=== PATIENT | male | born 1940 | race Caucasian/White ===

== ENCOUNTER 2016-09-25 20:27 | Emergency (ER) | payer MEDICARE ==
[~2016-09-25 20:27] MED LIST: /ADVA50050 IN; /GLIP10TAB OR; /LINE60TA PO; /MOXI40TA OR; /PANT40TA OR; /TIOT18INH INH; ADV500INH INH; ALBU17IN INH; ALBU83IN INH; ALLO100T OR; ALLO10TA PO; ASPI81TA3 OR; ATOR1TAB21 PO; AZEL0.1S3; CALC0.5C OR; CALC12502 PO; CALC1CAP31 PO; CALCCHW12 OR; CAPT12.5 OR; COLA50CA3 PO; DEMA100T OR; DRIS50002 PO; ECOT81TA5 PO; FERR325T OR; FLAG500T OR; FLUO10CA9 PO; FLUO20CA9 PO; GLIP10TA13 PO; GLIP10TA6 PO; INSUDET SC; ISOS30TA4 OR; ISOS30TA4 PO; KLOR20TA PO; NITR0.4S14 SL; NITR4TASL SL; NITROSTAT; OMEP40CA2 PO; POTA10CA2 OR; PROZ20CA11 PO; SIMV40TA2 OR; SPIR1CAP INH; SPIR25TA2 PO; THEO OR; THEO200T4 PO; TIOT18INH INH; TORS100T PO; TUMS500C PO; VENTAER IN; VITA50003 PO; VITA500C24 PO; VITA500T OR; ZOCO40TA PO; [UNRECOGNIZED DRUG - CODE] PO; [UNRECOGNIZED DRUG - OTHER] OR; levemir SQ; pradaxa
[2016-09-25] MEDS ORDERED: dexameTHASONE 4 MG/ML 1ML VIAL (J1100) As Ordered ONE (21:14)
[2016-09-25] MEDS ORDERED: LEVALBUTEROL 1.25 MG/0.5 ML CONCENTRATE NEB As Ordered ONE ×2 (21:22→22:01)
[2016-09-25] MEDS ORDERED: IPRATROPIUM 0.5MG/ALBUTEROL 2.5MG INH SOL UD 3ML (DUONEB)(J7620) As Ordered ONE (23:33)
[2016-09-26] MEDS ORDERED: IPRATROPIUM 0.5MG/ALBUTEROL 2.5MG INH SOL UD 3ML (DUONEB)(J7620) As Ordered ONE ×2 (00:05→00:25)
--- NOTE | 2016-09-26 00:59 | EDDOCDS ---
Physician Documentation [facility] Name: Jack Tao Age: 75 yrs Sex: Male : 1940 Arrival Date: 09/25/2016 Time: 20:27 Bed 9 Private MD: Renato Mckeon P. Disposition: 09/25/16 23:33 Discharged to Home/Self Care. Impression: Chronic obstructive pulmonary disease with (acute) exacerbation. - Condition is Stable. - Prescriptions for Prednisone 20 mg Oral Tablet - take 3 tablets by ORAL route once daily for 4 days; 12 tablet. - Medication Reconciliation, Local Pharmacy Hours form. - Follow up: Renato Mckeon; When: Call to arrange an appointment; Reason: Recheck today's complaints. - Problem is chronic. - Symptoms have improved. Historical: - Allergies: Coumadin (panic attack); - Home Meds: 1. Advair Diskus 500-50 mcg/dose Inhl dsdv 1 puff 2 times per day 2. albuterol sulfate 2.5 mg/0.5 mL Inhl nebu 0.5 mL 3 times per day 3. simvastatin 40 mg Oral tab 1 tab once daily 4. torsemide 100 mg oral tab 1 tab once daily 5. theophylline 200 mg Oral Tb12 daily 6. allopurinol 100 mg Oral tab 2 tabs once daily 7. isosorbide mononitrate 30 mg Oral Tb24 1 tab twice a day 8. omeprazole 40 mg Oral cpDR 1 cap once daily 9. calcitriol 0.5 mcg oral cap 2 caps once daily 10. glipizide 10 mg Oral tab 2 tabs once daily 11. fluoxetine 20 mg Oral cap 1 cap once daily 12. ferrous sulfate 325 mg (65 mg iron) Oral tab daily 13. aspirin 81 mg oral TbEC 1 tab once daily 14. Spiriva with HandiHaler 18 mcg Inhl CpDv 1 cap once daily 15. Levemir 100 unit/mL subcutaneous soln 12 unit 16. Vitamin D Oral 50,000 unit weekly - PMHx: CAD; Chronic kidney disease; Diabetes - IDDM: controlled; High Cholesterol; Hypertension; - PSHx: Cholecystectomy; Stents, Coronary; Pacemaker Insertion; Appendectomy; - Social history: Smoking status: Patient states former smoker of tobacco. No barriers to communication noted, The patient speaks fluent Burundian. - Family history: No immediate family members are acutely ill. - : The pt / caregiver states he / she is not on anticoagulants. Home medication list is obtained from the patient. - Exposure Risk Screening:: None identified. Vital Signs: 09/25 20:29 BP 139 / 52; Pulse 102; Resp 24 S; Temp 99.0(O); Pulse Ox 93% on R/A; Weight 61.23 kg / dd6 134.99 lbs (R); Height 5 ft. 9 in. (175.26 cm) (R); 09/26 00:56 BP 140 / 63; Pulse 98; Resp 20; Temp 98.5(TE); Pulse Ox 90% on R/A; Pain 0/10; nn1 09/25 20:29 Body Mass Index 19.94 (61.23 kg, 175.26 cm) dd6 MDM: 09/25 20:42 Chest, 2 View (pa\E\lat) Ordered. EDMS 21:12 IV Saline Lock ordered. cs11 21:12 Dexamethasone 12 mg IV at bolus once ordered. cs11 21:12 Levalbuterol 1.25 mg Nebulizer every 15 minutes x3 ordered. cs11 21:12 Call Respiratory ordered. cs11 21:14 Call Respiratory complete. cmb 22:44 Albuterol-Ipratropium 1 neb Nebulizer every 20 minutes x3 ordered. cs11 23:43 Financial registration complete. [facility] 09/26 00:08 [facility] Payment Agreement was scanned into [employer] and attached to record. [facility] Administered Medications: 09/25 21:25 Drug: Dexamethasone 12 mg [dexamethasone 4 mg/mL injection solution] Route: IV; Rate: nn1 bolus; Site: left antecubital; 21:25 Drug: Levalbuterol 1.25 mg [levalbuterol 1.25 mg/0.5 mL solution for nebulization (0.5 jh6 mL)] Route: Nebulizer; 21:40 Drug: Levalbuterol 1.25 mg [levalbuterol 1.25 mg/0.5 mL solution for nebulization (0.5 jh6 mL)] Route: Nebulizer; 22:03 Drug: Levalbuterol 1.25 mg [levalbuterol 1.25 mg/0.5 mL solution for nebulization (0.5 jh6 mL)] Route: Nebulizer; 22:35 Drug: Albuterol-Ipratropium 1 neb [ipratropium-albuterol 0.5 mg-3 mg(2.5 mg base)/3 mL jh6 nebulization soln (1 neb)] Route: Nebulizer; 23:55 Drug: Albuterol-Ipratropium 1 neb [ipratropium-albuterol 0.5 mg-3 mg(2.5 mg base)/3 mL jh6 nebulization soln (1 neb)] Route: Nebulizer; 09/26 00:26 Drug: Albuterol-Ipratropium 1 neb [ipratropium-albuterol 0.5 mg-3 mg(2.5 mg base)/3 mL jh6 nebulization soln (1 neb)] Route: Nebulizer; Signatures: Dispatcher [employer] Ramonita Ashraf RN RN rs3 Eduarda Knutson Craig, DO DO 11 Juanita Keating [facility] Emely Og RN RN nn1 Leroy Sims 6 The chart was reviewed and I authenticate all verbal orders and agree with the evaluation and treatment provided.Attachments: 00:08 [facility] Payment Agreement [facility] MTDD
--- NOTE | 2016-09-26 00:59 | EDDOCDS ---
Nurse's Notes [facility] Name: Jack Tao Age: 75 yrs Sex: Male : 1940 Arrival Date: 09/25/2016 Time: 20:27 Bed 9 Private MD: Renato Mckeon P. Diagnosis: Chronic obstructive pulmonary disease with (acute) exacerbation Presentation: 09/25 20:31 Presenting complaint: Patient states: cough/difficulty breathing started 2 days ago. rs3 worse today. H/o COPD. Adult Sepsis Screening: The patient does not have new or worsening altered mentation. Patient has a respiratory rate of greater than or equal to 22 (1 point). Systolic blood pressure is greater than 100. Patient has a qSOFA score of 1- Negative Sepsis Screen. Suicide/Homicide risk assessment- the patient denies having any suicidal and/or homicidal ideations and does not present with any other emotional, behavioral or mental health complaints. Status: Patient is not a service specialist or dependent. Transition of care: patient was not received from another setting of care. 20:31 Acuity: ADAM Level 2 rs3 20:31 Method Of Arrival: Walkin/Carried/Asstd rs3 Triage Assessment: 20:39 General: Appears in no apparent distress. Pain: Denies pain. Respiratory: Onset: The rs3 symptoms/episode began/occurred gradually. Historical: - Allergies: Coumadin (panic attack); - Home Meds: 1. Advair Diskus 500-50 mcg/dose Inhl dsdv 1 puff 2 times per day 2. albuterol sulfate 2.5 mg/0.5 mL Inhl nebu 0.5 mL 3 times per day 3. simvastatin 40 mg Oral tab 1 tab once daily 4. torsemide 100 mg oral tab 1 tab once daily 5. theophylline 200 mg Oral Tb12 daily 6. allopurinol 100 mg Oral tab 2 tabs once daily 7. isosorbide mononitrate 30 mg Oral Tb24 1 tab twice a day 8. omeprazole 40 mg Oral cpDR 1 cap once daily 9. calcitriol 0.5 mcg oral cap 2 caps once daily 10. glipizide 10 mg Oral tab 2 tabs once daily 11. fluoxetine 20 mg Oral cap 1 cap once daily 12. ferrous sulfate 325 mg (65 mg iron) Oral tab daily 13. aspirin 81 mg oral TbEC 1 tab once daily 14. Spiriva with HandiHaler 18 mcg Inhl CpDv 1 cap once daily 15. Levemir 100 unit/mL subcutaneous soln 12 unit 16. Vitamin D Oral 50,000 unit weekly - PMHx: CAD; Chronic kidney disease; Diabetes - IDDM: controlled; High Cholesterol; Hypertension; - PSHx: Cholecystectomy; Stents, Coronary; Pacemaker Insertion; Appendectomy; - Social history: Smoking status: Patient states former smoker of tobacco. No barriers to communication noted, The patient speaks fluent Faroese. - Family history: No immediate family members are acutely ill. - : The pt / caregiver states he / she is not on anticoagulants. Home medication list is obtained from the patient. - Exposure Risk Screening:: None identified. Screenin/10 00:57 Screening information is obtained from the patient. Fall risk: No risks identified. nn1 Assistance ADL's: requires no assistance with activities of daily living. Abuse/DV Screen: The patient / caregiver reports he/she is: not in a situation that causes fear, pain or injury. Nutritional screening: No deficits noted. Advance Directives: Currently, there is no health care proxy. There is no active DNR order. home support is adequate. Assessment: 09/25 20:52 General: Appears in no apparent distress, comfortable. Pain: Denies pain. Neurological: nn1 Level of Consciousness is awake, alert, obeys commands, Oriented to person, place, time. Cardiovascular: Capillary refill < 3 seconds. Cardiovascular: Chest pain is denied. Respiratory: Airway is patent Respiratory effort is even, unlabored, Respiratory pattern is regular, Sputum is reports sputum is frothy and white Breath sounds with wheezes inspiratory expiratory bilaterally. Derm: Skin is pink, warm & dry. 21:24 General: Patient receiving breathing treatment at this time. Patient 91% on room air. nn1 Patient medicated per orders. . 22:29 Reassessment: Patient states feeling better. Patient states symptoms have improved. nn1 22:41 General: Provider speaking with patient at this time, patient aware of plan of care. . nn1 Respiratory: Airway is patent Respiratory effort is even, unlabored, Respiratory pattern is regular, Breath sounds with wheezes bilaterally. 23:37 General: Appears in no apparent distress, comfortable. Respiratory: Airway is patent nn1 Respiratory effort is even, unlabored, Respiratory pattern is regular. Derm: Skin is pink, warm & dry. 09/26 00:55 General: Appears in no apparent distress, comfortable, Behavior is appropriate for age, nn1 cooperative. Pain: Denies pain. Neurological: Level of Consciousness is awake, alert. Respiratory: Airway is patent Respiratory effort is even, unlabored, Respiratory pattern is regular, Breath sounds with wheezes expiratory bilaterally. Derm: Skin is normal. Vital Signs: 09/25 20:29 BP 139 / 52; Pulse 102; Resp 24 S; Temp 99.0(O); Pulse Ox 93% on R/A; Weight 61.23 kg dd6 (R); Height 5 ft. 9 in. (175.26 cm) (R); 09/26 00:56 BP 140 / 63; Pulse 98; Resp 20; Temp 98.5(TE); Pulse Ox 90% on R/A; Pain 0/10; nn1 09/25 20:29 Body Mass Index 19.94 (61.23 kg, 175.26 cm) dd6 Vitals: 09/25 20:29 Log In Time: September 25, 2016 at 20:27. RN notified that patient meets Red Flag dd6 criteria. ED Course: 20:28 Patient visited by Heladio Grier PCA. dd6 20:28 Patient moved to Waiting dd6 20:29 Renato Mckeon is Private Physician. dd6 20:30 Patient moved to Pre RCE dd6 20:33 Triage Initiated rs3 20:40 Lamberto Kamara DO is Attending Physician. cs11 20:40 Patient visited by Lamberto Kamara DO. cs11 20:40 Patient moved to 9 rs3 21:25 Patient visited by Emely Og RN. nn1 21:25 Inserted saline lock: 20 gauge in left antecubital area. nn1 22:29 Patient visited by Emely Og RN. nn1 23:07 Patient visited by Emely Og RN. nn1 23:33 Renato Mckeon is Referral Physician. cs11 09/26 00:08 [facility] Payment Agreement was scanned into [employer] and attached to record. [facility] 00:57 The patient / caregiver is instructed regarding the plan of care and ED course. nn1 00:57 No procedures done that require assistance. nn1 Administered Medications: 09/25 21:25 Drug: Dexamethasone 12 mg [dexamethasone 4 mg/mL injection solution] Route: IV; Rate: nn1 bolus; Site: left antecubital; 21:25 Drug: Levalbuterol 1.25 mg [levalbuterol 1.25 mg/0.5 mL solution for nebulization (0.5 jh6 mL)] Route: Nebulizer; 21:40 Drug: Levalbuterol 1.25 mg [levalbuterol 1.25 mg/0.5 mL solution for nebulization (0.5 jh6 mL)] Route: Nebulizer; 22:03 Drug: Levalbuterol 1.25 mg [levalbuterol 1.25 mg/0.5 mL solution for nebulization (0.5 jh6 mL)] Route: Nebulizer; 22:35 Drug: Albuterol-Ipratropium 1 neb [ipratropium-albuterol 0.5 mg-3 mg(2.5 mg base)/3 mL jh6 nebulization soln (1 neb)] Route: Nebulizer; 23:55 Drug: Albuterol-Ipratropium 1 neb [ipratropium-albuterol 0.5 mg-3 mg(2.5 mg base)/3 mL jh6 nebulization soln (1 neb)] Route: Nebulizer; 09/26 00:26 Drug: Albuterol-Ipratropium 1 neb [ipratropium-albuterol 0.5 mg-3 mg(2.5 mg base)/3 mL jh6 nebulization soln (1 neb)] Route: Nebulizer; Output: 00:57 Urine: 250.00ml (Voided); Total: 250.00ml. nn1 RT: 09/25 21:25 Initial Med Neb Given as ordered Patient was instructed and evaluated on procedure jh6 Patient tolerated procedure well without adverse effect. Respiratory: Airway is patent Respiratory effort is even, unlabored, Respiratory pattern is regular symmetrical, Breath sounds are diminished in left posterior upper lobe, right posterior upper lobe, left posterior lower lobe, right posterior middle lobe and right posterior lower lobe. 21:33 Respiratory: Airway is patent Respiratory effort is even, unlabored, Respiratory jh6 pattern is regular symmetrical, Breath sounds are clear in right posterior middle lobe Breath sounds are diminished in left posterior upper lobe, right posterior upper lobe, left posterior lower lobe, right posterior middle lobe and right posterior lower lobe Breath sounds with wheezes in left posterior lower lobe at expiration. 21:51 Subsequent Med Neb Given as ordered Patient was reinforced on procedure Patient jh6 tolerated procedure well without adverse effect. Respiratory: Airway is patent Respiratory effort is even, unlabored, Respiratory pattern is regular symmetrical, Breath sounds are clear in left posterior upper lobe, right posterior upper lobe and right posterior middle lobe Breath sounds are diminished in left posterior lower lobe and right posterior lower lobe. 22:05 Subsequent Med Neb Given as ordered Patient was reinforced on procedure Patient jh6 tolerated procedure well without adverse effect. Subsequent Med Neb Given as ordered Patient was reinforced on procedure Patient tolerated procedure well without adverse effect. Respiratory: Airway is patent Respiratory effort is even, unlabored, Respiratory pattern is regular symmetrical, Breath sounds with crackles in left posterior lower lobe and right posterior lower lobe Breath sounds are diminished in left posterior upper lobe, right posterior upper lobe, left posterior lower lobe, right posterior middle lobe and right posterior lower lobe. 23:39 Subsequent Med Neb Given as ordered Patient was reinforced on procedure Patient jh6 tolerated procedure well without adverse effect. Respiratory: Breath sounds are diminished in left posterior upper lobe, right posterior upper lobe, left posterior lower lobe, right posterior middle lobe and right posterior lower lobe. 23:55 Subsequent Med Neb Given as ordered Patient tolerated procedure well without adverse jh6 effect. Respiratory: Airway is patent Respiratory effort is even, unlabored, Respiratory pattern is regular symmetrical, Breath sounds with crackles in left posterior lower lobe, right posterior middle lobe and right posterior lower lobe Breath sounds are diminished in left posterior upper lobe, right posterior upper lobe, left posterior lower lobe, right posterior middle lobe and right posterior lower lobe. 09/26 00:26 Subsequent Med Neb Given as ordered Patient was reinforced on procedure Patient jh6 tolerated procedure well without adverse effect. Respiratory: Airway is patent Respiratory effort is even, unlabored, Respiratory pattern is regular symmetrical, Breath sounds are clear in left posterior upper lobe and right posterior upper lobe Breath sounds with crackles in left posterior lower lobe and right posterior middle lobe Breath sounds are diminished in right posterior lower lobe. 00:38 Respiratory: Airway is patent Respiratory effort is even, unlabored, Respiratory jh6 pattern is regular symmetrical, Breath sounds with crackles in left posterior lower lobe, right posterior middle lobe and right posterior lower lobe Breath sounds are diminished in left posterior lower lobe, right posterior middle lobe and right posterior lower lobe. Order Results: There are currently no results for this order. Outcome: 09/25 23:33 Discharge ordered by Provider. cs11 09/26 00:57 Discharge Assessment: Patient awake, alert and oriented x 3. No cognitive and/or nn1 functional deficits noted. Patient verbalized understanding of disposition instructions. patient administered narcotics - no. The following High Risk Discharge criteria are identified: None. Discharged to home ambulatory, with family. Condition: stable Condition: improved. Prescriptions given X 1. No special radiology studies were completed. Property :Personal belongings accompany Pt. 00:58 Patient left the ED. nn1 Signatures: Heladio Grier, CHIEF PETROLEUM ENGINEER CHIEF PETROLEUM ENGINEER dd6 Ramonita Hartman,RN RN rs3 Leroy Sims 6 Lamberto Kamara DO DO cs11 Juanita Keating Nikkole,RN RN nn1 MTDShelbi
--- NOTE | 2016-09-26 07:52 | REP ---
Clinical: Shortness of breath. Technique: PA and lateral. Comparison: 07/07/2016. Findings: Mediastinum and cardiac silhouette are stable. Pacemaker unchanged in position. Lung wallace demonstrate COPD and emphysematous changes without acute consolidation, effusion, or pneumothorax. Skeletal structures grossly intact. Impression: Chronic stable changes including COPD and emphysematous disease. No obvious acute cardiopulmonary process. Signed by Edward Weeks MD 09/26/2016 07:44 A
--- NOTE | 2016-09-28 01:59 | EDDOCDS ---
Physician Documentation [facility] Name: Jack Tao Age: 75 yrs Sex: Male : 1940 Arrival Date: 09/25/2016 Time: 20:27 Bed 9 Private MD: Renato Mckeon P. Disposition: 09/25/16 23:33 Discharged to Home/Self Care. Impression: Chronic obstructive pulmonary disease with (acute) exacerbation. - Condition is Stable. - Prescriptions for Prednisone 20 mg Oral Tablet - take 3 tablets by ORAL route once daily for 4 days; 12 tablet. - Medication Reconciliation, Local Pharmacy Hours form. - Follow up: Renato Mckeon; When: Call to arrange an appointment; Reason: Recheck today's complaints. - Problem is chronic. - Symptoms have improved. Historical: - Allergies: Coumadin (panic attack); - Home Meds: 1. Advair Diskus 500-50 mcg/dose Inhl dsdv 1 puff 2 times per day 2. albuterol sulfate 2.5 mg/0.5 mL Inhl nebu 0.5 mL 3 times per day 3. simvastatin 40 mg Oral tab 1 tab once daily 4. torsemide 100 mg oral tab 1 tab once daily 5. theophylline 200 mg Oral Tb12 daily 6. allopurinol 100 mg Oral tab 2 tabs once daily 7. isosorbide mononitrate 30 mg Oral Tb24 1 tab twice a day 8. omeprazole 40 mg Oral cpDR 1 cap once daily 9. calcitriol 0.5 mcg oral cap 2 caps once daily 10. glipizide 10 mg Oral tab 2 tabs once daily 11. fluoxetine 20 mg Oral cap 1 cap once daily 12. ferrous sulfate 325 mg (65 mg iron) Oral tab daily 13. aspirin 81 mg oral TbEC 1 tab once daily 14. Spiriva with HandiHaler 18 mcg Inhl CpDv 1 cap once daily 15. Levemir 100 unit/mL subcutaneous soln 12 unit 16. Vitamin D Oral 50,000 unit weekly - PMHx: CAD; Chronic kidney disease; Diabetes - IDDM: controlled; High Cholesterol; Hypertension; - PSHx: Cholecystectomy; Stents, Coronary; Pacemaker Insertion; Appendectomy; - Social history: Smoking status: Patient states former smoker of tobacco. No barriers to communication noted, The patient speaks fluent Kiswahili. - Family history: No immediate family members are acutely ill. - : The pt / caregiver states he / she is not on anticoagulants. Home medication list is obtained from the patient. - Exposure Risk Screening:: None identified. Vital Signs: 09/25 20:29 BP 139 / 52; Pulse 102; Resp 24 S; Temp 99.0(O); Pulse Ox 93% on R/A; Weight 61.23 kg / dd6 134.99 lbs (R); Height 5 ft. 9 in. (175.26 cm) (R); 09/26 00:56 BP 140 / 63; Pulse 98; Resp 20; Temp 98.5(TE); Pulse Ox 90% on R/A; Pain 0/10; nn1 09/25 20:29 Body Mass Index 19.94 (61.23 kg, 175.26 cm) dd6 MDM: 09/25 20:42 Chest, 2 View (pa\E\lat) Ordered. EDMS 21:12 IV Saline Lock ordered. cs11 21:12 Dexamethasone 12 mg IV at bolus once ordered. cs11 21:12 Levalbuterol 1.25 mg Nebulizer every 15 minutes x3 ordered. cs11 21:12 Call Respiratory ordered. cs11 21:14 Call Respiratory complete. cmb 22:44 Albuterol-Ipratropium 1 neb Nebulizer every 20 minutes x3 ordered. 11 23:43 Financial registration complete. [facility] 09/26 00:08 [facility] Payment Agreement was scanned into [employer] and attached to record. [facility] 03:35 T-Sheet-- Draft Copy was scanned into Delivered and attached to record. hs2 Administered Medications: 09/25 21:25 Drug: Dexamethasone 12 mg [dexamethasone 4 mg/mL injection solution] Route: IV; Rate: nn1 bolus; Site: left antecubital; 21:25 Drug: Levalbuterol 1.25 mg [levalbuterol 1.25 mg/0.5 mL solution for nebulization (0.5 jh6 mL)] Route: Nebulizer; 21:40 Drug: Levalbuterol 1.25 mg [levalbuterol 1.25 mg/0.5 mL solution for nebulization (0.5 jh6 mL)] Route: Nebulizer; 22:03 Drug: Levalbuterol 1.25 mg [levalbuterol 1.25 mg/0.5 mL solution for nebulization (0.5 jh6 mL)] Route: Nebulizer; 22:35 Drug: Albuterol-Ipratropium 1 neb [ipratropium-albuterol 0.5 mg-3 mg(2.5 mg base)/3 mL jh6 nebulization soln (1 neb)] Route: Nebulizer; 23:55 Drug: Albuterol-Ipratropium 1 neb [ipratropium-albuterol 0.5 mg-3 mg(2.5 mg base)/3 mL jh6 nebulization soln (1 neb)] Route: Nebulizer; 09/26 00:26 Drug: Albuterol-Ipratropium 1 neb [ipratropium-albuterol 0.5 mg-3 mg(2.5 mg base)/3 mL jh6 nebulization soln (1 neb)] Route: Nebulizer; Signatures: Dispatcher [employer] Ramonita Ashraf RN RN rs3 Eduarda Knutson Craig, DO DO cs11 Juanita Keating [facility] Emely Og RN RN nn1 Tiffanie Martel, Reg Reg hs2 Leroy Sims 6 The chart was reviewed and I authenticate all verbal orders and agree with the evaluation and treatment provided.Attachments: 00:08 [facility] Payment Agreement [facility] 03:35 T-Sheet-- Draft Copy hs2 Chart Complete MTDD
--- NOTE | 2016-09-28 01:59 | EDDOCDS ---
Nurse's Notes [facility] Name: Jack Tao Age: 75 yrs Sex: Male : 1940 Arrival Date: 09/25/2016 Time: 20:27 Bed 9 Private MD: Renato Mckeon P. Diagnosis: Chronic obstructive pulmonary disease with (acute) exacerbation Presentation: 09/25 20:31 Presenting complaint: Patient states: cough/difficulty breathing started 2 days ago. rs3 worse today. H/o COPD. Adult Sepsis Screening: The patient does not have new or worsening altered mentation. Patient has a respiratory rate of greater than or equal to 22 (1 point). Systolic blood pressure is greater than 100. Patient has a qSOFA score of 1- Negative Sepsis Screen. Suicide/Homicide risk assessment- the patient denies having any suicidal and/or homicidal ideations and does not present with any other emotional, behavioral or mental health complaints. Status: Patient is not a student services rep or dependent. Transition of care: patient was not received from another setting of care. 20:31 Acuity: ADAM Level 2 rs3 20:31 Method Of Arrival: Walkin/Carried/Asstd rs3 Triage Assessment: 20:39 General: Appears in no apparent distress. Pain: Denies pain. Respiratory: Onset: The rs3 symptoms/episode began/occurred gradually. Historical: - Allergies: Coumadin (panic attack); - Home Meds: 1. Advair Diskus 500-50 mcg/dose Inhl dsdv 1 puff 2 times per day 2. albuterol sulfate 2.5 mg/0.5 mL Inhl nebu 0.5 mL 3 times per day 3. simvastatin 40 mg Oral tab 1 tab once daily 4. torsemide 100 mg oral tab 1 tab once daily 5. theophylline 200 mg Oral Tb12 daily 6. allopurinol 100 mg Oral tab 2 tabs once daily 7. isosorbide mononitrate 30 mg Oral Tb24 1 tab twice a day 8. omeprazole 40 mg Oral cpDR 1 cap once daily 9. calcitriol 0.5 mcg oral cap 2 caps once daily 10. glipizide 10 mg Oral tab 2 tabs once daily 11. fluoxetine 20 mg Oral cap 1 cap once daily 12. ferrous sulfate 325 mg (65 mg iron) Oral tab daily 13. aspirin 81 mg oral TbEC 1 tab once daily 14. Spiriva with HandiHaler 18 mcg Inhl CpDv 1 cap once daily 15. Levemir 100 unit/mL subcutaneous soln 12 unit 16. Vitamin D Oral 50,000 unit weekly - PMHx: CAD; Chronic kidney disease; Diabetes - IDDM: controlled; High Cholesterol; Hypertension; - PSHx: Cholecystectomy; Stents, Coronary; Pacemaker Insertion; Appendectomy; - Social history: Smoking status: Patient states former smoker of tobacco. No barriers to communication noted, The patient speaks fluent Croatian. - Family history: No immediate family members are acutely ill. - : The pt / caregiver states he / she is not on anticoagulants. Home medication list is obtained from the patient. - Exposure Risk Screening:: None identified. Screenin/10 00:57 Screening information is obtained from the patient. Fall risk: No risks identified. nn1 Assistance ADL's: requires no assistance with activities of daily living. Abuse/DV Screen: The patient / caregiver reports he/she is: not in a situation that causes fear, pain or injury. Nutritional screening: No deficits noted. Advance Directives: Currently, there is no health care proxy. There is no active DNR order. home support is adequate. Assessment: 09/25 20:52 General: Appears in no apparent distress, comfortable. Pain: Denies pain. Neurological: nn1 Level of Consciousness is awake, alert, obeys commands, Oriented to person, place, time. Cardiovascular: Capillary refill < 3 seconds. Cardiovascular: Chest pain is denied. Respiratory: Airway is patent Respiratory effort is even, unlabored, Respiratory pattern is regular, Sputum is reports sputum is frothy and white Breath sounds with wheezes inspiratory expiratory bilaterally. Derm: Skin is pink, warm & dry. 21:24 General: Patient receiving breathing treatment at this time. Patient 91% on room air. nn1 Patient medicated per orders. . 22:29 Reassessment: Patient states feeling better. Patient states symptoms have improved. nn1 22:41 General: Provider speaking with patient at this time, patient aware of plan of care. . nn1 Respiratory: Airway is patent Respiratory effort is even, unlabored, Respiratory pattern is regular, Breath sounds with wheezes bilaterally. 23:37 General: Appears in no apparent distress, comfortable. Respiratory: Airway is patent nn1 Respiratory effort is even, unlabored, Respiratory pattern is regular. Derm: Skin is pink, warm & dry. 09/26 00:55 General: Appears in no apparent distress, comfortable, Behavior is appropriate for age, nn1 cooperative. Pain: Denies pain. Neurological: Level of Consciousness is awake, alert. Respiratory: Airway is patent Respiratory effort is even, unlabored, Respiratory pattern is regular, Breath sounds with wheezes expiratory bilaterally. Derm: Skin is normal. Vital Signs: 09/25 20:29 BP 139 / 52; Pulse 102; Resp 24 S; Temp 99.0(O); Pulse Ox 93% on R/A; Weight 61.23 kg dd6 (R); Height 5 ft. 9 in. (175.26 cm) (R); 09/26 00:56 BP 140 / 63; Pulse 98; Resp 20; Temp 98.5(TE); Pulse Ox 90% on R/A; Pain 0/10; nn1 09/25 20:29 Body Mass Index 19.94 (61.23 kg, 175.26 cm) dd6 Vitals: 09/25 20:29 Log In Time: September 25, 2016 at 20:27. RN notified that patient meets Red Flag dd6 criteria. ED Course: 20:28 Patient visited by Heladio Grier PCA. dd6 20:28 Patient moved to Waiting dd6 20:29 Renato Mckeon is Private Physician. dd6 20:30 Patient moved to Pre RCE dd6 20:33 Triage Initiated rs3 20:40 Lamberto Kamara DO is Attending Physician. cs11 20:40 Patient visited by Lamberto Kamara DO. cs11 20:40 Patient moved to 9 rs3 21:25 Patient visited by Emely Og RN. nn1 21:25 Inserted saline lock: 20 gauge in left antecubital area. nn1 22:29 Patient visited by Emely Og RN. nn1 23:07 Patient visited by Emely Og RN. nn1 23:33 Renato Mckeon is Referral Physician. cs11 09/26 00:08 [facility] Payment Agreement was scanned into [employer] and attached to record. [facility] 00:57 The patient / caregiver is instructed regarding the plan of care and ED course. nn1 00:57 No procedures done that require assistance. nn1 03:35 T-Sheet-- Draft Copy was scanned into [employer] and attached to record. hs2 08:07 Chest, 2 View (pa\E\lat) Returned. EDMS Administered Medications: 09/25 21:25 Drug: Dexamethasone 12 mg [dexamethasone 4 mg/mL injection solution] Route: IV; Rate: nn1 bolus; Site: left antecubital; 21:25 Drug: Levalbuterol 1.25 mg [levalbuterol 1.25 mg/0.5 mL solution for nebulization (0.5 jh6 mL)] Route: Nebulizer; 21:40 Drug: Levalbuterol 1.25 mg [levalbuterol 1.25 mg/0.5 mL solution for nebulization (0.5 jh6 mL)] Route: Nebulizer; 22:03 Drug: Levalbuterol 1.25 mg [levalbuterol 1.25 mg/0.5 mL solution for nebulization (0.5 jh6 mL)] Route: Nebulizer; 22:35 Drug: Albuterol-Ipratropium 1 neb [ipratropium-albuterol 0.5 mg-3 mg(2.5 mg base)/3 mL jh6 nebulization soln (1 neb)] Route: Nebulizer; 23:55 Drug: Albuterol-Ipratropium 1 neb [ipratropium-albuterol 0.5 mg-3 mg(2.5 mg base)/3 mL jh6 nebulization soln (1 neb)] Route: Nebulizer; 09/26 00:26 Drug: Albuterol-Ipratropium 1 neb [ipratropium-albuterol 0.5 mg-3 mg(2.5 mg base)/3 mL jh6 nebulization soln (1 neb)] Route: Nebulizer; Output: 00:57 Urine: 250.00ml (Voided); Total: 250.00ml. nn1 RT: 09/25 21:25 Initial Med Neb Given as ordered Patient was instructed and evaluated on procedure jh6 Patient tolerated procedure well without adverse effect. Respiratory: Airway is patent Respiratory effort is even, unlabored, Respiratory pattern is regular symmetrical, Breath sounds are diminished in left posterior upper lobe, right posterior upper lobe, left posterior lower lobe, right posterior middle lobe and right posterior lower lobe. 21:33 Respiratory: Airway is patent Respiratory effort is even, unlabored, Respiratory jh6 pattern is regular symmetrical, Breath sounds are clear in right posterior middle lobe Breath sounds are diminished in left posterior upper lobe, right posterior upper lobe, left posterior lower lobe, right posterior middle lobe and right posterior lower lobe Breath sounds with wheezes in left posterior lower lobe at expiration. 21:51 Subsequent Med Neb Given as ordered Patient was reinforced on procedure Patient jh6 tolerated procedure well without adverse effect. Respiratory: Airway is patent Respiratory effort is even, unlabored, Respiratory pattern is regular symmetrical, Breath sounds are clear in left posterior upper lobe, right posterior upper lobe and right posterior middle lobe Breath sounds are diminished in left posterior lower lobe and right posterior lower lobe. 22:05 Subsequent Med Neb Given as ordered Patient was reinforced on procedure Patient jh6 tolerated procedure well without adverse effect. Subsequent Med Neb Given as ordered Patient was reinforced on procedure Patient tolerated procedure well without adverse effect. Respiratory: Airway is patent Respiratory effort is even, unlabored, Respiratory pattern is regular symmetrical, Breath sounds with crackles in left posterior lower lobe and right posterior lower lobe Breath sounds are diminished in left posterior upper lobe, right posterior upper lobe, left posterior lower lobe, right posterior middle lobe and right posterior lower lobe. 23:39 Subsequent Med Neb Given as ordered Patient was reinforced on procedure Patient jh6 tolerated procedure well without adverse effect. Respiratory: Breath sounds are diminished in left posterior upper lobe, right posterior upper lobe, left posterior lower lobe, right posterior middle lobe and right posterior lower lobe. 23:55 Subsequent Med Neb Given as ordered Patient tolerated procedure well without adverse jh6 effect. Respiratory: Airway is patent Respiratory effort is even, unlabored, Respiratory pattern is regular symmetrical, Breath sounds with crackles in left posterior lower lobe, right posterior middle lobe and right posterior lower lobe Breath sounds are diminished in left posterior upper lobe, right posterior upper lobe, left posterior lower lobe, right posterior middle lobe and right posterior lower lobe. 09/26 00:26 Subsequent Med Neb Given as ordered Patient was reinforced on procedure Patient jh6 tolerated procedure well without adverse effect. Respiratory: Airway is patent Respiratory effort is even, unlabored, Respiratory pattern is regular symmetrical, Breath sounds are clear in left posterior upper lobe and right posterior upper lobe Breath sounds with crackles in left posterior lower lobe and right posterior middle lobe Breath sounds are diminished in right posterior lower lobe. 00:38 Respiratory: Airway is patent Respiratory effort is even, unlabored, Respiratory jh6 pattern is regular symmetrical, Breath sounds with crackles in left posterior lower lobe, right posterior middle lobe and right posterior lower lobe Breath sounds are diminished in left posterior lower lobe, right posterior middle lobe and right posterior lower lobe. Order Results: Radiology Order: Chest, 2 View (pa\E\lat) Test: Chest, 2 View (pa\E\lat) REASON FOR EXAMINATION: Shortness of Breath; Clinical: Shortness of breath.; ; Technique: PA and lateral.; ; Comparison: 07/07/2016.; ; Findings:; Mediastinum and cardiac silhouette are stable. Pacemaker unchanged in position.; Lung wallace demonstrate COPD and emphysematous changes without acute; consolidation, effusion, or pneumothorax. Skeletal structures grossly intact.; ; Impression:; Chronic stable changes including COPD and emphysematous disease. No obvious; acute cardiopulmonary process.; ; ; Signed by; Edward Weeks MD 09/26/2016 07:44 A; Outcome: 09/25 23:33 Discharge ordered by Provider. cs11 09/26 00:57 Discharge Assessment: Patient awake, alert and oriented x 3. No cognitive and/or nn1 functional deficits noted. Patient verbalized understanding of disposition instructions. patient administered narcotics - no. The following High Risk Discharge criteria are identified: None. Discharged to home ambulatory, with family. Condition: stable Condition: improved. Prescriptions given X 1. No special radiology studies were completed. Property :Personal belongings accompany Pt. 00:58 Patient left the ED. nn1 Signatures: Dispatcher [employer] EDMS Heladio Grier, DEX CIVIL MANAGER dd6 Ramonita Hartman,RN RN rs3 Leroy Sims jh6 Lamberto Kamara DO DO 11 Juanita Keating Emely Powers RN RN nn1 Tiffanie Martel, Reg Reg hs2 Chart Complete MTDD
--- NOTE | 2016-09-28 01:59 | EDDOCDS ---
Physician Documentation [facility] Name: Jack Tao Age: 75 yrs Sex: Male : 1940 Arrival Date: 09/25/2016 Time: 20:27 Bed 9 Private MD: Renato Mckeon P. Disposition: 09/25/16 23:33 Discharged to Home/Self Care. Impression: Chronic obstructive pulmonary disease with (acute) exacerbation. - Condition is Stable. - Prescriptions for Prednisone 20 mg Oral Tablet - take 3 tablets by ORAL route once daily for 4 days; 12 tablet. - Medication Reconciliation, Local Pharmacy Hours form. - Follow up: Renato Mckeon; When: Call to arrange an appointment; Reason: Recheck today's complaints. - Problem is chronic. - Symptoms have improved. Historical: - Allergies: Coumadin (panic attack); - Home Meds: 1. Advair Diskus 500-50 mcg/dose Inhl dsdv 1 puff 2 times per day 2. albuterol sulfate 2.5 mg/0.5 mL Inhl nebu 0.5 mL 3 times per day 3. simvastatin 40 mg Oral tab 1 tab once daily 4. torsemide 100 mg oral tab 1 tab once daily 5. theophylline 200 mg Oral Tb12 daily 6. allopurinol 100 mg Oral tab 2 tabs once daily 7. isosorbide mononitrate 30 mg Oral Tb24 1 tab twice a day 8. omeprazole 40 mg Oral cpDR 1 cap once daily 9. calcitriol 0.5 mcg oral cap 2 caps once daily 10. glipizide 10 mg Oral tab 2 tabs once daily 11. fluoxetine 20 mg Oral cap 1 cap once daily 12. ferrous sulfate 325 mg (65 mg iron) Oral tab daily 13. aspirin 81 mg oral TbEC 1 tab once daily 14. Spiriva with HandiHaler 18 mcg Inhl CpDv 1 cap once daily 15. Levemir 100 unit/mL subcutaneous soln 12 unit 16. Vitamin D Oral 50,000 unit weekly - PMHx: CAD; Chronic kidney disease; Diabetes - IDDM: controlled; High Cholesterol; Hypertension; - PSHx: Cholecystectomy; Stents, Coronary; Pacemaker Insertion; Appendectomy; - Social history: Smoking status: Patient states former smoker of tobacco. No barriers to communication noted, The patient speaks fluent Yoruba. - Family history: No immediate family members are acutely ill. - : The pt / caregiver states he / she is not on anticoagulants. Home medication list is obtained from the patient. - Exposure Risk Screening:: None identified. Vital Signs: 09/25 20:29 BP 139 / 52; Pulse 102; Resp 24 S; Temp 99.0(O); Pulse Ox 93% on R/A; Weight 61.23 kg / dd6 134.99 lbs (R); Height 5 ft. 9 in. (175.26 cm) (R); 09/26 00:56 BP 140 / 63; Pulse 98; Resp 20; Temp 98.5(TE); Pulse Ox 90% on R/A; Pain 0/10; nn1 09/25 20:29 Body Mass Index 19.94 (61.23 kg, 175.26 cm) dd6 MDM: 09/25 20:42 Chest, 2 View (pa\E\lat) Ordered. EDMS 21:12 IV Saline Lock ordered. cs11 21:12 Dexamethasone 12 mg IV at bolus once ordered. cs11 21:12 Levalbuterol 1.25 mg Nebulizer every 15 minutes x3 ordered. cs11 21:12 Call Respiratory ordered. cs11 21:14 Call Respiratory complete. cmb 22:44 Albuterol-Ipratropium 1 neb Nebulizer every 20 minutes x3 ordered. 11 23:43 Financial registration complete. [facility] 09/26 00:08 [facility] Payment Agreement was scanned into [email or web address] and attached to record. [facility] 03:35 T-Sheet-- Draft Copy was scanned into [email or web address] and attached to record. hs2 Administered Medications: 09/25 21:25 Drug: Dexamethasone 12 mg [dexamethasone 4 mg/mL injection solution] Route: IV; Rate: nn1 bolus; Site: left antecubital; 21:25 Drug: Levalbuterol 1.25 mg [levalbuterol 1.25 mg/0.5 mL solution for nebulization (0.5 jh6 mL)] Route: Nebulizer; 21:40 Drug: Levalbuterol 1.25 mg [levalbuterol 1.25 mg/0.5 mL solution for nebulization (0.5 jh6 mL)] Route: Nebulizer; 22:03 Drug: Levalbuterol 1.25 mg [levalbuterol 1.25 mg/0.5 mL solution for nebulization (0.5 jh6 mL)] Route: Nebulizer; 22:35 Drug: Albuterol-Ipratropium 1 neb [ipratropium-albuterol 0.5 mg-3 mg(2.5 mg base)/3 mL jh6 nebulization soln (1 neb)] Route: Nebulizer; 23:55 Drug: Albuterol-Ipratropium 1 neb [ipratropium-albuterol 0.5 mg-3 mg(2.5 mg base)/3 mL jh6 nebulization soln (1 neb)] Route: Nebulizer; 09/26 00:26 Drug: Albuterol-Ipratropium 1 neb [ipratropium-albuterol 0.5 mg-3 mg(2.5 mg base)/3 mL jh6 nebulization soln (1 neb)] Route: Nebulizer; Signatures: Dispatcher [employer] Ramonita Ashraf RN RN rs3 Eduarda Knutson Craig, DO DO cs11 Juanita Keating [facility] Emely Og RN RN nn1 Tiffanie Martel, Reg Reg hs2 Leroy Sims 6 The chart was reviewed and I authenticate all verbal orders and agree with the evaluation and treatment provided.Attachments: 00:08 [facility] Payment Agreement [facility] 03:35 T-Sheet-- Draft Copy hs2 Chart Complete MTDD
== END 2016-09-26 00:58 | disposition home or self-care (01) ==
LOC: M ED 20:27
DX: J44.1 Chronic obstructive pulmonary disease with (acute) exacerbation (principal); I25.10 Atherosclerotic heart disease of native coronary artery without angina pectoris; N18.9 Chronic kidney disease, unspecified; E11.29 Type 2 diabetes mellitus with other diabetic kidney complication; I12.9 Hypertensive chronic kidney disease with stage 1 through stage 4 chronic kidney disease, or unspecified chronic kidney disease; E78.00 Pure hypercholesterolemia, unspecified; Z95.0 Presence of cardiac pacemaker; Z90.49 Acquired absence of other specified parts of digestive tract; Z90.89 Acquired absence of other organs; Z87.891 Personal history of nicotine dependence; Z79.51 Long term (current) use of inhaled steroids; Z79.82 Long term (current) use of aspirin; Z79.899 Other long term (current) drug therapy; Z88.8 Allergy status to other drugs, medicaments and biological substances
CPT/HCPCS: 71020; 94640; 96374; 99284; J1100

== ENCOUNTER 2016-10-02 15:29 | Emergency (ER) | payer MEDICARE | END 2016-10-02 17:36 | disposition left against medical advice (07) | LOC: M ED 15:29 | DX: Z53.29 Procedure and treatment not carried out because of patient's decision for other reasons (principal) ==

== ENCOUNTER 2016-10-07 20:00 | Inpatient (IN) | payer MEDICARE ==
[~2016-10-07] VITALS: Ht 175.3 cm; Wt 59.0 kg
[2016-10-07 20:57] LABS: MEAN CORPUSCULAR HEMOGLOBIN 30.6 pg (27.0-33.0); MEAN CORPUSCULAR HGB CONC 30.5 g/dl (32.0-36.5); MEAN CORPUSCULAR VOLUME 100.6 fl (80.0-96.0); PLATELET COUNT, AUTOMATED 389 k/mm3 (150-450); RED CELL DISTRIBUTION WIDTH 14.3 % (11.5-14.5); WHITE BLOOD COUNT 20.4 K/mm3 (4.0-10.0)
[2016-10-07 21:08] LABS: AMPHETAMINES LEVEL URINE NEGATIVE (NEGATIVE); BENZODIAZEPINES URINE NEGATIVE (NEGATIVE); COCAINE METABOLITE URINE NEGATIVE (NEGATIVE); CONTROL LINE INT CTR LINE PRESENT; METHADONE URINE NEGATIVE (NEGATIVE); OPIATES URINE NEGATIVE (NEGATIVE); TRICYCLIC ANTIDEPRESS URINE NEGATIVE (NEGATIVE)
[2016-10-07 21:26] LABS: ALBUMIN 2.7 GM/DL (3.2-5.2); ALBUMIN/GLOBULIN RATIO 0.77 (1.00-1.93); ALKALINE PHOSPHATASE 197 U/L (45-117); ALT/SGPT 39 U/L (12-78); ANION GAP 7 MEQ/L (8-16); AST/SGOT 19 U/L (15-37); BILIRUBIN,DIRECT 0.2 MG/DL (0.0-0.2); BILIRUBIN,TOTAL 0.5 MG/DL (0.2-1.0); BLOOD UREA NITROGEN 27 MG/DL (7-18); CALCIUM LEVEL 8.2 MG/DL (8.8-10.2); CARBON DIOXIDE LEVEL 34 MEQ/L (21-32); CHLORIDE LEVEL 96 MEQ/L (98-107); CREATININE FOR GFR 1.43 MG/DL (0.70-1.30); GLOMERULAR FILTRATION RATE 51.3 (>42); GLUCOSE, FASTING 179 MG/DL (83-110); POTASSIUM SERUM 4.3 MEQ/L (3.5-5.1); SODIUM LEVEL 137 MEQ/L (136-145); TOTAL PROTEIN 6.2 GM/DL (6.4-8.2)
[2016-10-07 23:35] LABS: DIFF SLIDE NUMBER 204
[2016-10-07 23:58] LABS: BASOPHILS 1 % (0-4)
[2016-10-08] MEDS ORDERED: ACETAMINOPHEN TAB 650MG DOSE (2X325MG) PO PRN (00:30)
[2016-10-08] MEDS ORDERED: ALBUTEROL SULFATE 2.5 MG/0.5 ML INH NEB SOLN INH PRN (00:30)
[2016-10-08] MEDS ORDERED: ONDANSETRON 4MG/2ML VIAL (J2405) IV PRN (00:30)
[2016-10-08] MEDS ORDERED: GLIP10TA13 PO (00:48)
[2016-10-08] MEDS ORDERED: ALLO100T PO (00:48)
[2016-10-08] MEDS ORDERED: TORS100T PO (00:49)
--- NOTE | 2016-10-08 00:50 | REPUSA ---
CLINICAL HISTORY: Cough and leukocytosis. TECHNIQUE: Multiple axial CT images were obtained through chest without IV contrast material. MPR cor onal and sagittal sequences were obtained. COMMENTS: Bilateral peribronchial interstitial thickening suggestive of chronic bronchitis. Moderate centrilobu lar pulmonary emphysema. Bilateral groundglass densities in the right middle lobe, lingula and bilate ral lower lobes. There is no evidence of pleural or parenchymal mass. There are no pleural effusions. There is no evid ence of hilar or mediastinal lymphadenopathy. The heart and great vessels are within normal limits. The visualized portions of the liver are of uniform attenuation without mass or defect. There is no i ntra or extrahepatic biliary ductal dilatation. The spleen is unremarkable. The visualized pancreas i s of normal contour and attenuation characteristics. There is no evidence of adrenal mass. The visual ized portions of the kidneys present no abnormalities. The bony structures are free of lytic or blastic lesions. Multilevel degenerative changes are seen in volving the thoracic spine. Scattered calcifications are seen involving the aorta and visualized cadence r branches compatible with atherosclerosis. IMPRESSION: Bilateral multifocal bronchopneumonia. Findings are more prominent in the lower lobes. Chronic bronchitis and emphysema. Thank you for your kind referral of this patient.
--- NOTE | 2016-10-08 02:30 | EDDOCDS ---
Physician Documentation [facility] Name: Jack Tao Age: 75 yrs Sex: Male : 1940 Arrival Date: 10/07/2016 Time: 20:00 Bed [facility] Private MD: Disposition: 10/08/16 01:32 Hospitalization ordered by Jordan Marcos for Inpatient Admission. Preliminary diagnosis is Pneumonia in diseases classified elsewhere. - Bed requested for 5 Wilks. - Status is Inpatient Admission. oz - Condition is Stable. - Problem is an ongoing problem. - Symptoms have improved. Historical: - Allergies: Coumadin (panic attack); - Home Meds: 1. omeprazole 40 mg Oral cpDR 1 cap once daily 2. simvastatin 40 mg Oral tab 1 tab once daily 3. torsemide 100 mg oral tab 1 tab once daily 4. theophylline 200 mg Oral tab 1 tab every 12 hours 5. allopurinol 100 mg Oral tab 2 tabs once daily 6. isosorbide mononitrate 30 mg Oral Tb24 1 tab twice a day 7. Vitamin C 500 mg Oral tab 1,000 mg twice a day 8. calcitriol 0.5 mcg oral cap 2 caps once daily 9. glipizide 10 mg Oral tab 1 tab once daily in PM 10. Vitamin D2 50,000 unit oral cap 1 cap once wkly 11. fluoxetine 20 mg Oral cap 1 cap once daily 12. ferrous sulfate 65 mg Oral tab daily 13. aspirin 81 mg Oral TbEC 1 tab once daily 14. Spiriva with HandiHaler 18 mcg Inhl CpDv 1 cap once daily 15. Advair Diskus 500-50 mcg/dose Inhl dsdv 1 puff 2 times per day 16. Levemir 100 unit/mL subcutaneous soln 12 unit daily - PMHx: CAD; Chronic kidney disease; Diabetes - IDDM: controlled; Hypercholesterolemia; Hypertension; GERD; COPD; - PSHx: Cholecystectomy; Stents, Coronary; Pacemaker Insertion; Appendectomy; - Social history: Smoking status: Patient states former smoker of tobacco. No barriers to communication noted, The patient speaks fluent Icelandic. - Family history: Not pertinent, No immediate family members are acutely ill. - : The pt / caregiver states he / she is not on anticoagulants. Home medication list is obtained from the patient. - Exposure Risk Screening:: None identified. Vital Signs: 10/07 20:05 BP 168 / 82; Pulse 105; Resp 20; Temp 96.9(TE); Pulse Ox 95% on R/A; Weight 58.97 kg / rw1 130.01 lbs (R); Height 5 ft. 9 in. (175.26 cm) (R); Pain 0/10; 10/08 01:56 BP 171 / 77; Pulse 79; Resp 20; Temp 97.2(O); Pulse Ox 95% on R/A; Pain 0/10; [place] 10/07 20:05 Body Mass Index 19.20 (58.97 kg, 175.26 cm) rw1 10/07 20:05 c/o S.O.B. rw MDM: 20:28 Consult PFS/PSA/Repairer ordered. fg 20:28 Consult PFS/PSA/Repairer: Patient's case requires discussion with on-call fg Psychiatrist ordered. 20:28 PSA/PFS to call Nursing [employer], to enter patient data on [place] Safe Act if patient fg involuntarily admitted or transferred for SI or HI ordered. 20:28 Confirm accurate psychiatric medication list and times of last dosage ordered. fg 20:28 Detain Pt Until Medically/PFS Cleared ordered. fg 20:28 Acetaminophen Level Ordered. EDMS 20:28 Basic Metabolic Profile Ordered. EDMS 20:28 Drug Eval Toxicology ED Only Ordered. EDMS 20:28 Ethyl Alcohol (ethanol) Ordered. EDMS 20:28 Liver Profile Ordered. EDMS 20:28 Salicylate Level Ordered. EDMS 20:28 Thyroid Stimulating Hormone Ordered. EDMS 21:46 Chest, 1 View Ordered. EDMS 22:44 Consult PFS/PSA/Repairer complete. ms 22:44 Consult PFS/PSA/Repairer: Patient's case requires discussion with on-call ms Psychiatrist complete. 22:44 PSA/PFS to call Nursing [employer], to enter patient data on [place] Safe [place] if patient ms involuntarily admitted or transferred for SI or HI complete. 23:08 URINALYSIS Ordered. EDMS 23:26 CT Chest without contrast Ordered. EDMS 23:29 CBC WITH DIFFERENTIAL Ordered. EDMS 23:37 DIFFERENTIAL NO CHARGE Ordered. EDMS 10/08 00:06 Financial registration complete. [facility] 00:26 Admission / Observation Status ordered. EDMS 00:26 ELECTROCARDIOGRAM ADULT ordered. EDMS 00:26 CONSISTENT CARBOHYDRATES ordered. EDMS 00:27 COMPLETE BLOOD COUNT Ordered. EDMS 00:27 BASIC METABOLIC PROFILE Ordered. EDMS 00:27 SPUTUM CULTURE AND GRAM STAIN Ordered. EDMS 00:40 THEOPHYLLINE LEVEL Ordered. EDMS 01:12 [facility] Payment Agreement was scanned into [employer] and attached to record. [facility] 01:33 BED REQUEST+ADM ordered. EDMS Signatures: Dispatcher [employer] EDMS Marie Lares RN RN oz Stone, Edwina, PSA PSA ms Lamberto Kamara, DO DO cs11 Renae Bowles RN RN mlc Hook, Sandra Génesis Kaur MD MD Rome Kay RN RN sa The chart was reviewed and I authenticate all verbal orders and agree with the evaluation and treatment provided.Corrections: (The following items were deleted from the chart) 10/07 23:29 20:28 COMPLETE BLOOD COUNT+LAB ordered. EDMS EDMS 23:29 23:08 DIFFERENTIAL ordered. EDMS EDMS Attachments: 10/08 01:12 [facility] Payment Agreement [facility] MTDD
--- NOTE | 2016-10-08 02:30 | EDDOCDS ---
Nurse's Notes [facility] Name: Jack Tao Age: 75 yrs Sex: Male : 1940 Arrival Date: 10/07/2016 Time: 20:00 Bed [facility] Private MD: Diagnosis: Pneumonia in diseases classified elsewhere Presentation: 10/07 20:12 Presenting complaint: Patient states: pt was found in [facility] parking lot. pt states he mlc and his girlfriend have been fighting recently and this is where he goes "when I am in trouble". Pt admits to buying a notebook and a bottle of pills at the [facility]. pt was writing "my list" when PD found him. pt states that he had planned to commit suicide by taking the bottle of pills, pt denies taking any pills prior to arriving. pt states he has had suicide plans before but this is the closest he has ever gotten with following through. Mental Health Triage Level: Level 2: The patient displays active suicidal ideations. Adult Sepsis Screening: The patient does not have new or worsening altered mentation. Patient's respiratory rate is less than 22. Systolic blood pressure is greater than 100. Patient has a qSOFA score of 0- Negative Sepsis Screen. Suicide/Homicide risk assessment- The patient admits to and/or has been reported to be having suicidal ideations. The patient reports that he/she has a prior history of suicide attempt and/or organized plan. Status: Patient is not a real estate services coordinator or dependent. Transition of care: patient was not received from another setting of care. 20:12 Acuity: ADAM Level 3 mlc 20:12 Method Of Arrival: Police Car [facility] Triage Assessment: 20:17 General: Appears in no apparent distress, comfortable, Behavior is cooperative, mlc pleasant. Pain: Denies pain. The patient is triaged at the bedside. See Assessment in Nurses Notes section of ED record. Neurological: Level of Consciousness is awake, alert, obeys commands, Oriented to person, place, time, pt states sometimes he forgets things . 20:22 Cardiovascular: Heart tones S1 S2 present. Respiratory: Breath sounds are diminished mlc bilaterally. Reports cough that is productive. Derm: Skin is normal. Historical: - Allergies: Coumadin (panic attack); - Home Meds: 1. omeprazole 40 mg Oral cpDR 1 cap once daily 2. simvastatin 40 mg Oral tab 1 tab once daily 3. torsemide 100 mg oral tab 1 tab once daily 4. theophylline 200 mg Oral tab 1 tab every 12 hours 5. allopurinol 100 mg Oral tab 2 tabs once daily 6. isosorbide mononitrate 30 mg Oral Tb24 1 tab twice a day 7. Vitamin C 500 mg Oral tab 1,000 mg twice a day 8. calcitriol 0.5 mcg oral cap 2 caps once daily 9. glipizide 10 mg Oral tab 1 tab once daily in PM 10. Vitamin D2 50,000 unit oral cap 1 cap once wkly 11. fluoxetine 20 mg Oral cap 1 cap once daily 12. ferrous sulfate 65 mg Oral tab daily 13. aspirin 81 mg Oral TbEC 1 tab once daily 14. Spiriva with HandiHaler 18 mcg Inhl CpDv 1 cap once daily 15. Advair Diskus 500-50 mcg/dose Inhl dsdv 1 puff 2 times per day 16. Levemir 100 unit/mL subcutaneous soln 12 unit daily - PMHx: CAD; Chronic kidney disease; Diabetes - IDDM: controlled; Hypercholesterolemia; Hypertension; GERD; COPD; - PSHx: Cholecystectomy; Stents, Coronary; Pacemaker Insertion; Appendectomy; - Social history: Smoking status: Patient states former smoker of tobacco. No barriers to communication noted, The patient speaks fluent Hungarian. - Family history: Not pertinent, No immediate family members are acutely ill. - : The pt / caregiver states he / she is not on anticoagulants. Home medication list is obtained from the patient. - Exposure Risk Screening:: None identified. Screenin/22 02:24 Screening information is obtained from the patient. Fall risk: No risks identified. [facility] Assistance ADL's: requires no assistance with activities of daily living. Abuse/DV Screen: The patient / caregiver reports he/she is: not in a situation that causes fear, pain or injury. Nutritional screening: No deficits noted. Advance Directives: Currently, there is no health care proxy. There is no Power of Liner Installer. home support is adequate. Assessment: 10/07 20:22 General: see triage assessment . [facility] 21:12 General: Appears in no apparent distress, comfortable, Behavior is appropriate for age, rw1 cooperative, pleasant. Pain: Denies pain. Neurological: Level of Consciousness is awake, alert, listless, Oriented to person, place, time. Respiratory: Airway is patent Respiratory effort is even, unlabored. : Urine is clear. Derm: Skin is pink, warm & dry. normal. 22:12 Reassessment: Patient appears in no apparent distress at this time. resting quietly on rw1 stretcher, safety maintained will monitor.. 23:12 Reassessment: Patient appears in no apparent distress at this time. resting on rw1 stretcher with eyes closed, safety maintained will monitor. 10/08 01:55 General: Appears in no apparent distress, comfortable, Behavior is cooperative. mlc Neurological: Level of Consciousness is awake, alert, Oriented to person, place, time. Respiratory: Airway is patent Respiratory effort is even, unlabored, Respiratory pattern is regular. Derm: Skin is pink, warm & dry. 02:24 General: Appears in no apparent distress, comfortable, Behavior is cooperative. Pain: mlc Denies pain. Neurological: Level of Consciousness is awake, alert, Oriented to person, place, time. Respiratory: Airway is patent Respiratory effort is even, unlabored, Respiratory pattern is regular. Mental Health Eval: 10/07 21:21 Mental health consult is initiated at 20:45. Status: The patient is not a ms real estate services coordinator or dependent. [facility] Behavioral Health: The patient is not an established patient of [facility] Behavioral Health. Referral Information: Evaluation referral is generated by a police agency: [facility]. The patient was referred for evaluation because Police checked on pt. as he sat in his vehicle in remote part of [employer] parking lot. Pt. told police that he has been having problems and had purchased a bottle of 'strong Aspirin like pills' and was going to take them in attempt to kill himself. . Subjective: The patients chief complaint is Pt. states that he and roommate ( female who use to be gf) have been having problems. He reports that today he left the house and went to [employer] and bought pain reliever and was going to take an overdose. He also bought a notebook so he could write a note. Pt. states that he has felt depressed in past but today was different and that he just didn't care anymore. he states that while he started to write note, police came to his car. Pt. reports he has many physical ailments along with the relationship problem.. Delusions are denied. Patient's mood is appropriate. Hallucinations are denied. Mental Health history: depression, Mental Health Admissions: [facility] 06/2016 Current Outpatient Mental Health Services: None. Current living environment is The patient currently lives with a roommate, . Patient presents to Emergency Department with the following symptoms within the past 2 weeks: decreased appetite, suicidal ideation with plan for pills. Substance abuse: Pt denies. Mental status exam: Patients appearance is appropriate, Patient's behavior is cooperative, Speech is normal. Affect is appropriate. Mood is appropriate. Hallucinations are denied. Appetite is poor. Memory is good. Energy level is normal. Content of thought is normal. Thought process is intact. Cognitive level is oriented to person, place, time and situation Patient's insight is fair. Judgement is poor. Rapport with interviewer is good. Suicidal Ideation present with a plan to kill self by pills. Homicidal ideation is denied. 10/08 00:34 Narrative: Per psychiatrist Dr. Ren he has requested that PT should be evaluated for jfb a medical admission and Dr. Kumar was made aware. After consulting with hospitalist Dr. Marcos it was discovered PT has pneumonia and he will be admitted medically with a psychiatric consult for [facility] admission at a later date. Vital Signs: 10/07 20:05 BP 168 / 82; Pulse 105; Resp 20; Temp 96.9(TE); Pulse Ox 95% on R/A; Weight 58.97 kg rw1 (R); Height 5 ft. 9 in. (175.26 cm) (R); Pain 0/10; 10/08 01:56 BP 171 / 77; Pulse 79; Resp 20; Temp 97.2(O); Pulse Ox 95% on R/A; Pain 0/10; aparna 10/07 20:05 Body Mass Index 19.20 (58.97 kg, 175.26 cm) rw1 10/07 20:05 c/o S.O.B. Vitals: 20:05 Log In time N/A- police car arrival. ED Course: 20:02 Patient visited by Rosa Vides. gjb 20:02 Patient moved to Waiting gjb 20:04 Patient moved to [facility] tr 20:05 Irvin Becerra LPN is Primary Nurse. rw1 20:06 Génesis Kumar MD is Attending Physician. fg 20:15 Triage Initiated [facility] :22 Patient visited by Renae Bowles RN. mlc 20:51 Acetaminophen Level Sent. rw1 20:51 Basic Metabolic Profile Sent. rw1 20:51 Drug Eval Toxicology ED Only Sent. rw1 20:51 Ethyl Alcohol (ethanol) Sent. rw1 20:51 Liver Profile Sent. rw1 20:51 Salicylate Level Sent. rw1 20:51 Thyroid Stimulating Hormone Sent. rw1 20:53 Patient visited by Génesis Kumar MD. fg 20:57 Patient visited by Emre Rahman. tr 21:18 Patient visited by Emre Rahman. tr 21:30 Patient visited by Emre Rahman. tr 22:00 Patient visited by Emre Rahman. tr 22:13 Patient visited by Emre Rahman. tr 22:42 Patient visited by Emre Rahman. tr 22:58 Patient visited by Emre Rahman. tr 23:19 Patient visited by Emre Rahman. tr 23:37 Patient visited by Emre Rahman. tr 23:57 Patient visited by Emre Rahman. tr 10/08 00:19 Patient visited by Emre Rahman. tr 00:30 Patient visited by Emre Rahman. tr 00:47 Patient visited by Emre Rahman. tr 01:00 Patient visited by Erme Rahman. tr 01:05 CT Chest without contrast Returned. EDMS 01:12 [facility] Payment Agreement was scanned into [employer] and attached to record. h 01:15 Patient visited by Emre Rahman. tr 01:30 Patient visited by Emre Rahman. tr 01:32 Jordan Marcos MD is Hospitalizing Provider. cs11 01:48 Patient visited by Emre Rahman. tr 01:56 Patient visited by Renae Bowles RN. mlc 01:57 Patient visited by Ernestine Patrick PCA. aparna 01:59 Patient visited by Emre Rahman. tr 02:15 Patient visited by Emre Rahman. tr 02:24 The patient / caregiver is instructed regarding the plan of care and ED course. mlc 02:24 No IV's were initiated during this patient's visit. No procedures done that require mlc assistance. Order Results: Lab Order: Acetaminophen Level; SPEC'M 10/07/16 20:41 Test: ACETAMINOPHEN LEVEL; Value: < 2.0; Range: 10.0-30.0; Abnormal: Below low normal; Units: UG/ML; Status: F Lab Order: Basic Metabolic Profile; SPEC'M 10/07/16 20:41 Test: GLUCOSE, FASTING; Value: 179; Range: 83-110; Abnormal: Above high normal; Units: MG/DL; Status: F Test: BLOOD UREA NITROGEN; Value: 27; Range: 7-18; Abnormal: Above high normal; Units: MG/DL; Status: F Test: CREATININE FOR GFR; Value: 1.43; Range: 0.70-1.30; Abnormal: Above high normal; Units: MG/DL; Status: F Test: GLOMERULAR FILTRATION RATE; Value: 51.3; Range: >42; Status: F Test: SODIUM LEVEL; Value: 137; Range: 136-145; Units: MEQ/L; Status: F Test: POTASSIUM SERUM; Value: 4.3; Range: 3.5-5.1; Units: MEQ/L; Status: F Test: CHLORIDE LEVEL; Value: 96; Range: 98-107; Abnormal: Below low normal; Units: MEQ/L; Status: F Test: CARBON DIOXIDE LEVEL; Value: 34; Range: 21-32; Abnormal: Above high normal; Units: MEQ/L; Status: F Test: ANION GAP; Value: 7; Range: 8-16; Abnormal: Below low normal; Units: MEQ/L; Status: F Test: CALCIUM LEVEL; Value: 8.2; Range: 8.8-10.2; Abnormal: Below low normal; Units: MG/DL; Status: F Test Note: ; Units are mL/min/1.73 m2 Chronic Kidney Disease Staging per NKF: Stage I & II GFR >=60 Normal to Mildly Decreased Stage III GFR 30-59 Moderately Decreased Stage IV GFR 15-29 Severely Decreased Stage V GFR <15 Very Little GFR Left ESRD GFR <15 on LEARNING SUPPORT SPECIALIST Lab Order: Complete Blood Count; SPEC'M 10/07/16 20:41 Test: WHITE BLOOD COUNT; Value: 20.4; Range: 4.0-10.0; Abnormal: Above high normal; Units: K/mm3; Status: F Test: RED BLOOD COUNT; Value: 4.22; Range: 4.30-6.10; Abnormal: Below low normal; Units: M/mm3; Status: F Test: HEMOGLOBIN; Value: 12.9; Range: 14.0-18.0; Abnormal: Below low normal; Units: g/dl; Status: F Test: HEMATOCRIT; Value: 42.4; Range: 42.0-52.0; Units: %; Status: F Test: MEAN CORPUSCULAR VOLUME; Value: 100.6; Range: 80.0-96.0; Abnormal: Above high normal; Units: fl; Status: F Test: MEAN CORPUSCULAR HEMOGLOBIN; Value: 30.6; Range: 27.0-33.0; Units: pg; Status: F Test: MEAN CORPUSCULAR HGB CONC; Value: 30.5; Range: 32.0-36.5; Abnormal: Below low normal; Units: g/dl; Status: F Test: RED CELL DISTRIBUTION WIDTH; Value: 14.3; Range: 11.5-14.5; Units: %; Status: F Test: PLATELET COUNT, AUTOMATED; Value: 389; Range: 150-450; Units: k/mm3; Status: F Test: NEUTROPHILS; Value: 85; Range: 35-75; Abnormal: Above high normal; Units: %; Status: F Test: LYMPHOCYTES; Value: 9; Range: 16-52; Abnormal: Below low normal; Units: %; Status: F Test: MONOCYTES; Value: 5; Range: 0-8; Units: %; Status: F Test: BASOPHILS; Value: 1; Range: 0-4; Units: %; Status: F Test: MACROCYTOSIS; Value: 1+; Status: F Lab Order: Drug Eval Toxicology ED Only; SPEC'M 10/07/16 20:41 Test: AMPHETAMINES LEVEL URINE; Value: NEGATIVE; Range: NEGATIVE; Status: F Test: BARBITURATES URINE; Value: NEGATIVE; Range: NEGATIVE; Status: F Test: BENZODIAZEPINES URINE; Value: NEGATIVE; Range: NEGATIVE; Status: F Test: CANNABINOIDS URINE; Value: NEGATIVE; Range: NEGATIVE; Status: F Test: COCAINE METABOLITE URINE; Value: NEGATIVE; Range: NEGATIVE; Status: F Test: METHADONE URINE; Value: NEGATIVE; Range: NEGATIVE; Status: F Test: OPIATES URINE; Value: NEGATIVE; Range: NEGATIVE; Status: F Test: TRICYCLIC ANTIDEPRESS URINE; Value: NEGATIVE; Range: NEGATIVE; Status: F Test Note: ; ALL PRESUMPTIVE POSITIVE FINDINGS ARE UNCONFIRMED NORMAL VALUES THRESHOLD IN NG/ML AMPHETAMINES 1000 METHAMPHETAMINES 1000 BARBITURATES 300 BENZODIAZEPINES 300 CANNABINOIDS (THC) 50 COCAINE METABOLITE 300 METHADONE 300 OPIATES 300 PHENCYCLIDINE 25 TRICYCLIC ANTIDEPRESSANTS 1000 RESULTS ARE FOR MEDICAL PURPOSES ONLY. ALL URINE SPECIMENS WILL BE SAVED FOR 3 DAYS. IF CONFIRMATION OF A PRESUMPTIVE POSTIVE SCREEN RESULT IS DESIRED, CALL CHEMISTRY ([phone]) AND REQUEST URINE TO BE SENT TO REFERENCE LAB. FOR A LIST OF CLOSELY RELATED COMPOUNDS PLEASE CALL THE LAB. Lab Order: Ethyl Alcohol (ethanol); SPEC'M 10/07/16 20:41 Test: ETHYL ALCOHOL (ETHANOL); Value: < 0.003; Range: 0.000-0.010; Units: %; Status: F Lab Order: Liver Profile; SPEC'M 10/07/16 20:41 Test: AST/SGOT; Value: 19; Range: 15-37; Units: U/L; Status: F Test: ALT/SGPT; Value: 39; Range: 12-78; Units: U/L; Status: F Test: ALKALINE PHOSPHATASE; Value: 197; Range: 45-117; Abnormal: Above high normal; Units: U/L; Status: F Test: BILIRUBIN,TOTAL; Value: 0.5; Range: 0.2-1.0; Units: MG/DL; Status: F Test: BILIRUBIN,DIRECT; Value: 0.2; Range: 0.0-0.2; Units: MG/DL; Status: F Test: TOTAL PROTEIN; Value: 6.2; Range: 6.4-8.2; Abnormal: Below low normal; Units: GM/DL; Status: F Test: ALBUMIN; Value: 2.7; Range: 3.2-5.2; Abnormal: Below low normal; Units: GM/DL; Status: F Test: ALBUMIN/GLOBULIN RATIO; Value: 0.77; Range: 1.00-1.93; Abnormal: Below low normal; Status: F Lab Order: Salicylate Level; SPEC'M 10/07/16 20:41 Test: SALICYLATE LEVEL; Value: < 1.7; Range: 5.0-30.0; Abnormal: Below low normal; Units: MG/DL; Status: F Lab Order: Thyroid Stimulating Hormone; SPEC'M 10/07/16 20:41 Test: THYROID STIMULATING HORMONE; Value: 0.667; Range: 0.358-3.740; Units: uIU/ML; Status: F Lab Order: URINALYSIS; SPEC'M 10/07/16 20:40 Test: APPEARANCE, URINE; Value: CLEAR; Range: CLEAR; Status: F Test: COLOR, URINE; Value: YELLOW; Range: YELLOW; Status: F Test: PH,URINE; Value: 5.0; Range: 5.0-9.0; Units: UNITS; Status: F Test: SPECIFIC GRAVITY URINE AUTO; Value: 1.016; Range: 1.002-1.035; Status: F Test: PROTEIN, URINE AUTO; Value: 1+; Range: NEGATIVE; Abnormal: Above high normal; Units: mg/dL; Status: F Test: GLUCOSE, URINE (UA) AUTO; Value: NEGATIVE; Range: NEGATIVE; Units: mg/dL; Status: F Test: KETONE, URINE AUTO; Value: NEGATIVE; Range: NEGATIVE; Units: mg/dL; Status: F Test: UROBILINOGEN, URINE AUTO; Value: 0.2; Range: 0.0-2.0; Units: mg/dL; Status: F Test: BILIRUBIN, URINE AUTO; Value: NEGATIVE; Range: NEGATIVE; Status: F Test: NITRITE, URINE AUTO; Value: NEGATIVE; Range: NEGATIVE; Status: F Test: LEUKOCYTE ESTERASE, URINE AUTO; Value: NEGATIVE; Range: NEGATIVE; Status: F Test: BLOOD, URINE BLOOD; Value: NEGATIVE; Range: NEGATIVE; Status: F Test: WBC, URINE AUTO; Value: 2; Range: 0-3; Units: /HPF; Status: F Test: RBC, URINE AUTO; Value: 1; Range: 0-3; Units: /HPF; Status: F Test: BACTERIA, URINE AUTO; Value: NEGATIVE; Range: NEGATIVE; Status: F Test: SQUAMOUS EPITHELIAL CELL UR AU; Value: 0; Range: 0-6; Units: /HPF; Status: F Test: MUCUS, URINE; Value: SMALL; Range: NEGATIVE; Status: F Test: HYALINE CAST, URINE AUTO; Value: 20; Range: 0-1; Units: /LPF; Status: F Lab Order: CBC WITH DIFFERENTIAL; SPEC'M 10/07/16 20:41 Test: WHITE BLOOD COUNT; Value: 20.4; Range: 4.0-10.0; Abnormal: Above high normal; Units: K/mm3; Status: F Test: RED BLOOD COUNT; Value: 4.22; Range: 4.30-6.10; Abnormal: Below low normal; Units: M/mm3; Status: F Test: HEMOGLOBIN; Value: 12.9; Range: 14.0-18.0; Abnormal: Below low normal; Units: g/dl; Status: F Test: HEMATOCRIT; Value: 42.4; Range: 42.0-52.0; Units: %; Status: F Test: MEAN CORPUSCULAR VOLUME; Value: 100.6; Range: 80.0-96.0; Abnormal: Above high normal; Units: fl; Status: F Test: MEAN CORPUSCULAR HEMOGLOBIN; Value: 30.6; Range: 27.0-33.0; Units: pg; Status: F Test: MEAN CORPUSCULAR HGB CONC; Value: 30.5; Range: 32.0-36.5; Abnormal: Below low normal; Units: g/dl; Status: F Test: RED CELL DISTRIBUTION WIDTH; Value: 14.3; Range: 11.5-14.5; Units: %; Status: F Test: PLATELET COUNT, AUTOMATED; Value: 389; Range: 150-450; Units: k/mm3; Status: F Lab Order: PLATELET ESTIMATE; SPEC'M 10/07/16 20:41 Test: PLATELET ESTIMATE; Value: NORMAL; Range: NORMAL; Status: F Radiology Order: CT Chest without contrast Test: CT Chest without contrast REASON FOR EXAMINATION: cough, leukocytosis; ; CLINICAL HISTORY: Cough and leukocytosis.; TECHNIQUE: Multiple axial CT images were obtained through chest without IV contrast material. MPR cor; onal and sagittal sequences were obtained.; COMMENTS:; Bilateral peribronchial interstitial thickening suggestive of chronic bronchitis. Moderate centrilobu; lar pulmonary emphysema. Bilateral groundglass densities in the right middle lobe, lingula and bilate; ral lower lobes.; There is no evidence of pleural or parenchymal mass. There are no pleural effusions. There is no evid; ence of hilar or mediastinal lymphadenopathy. The heart and great vessels are within normal limits.; The visualized portions of the liver are of uniform attenuation without mass or defect. There is no i; ntra or extrahepatic biliary ductal dilatation. The spleen is unremarkable. The visualized pancreas i; s of normal contour and attenuation characteristics. There is no evidence of adrenal mass. The visual; ized portions of the kidneys present no abnormalities.; The bony structures are free of lytic or blastic lesions. Multilevel degenerative changes are seen in; volving the thoracic spine. Scattered calcifications are seen involving the aorta and visualized cadence; r branches compatible with atherosclerosis.; IMPRESSION:; Bilateral multifocal bronchopneumonia.; Findings are more prominent in the lower lobes.; Chronic bronchitis and emphysema.; Thank you for your kind referral of this patient.; ; ; Outcome: 01:32 Decision to Hospitalize by Provider. 11 02:24 Discharge Assessment: Patient awake, alert and oriented x 3. No cognitive and/or mlc functional deficits noted. Patient verbalized understanding of disposition instructions. patient administered narcotics - no. The following High Risk Discharge criteria are identified: None. Admitted to Med/Surg accompanied by tech. Condition: good Condition: stable. No special radiology studies were completed. Admission hand-off: Report Faxed Fax receipt verified by Tessie Powell LPN. Property given to inpatient unit staff. 02:29 Patient left the ED. oz Signatures: Dispatcher [employer] EDMS Marie Lares RN RN jan Stone, Mary, PSA PSA JosiahEmre Robert, LPN LPN rw1 Sandra Morales, PSA PSA jfb Ernestine Patrick, BOTTLE CAPPER BOTTLE CAPPER Lamberto Sadler, DO DO [id number] Renae Bowles RN RN mlc Hook, Sandra slh Gill, Frances, MD MD fg Beck, Gabriela gjb Corrections: (The following items were deleted from the chart) 10/07 23:29 20:51 COMPLETE BLOOD COUNT+LAB sent. [facility] KATHYLA MTDD
[2016-10-08 02:40] VITALS: BP 176/72
--- NOTE | 2016-10-08 03:33 | HPE ---
DATE OF ADMISSION: 10/08/2016 This is a patient of Dr. Mckeon, Dr. Lopez and Dr. Dumont. CHIEF COMPLAINT: Suicidal ideation. The following is a summary of his presentation: This is a 75-year-old who is having relationship issues, was found sitting in his car at [facility]. He had purchased a notebook apparently to leave a note and a bottle of pills to take and says that this is the closest he has ever gotten to a suicide attempt. He was brought to the emergency department for evaluation. He has had some abnormal lab values and I was called to assess him. Apparently recently he has been treated for "infection" in his left lung. He had been on a course of antibiotics, which ended 4 days ago. He continues to produce a reasonable amount of yellow slimy sputum. He has been wheezing, short of breath and drinking more than eating. He has had some loose stools as well. PAST MEDICAL HISTORY: Notable for: 1. Methicillin-resistant Staphylococcus aureus (MRSA) pneumonia in 2012. 2. Diverticular bleed. 3. Atrial fibrillation with a pacemaker. 4. Hypertension. 5. Chronic obstructive pulmonary disease (COPD). 6. Gout. 7. Diabetes. 8. Congestive heart failure with diastolic dysfunction. 9. Coronary artery disease. 10. Obstructive sleep apnea. 11. Colonoscopy. 12. Pacemaker placement. 13. Appendectomy. 14. Cholecystectomy. 15. Cataract surgery. 16. Hernia repair. Patient says he quit smoking 12 years ago, but he is still exposed to secondhand smoke. Does not drink any alcohol. Lives in [place]. Is on a fluid restriction of 32 ounces. ALLERGIES: He has an adverse reaction to COUMADIN, which causes panic attack. MEDICATIONS AT HOME: Currently listed as: - omeprazole 40 mg daily - simvastatin 40 mg daily - torsemide 100 mg daily - theophylline 200 mg every 12 hours - allopurinol 100 mg two tablets once daily - isosorbide mononitrate 30 mg twice daily - vitamin C supplement - calcitriol 0.5 mcg two capsules once daily - glipizide 10 mg once daily in the evening - vitamin D supplement - fluoxetine 20 mg daily - ferrous sulfate 65 mg daily - aspirin 81 mg daily - Spiriva once daily - Advair one puff two times daily - Levemir 12 units daily FAMILY HISTORY: Hypertension and diabetes. REVIEW OF SYSTEMS: Notable for no headache. No runny nose. No sore throat. No neck pain. He has cough and sputum production as described. No orthopnea. No paroxysmal nocturnal dyspnea. He has had some loose stools. No changes in his bladder habits. Otherwise unremarkable. PHYSICAL EXAMINATION: Blood pressure 168/82, pulse 105, respiratory rate 20, temperature 96.9, pulse oximetry 95% on room air. Body mass index is 19.2. My assessment is as follows: This is a 75-year-old with suicidal ideation, who has a bilateral pneumonia, leukocytosis. Patient will require a 2-midnight hospital stay for medical maximization prior to being transferred to the mental health unit. Plan will be as follows: 1. Respiratory. Patient will be continued on his home controller medications. Will give a course of steroids and empiric antibiotics for pneumonia. Will obtain a sputum culture. He does have a history of methicillin-resistant Staphylococcus aureus (MRSA), so if he is not improving, that will need to be considered. Will continue his home theophylline. Check a theophylline level in the morning. 2. Patient has diabetes. Will continue on insulin during his stay. Fingersticks may be elevated in the setting of steroid use. 3. Patient has hypercholesterolemia. Will continue his statin drug. 4. Patient has hypertension. Will continue his blood pressure medications with hold parameters. 5. Patient has gastroesophageal reflux disease (GERD). Will continue his proton pump inhibitor (PPI). 6. Deep venous thrombosis (DVT) prophylaxis has been ordered. 7. Psychiatric. Patient will require psychiatric inpatient admission due to the worrisome nature of his presentation. That should be arranged when he is medically stabilized. YUE
[2016-10-08] MEDS: AZITHROMYCIN INJ 500 MG, VIAL MATE ADAPTER 1 EACH in D5W 250 ML IV SCH (04:09)
[2016-10-08] MEDS: cefTRIAXone SOD 2 GM in D5W MINI-BAG PLUS 50 ML IV SCH (05:13)
[2016-10-08 06:00] VITALS: BP 144/65
[2016-10-08 06:51] LABS: ANION GAP 7 MEQ/L (8-16); BLOOD UREA NITROGEN 24 MG/DL (7-18); CALCIUM LEVEL 8.2 MG/DL (8.8-10.2); CARBON DIOXIDE LEVEL 32 MEQ/L (21-32); CHLORIDE LEVEL 99 MEQ/L (98-107); CREATININE FOR GFR 1.32 MG/DL (0.70-1.30); GLOMERULAR FILTRATION RATE 56.3 (>42); GLUCOSE, FASTING 233 MG/DL (83-110); POTASSIUM SERUM 4.3 MEQ/L (3.5-5.1); SODIUM LEVEL 138 MEQ/L (136-145); THEOPHYLLINE LEVEL < 2.0 UG/ML (10.0-20.0)
[2016-10-08 06:54] LABS: MEAN CORPUSCULAR HEMOGLOBIN 31.9 pg (27.0-33.0); MEAN CORPUSCULAR HGB CONC 32.2 g/dl (32.0-36.5); MEAN CORPUSCULAR VOLUME 99.1 fl (80.0-96.0); RED CELL DISTRIBUTION WIDTH 13.3 % (11.5-14.5); WHITE BLOOD COUNT 12.8 K/mm3 (4.0-10.0)
[2016-10-08] MEDS ORDERED: NITROGLYCERIN 0.4 MG SUBL TABLET SL PRN (07:15)
[2016-10-08] MEDS: ALBUTEROL 90 MCG/ACT 8GM HFA INHALER INH SCH ×3 (08:00→20:00)
[2016-10-08] MEDS: ADVAIR DISKUS 500/50 INH PWD INH SCH ×2 (09:00→20:02)
[2016-10-08] MEDS: TIOTROPIUM INHALER/CAPSULE (SPIRIVA) INH SCH (09:00)
[2016-10-08] MEDS: CALCITRIOL 0.25 MCG CAP (S0169) PO SCH (09:19)
[2016-10-08] MEDS: ATORVASTATIN 20 MG TAB PO SCH (09:19)
[2016-10-08] MEDS: ALLOPURINOL 100 MG TAB PO SCH (09:19)
[2016-10-08] MEDS: TORSEMIDE (DEMADEX) 50 MG PER 1/2 TAB PO SCH (09:19)
[2016-10-08] MEDS: ISOSORBIDE MON. (IMDUR) 30 MG XR TAB PO SCH (09:19)
[2016-10-08] MEDS: FLUoxetine 20 MG CAP PO SCH (09:19)
[2016-10-08] MEDS: ENOXAPARIN 40 MG/0.4 ML SYRINGE (J1650) SC SCH (09:20)
--- NOTE | 2016-10-08 10:08 | ECGEPIP ---
Stationary ECG Study [facility] Test Date: 2016-10-08 Pat Name: EAGLE PICKENS Department: Room: [place] [address] Gender: M Story Editor: BRADFORD : 1940 Requested By: BUNNY Isaac Order Number: [id number] Reading MD: Roman Browne Measurements Intervals [place] Rate: 70 P: NM: 0 QRS: 94 QRSD: 180 T: -89 QT: 460 QTc: 497 Interpretive Statements Probable atrial fibrillation with paced ventricular complexes No significant change when compared to prior tracing of 07/07/2016 Electronically Signed On 10-08-2016 10:07:48 EST by Roman Browne
[2016-10-08] MEDS ORDERED: THEO1CAP2 PO (10:42)
[2016-10-08] MEDS: THEOPHYLLINE (THEO-24) 100MG SR **CAPSULE PO SCH (12:48)
[2016-10-08 14:00] VITALS: BP 113/57
[2016-10-08] MEDS: SLF 3 ML SYR IV SCH ×2 (14:00→20:42)
[2016-10-08] MEDS ORDERED: SLF 3 ML SYR IV PRN (14:00)
--- NOTE | 2016-10-08 16:15 | REP ---
Chest single PA view: Comparison is 09/25/2016. Hyperinflation and bibasilar scarring compatible with COPD is again noted, unchanged. Dual-chamber pacemaker is again noted, unchanged. Cardiac size is normal, unchanged. However, there is a faintly visible nodular density inferior left lung. There is a vaguely visible nodular density inferiorly in the right lung as changes from the prior study. Impression: Nodular densities inferiorly in each lung. Findings compatible with COPD. Pacemaker. Signed by Theron Orellana MD 10/08/2016 04:06 P
--- NOTE | 2016-10-08 19:45 | IPN ---
DATE: 10/08/2016 SUBJECTIVE: Patient seen and examined in the room today. Patient stated he is still very depressed. There is a lot of things going on in his life. He was at the breaking point that he has no other options that was the reason that he may lose his home and he was fighting with his girlfriend and there are just a lot of things he date of examination snot know what else to do so he bought a bottle of sleeping pills, parked behind the [employer] lot and he started writing notes before taking those sleeping pills. He was found by the police due to his abnormal behavior and he was brought to the hospital for possible suicidal attempt. For the breathing he stated his breathing is getting better with antibiotics, but he still has yellowish sputum and he has had those colored sputum's for the past two weeks. He has intermittent chills, no fevers. OBJECTIVE: Vital signs temperature 97.2, pulse 91, respiration 18, blood pressure 113/57, pulse ox is 87% on room air later placed on 2 liters nasal cannula. Oxygen sat improved to 94%. PHYSICAL EXAMINATION: GENERAL: No sign of acute distress. Depressed. Alert and oriented times three. HEENT: Normocephalic, atraumatic, extraocular motor grossly intact. CARDIOVASCULAR: Positive S1, S2, regular rate. LUNGS: Positive crackles. No wheezes appreciated. ABDOMEN: Soft, non-tender, non-distended. EXTREMITIES: No signs of cyanosis. LABORATORY DATA: WBC 12.8, hemoglobin 11.4, hematocrit 35.3, platelet count is 304. Sodium 138, potassium 4.3, chloride 99, carbon dioxide 32, BUN 24, creatinine 1.32. Glomerular filtration rate (GFR) is 56.3. Fasting glucose 233, calcium is 8.2. Sputum culture showed many WBCs, few gram positive cocci, few gram positive rods, few epithelial cells. IMAGING: CT of the chest showed bilateral multifocal bronchopneumonia. More predominant in the lower lobes. Chronic bronchitis and emphysema. ASSESSMENT AND PLAN" 1. Community acquired pneumonia, patient is on Rocephin, azithromycin. Patient does have a history of Methicillin-resistant Staphylococcus aureus (MRSA) infection. We will continue to follow with his sputum cultures. We will maintain oxygen between 88 to 92% for his emphysema. 2. Emphysema. Patient's oxygen will be titrated between 88 and 92% with nasal cannula. Currently breathing is stable. 3. Chronic obstructive pulmonary disease. 4. Hypercholesterolemia. Continue Lipitor . 5. Hypertension. Continue home blood pressure medications. 6. Gastroesophageal reflux disease. Continue PPI omeprazole 7. Suicide attempt. Currently being treated for pneumonia. Once patient stabilized medically we will consult psychiatrist. 8. Deep vein thrombosis prophylaxis. Patient is on Lovenox.
[2016-10-08 22:00] VITALS: BP 133/63
[2016-10-09] MEDS: SLF 3 ML SYR IV SCH ×3 (02:04→21:46)
[2016-10-09] MEDS: AZITHROMYCIN INJ 500 MG, VIAL MATE ADAPTER 1 EACH in D5W 250 ML IV SCH (02:04)
[2016-10-09] MEDS: cefTRIAXone SOD 2 GM in D5W MINI-BAG PLUS 50 ML IV SCH (02:58)
[2016-10-09 06:00] VITALS: BP 155/69
[2016-10-09 06:56] LABS: MEAN CORPUSCULAR HEMOGLOBIN 31.3 pg (27.0-33.0); MEAN CORPUSCULAR HGB CONC 31.4 g/dl (32.0-36.5); MEAN CORPUSCULAR VOLUME 99.7 fl (80.0-96.0); RED CELL DISTRIBUTION WIDTH 13.2 % (11.5-14.5); WHITE BLOOD COUNT 13.2 K/mm3 (4.0-10.0)
[2016-10-09 07:12] LABS: CALCIUM LEVEL 8.6 MG/DL (8.8-10.2); CREATININE FOR GFR 1.32 MG/DL (0.70-1.30); GLOMERULAR FILTRATION RATE 56.3 (>42); POTASSIUM SERUM 3.5 MEQ/L (3.5-5.1)
[2016-10-09] MEDS: ADVAIR DISKUS 500/50 INH PWD INH SCH ×2 (07:32→19:25)
[2016-10-09] MEDS: TIOTROPIUM INHALER/CAPSULE (SPIRIVA) INH SCH (07:32)
[2016-10-09] MEDS: ALBUTEROL 90 MCG/ACT 8GM HFA INHALER INH SCH ×4 (07:34→19:25)
[2016-10-09] MEDS: ALLOPURINOL 100 MG TAB PO SCH (07:57)
[2016-10-09] MEDS: CALCITRIOL 0.25 MCG CAP (S0169) PO SCH (07:57)
[2016-10-09] MEDS: THEOPHYLLINE (THEO-24) 100MG SR **CAPSULE PO SCH (07:57)
[2016-10-09] MEDS: FLUoxetine 20 MG CAP PO SCH (07:58)
[2016-10-09] MEDS: TORSEMIDE (DEMADEX) 50 MG PER 1/2 TAB PO SCH (07:58)
[2016-10-09] MEDS: ISOSORBIDE MON. (IMDUR) 30 MG XR TAB PO SCH (07:58)
[2016-10-09] MEDS: ATORVASTATIN 20 MG TAB PO SCH (07:59)
[2016-10-09] MEDS: ENOXAPARIN 40 MG/0.4 ML SYRINGE (J1650) SC SCH (07:59)
[2016-10-09 14:00] VITALS: BP 122/57
[2016-10-09] MEDS ORDERED: GLUCOSE 4 GM CHEW TABLET PO PRN (20:00)
[2016-10-09] MEDS ORDERED: GLUCAGON FOR INJ 1 MG VIAL (J1610) SC PRN (20:00)
[2016-10-09] MEDS ORDERED: DEXTROSE 50% 50 ML SYRINGE IV PRN (20:00)
--- NOTE | 2016-10-09 20:55 | IPN ---
DATE: 10/09/2016 SUBJECTIVE: Patient seen and examined in the late afternoon. The patient was breathing comfortably without oxygen support. Per patient, he feels his breathing is better; however, he is still on oxygen support with any type of exertion. At night, he required oxygen too. The cough has been improving also. Denies any fever or chills. Denies any acute complaints. 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 Giordano. He has an appointment with Dr. Giordano on 10/12/2015. OBJECTIVE: Vital signs temperature 96.6, pulse is 104, respirations 18, blood pressure 122/57, pulse ox is 97% on room air. PHYSICAL EXAMINATION: GENERAL: No sign of acute distress. Alert and oriented times three. HEENT: Normocephalic, atraumatic, extraocular motor grossly intact. CARDIOVASCULAR: Positive S1, S2, regular rate. LUNGS: Wheezes and crackles bilaterally. ABDOMEN: Soft, nontender, nondistended. Bowel sounds present. EXTREMITIES: No edema. No cyanosis. LABORATORY DATA: WBC 13.2, hemoglobin is 13.4, hematocrit 42.8, platelet count is 469. Sodium is 138, potassium 3.5, chloride is 98, carbon dioxide is 31, BUN is 24, creatinine is 1.32. Glomerular filtration rate (GFR) is 56.3. Calcium is 8.6, fasting glucose 183. ASSESSMENT AND PLAN" 1. Bilateral multifocal bronchopneumonia. The patient is on Rocephin and azithromycin. Today is day number 2. The patient's breathing shows continued improvement. WBC improved from 20.4 to 13.2. Continue current management. 2. History of COPD. We will titrate oxygen saturation between 88 to 92% with nasal cannula as needed. The patient has currently been treated for community acquired pneumonia. The patient has breathing treatments as needed. The patient has a pulmonology appointment with Dr. Giordano on 10/12/2015. 3. History of methicillin resistant Staphylococcus aureus (MRSA) pneumonia in 2012. 4. Atrial fibrillation. Pacemaker in place. Average heart rate is about 70. 5. Suicidal attempt and plan. Currently, treating patient for multilobar pneumonia. The patient also has medical management who is undergoing optimization. We will consult psychiatrist once the patient is medically stable. The patient had a suicide attempt by ingesting sleeping pills. The patient was found by state police before his act. Social service to be on board to assist on the issue. 6. Hypercholesterolemia. Continue Lipitor. 7. Hypertension. Blood pressure within normal range. Continue current medications. 8. Gastroesophageal reflux disease (GERD). Continue omeprazole. 9. History of diabetes. Followup A1/c. Continue on sliding scale. The patient is on a consistent carbohydrate diet. 10. History of diastolic congestive heart failure (CHF). The patient is on torsemide. 11. Coronary artery disease, status post stent. 12. Obstructive sleep apnea. 13. Gout. The patient is on allopurinol. 14. Deep vein thrombosis prophylaxis. Patient is on Lovenox.
[2016-10-09] MEDS ORDERED: HumaLOG INSULIN (NovoLOG) PER UNIT SC SCH (21:00)
[2016-10-09 22:00] VITALS: BP 143/65
[2016-10-10] MEDS: AZITHROMYCIN INJ 500 MG, VIAL MATE ADAPTER 1 EACH in D5W 250 ML IV SCH (02:38)
--- NOTE | 2016-10-10 03:31 | EDDOCDS ---
Nurse's Notes [facility] Name: Jack Tao Age: 75 yrs Sex: Male : 1940 Arrival Date: 10/07/2016 Time: 20:00 Bed [facility] Private MD: Diagnosis: Pneumonia in diseases classified elsewhere Presentation: 10/07 20:12 Presenting complaint: Patient states: pt was found in [facility] parking lot. pt states he mlc and his girlfriend have been fighting recently and this is where he goes "when I am in trouble". Pt admits to buying a notebook and a bottle of pills at the [facility]. pt was writing "my list" when PD found him. pt states that he had planned to commit suicide by taking the bottle of pills, pt denies taking any pills prior to arriving. pt states he has had suicide plans before but this is the closest he has ever gotten with following through. Mental Health Triage Level: Level 2: The patient displays active suicidal ideations. Adult Sepsis Screening: The patient does not have new or worsening altered mentation. Patient's respiratory rate is less than 22. Systolic blood pressure is greater than 100. Patient has a qSOFA score of 0- Negative Sepsis Screen. Suicide/Homicide risk assessment- The patient admits to and/or has been reported to be having suicidal ideations. The patient reports that he/she has a prior history of suicide attempt and/or organized plan. Status: Patient is not a building services engineer or dependent. Transition of care: patient was not received from another setting of care. 20:12 Acuity: ADAM Level 3 mlc 20:12 Method Of Arrival: [place] [facility] [place] Assessment: 20:17 General: Appears in no apparent distress, comfortable, Behavior is cooperative, mlc pleasant. Pain: Denies pain. The patient is triaged at the bedside. See Assessment in Nurses Notes section of ED record. Neurological: Level of Consciousness is awake, alert, obeys commands, Oriented to person, place, time, pt states sometimes he forgets things . 20:22 Cardiovascular: Heart tones S1 S2 present. Respiratory: Breath sounds are diminished mlc bilaterally. Reports cough that is productive. Derm: Skin is normal. Historical: - Allergies: Coumadin (panic attack); - Home Meds: 1. omeprazole 40 mg Oral cpDR 1 cap once daily 2. simvastatin 40 mg Oral tab 1 tab once daily 3. torsemide 100 mg oral tab 1 tab once daily 4. theophylline 200 mg Oral tab 1 tab every 12 hours 5. allopurinol 100 mg Oral tab 2 tabs once daily 6. isosorbide mononitrate 30 mg Oral Tb24 1 tab twice a day 7. Vitamin C 500 mg Oral tab 1,000 mg twice a day 8. calcitriol 0.5 mcg oral cap 2 caps once daily 9. glipizide 10 mg Oral tab 1 tab once daily in PM 10. Vitamin D2 50,000 unit oral cap 1 cap once wkly 11. fluoxetine 20 mg Oral cap 1 cap once daily 12. ferrous sulfate 65 mg Oral tab daily 13. aspirin 81 mg Oral TbEC 1 tab once daily 14. Spiriva with HandiHaler 18 mcg Inhl CpDv 1 cap once daily 15. Advair Diskus 500-50 mcg/dose Inhl dsdv 1 puff 2 times per day 16. Levemir 100 unit/mL subcutaneous soln 12 unit daily - PMHx: CAD; Chronic kidney disease; Diabetes - IDDM: controlled; Hypercholesterolemia; Hypertension; GERD; COPD; - PSHx: Cholecystectomy; Stents, Coronary; Pacemaker Insertion; Appendectomy; - Social history: Smoking status: Patient states former smoker of tobacco. No barriers to communication noted, The patient speaks fluent Yoruba. - Family history: Not pertinent, No immediate family members are acutely ill. - : The pt / caregiver states he / she is not on anticoagulants. Home medication list is obtained from the patient. - Exposure Risk Screening:: None identified. Screenin/22 02:24 Screening information is obtained from the patient. Fall risk: No risks identified. [facility] Assistance ADL's: requires no assistance with activities of daily living. Abuse/DV Screen: The patient / caregiver reports he/she is: not in a situation that causes fear, pain or injury. Nutritional screening: No deficits noted. Advance Directives: Currently, there is no health care proxy. There is no Power of Electronic Prepress Operator. home support is adequate. Assessment: 10/07 20:22 General: see triage assessment . [facility] [place]:12 General: Appears in no apparent distress, comfortable, Behavior is appropriate for age, rw1 cooperative, pleasant. Pain: Denies pain. Neurological: Level of Consciousness is awake, alert, listless, Oriented to person, place, time. Respiratory: Airway is patent Respiratory effort is even, unlabored. : Urine is clear. Derm: Skin is pink, warm & dry. normal. 22:12 Reassessment: Patient appears in no apparent distress at this time. resting quietly on rw1 stretcher, safety maintained will monitor.. 23:12 Reassessment: Patient appears in no apparent distress at this time. resting on rw1 stretcher with eyes closed, safety maintained will monitor. 10/08 01:55 General: Appears in no apparent distress, comfortable, Behavior is cooperative. mlc Neurological: Level of Consciousness is awake, alert, Oriented to person, place, time. Respiratory: Airway is patent Respiratory effort is even, unlabored, Respiratory pattern is regular. Derm: Skin is pink, warm & dry. 02:24 General: Appears in no apparent distress, comfortable, Behavior is cooperative. Pain: mlc Denies pain. Neurological: Level of Consciousness is awake, alert, Oriented to person, place, time. Respiratory: Airway is patent Respiratory effort is even, unlabored, Respiratory pattern is regular. Mental Health Eval: 10/07 21:21 Mental health consult is initiated at 20:45. Status: The patient is not a ms building services engineer or dependent. [facility]: The patient is not an established patient of [facility]. Referral Information: Evaluation referral is generated by a police agency: [facility]. The patient was referred for evaluation because Police checked on pt. as he sat in his vehicle in remote part of [employer] parking lot. Pt. told police that he has been having problems and had purchased a bottle of 'strong Aspirin like pills' and was going to take them in attempt to kill himself. . Subjective: The patients chief complaint is Pt. states that he and roommate ( female who use to be gf) have been having problems. He reports that today he left the house and went to [employer] and bought pain reliever and was going to take an overdose. He also bought a notebook so he could write a note. Pt. states that he has felt depressed in past but today was different and that he just didn't care anymore. he states that while he started to write note, police came to his car. Pt. reports he has many physical ailments along with the relationship problem.. Delusions are denied. Patient's mood is appropriate. Hallucinations are denied. Mental Health history: depression, Mental Health Admissions: [facility] 06/2016 Current Outpatient Mental Health Services: None. Current living environment is The patient currently lives with a roommate, . Patient presents to Emergency Department with the following symptoms within the past 2 weeks: decreased appetite, suicidal ideation with plan for pills. Substance abuse: Pt denies. Mental status exam: Patients appearance is appropriate, Patient's behavior is cooperative, Speech is normal. Affect is appropriate. Mood is appropriate. Hallucinations are denied. Appetite is poor. Memory is good. Energy level is normal. Content of thought is normal. Thought process is intact. Cognitive level is oriented to person, place, time and situation Patient's insight is fair. Judgement is poor. Rapport with interviewer is good. Suicidal Ideation present with a plan to kill self by pills. Homicidal ideation is denied. 10/08 00:34 Narrative: Per psychiatrist Dr. Ren he has requested that PT should be evaluated for jfb a medical admission and Dr. Kumar was made aware. After consulting with hospitalist Dr. Marcos it was discovered PT has pneumonia and he will be admitted medically with a psychiatric consult for [facility] admission at a later date. Vital Signs: 10/07 20:05 BP 168 / 82; Pulse 105; Resp 20; Temp 96.9(TE); Pulse Ox 95% on R/A; Weight 58.97 kg rw1 (R); Height 5 ft. 9 in. (175.26 cm) (R); Pain 0/10; 10/08 01:56 BP 171 / 77; Pulse 79; Resp 20; Temp 97.2(O); Pulse Ox 95% on R/A; Pain 0/10; aparna 10/07 20:05 Body Mass Index 19.20 (58.97 kg, 175.26 cm) rw1 10/07 20:05 c/o S.O.B. Vitals: 20:05 Log In time N/A- police car arrival. ED Course: 20:02 Patient visited by Rosa Vides. gjb 20:02 Patient moved to Waiting gjb 20:04 Patient moved to [facility] tr 20:05 Irvin Becerra LPN is Primary Nurse. rw1 20:06 Génesis Kumar MD is Attending Physician. fg 20:15 Triage Initiated [facility] [place]22 Patient visited by Renae Bowles RN. mlc 20:51 Acetaminophen Level Sent. rw1 20:51 Basic Metabolic Profile Sent. rw1 20:51 Drug Eval Toxicology ED Only Sent. rw1 20:51 Ethyl Alcohol (ethanol) Sent. rw1 20:51 Liver Profile Sent. rw1 20:51 Salicylate Level Sent. rw1 20:51 Thyroid Stimulating Hormone Sent. rw1 20:53 Patient visited by Génesis Kumar MD. fg 20:57 Patient visited by Emre Rahman. tr 21:18 Patient visited by Emre Rahman. tr 21:30 Patient visited by Emre Rahman. tr 22:00 Patient visited by Emre Rahman. tr 22:13 Patient visited by Emre Rahman. tr 22:42 Patient visited by Emre Rahman. tr 22:58 Patient visited by Emre Rahman. tr 23:19 Patient visited by Emre Rahman. tr 23:37 Patient visited by Emre Rahman. tr 23:57 Patient visited by Emre Rahman. tr 10/08 00:19 Patient visited by Emre Rahman. tr 00:30 Patient visited by Emre Rahman. tr 00:47 Patient visited by Emre Rahman. tr 01:00 Patient visited by Emre Rahman. tr 01:05 CT Chest without contrast Returned. EDMS 01:12 [facility] Payment Agreement was scanned into [employer] and attached to record. slh 01:15 Patient visited by Emre Rahman. tr 01:30 Patient visited by Emre Rahman. tr 01:32 Jordan Marcos MD is Hospitalizing Provider. cs11 01:48 Patient visited by Emre Rahman. tr 01:56 Patient visited by Renae Bowles RN. mlc 01:57 Patient visited by Ernestine Patrick PCA. aparna 01:59 Patient visited by Emre Rahman. tr 02:15 Patient visited by Emre Rahman. tr 02:24 The patient / caregiver is instructed regarding the plan of care and ED course. mlc 02:24 No IV's were initiated during this patient's visit. No procedures done that require mlc assistance. 17:44 T-Sheet-- Draft Copy was scanned into [employer] and attached to record. klr Order Results: Lab Order: Acetaminophen Level; SPEC'M 10/07/16 20:41 Test: ACETAMINOPHEN LEVEL; Value: < 2.0; Range: 10.0-30.0; Abnormal: Below low normal; Units: UG/ML; Status: F Lab Order: Basic Metabolic Profile; [facility] 10/07/16 20:41 Test: GLUCOSE, FASTING; Value: 179; Range: 83-110; Abnormal: Above high normal; Units: MG/DL; Status: F Test: BLOOD UREA NITROGEN; Value: 27; Range: 7-18; Abnormal: Above high normal; Units: MG/DL; Status: F Test: CREATININE FOR GFR; Value: 1.43; Range: 0.70-1.30; Abnormal: Above high normal; Units: MG/DL; Status: F Test: GLOMERULAR FILTRATION RATE; Value: 51.3; Range: >42; Status: F Test: SODIUM LEVEL; Value: 137; Range: 136-145; Units: MEQ/L; Status: F Test: POTASSIUM SERUM; Value: 4.3; Range: 3.5-5.1; Units: MEQ/L; Status: F Test: CHLORIDE LEVEL; Value: 96; Range: 98-107; Abnormal: Below low normal; Units: MEQ/L; Status: F Test: CARBON DIOXIDE LEVEL; Value: 34; Range: 21-32; Abnormal: Above high normal; Units: MEQ/L; Status: F Test: ANION GAP; Value: 7; Range: 8-16; Abnormal: Below low normal; Units: MEQ/L; Status: F Test: CALCIUM LEVEL; Value: 8.2; Range: 8.8-10.2; Abnormal: Below low normal; Units: MG/DL; Status: F Test Note: ; Units are mL/min/1.73 m2 Chronic Kidney Disease Staging per NKF: Stage I & II GFR >=60 Normal to Mildly Decreased Stage III GFR 30-59 Moderately Decreased Stage IV GFR 15-29 Severely Decreased Stage V GFR <15 Very Little GFR Left ESRD GFR <15 on VEHICLE INSPECTOR Lab Order: Complete Blood Count; [facility] 10/07/16 20:41 Test: WHITE BLOOD COUNT; Value: 20.4; Range: 4.0-10.0; Abnormal: Above high normal; Units: K/mm3; Status: F Test: RED BLOOD COUNT; Value: 4.22; Range: 4.30-6.10; Abnormal: Below low normal; Units: M/mm3; Status: F Test: HEMOGLOBIN; Value: 12.9; Range: 14.0-18.0; Abnormal: Below low normal; Units: g/dl; Status: F Test: HEMATOCRIT; Value: 42.4; Range: 42.0-52.0; Units: %; Status: F Test: MEAN CORPUSCULAR VOLUME; Value: 100.6; Range: 80.0-96.0; Abnormal: Above high normal; Units: fl; Status: F Test: MEAN CORPUSCULAR HEMOGLOBIN; Value: 30.6; Range: 27.0-33.0; Units: pg; Status: F Test: MEAN CORPUSCULAR HGB CONC; Value: 30.5; Range: 32.0-36.5; Abnormal: Below low normal; Units: g/dl; Status: F Test: RED CELL DISTRIBUTION WIDTH; Value: 14.3; Range: 11.5-14.5; Units: %; Status: F Test: PLATELET COUNT, AUTOMATED; Value: 389; Range: 150-450; Units: k/mm3; Status: F Test: NEUTROPHILS; Value: 85; Range: 35-75; Abnormal: Above high normal; Units: %; Status: F Test: LYMPHOCYTES; Value: 9; Range: 16-52; Abnormal: Below low normal; Units: %; Status: F Test: MONOCYTES; Value: 5; Range: 0-8; Units: %; Status: F Test: BASOPHILS; Value: 1; Range: 0-4; Units: %; Status: F Test: MACROCYTOSIS; Value: 1+; Status: F Lab Order: Drug Eval Toxicology ED Only; SPEC'M 10/07/16 20:41 Test: AMPHETAMINES LEVEL URINE; Value: NEGATIVE; Range: NEGATIVE; Status: F Test: BARBITURATES URINE; Value: NEGATIVE; Range: NEGATIVE; Status: F Test: BENZODIAZEPINES URINE; Value: NEGATIVE; Range: NEGATIVE; Status: F Test: CANNABINOIDS URINE; Value: NEGATIVE; Range: NEGATIVE; Status: F Test: COCAINE METABOLITE URINE; Value: NEGATIVE; Range: NEGATIVE; Status: F Test: METHADONE URINE; Value: NEGATIVE; Range: NEGATIVE; Status: F Test: OPIATES URINE; Value: NEGATIVE; Range: NEGATIVE; Status: F Test: TRICYCLIC ANTIDEPRESS URINE; Value: NEGATIVE; Range: NEGATIVE; Status: F Test Note: ; ALL PRESUMPTIVE POSITIVE FINDINGS ARE UNCONFIRMED NORMAL VALUES THRESHOLD IN NG/ML AMPHETAMINES 1000 METHAMPHETAMINES 1000 BARBITURATES 300 BENZODIAZEPINES 300 CANNABINOIDS (THC) 50 COCAINE METABOLITE 300 METHADONE 300 OPIATES 300 PHENCYCLIDINE 25 TRICYCLIC ANTIDEPRESSANTS 1000 RESULTS ARE FOR MEDICAL PURPOSES ONLY. ALL URINE SPECIMENS WILL BE SAVED FOR 3 DAYS. IF CONFIRMATION OF A PRESUMPTIVE POSTIVE SCREEN RESULT IS DESIRED, CALL CHEMISTRY ([phone]) AND REQUEST URINE TO BE SENT TO REFERENCE LAB. FOR A LIST OF CLOSELY RELATED COMPOUNDS PLEASE CALL THE LAB. Lab Order: Ethyl Alcohol (ethanol); SPEC'M 10/07/16 20:41 Test: ETHYL ALCOHOL (ETHANOL); Value: < 0.003; Range: 0.000-0.010; Units: %; Status: F Lab Order: Liver Profile; SPEC'M 10/07/16 20:41 Test: AST/SGOT; Value: 19; Range: 15-37; Units: U/L; Status: F Test: ALT/SGPT; Value: 39; Range: 12-78; Units: U/L; Status: F Test: ALKALINE PHOSPHATASE; Value: 197; Range: 45-117; Abnormal: Above high normal; Units: U/L; Status: F Test: BILIRUBIN,TOTAL; Value: 0.5; Range: 0.2-1.0; Units: MG/DL; Status: F Test: BILIRUBIN,DIRECT; Value: 0.2; Range: 0.0-0.2; Units: MG/DL; Status: F Test: TOTAL PROTEIN; Value: 6.2; Range: 6.4-8.2; Abnormal: Below low normal; Units: GM/DL; Status: F Test: ALBUMIN; Value: 2.7; Range: 3.2-5.2; Abnormal: Below low normal; Units: GM/DL; Status: F Test: ALBUMIN/GLOBULIN RATIO; Value: 0.77; Range: 1.00-1.93; Abnormal: Below low normal; Status: F Lab Order: Salicylate Level; SPEC'M 10/07/16 20:41 Test: SALICYLATE LEVEL; Value: < 1.7; Range: 5.0-30.0; Abnormal: Below low normal; Units: MG/DL; Status: F Lab Order: Thyroid Stimulating Hormone; SPEC'M 10/07/16 20:41 Test: THYROID STIMULATING HORMONE; Value: 0.667; Range: 0.358-3.740; Units: uIU/ML; Status: F Lab Order: URINALYSIS; SPEC'M 10/07/16 20:40 Test: APPEARANCE, URINE; Value: CLEAR; Range: CLEAR; Status: F Test: COLOR, URINE; Value: YELLOW; Range: YELLOW; Status: F Test: PH,URINE; Value: 5.0; Range: 5.0-9.0; Units: UNITS; Status: F Test: SPECIFIC GRAVITY URINE AUTO; Value: 1.016; Range: 1.002-1.035; Status: F Test: PROTEIN, URINE AUTO; Value: 1+; Range: NEGATIVE; Abnormal: Above high normal; Units: mg/dL; Status: F Test: GLUCOSE, URINE (UA) AUTO; Value: NEGATIVE; Range: NEGATIVE; Units: mg/dL; Status: F Test: KETONE, URINE AUTO; Value: NEGATIVE; Range: NEGATIVE; Units: mg/dL; Status: F Test: UROBILINOGEN, URINE AUTO; Value: 0.2; Range: 0.0-2.0; Units: mg/dL; Status: F Test: BILIRUBIN, URINE AUTO; Value: NEGATIVE; Range: NEGATIVE; Status: F Test: NITRITE, URINE AUTO; Value: NEGATIVE; Range: NEGATIVE; Status: F Test: LEUKOCYTE ESTERASE, URINE AUTO; Value: NEGATIVE; Range: NEGATIVE; Status: F Test: BLOOD, URINE BLOOD; Value: NEGATIVE; Range: NEGATIVE; Status: F Test: WBC, URINE AUTO; Value: 2; Range: 0-3; Units: /HPF; Status: F Test: RBC, URINE AUTO; Value: 1; Range: 0-3; Units: /HPF; Status: F Test: BACTERIA, URINE AUTO; Value: NEGATIVE; Range: NEGATIVE; Status: F Test: SQUAMOUS EPITHELIAL CELL UR AU; Value: 0; Range: 0-6; Units: /HPF; Status: F Test: MUCUS, URINE; Value: SMALL; Range: NEGATIVE; Status: F Test: HYALINE CAST, URINE AUTO; Value: 20; Range: 0-1; Units: /LPF; Status: F Lab Order: CBC WITH DIFFERENTIAL; SPEC'M 10/07/16 20:41 Test: WHITE BLOOD COUNT; Value: 20.4; Range: 4.0-10.0; Abnormal: Above high normal; Units: K/mm3; Status: F Test: RED BLOOD COUNT; Value: 4.22; Range: 4.30-6.10; Abnormal: Below low normal; Units: M/mm3; Status: F Test: HEMOGLOBIN; Value: 12.9; Range: 14.0-18.0; Abnormal: Below low normal; Units: g/dl; Status: F Test: HEMATOCRIT; Value: 42.4; Range: 42.0-52.0; Units: %; Status: F Test: MEAN CORPUSCULAR VOLUME; Value: 100.6; Range: 80.0-96.0; Abnormal: Above high normal; Units: fl; Status: F Test: MEAN CORPUSCULAR HEMOGLOBIN; Value: 30.6; Range: 27.0-33.0; Units: pg; Status: F Test: MEAN CORPUSCULAR HGB CONC; Value: 30.5; Range: 32.0-36.5; Abnormal: Below low normal; Units: g/dl; Status: F Test: RED CELL DISTRIBUTION WIDTH; Value: 14.3; Range: 11.5-14.5; Units: %; Status: F Test: PLATELET COUNT, AUTOMATED; Value: 389; Range: 150-450; Units: k/mm3; Status: F Lab Order: PLATELET ESTIMATE; SPEC'M 10/07/16 20:41 Test: PLATELET ESTIMATE; Value: NORMAL; Range: NORMAL; Status: F Radiology Order: CT Chest without contrast Test: CT Chest without contrast REASON FOR EXAMINATION: cough, leukocytosis; ; CLINICAL HISTORY: Cough and leukocytosis.; TECHNIQUE: Multiple axial CT images were obtained through chest without IV contrast material. MPR cor; onal and sagittal sequences were obtained.; COMMENTS:; Bilateral peribronchial interstitial thickening suggestive of chronic bronchitis. Moderate centrilobu; lar pulmonary emphysema. Bilateral groundglass densities in the right middle lobe, lingula and bilate; ral lower lobes.; There is no evidence of pleural or parenchymal mass. There are no pleural effusions. There is no evid; ence of hilar or mediastinal lymphadenopathy. The heart and great vessels are within normal limits.; The visualized portions of the liver are of uniform attenuation without mass or defect. There is no i; ntra or extrahepatic biliary ductal dilatation. The spleen is unremarkable. The visualized pancreas i; s of normal contour and attenuation characteristics. There is no evidence of adrenal mass. The visual; ized portions of the kidneys present no abnormalities.; The bony structures are free of lytic or blastic lesions. Multilevel degenerative changes are seen in; volving the thoracic spine. Scattered calcifications are seen involving the aorta and visualized cadence; r branches compatible with atherosclerosis.; IMPRESSION:; Bilateral multifocal bronchopneumonia.; Findings are more prominent in the lower lobes.; Chronic bronchitis and emphysema.; Thank you for your kind referral of this patient.; ; ; Outcome: 01:32 Decision to Hospitalize by Provider. cs11 02:24 Discharge Assessment: Patient awake, alert and oriented x 3. No cognitive and/or mlc functional deficits noted. Patient verbalized understanding of disposition instructions. patient administered narcotics - no. The following High Risk Discharge criteria are identified: None. Admitted to Med/Surg accompanied by tech. Condition: good Condition: stable. No special radiology studies were completed. Admission hand-off: Report Faxed Fax receipt verified by Tessie Powell LPN. Property given to inpatient unit staff. 02:29 Patient left the ED. sep Signatures: Dispatcher [employer] EDWA Marie Lares RN RN jan Stone, Mary, PSA PSA Emre Long Robert, LPN LPN rw1 Sandra Morales, PSA PSA jfb Ernestine Patrick, COBOL MAINFRAME DEVELOPER COBOL MAINFRAME DEVELOPER Lamberto Sadler, DO DO cs11 Renae Bowles RN RN mlc Hook, Sandra slh Gill, Frances, MD MD fg Beck, Gabriela gjb Redder, Kathie klr Corrections: (The following items were deleted from the chart) 10/07 23:29 20:51 COMPLETE BLOOD COUNT+LAB sent. [facility] EDWA Chart Complete MTDD
--- NOTE | 2016-10-10 03:31 | EDDOCDS ---
Physician Documentation [facility] Name: Jack Tao Age: 75 yrs Sex: Male : 1940 Arrival Date: 10/07/2016 Time: 20:00 Bed [facility] Private MD: Disposition: 10/08/16 01:32 Hospitalization ordered by Jordan Marcos for Inpatient Admission. Preliminary diagnosis is Pneumonia in diseases classified elsewhere. - Bed requested for 5 Wilks. - Status is Inpatient Admission. oz - Condition is Stable. - Problem is an ongoing problem. - Symptoms have improved. Historical: - Allergies: Coumadin (panic attack); - Home Meds: 1. omeprazole 40 mg Oral cpDR 1 cap once daily 2. simvastatin 40 mg Oral tab 1 tab once daily 3. torsemide 100 mg oral tab 1 tab once daily 4. theophylline 200 mg Oral tab 1 tab every 12 hours 5. allopurinol 100 mg Oral tab 2 tabs once daily 6. isosorbide mononitrate 30 mg Oral Tb24 1 tab twice a day 7. Vitamin C 500 mg Oral tab 1,000 mg twice a day 8. calcitriol 0.5 mcg oral cap 2 caps once daily 9. glipizide 10 mg Oral tab 1 tab once daily in PM 10. Vitamin D2 50,000 unit oral cap 1 cap once wkly 11. fluoxetine 20 mg Oral cap 1 cap once daily 12. ferrous sulfate 65 mg Oral tab daily 13. aspirin 81 mg Oral TbEC 1 tab once daily 14. Spiriva with HandiHaler 18 mcg Inhl CpDv 1 cap once daily 15. Advair Diskus 500-50 mcg/dose Inhl dsdv 1 puff 2 times per day 16. Levemir 100 unit/mL subcutaneous soln 12 unit daily - PMHx: CAD; Chronic kidney disease; Diabetes - IDDM: controlled; Hypercholesterolemia; Hypertension; GERD; COPD; - PSHx: Cholecystectomy; Stents, Coronary; Pacemaker Insertion; Appendectomy; - Social history: Smoking status: Patient states former smoker of tobacco. No barriers to communication noted, The patient speaks fluent Trinidadian. - Family history: Not pertinent, No immediate family members are acutely ill. - : The pt / caregiver states he / she is not on anticoagulants. Home medication list is obtained from the patient. - Exposure Risk Screening:: None identified. Vital Signs: 10/07 20:05 BP 168 / 82; Pulse 105; Resp 20; Temp 96.9(TE); Pulse Ox 95% on R/A; Weight 58.97 kg / rw1 130.01 lbs (R); Height 5 ft. 9 in. (175.26 cm) (R); Pain 0/10; 10/08 01:56 BP 171 / 77; Pulse 79; Resp 20; Temp 97.2(O); Pulse Ox 95% on R/A; Pain 0/10; aparna 10/07 20:05 Body Mass Index 19.20 (58.97 kg, 175.26 cm) rw1 10/07 20:05 c/o S.O.B. rw MDM: 20:28 Consult PFS/PSA/Prevention Rn ordered. fg 20:28 Consult PFS/PSA/Prevention Rn: Patient's case requires discussion with on-call fg Psychiatrist ordered. 20:28 PSA/PFS to call Nursing Java Web Architect, to enter patient data on [place] if patient fg involuntarily admitted or transferred for SI or HI ordered. 20:28 Confirm accurate psychiatric medication list and times of last dosage ordered. fg 20:28 Detain Pt Until Medically/PFS Cleared ordered. fg 20:28 Acetaminophen Level Ordered. EDMS 20:28 Basic Metabolic Profile Ordered. EDMS 20:28 Drug Eval Toxicology ED Only Ordered. EDMS 20:28 Ethyl Alcohol (ethanol) Ordered. EDMS 20:28 Liver Profile Ordered. EDMS 20:28 Salicylate Level Ordered. EDMS 20:28 Thyroid Stimulating Hormone Ordered. EDMS 21:46 Chest, 1 View Ordered. EDMS 22:44 Consult PFS/PSA/Prevention Rn complete. ms 22:44 Consult PFS/PSA/Prevention Rn: Patient's case requires discussion with on-call ms Psychiatrist complete. 22:44 PSA/PFS to call Nursing Java Web Architect, to enter [place] if patient ms involuntarily admitted or transferred for SI or HI complete. 23:08 URINALYSIS Ordered. EDMS 23:26 CT Chest without contrast Ordered. EDMS 23:29 CBC WITH DIFFERENTIAL Ordered. EDMS 23:37 DIFFERENTIAL NO CHARGE Ordered. EDMS 10/08 00:06 Financial registration complete. [facility] [address] 00:26 Admission / Observation Status ordered. EDMS 00:26 ELECTROCARDIOGRAM ADULT ordered. EDMS 00:26 CONSISTENT CARBOHYDRATES ordered. EDMS 00:27 COMPLETE BLOOD COUNT Ordered. EDMS 00:27 BASIC METABOLIC PROFILE Ordered. EDMS 00:27 SPUTUM CULTURE AND GRAM STAIN Ordered. EDMS 00:40 THEOPHYLLINE LEVEL Ordered. EDMS 01:12 [facility] [place] was scanned into [employer] and attached to record. [facility] [address] 01:33 BED REQUEST+ADM ordered. EDMS 17:44 T-Sheet-- Draft Copy was scanned into Lift and attached to record. klr Signatures: Dispatcher MedHost EDMS Marie Lares RN RN jan Stone, Edwina, PSA PSA ms Lamberto Kamara, DO DO cs11 Renae Bowles RN RN mlc Hook, Sandra Génesis Kaur MD MD fg Redder, Kathie klr Andrews, Steven, RN RN sa The chart was reviewed and I authenticate all verbal orders and agree with the evaluation and treatment provided.Corrections: (The following items were deleted from the chart) 10/07 23:29 20:28 COMPLETE BLOOD COUNT+LAB ordered. EDMS EDMS 23:29 23:08 DIFFERENTIAL ordered. EDOR EDMS Attachments: 10/08 01:12 [facility] [place] [facility] [address] 17:44 T-Sheet-- Draft Copy klr Chart Complete MTDD
--- NOTE | 2016-10-10 03:31 | EDDOCDS ---
Physician Documentation [facility] Name: Jack Tao Age: 75 yrs Sex: Male : 1940 Arrival Date: 10/07/2016 Time: 20:00 Bed [facility] Private MD: Disposition: 10/08/16 01:32 Hospitalization ordered by Jordan Marcos for Inpatient Admission. Preliminary diagnosis is Pneumonia in diseases classified elsewhere. - Bed requested for 5 Wilks. - Status is Inpatient Admission. oz - Condition is Stable. - Problem is an ongoing problem. - Symptoms have improved. Historical: - Allergies: Coumadin (panic attack); - Home Meds: 1. omeprazole 40 mg Oral cpDR 1 cap once daily 2. simvastatin 40 mg Oral tab 1 tab once daily 3. torsemide 100 mg oral tab 1 tab once daily 4. theophylline 200 mg Oral tab 1 tab every 12 hours 5. allopurinol 100 mg Oral tab 2 tabs once daily 6. isosorbide mononitrate 30 mg Oral Tb24 1 tab twice a day 7. Vitamin C 500 mg Oral tab 1,000 mg twice a day 8. calcitriol 0.5 mcg oral cap 2 caps once daily 9. glipizide 10 mg Oral tab 1 tab once daily in PM 10. Vitamin D2 50,000 unit oral cap 1 cap once wkly 11. fluoxetine 20 mg Oral cap 1 cap once daily 12. ferrous sulfate 65 mg Oral tab daily 13. aspirin 81 mg Oral TbEC 1 tab once daily 14. Spiriva with HandiHaler 18 mcg Inhl CpDv 1 cap once daily 15. Advair Diskus 500-50 mcg/dose Inhl dsdv 1 puff 2 times per day 16. Levemir 100 unit/mL subcutaneous soln 12 unit daily - PMHx: CAD; Chronic kidney disease; Diabetes - IDDM: controlled; Hypercholesterolemia; Hypertension; GERD; COPD; - PSHx: Cholecystectomy; Stents, Coronary; Pacemaker Insertion; Appendectomy; - Social history: Smoking status: Patient states former smoker of tobacco. No barriers to communication noted, The patient speaks fluent Mauritanian. - Family history: Not pertinent, No immediate family members are acutely ill. - : The pt / caregiver states he / she is not on anticoagulants. Home medication list is obtained from the patient. - Exposure Risk Screening:: None identified. Vital Signs: 10/07 20:05 BP 168 / 82; Pulse 105; Resp 20; Temp 96.9(TE); Pulse Ox 95% on R/A; Weight 58.97 kg / rw1 130.01 lbs (R); Height 5 ft. 9 in. (175.26 cm) (R); Pain 0/10; 10/08 01:56 BP 171 / 77; Pulse 79; Resp 20; Temp 97.2(O); Pulse Ox 95% on R/A; Pain 0/10; aparna 10/07 20:05 Body Mass Index 19.20 (58.97 kg, 175.26 cm) rw1 10/07 20:05 c/o S.O.B. rw MDM: 20:28 Consult PFS/PSA/Real Estate Assistant ordered. fg 20:28 Consult PFS/PSA/Real Estate Assistant: Patient's case requires discussion with on-call fg Psychiatrist ordered. 20:28 PSA/PFS to call Nursing Nuclear Equipment Design Engineer, to enter [place] data [place] if patient fg involuntarily admitted or transferred for SI or HI ordered. 20:28 Confirm accurate psychiatric medication list and times of last dosage ordered. fg 20:28 Detain Pt Until Medically/PFS Cleared ordered. fg 20:28 Acetaminophen Level Ordered. EDMS 20:28 Basic Metabolic Profile Ordered. EDMS 20:28 Drug Eval Toxicology ED Only Ordered. EDMS 20:28 Ethyl Alcohol (ethanol) Ordered. EDMS 20:28 Liver Profile Ordered. EDMS 20:28 Salicylate Level Ordered. EDMS 20:28 Thyroid Stimulating Hormone Ordered. EDMS 21:46 Chest, 1 View Ordered. EDMS 22:44 Consult PFS/PSA/Real Estate Assistant complete. ms 22:44 Consult PFS/PSA/Real Estate Assistant: Patient's case requires discussion with on-call ms Psychiatrist complete. 22:44 PSA/PFS to call Nursing Nuclear Equipment Design Engineer, to enter [place] if patient ms involuntarily admitted or transferred for SI or HI complete. 23:08 URINALYSIS Ordered. EDMS 23:26 CT Chest without contrast Ordered. EDMS 23:29 CBC WITH DIFFERENTIAL Ordered. EDMS 23:37 DIFFERENTIAL NO CHARGE Ordered. EDMS 10/08 00:06 Financial registration complete. [facility] 00:26 Admission / Observation Status ordered. EDMS 00:26 ELECTROCARDIOGRAM ADULT ordered. EDMS 00:26 CONSISTENT CARBOHYDRATES ordered. EDMS 00:27 COMPLETE BLOOD COUNT Ordered. EDMS 00:27 BASIC METABOLIC PROFILE Ordered. EDMS 00:27 SPUTUM CULTURE AND GRAM STAIN Ordered. EDMS 00:40 THEOPHYLLINE LEVEL Ordered. EDMS 01:12 [facility] [place] Payment Agreement was scanned into MEDHOPBJ Conc[employer]ge and attached to record. [facility] 01:33 BED REQUEST+ADM ordered. EDMS 17:44 T-Sheet-- Draft Copy was scanned into Sjh direct [employer] and attached to record. klr Signatures: Dispatcher MedHost EDMS Marie Lares RN RN jan Stone, Edwina, PSA PSA ms Lamberto Kamara, DO DO cs11 Renae Bowles RN RN mlc Hook, Sandra Génesis Kaur MD MD fg Redder, Kathie klr Andrews, Steven, RN RN sa The chart was reviewed and I authenticate all verbal orders and agree with the evaluation and treatment provided.Corrections: (The following items were deleted from the chart) 10/07 23:29 20:28 COMPLETE BLOOD COUNT+LAB ordered. EDMS EDMS 23:29 23:08 DIFFERENTIAL ordered. EDND EDMS Attachments: 10/08 01:12 [facility] [place] Payment Agreement [facility] 17:44 T-Sheet-- Draft Copy klr Chart Complete MTDD
[2016-10-10] MEDS: cefTRIAXone SOD 2 GM in D5W MINI-BAG PLUS 50 ML IV SCH (04:46)
[2016-10-10] MEDS: SLF 3 ML SYR IV SCH ×2 (05:28→14:00)
[2016-10-10 06:00] VITALS: BP 161/67
[2016-10-10] MEDS ORDERED: MOXIFLOXACIN 400 MG TAB PO SCH (06:00)
[2016-10-10 07:12] LABS: MEAN CORPUSCULAR HEMOGLOBIN 31.5 pg (27.0-33.0); MEAN CORPUSCULAR HGB CONC 32.4 g/dl (32.0-36.5); MEAN CORPUSCULAR VOLUME 97.3 fl (80.0-96.0); RED CELL DISTRIBUTION WIDTH 13.2 % (11.5-14.5); WHITE BLOOD COUNT 10.7 K/mm3 (4.0-10.0)
[2016-10-10] MEDS: HumaLOG INSULIN (NovoLOG) PER UNIT SC SCH ×3 (07:30→17:44)
[2016-10-10 07:38] LABS: ANION GAP 7 MEQ/L (8-16); BLOOD UREA NITROGEN 23 MG/DL (7-18); CALCIUM LEVEL 8.3 MG/DL (8.8-10.2); CARBON DIOXIDE LEVEL 33 MEQ/L (21-32); CHLORIDE LEVEL 100 MEQ/L (98-107); CREATININE FOR GFR 1.24 MG/DL (0.70-1.30); GLOMERULAR FILTRATION RATE > 60.0 (>42); GLUCOSE, FASTING 161 MG/DL (83-110); POTASSIUM SERUM 3.7 MEQ/L (3.5-5.1); SODIUM LEVEL 140 MEQ/L (136-145)
[2016-10-10] MEDS: ALBUTEROL 90 MCG/ACT 8GM HFA INHALER INH SCH ×2 (08:00→10:58)
[2016-10-10] MEDS: ENOXAPARIN 40 MG/0.4 ML SYRINGE (J1650) SC SCH (09:00)
[2016-10-10] MEDS: THEOPHYLLINE (THEO-24) 100MG SR **CAPSULE PO SCH (09:00)
[2016-10-10] MEDS: ATORVASTATIN 20 MG TAB PO SCH (09:00)
[2016-10-10] MEDS: ISOSORBIDE MON. (IMDUR) 30 MG XR TAB PO SCH (09:00)
[2016-10-10] MEDS: FLUoxetine 20 MG CAP PO SCH (09:00)
[2016-10-10] MEDS: TORSEMIDE (DEMADEX) 50 MG PER 1/2 TAB PO SCH (09:10)
[2016-10-10] MEDS: ALLOPURINOL 100 MG TAB PO SCH (09:11)
[2016-10-10] MEDS: CALCITRIOL 0.25 MCG CAP (S0169) PO SCH (09:12)
[2016-10-10] MEDS: TIOTROPIUM INHALER/CAPSULE (SPIRIVA) INH SCH (09:22)
[2016-10-10] MEDS: ADVAIR DISKUS 500/50 INH PWD INH SCH ×2 (09:22→20:06)
[2016-10-10] MEDS: **hydrALAZINE** 10 MG TAB PO SCH ×2 (12:00→17:44)
[2016-10-10] MEDS ORDERED: LEVALBUTEROL 1.25 MG/0.5 ML CONCENTRATE NEB INH PRN (12:45)
--- NOTE | 2016-10-10 12:51 | IPN ---
DATE: 10/10/2016 The patient is seen and examined at the bedside. Chart has been reviewed. This morning, the patient denies any cough, fever, chills. He has chronic shortness of breath, which is at baseline. VITAL SIGNS: Temperature 98.5, pulse 78, respiratory rate 14, blood pressure 171/92, 89% on room air and 92% on nasal cannula. GENERAL: Awake, alert, oriented times three. Edentulous. Answers questions appropriately. No use of respiratory accessory muscles. LUNGS: Diminished breath sounds. Bilateral wheezing. ABDOMEN: Soft, nontender, nondistended. Positive bowel sounds. EXTREMITIES: No cyanosis, clubbing or pitting edema. LABORATORY DATA: CBC and metabolic panel have been reviewed. ASSESSMENT AND PLAN: This is a 75-year-old male with history of severe depression, atrial fibrillation with pacemaker, hypertension, chronic obstructive pulmonary disease (COPD), methicillin resistant Staphylococcus aureus (MRSA) pneumonia in 2012, diverticular bleed, coronary artery disease, obstructive sleep apnea, presents to the emergency room after being brought in by police due to suicide attempt and ideation, being found at [facility] in his car with pills and a suicide note. The patient was treated for pneumonia as an outpatient. Continued in the hospital due to finding bilateral multifocal bronchopneumonia, chronic bronchitis with emphysema. CURRENT ISSUES: 1. Multilobar pneumonia. The patient has done well with ceftriaxone and azithromycin with normalization of white count without fever or chills. He will be changed to Avelox. Check a 12-lead EKG to rule out prolonged QT interval. 2. Hypertension, uncontrolled. The patient's isosorbide, Imdur will be titrated, as well as addition of hydralazine due to acute kidney injury. The patient cannot be placed on an PAUL inhibitor. 3. Suicidal ideation and attempt. At this time, Dr. Calderon has been consulted for evaluation for suicide attempt and inpatient mental health unit involuntary admission. 4. History of atrial fibrillation with pacemaker. Currently rate controlled. Continue on the same medications. 5. Hyperlipidemia. Continue on Lipitor. 6. Chronic obstructive pulmonary disease (COPD). Continue Advair Diskus, Spiriva. Due to bilateral active wheezing, we will place on around the clock nebulizer treatments with Xopenex due to a history of atrial fibrillation and to avoid significant tachyarrhythmia. DISPOSITION: The patient is improved. After evaluation by psychiatrist, if an inpatient mental health unit bed is available, he is medically stable for transfer. The patient's saturations have been persistently over 89%, not requiring supplemental oxygen. MICHELLED
[2016-10-10 14:00] VITALS: BP 103/74
[2016-10-10] MEDS: LEVALBUTEROL 1.25 MG/0.5 ML CONCENTRATE NEB INH SCH ×2 (15:16→20:00)
[2016-10-10 17:44] VITALS: BP 160/74
[2016-10-11] MEDS ORDERED: AZITHROMYCIN 250 MG TAB PO SCH (09:00)
--- NOTE | 2016-10-11 18:08 | ECGEPIP ---
Stationary ECG Study [facility] Test Date: 2016-10-10 Pat Name: EAGLE PICKENS Department: Room: [place] [address] Gender: M Chick Room Supervisor: ERIC : 1940 Requested By: KELLY Pack Order Number: [id number] Reading MD: Jah Masters Measurements Intervals [place] Rate: 76 P: MN: 0 QRS: 80 QRSD: 85 T: 78 QT: 374 QTc: 422 Interpretive Statements ATRIAL FLUTTER/TACHYCARDIA, POSSIBLE MODERATE T-WAVE ABNORMALITY, CONSIDER ANTERIOR ISCHEMIA INTERMITTENT VENTRICULAR PACING ACTIVITY NOTED COMPARED TO THE LAST 3 TRACINGS IN THE SYSTEM, PATIENT WITH HISTORY OF ATRIAL FLUTTER WITH VENTRICULAR PACED BEATS Electronically Signed On 10-11-2016 18:08:29 EST by Jah Masters
--- NOTE | 2016-11-08 09:39 | DSES ---
DATE OF ADMISSION: 10/08/2016 DATE OF DISCHARGE: 10/10/2016 The patient was transferred to inpatient mental health unit. PRIMARY DISCHARGE DIAGNOSES: 1. Multilobar pneumonia. 2. Uncontrolled hypertension. 3. Suicide ideation and attempt. 4. History of atrial fibrillation with pacemaker. 5. Hyperlipidemia. 6. Chronic obstructive pulmonary disease (COPD). DISCHARGE MEDICATIONS: - Avelox 400 mg daily for 10 days - Apresoline 10 mg every 6 hours - Xopenex 1.25 mg every 1 hour as needed, every 4 routinely - Lispro sliding scale - allopurinol 200 mg daily - atorvastatin 20 mg daily - calcitriol 0.25 mcg daily - Prozac 20 mg daily - Imdur 30 mg daily - Advair Diskus 500/50 one puff twice a day - Spiriva one inhale daily - Demadex 50 daily - theophylline 200 mg daily - Proventil two puffs four times a day - nitroglycerin 0.4 as needed HOSPITAL COURSE: This is a 75-year-old male, history of severe depression, atrial fibrillation (AFib) with pacemaker, hypertension, chronic obstructive pulmonary disease (COPD), methicillin-resistant Staphylococcus aureus (MRSA), pneumonia in 2012, diverticular bleed, coronary artery disease (CAD), obstructive sleep apnea (ANASTASIA), presented to the emergency room (ER) after being brought in by police due to a suicide attempt and ideation, being found at [facility] in his car with pills and suicide note. The patient had been treated for pneumonia as outpatient and was found to have bilateral multifocal bronchopneumonia with chronic bronchitis and emphysema on chest CT 10/07/2016. The patient was continued on ceftriaxone and azithromycin. White count on admission was 20,000, decreased to 10,000 on discharge. He had acute kidney injury with 1.43 creatinine, most likely due to Demadex, improved to 1.24 on discharge. Sputum culture showed normal kira. The patient was transitioned to Avelox. He remained afebrile throughout the entire admission, was 87% initially on admission on 10/08/2016 and 89% on discharge with ambulation half the corridor but went back up to 94%. The patient was discharged in stable condition. LABORATORIES ON DISCHARGE: White count 10.7, hemoglobin 11.6, hematocrit 35, platelet count 360. Sodium 140, potassium 3.7, chloride 100, bicarbonate 33, BUN 23, creatinine 1.24, glucose of 161. MICROBIOLOGY: Sputum culture: Normal kira. 10/07/2016 CT chest: Bilateral multifocal bronchopneumonia prominent in lower lobes, chronic bronchitis, and emphysema. TIME SPENT ON DISCHARGE: 30 minutes.
== END 2016-10-10 20:27 | DRG 194 ==
LOC: M ED 20:00 → M ED INP 10-08 00:20 → M MS5PR 10-08 02:35
PROVIDERS: ADMIT Internal Medicine; ATTEND General Practice
DX: J18.0 Bronchopneumonia, unspecified organism (principal); I50.30 Unspecified diastolic (congestive) heart failure; R45.851 Suicidal ideations; I48.91 Unspecified atrial fibrillation; I10 Essential (primary) hypertension; J44.9 Chronic obstructive pulmonary disease, unspecified; I25.10 Atherosclerotic heart disease of native coronary artery without angina pectoris; E11.9 Type 2 diabetes mellitus without complications; M10.9 Gout, unspecified; G47.33 Obstructive sleep apnea (adult) (pediatric); Z95.0 Presence of cardiac pacemaker; Z79.899 Other long term (current) drug therapy; Z79.82 Long term (current) use of aspirin; E78.00 Pure hypercholesterolemia, unspecified; K21.9 Gastro-esophageal reflux disease without esophagitis

== ENCOUNTER 2016-10-10 20:38 | Inpatient (IN) | payer MEDICARE ==
[~2016-10-10] VITALS: Ht 175.3 cm; Wt 62.1 kg
[~2016-10-10 20:38] MED LIST changes: +ALLO100T PO; +THEO1CAP2 PO
[2016-10-10] MEDS: HumaLOG INSULIN (NovoLOG) PER UNIT SC SCH (21:00)
[2016-10-10] MEDS ORDERED: GLUCAGON FOR INJ 1 MG VIAL (J1610) SC PRN (21:00)
[2016-10-10] MEDS ORDERED: traZODone 50 MG TAB PO PRN (21:00)
[2016-10-10] MEDS ORDERED: GLUCOSE 4 GM CHEW TABLET PO PRN (21:00)
[2016-10-10] MEDS ORDERED: ACETAMINOPHEN TAB 650MG DOSE (2X325MG) PO PRN (21:00)
[2016-10-10] MEDS ORDERED: MAALOX 30 ML SUSP *UDC PO PRN (21:00)
[2016-10-10] MEDS ORDERED: MOM 30ML SUSPENSION UDC PO PRN (21:00)
[2016-10-10] MEDS ORDERED: DEXTROSE 50% 50 ML SYRINGE IV PRN (21:00)
[2016-10-10] MEDS ORDERED: ALBUTEROL SULFATE 2.5 MG/0.5 ML INH NEB SOLN NEB PRN (21:15)
[2016-10-10] MEDS ORDERED: LEVALBUTEROL 1.25 MG/0.5 ML CONCENTRATE NEB INH PRN (21:15)
[2016-10-10] MEDS ORDERED: NITROGLYCERIN 0.4 MG SUBL TABLET SL STA (21:31)
[2016-10-10 21:34] VITALS: BP 117/53
[2016-10-10] MEDS ORDERED: NITROGLYCERIN 0.4 MG SUBL TABLET SL PRN (22:00)
[2016-10-10] MEDS: **hydrALAZINE** 10 MG TAB PO SCH (23:15)
[2016-10-11] MEDS: LEVALBUTEROL 1.25 MG/0.5 ML CONCENTRATE NEB INH SCH ×3 (04:00→08:00)
[2016-10-11] MEDS: **hydrALAZINE** 10 MG TAB PO SCH ×3 (06:00→17:01)
[2016-10-11] MEDS: MOXIFLOXACIN 400 MG TAB PO SCH (06:26)
[2016-10-11] MEDS ORDERED: ALBUTEROL SULFATE 2.5 MG/0.5 ML INH NEB SOLN NEB PRN (06:30)
[2016-10-11 06:32] VITALS: BP 132/65
[2016-10-11] MEDS: TIOTROPIUM INHALER/CAPSULE (SPIRIVA) INH SCH (08:14)
[2016-10-11] MEDS: HumaLOG INSULIN (NovoLOG) PER UNIT SC SCH ×4 (08:14→21:00)
[2016-10-11] MEDS: THEOPHYLLINE (THEO-24) 100MG SR **CAPSULE PO SCH (08:15)
[2016-10-11] MEDS: ALLOPURINOL 100 MG TAB PO SCH (08:15)
[2016-10-11] MEDS: ATORVASTATIN 20 MG TAB PO SCH (08:15)
[2016-10-11] MEDS: TORSEMIDE (DEMADEX) 50 MG PER 1/2 TAB PO SCH (08:15)
[2016-10-11] MEDS: FLUoxetine 20 MG CAP PO SCH (08:15)
[2016-10-11] MEDS: ISOSORBIDE MON. (IMDUR) 30 MG XR TAB PO SCH (08:16)
[2016-10-11] MEDS: CALCITRIOL 0.25 MCG CAP (S0169) PO SCH (08:16)
[2016-10-11] MEDS: ADVAIR DISKUS 500/50 INH PWD INH SCH ×2 (08:17→21:08)
[2016-10-11] MEDS: ALBUTEROL 90 MCG/ACT 8GM HFA INHALER INH SCH ×4 (08:17→21:08)
[2016-10-11] MEDS ORDERED: ENOXAPARIN 40 MG/0.4 ML SYRINGE (J1650) SC SCH (09:00)
[2016-10-11] MEDS ORDERED: ALBUTEROL 90 MCG/ACT 8GM HFA INHALER INH SCH (09:00)
[2016-10-11] MEDS ORDERED: AZITHROMYCIN 250 MG TAB PO SCH (09:00)
--- NOTE | 2016-10-11 10:13 | HPEPDOC ---
Medical History and Physical Date of Admission Oct 10, 2016 at 20:38 History and Physical PCP: Dr Mckeon Social Insurance Administrator Dr Lopez Credit Union Field Examiner Dr Giordano Condominium Property Manager Dr Dumont ATTENDING: Dr. Jordan Marcos HPI: 75 [facility]M [facility] disorder, being medically examined today. He states his breathing has been good. He has not been coughing or producing sputum. No acute medical complaints today. Denies any fevers, chills, weakness, fatigue, MCKAY, CP, SOB, cough, palpitations, abdominal pain, N/V/D or changes in bowel or bladder habits. PMHx: History of MRSA pneumonia 2013 Diverticular bleed Atrial fibrillation Pacemaker Hypertension COPD Gout Diabetes CHF/diastolic dysfunction CAD GERD Depression Gout PSHX: Pacemaker Appendectomy Cholecystectomy Cataract surgery Hernia repair SOCHX: Resides in: [place], moving to [facility] Marital Status: Kids: 2 stepchildren Employment: Retired [employer] Tobacco use: Quit 12 years ago ETOH: Denies Illicit Drugs: Denies IV Drug Use: Denies Tattoos done unprofessionally: Denies FAMHX: Mother: , old age Father: , emphysema Siblings: 5 sisters Alive, well. 9 siblings history of hypertension, diabetes Children: None Unexpected deaths due to medical reasons: None. ROS: As noted in HPI, otherwise 11pt ROS of systems reviewed and unremarkable. States his respiratory status is near his baseline. PE: GEN: 75 yo M, appears stated age. Well-nourished, well developed. No acute distress. Alert and oriented x 3. Pleasant, interactive. HEENT: Normocephalic, atraumatic. Pupils are equal, round, and reactive to light. Extraocular movements are intact. No nystagmus appreciated. Sclera are nonicteric. Conjunctiva without injection. Nose midline. Nasal turbinates without bogginess. EACs both patent BL. TMs both visualized and alvarado with good cone of light, no bulging or erythema. No facial asymmetry. Moist mucous membranes. Dentition poor. Pharynx pink and moist. Neck supple, trachea midline. No lymphadenopathy or thyromegaly appreciated. CHEST: Regular rate and rhythm, +S1, +S2 LUNGS: Reduced breath sounds bilaterally. Few scattered wheezes, no rales, or rhonchi. Breathing appears symmetric and easy. Patient is speaking in full sentences. No accessory muscle use. ABD: Round, soft, non-tender, non-distended. +Bowel sounds throughout. No rebound or guarding. No costovertebral angle tenderness. EXT: Pulses 2+ bilaterally dorsalis pedis and radial. No lower extremity edema appreciated. SKIN: [place], dry, warm. Capillary refill <2sec. No rashes. NEURO: Alert and oriented x 3. Cranial nerves III-XII are intact. No focal deficits appreciated. EK10/08/16. Probable atrial fibrillation with paced ventricular complexes No significant change when compared to prior tracing of 07/07/2016 A&P: 75 yoM [facility] for unspecified depressive disorder 1. Psych. Plan per Psychiatry. EKG on file. 2. Multilobar pneumonia. Patient will finish oral Avelox 400 mg by mouth daily. 3. Hypertension. Continue Imdur 30 mg daily, Demadex 50 mg daily. 4. History of atrial fibrillation/pacemaker. Currently rate controlled. No medication changes made. 5. Hyperlipidemia. Continue Lipitor 20 mg daily. 6. COPD. continue theophylline 200 mg daily. Spiriva 1 inhalation daily. Advair 500/50 one inhalation twice a day. Xopenex nebulizer every 4 hours and every hour as needed. Continue Proventil 4 times a day. Continue albuterol nebulizer every 2 hours as needed. 7. Gout. Continue allopurinol 200 mg daily. 8. Diabetes. Continue sliding scale insulin. Controlled carbohydrate diet. A1c 8.2 10/10/16. 9. Follow up with PCP on discharge. Dr Mckeon. 10. Staff member present throughout exam, Safety aid Ed. Vital Signs Vital Signs Label Value Date Time Patient Temperature 95.5 degrees F 10/11/16 0632 Temperature Source Tympanic 10/11/16 0632 Pulse 100 10/11/16 0632 Blood Pressure Assessment 132/65 (87) 10/11/16 0632 Bedside Pulse Oximetry 93 % 10/11/16 0632 Blood Pressure Assessment 132/65 10/11/16 0816 Item Value Date Time Oxygen Delivery Method Nasal Cannula 10/11/16 0632 Oxygen Flow Rate 2.0 L/min 10/11/16 0632 Laboratory Data Labs 24H Laboratory Tests 2 10/11/16 06:29: Bedside Glucose (Misc Panel) 194H FSBS Laboratory Tests Test 10/11/16 06:29 Range/Units Bedside Glucose (Misc Panel) 194 83-110 MG/DL Home Medications Scheduled Albuterol Sulfate (Ventolin Hfa) 200 Puff/8 Gm Aers 2 PUFF INH QID SOB/WHEEZING Allopurinol (Allopurinol) 100 Mg Tab 200 MG PO DAILY Atorvastatin Calcium (Atorvastatin Calcium) 20 Mg Tab 20 MG PO DAILY cholesterol Fluoxetine HCl (Prozac) 20 Mg Cap 20 MG PO DAILY DEPRESSION Glipizide (Glipizide ER) 10 Mg Tab 10 MG PO DAILY Isosorbide Mononitrate (Isosorbide Mononitrate ER) 30 Mg Tab 30 MG PO DAILY chest pain Salmeterol/Fluticasone (Advair Diskus 500-50 Mcg/Dose) 28 Puff/Inhaler Aerp 1 PUFF INH BID SHORTNESS OF BREATH Theophylline (Jameson-24) 100 Mg Capcr 200 MG PO DAILY Tiotropium [place] Monohydrate (Spiriva Handihaler) 5 Inhalation/Inhaler Powd 1 INHALATION INH DAILY SHORTNESS OF BREATH Torsemide (Torsemide) 100 Mg Tab 50 MG PO DAILY Scheduled PRN Nitroglycerin (Nitroglycerin) 0.4 Mg Sub 0.4 MG SL Q5MP PRN PRN chest pain Miscellaneous Medications Calcitriol (Calcitriol) 0.25 Mcg Cap 0.25 MCG PO thyroid Allergies Coded Allergies: Warfarin (Unverified Allergy, Unknown, UNKNOWN, 07/07/16) Tameka Garza Oct 11, 2016 10:13
[2016-10-11 18:20] VITALS: BP 106/56
[2016-10-12] MEDS: **hydrALAZINE** 10 MG TAB PO SCH ×4 (05:59→17:09)
[2016-10-12] MEDS: MOXIFLOXACIN 400 MG TAB PO SCH (06:00)
[2016-10-12 06:47] VITALS: BP 156/82
[2016-10-12] MEDS: HumaLOG INSULIN (NovoLOG) PER UNIT SC SCH ×4 (06:57→20:09)
[2016-10-12] MEDS: ATORVASTATIN 20 MG TAB PO SCH (10:16)
[2016-10-12] MEDS: FLUoxetine 20 MG CAP PO SCH (10:16)
[2016-10-12] MEDS: ADVAIR DISKUS 500/50 INH PWD INH SCH ×2 (10:16→20:09)
[2016-10-12] MEDS: CALCITRIOL 0.25 MCG CAP (S0169) PO SCH (10:17)
[2016-10-12] MEDS: ISOSORBIDE MON. (IMDUR) 30 MG XR TAB PO SCH (10:17)
[2016-10-12] MEDS: THEOPHYLLINE (THEO-24) 100MG SR **CAPSULE PO SCH (10:17)
[2016-10-12] MEDS: ALBUTEROL 90 MCG/ACT 8GM HFA INHALER INH SCH ×4 (10:17→20:09)
[2016-10-12] MEDS: TORSEMIDE (DEMADEX) 50 MG PER 1/2 TAB PO SCH (10:17)
[2016-10-12] MEDS: TIOTROPIUM INHALER/CAPSULE (SPIRIVA) INH SCH (10:18)
[2016-10-12] MEDS: ALLOPURINOL 100 MG TAB PO SCH (10:18)
[2016-10-12 18:00] VITALS: BP 115/58
--- NOTE | 2016-10-12 23:10 | HPEPDOC ---
[facility] History & Physical History and Physical DATE OF ADMISSION: Oct 10, 2016 at 20:38 Date of this interview: 10/11/2016 CHIEF COMPLAINT: Worsening depressive symptoms, suicidal ideations with plan to overdose on over the counter pills. HISTORY OF THE PRESENT ILLNESS: Patient is a 75-year-old male who presents to the emergency department by police escort after being found sitting in his car with a bottle of pills, completing suicide. Patient has a past psychiatric history significant for depression. Patient has no prior suicide attempt history. Patient reports recent stressor of frequent verbal altercations with his landlord he is with. Patient pays mortgage for landlorsara Mckeon. She in turn allows him to stay there and have access to the entire house. She reports he has been living in this arrangement for the last 3 years. Patient reports over the last 6 months he and his landlord have been easily agitated by each other. He reports landlord has made passive vincent about finding a new apartment but then tells them he can stay. Patient reports on the day prior to admission he was playing with his landlord's dog and she abruptly took the animal from him which really upset him as he is close with the dog. Patient reports this extremely irritated him and he decided he no longer could live with his landlord. Patient reports driving off in his car and over the next hours becoming very depressed. He focused on feeling that he had nothing to show for his life; no home, no money, no friends. Patient reports he drove to a local pharmacy and bought a bottle of pills, a notebook, and a pen. He reports he pulled into a [employer] parking lot and sat there contemplating suicide and what to write in a suicide letter. He reports next police knocking on his window, which he found out later were called by his worry daughter. Patient is also stressed by the fact that his daughter is very upset with his behaviors. Patient reports his depression has been up and down in intensity. He reports approximately one year of diminished memory and episodes of losing his train of thought during conversations. He reports diminished sleep and concentration. Patient reports poor energy and thoughts of hopelessness and helplessness and worthlessness. Patient reports thoughts of suicide have been more frequent. Early patient denies suicidal and homicidal ideations. He displays good immediate recent and remote memory on interview. He denies auditory or visual hallucinations. He is appropriate in common and behavior. No signs of psychosis are reported or noted on exam. PAST PSYCHIATRIC HISTORY: Prior Psychiatric Disorder: Previous diagnoses of depression/anxiety Outpatient Treatment: None currently Inpatient: This is patient's2nd, last psychiatric hospitalization on 07/07/2016 at [facility]. Suicidal/Self injurious: None Psychotropic Medication History: Prozac PMHx: History of MRSA pneumonia 2013 Diverticular bleed Atrial fibrillation Pacemaker Hypertension COPD Gout Diabetes CHF/diastolic dysfunction CAD GERD Depression Gout PSHX: Pacemaker Appendectomy Cholecystectomy Cataract surgery Hernia repair SOCHX: Resides in: [place], moving to [facility] Marital Status: Kids: 2 stepchildren Employment: Retired [employer] Tobacco use: Quit 12 years ago ETOH: Denies Illicit Drugs: Denies IV Drug Use: Denies Tattoos done unprofessionally: Denies FAMHX: Mother: , old age Father: , emphysema Siblings: 5 sisters Alive, well. 9 siblings history of hypertension, diabetes Children: None Unexpected deaths due to medical reasons: None. HOME MEDICATIONS: - Please see below ALLERGIES: Warfarin VITAL SIGNS: Within normal limits LABORATORY DATA: EK10/08/16. Probable atrial fibrillation with paced ventricular complexes No significant change when compared to prior tracing of 07/07/2016 Please see others below. MENTAL STATUS EXAMINATION: Patient is a 75-year-old male who appears stated age, dressed in hospital attire, notably anxious Speech: Is regular rate and rhythm, spontaneous Thought processes: Linear, Goal directed. Thought content: Focused on his daughter being upset with him and not having friends; losing the one friend he had Description of abnormal or psychotic thoughts: No perceptual issues noted or reported. Judgment: Poor Insight: Poor Orientation to time, place and person. Recent and remote memory: Intact. Immediate short-term and long-term memory is: intact. Attention span and concentration: fair. Language: Normal. Fund of knowledge: Adequate Mood: depressed /anxious Affect: Depressed PROBLEM LIST: 1. Suicidal ideations with plan 2. Depression. 3. Anxiety. ASSESSMENT: -Depressive disorder unspecified PLAN: [ 1.~ ~ Patient was admitted on a 9.30 legal status, 2.~ ~ Complete history was obtained. 3.~ ~ With patients permission, family will be contacted and database will be expanded. 4.~ ~Will continue current psychotropic medication regimen as written. -Patient will finish oral Avelox 400 mg by mouth daily. -Hypertension. Continue Imdur 30 mg daily, Demadex 50 mg daily. -History of atrial fibrillation/pacemaker. Currently rate controlled. No medication changes made. -Hyperlipidemia. Continue Lipitor 20 mg daily. -COPD. continue theophylline 200 mg daily. Spiriva 1 inhalation daily. Advair 500/50 one inhalation twice a day. Xopenex nebulizer every 4 hours and every hour as needed. Continue Proventil 4 times a day. Continue albuterol nebulizer every 2 hours as needed. -Gout. Continue allopurinol 200 mg daily. -Diabetes. Continue sliding scale insulin. Controlled carbohydrate diet. A1c 8.2 10/10/16. -Follow up with PCP on discharge. Dr Mckeon. 5.~ ~ Patient will be provided with protected environment. 6.~ ~ Patient will be treated with individual, group, and milieu therapies. 7.~ ~ Patient will receive supportive psych-education. 8.~ ~ Discharge planning will commence immediately. 9.~ ~ Length of patients stay will be between 3-5 days 10.~ Outpatient follow-up treatment will be strongly recommended. TIME SPENT COUNSELING AND COORDINATING INITIAL CARE: 60 minutes. Laboratory Data 24H Labs Laboratory Tests 2 10/12/16 05:57: Bedside Glucose (Misc Panel) 232H 10/12/16 12:12: Bedside Glucose (Misc Panel) 300H 10/12/16 17:05: Bedside Glucose (Misc Panel) 210H 10/12/16 20:05: Bedside Glucose (Misc Panel) 271H FSBS Laboratory Tests Test 10/12/16 05:57 10/12/16 12:12 10/12/16 17:05 10/12/16 20:05 Range/Units Bedside Glucose (Misc Panel) 232 300 210 271 83-110 MG/DL Medications Scheduled Albuterol Sulfate (Ventolin Hfa) 200 Puff/8 Gm Aers 2 PUFF INH QID SOB/WHEEZING (Reported) Allopurinol (Allopurinol) 100 Mg Tab 200 MG PO DAILY (Reported) Atorvastatin Calcium (Atorvastatin Calcium) 20 Mg Tab 20 MG PO DAILY cholesterol (Reported) Fluoxetine HCl (Prozac) 20 Mg Cap 20 MG PO DAILY DEPRESSION (Reported) Glipizide (Glipizide ER) 10 Mg Tab 10 MG PO DAILY (Reported) Isosorbide Mononitrate (Isosorbide Mononitrate ER) 30 Mg Tab 30 MG PO DAILY chest pain (Reported) Salmeterol/Fluticasone (Advair Diskus 500-50 Mcg/Dose) 28 Puff/Inhaler Aerp 1 PUFF INH BID SHORTNESS OF BREATH (Reported) Theophylline (Jameson-24) 100 Mg Capcr 200 MG PO DAILY (Reported) Tiotropium [place] Monohydrate (Spiriva Handihaler) 5 Inhalation/Inhaler Powd 1 INHALATION INH DAILY SHORTNESS OF BREATH (Reported) Torsemide (Torsemide) 100 Mg Tab 50 MG PO DAILY (Reported) Scheduled PRN Nitroglycerin (Nitroglycerin) 0.4 Mg Sub 0.4 MG SL Q5MP PRN PRN chest pain ( Reported) Miscellaneous Medications Calcitriol (Calcitriol) 0.25 Mcg Cap 0.25 MCG PO thyroid (Reported) Allergies Coded Allergies: Warfarin (Unverified Allergy, Unknown, UNKNOWN, 07/07/16) JULIANNE DIEZ MD Oct 12, 2016 23:10 Albuterol Sulfate (Ventolin Hfa) 200 Puff/8 Gm Aers 2 PUFF INH QID SOB/WHEEZING (Reported) Allopurinol (Allopurinol) 100 Mg Tab 200 MG PO DAILY (Reported) Atorvastatin Calcium (Atorvastatin Calcium) 20 Mg Tab 20 MG PO DAILY cholesterol (Reported) Fluoxetine HCl (Prozac) 20 Mg Cap 20 MG PO DAILY DEPRESSION (Reported) Glipizide (Glipizide ER) 10 Mg Tab 10 MG PO DAILY (Reported) Isosorbide Mononitrate (Isosorbide Mononitrate ER) 30 Mg Tab 30 MG PO DAILY chest pain (Reported) Salmeterol/Fluticasone (Advair Diskus 500-50 Mcg/Dose) 28 Puff/Inhaler Aerp 1 PUFF INH BID SHORTNESS OF BREATH (Reported) Theophylline (Jameson-24) 100 Mg Capcr 200 MG PO DAILY (Reported) Tiotropium [place] Monohydrate (Spiriva Handihaler) 5 Inhalation/Inhaler Powd 1 INHALATION INH DAILY SHORTNESS OF BREATH (Reported) Torsemide (Torsemide) 100 Mg Tab 50 MG PO DAILY (Reported) Scheduled PRN Nitroglycerin (Nitroglycerin) 0.4 Mg Sub 0.4 MG SL Q5MP PRN PRN chest pain ( Reported) Miscellaneous Medications Calcitriol (Calcitriol) 0.25 Mcg Cap 0.25 MCG PO thyroid (Reported) Allergies Coded Allergies: Warfarin (Unverified Allergy, Unknown, UNKNOWN, 07/07/16) JULIANNE DIEZ MD Oct 12, 2016 23:10
--- NOTE | 2016-10-12 23:14 | IPNPDOC ---
[facility] Progress Note Progress Note DATE: 10/12/16 SUBJECTIVE: Patient reports ongoing depressed mood. He continues to be focused in his psychosocial stressors, primarily end of the friendship with his landlord. He is focused on her treatment of him. Patient is medication compliant. Patient denies current SI and HI. Patient has made no bizarre statements nor has he displayed bizarre or inappropriate behavior. Patient reports improving sleep and appetite. OBJECTIVE: VITAL SIGNS: See below. NEW TEST RESULTS: See below. CURRENT MEDICATIONS: See below. MENTAL STATUS EXAMINATION: Patient is a 75-year-old male, thin, frail, who appears than the stated age. Speech: Slow but spontaneous. Language skills are intact. Thought processes including: clear, as that Goal directed. Thought content: irrational, Description of associations:intact. Description of abnormal or psychotic thoughts: NO hallucinations, delusions, preoccupation with violence, homicidal or suicidal ideation, and obsessions. Judgment: poor, Insight: poor. Orientation to time, place and person. Recent and remote memory: Immediate, short-term and long-term memory is intact. Attention span and concentration: Poor, good, fair. Language: Normal. Fund of knowledge: adequate, intact, poor, fair, good. Mood:depressed,Affect: Depressed ASSESSMENT: -Depressive disorder unspecified PLAN: -Continue Prozac 20 mg by mouth every morning for depressive symptoms. -Continue trazodone 50 mg by mouth daily at bedtime when necessary insomnia TIME SPENT: 30 minutes. Vital Signs Vital Signs Date Time Temp Pulse Resp B/P Pulse Ox O2 Delivery O2 Flow Rate FiO2 10/12/16 18:00 97.5 92 18 115/58 10/11/16 06:32 93 Nasal Cannula 2.0 Laboratory Data 24H Labs Laboratory Tests 2 10/12/16 05:57: Bedside Glucose (Misc Panel) 232H 10/12/16 12:12: Bedside Glucose (Misc Panel) 300H 10/12/16 17:05: Bedside Glucose (Misc Panel) 210H 10/12/16 20:05: Bedside Glucose (Misc Panel) 271H Current Medications Current Medications Acetaminophen (Tylenol) 650 mg Q6HP PRN PO HEADACHE or DISCOMFORT; Start at 21:00; Stop 11/09/16 at 20:59 Al Hydrox/Mg Hydrox/Simethicone (Mylanta) 30 ml Q4HP PRN PO HEARTBURN/ INDIGESTION; Start 10/10/16 at 21:00; Stop 11/09/16 at 20:59 Albuterol Sulfate (Proventil Neb) 2.5 mg Q2HP PRN NEB SOB/WHEEZING; Start 10/10 at 21:15; Stop 10/10/16 at 21:43; Status DC Albuterol Sulfate (Proventil Neb) 2.5 mg Q2HP PRN NEB SOB/WHEEZING; Start 10/11 at 06:30; Stop 11/10/16 at 06:29 Albuterol Sulfate (Proventil, Ventolin Hfa) 2 puff QID INH ; Start 10/11/16 at 09:00; Stop 10/11/16 at 09:00; Status DC Albuterol Sulfate (Proventil, Ventolin Hfa) 2 puff QID INH Last administered on 10/12/16 20:09; Start 10/11/16 at 09:00; Stop 11/10/16 at 08:59 Allopurinol (Zyloprim) 200 mg DAILY PO Last administered on 10/12/16 10:18; Start 10/11/16 at 09:00; Stop 11/10/16 at 08:59 Atorvastatin Calcium (Lipitor) 20 mg DAILY PO Last administered on 10/12/16 10 :16; Start 10/11/16 at 09:00; Stop 11/10/16 at 08:59 Azithromycin (Zithromax) 500 mg DAILY PO ; Start 10/11/16 at 09:00; Stop at 09:00; Status DC Calcitriol (Rocaltrol) 0.25 mcg DAILY PO Last administered on 10/12/16 10:17; Start 10/11/16 at 09:00; Stop 11/10/16 at 08:59 Dextrose (Dextrose 50%) 25 ml ASDIRECTED PRN IV SEE LABEL COMMENTS; Start 10/10 at 21:00; Stop 11/09/16 at 20:59 Enoxaparin Sodium (Lovenox) 40 mg DAILY SC Last administered on 10/11/16 08:18 ; Start 10/11/16 at 09:00; Stop 10/11/16 at 10:11; Status DC Fluoxetine HCl (PROzac) 20 mg DAILY PO Last administered on 10/12/16 10:16; Start 10/11/16 at 09:00; Stop 11/10/16 at 08:59 Glucagon (Glucagon) 1 mg ASDIRECTED PRN SC SEE LABEL COMMENTS; Start 10/10/16 at 21:00; Stop 11/09/16 at 20:59 Glucose (Glucose) 16 GM ASDIRECTED PRN PO SEE LABEL COMMENTS; Start 10/10/16 at 21:00; Stop 11/09/16 at 20:59 Hydralazine HCl (Apresoline) 10 mg Q6H PO Last administered on 10/12/16 10:18 ; Start 10/11/16 at 00:00; Stop 11/10/16 at 00:00 Insulin Human Lispro (HumaLOG INSULIN) See Protocol Table AC SC Last administered on 10/12/16 17:09; Start 10/11/16 at 07:30; Stop 11/10/16 at 07:29 Insulin Human Lispro (HumaLOG INSULIN) See Protocol Table QHS SC Last administered on 10/12/16 20:09; Start 10/10/16 at 21:00; Stop 11/09/16 at 20:59 Isosorbide Mononitrate (Imdur) 30 mg DAILY PO Last administered on 10/12/16 10 :17; Start 10/11/16 at 09:00; Stop 11/10/16 at 08:59 Levalbuterol HCl (Xopenex Neb) 1.25 mg Q1HP PRN INH SHORTNESS OF BREATH; Start 10/10/16 at 21:15; Stop 10/11/16 at 09:56; Status DC Levalbuterol HCl (Xopenex Neb) 1.25 mg RQ4H INH ; Start 10/11/16 at 00:00; Stop 10/11/16 at 09:56; Status DC Magnesium Hydroxide (Milk Of Magnesia) 30 ml DAILYPRN PRN PO CONSTIPATION; Start 10/10/16 at 21:00; Stop 11/09/16 at 20:59 Moxifloxacin HCl (Avelox) 400 mg DAILY@06 PO Last administered on 10/12/16 06: 00; Start 10/11/16 at 06:00; Stop 10/18/16 at 05:59 Nitroglycerin (Nitrostat (1/ 150)) 0.4 mg Q5MP PRN SL CHEST PAIN; Start at 22:00; Stop 11/09/16 at 21:59 Salmeterol Xinafoate/ Fluticasone (Advair Diskus 500/50) 1 puff BID INH Last administered on 10/12/16 20:09; Start 10/11/16 at 09:00; Stop 11/10/16 at 08:59 Theophylline (Jameson-24) 200 mg DAILY PO Last administered on 10/12/16 10:17; Start 10/11/16 at 09:00; Stop 11/10/16 at 08:59 Tiotropium [place] (Spiriva Handihaler) 1 inhalation DAILY@08 INH Last administered on 10/12/16 10:18; Start 10/11/16 at 08:00; Stop 11/10/16 at 07:59 Torsemide (Demadex) 50 mg QAM PO Last administered on 10/12/16 10:17; Start at 09:00; Stop 11/10/16 at 08:59 Trazodone HCl (Desyrel) 50 mg QHSP PRN PO INSOMNIA; Start 10/10/16 at 21:00; Stop 11/09/16 at 20:59 Allergies Coded Allergies: Warfarin (Unverified Allergy, Unknown, UNKNOWN, 07/07/16) JULIANNE DIEZ MD Oct 12, 2016 23:14
[2016-10-13] MEDS: MOXIFLOXACIN 400 MG TAB PO SCH (06:04)
[2016-10-13] MEDS: **hydrALAZINE** 10 MG TAB PO SCH ×5 (06:05→23:30)
[2016-10-13 06:59] VITALS: BP 123/71
[2016-10-13 07:04] LABS: MEAN CORPUSCULAR HEMOGLOBIN 30.9 pg (27.0-33.0); MEAN CORPUSCULAR HGB CONC 31.6 g/dl (32.0-36.5); MEAN CORPUSCULAR VOLUME 97.9 fl (80.0-96.0); RED CELL DISTRIBUTION WIDTH 14.2 % (11.5-14.5); WHITE BLOOD COUNT 10.2 K/mm3 (4.0-10.0)
[2016-10-13] MEDS: HumaLOG INSULIN (NovoLOG) PER UNIT SC SCH ×4 (07:04→22:21)
[2016-10-13] MEDS: ATORVASTATIN 20 MG TAB PO SCH (09:41)
[2016-10-13] MEDS: FLUoxetine 20 MG CAP PO SCH (09:41)
[2016-10-13] MEDS: TIOTROPIUM INHALER/CAPSULE (SPIRIVA) INH SCH (09:42)
[2016-10-13] MEDS: ALBUTEROL 90 MCG/ACT 8GM HFA INHALER INH SCH ×4 (09:42→22:21)
[2016-10-13] MEDS: THEOPHYLLINE (THEO-24) 100MG SR **CAPSULE PO SCH (09:42)
[2016-10-13] MEDS: TORSEMIDE (DEMADEX) 50 MG PER 1/2 TAB PO SCH (09:42)
[2016-10-13] MEDS: ADVAIR DISKUS 500/50 INH PWD INH SCH ×2 (09:42→22:21)
[2016-10-13] MEDS: ALLOPURINOL 100 MG TAB PO SCH (09:43)
[2016-10-13] MEDS: ISOSORBIDE MON. (IMDUR) 30 MG XR TAB PO SCH (09:43)
[2016-10-13] MEDS: CALCITRIOL 0.25 MCG CAP (S0169) PO SCH (09:43)
[2016-10-13 18:19] VITALS: BP 113/56
[2016-10-14] MEDS: **hydrALAZINE** 10 MG TAB PO SCH ×3 (06:00→17:21)
[2016-10-14] MEDS: MOXIFLOXACIN 400 MG TAB PO SCH (06:06)
[2016-10-14 06:31] VITALS: BP 155/67
[2016-10-14] MEDS: HumaLOG INSULIN (NovoLOG) PER UNIT SC SCH ×4 (06:52→20:53)
[2016-10-14] MEDS: TIOTROPIUM INHALER/CAPSULE (SPIRIVA) INH SCH (08:43)
[2016-10-14] MEDS: TORSEMIDE (DEMADEX) 50 MG PER 1/2 TAB PO SCH (08:44)
[2016-10-14] MEDS: FLUoxetine 20 MG CAP PO SCH (08:44)
[2016-10-14] MEDS: CALCITRIOL 0.25 MCG CAP (S0169) PO SCH (08:44)
[2016-10-14] MEDS: THEOPHYLLINE (THEO-24) 100MG SR **CAPSULE PO SCH (08:44)
[2016-10-14] MEDS: ADVAIR DISKUS 500/50 INH PWD INH SCH ×2 (08:44→20:53)
[2016-10-14] MEDS: ATORVASTATIN 20 MG TAB PO SCH (08:44)
[2016-10-14] MEDS: ALBUTEROL 90 MCG/ACT 8GM HFA INHALER INH SCH ×4 (08:44→20:53)
[2016-10-14] MEDS: ALLOPURINOL 100 MG TAB PO SCH (08:44)
[2016-10-14] MEDS: ISOSORBIDE MON. (IMDUR) 30 MG XR TAB PO SCH (08:46)
[2016-10-14 18:07] VITALS: BP 131/60
[2016-10-15] MEDS: MOXIFLOXACIN 400 MG TAB PO SCH (06:00)
[2016-10-15] MEDS: **hydrALAZINE** 10 MG TAB PO SCH ×4 (06:00→16:59)
[2016-10-15 06:09] VITALS: BP 132/62
[2016-10-15] MEDS: HumaLOG INSULIN (NovoLOG) PER UNIT SC SCH ×4 (06:40→20:21)
[2016-10-15] MEDS: CALCITRIOL 0.25 MCG CAP (S0169) PO SCH (09:36)
[2016-10-15] MEDS: ADVAIR DISKUS 500/50 INH PWD INH SCH ×2 (09:36→20:21)
[2016-10-15] MEDS: ALBUTEROL 90 MCG/ACT 8GM HFA INHALER INH SCH ×4 (09:36→20:21)
[2016-10-15] MEDS: ATORVASTATIN 20 MG TAB PO SCH (09:36)
[2016-10-15] MEDS: FLUoxetine 20 MG CAP PO SCH (09:36)
[2016-10-15] MEDS: THEOPHYLLINE (THEO-24) 100MG SR **CAPSULE PO SCH (09:36)
[2016-10-15] MEDS: TORSEMIDE (DEMADEX) 50 MG PER 1/2 TAB PO SCH (09:37)
[2016-10-15] MEDS: ALLOPURINOL 100 MG TAB PO SCH (09:37)
[2016-10-15] MEDS: TIOTROPIUM INHALER/CAPSULE (SPIRIVA) INH SCH (09:37)
[2016-10-15] MEDS: ISOSORBIDE MON. (IMDUR) 30 MG XR TAB PO SCH (09:37)
[2016-10-15 18:00] VITALS: BP 131/60
--- NOTE | 2016-10-15 23:40 | IPNPDOC ---
[facility] Progress Note Progress Note DATE OF SERVICE: 10/13/16 SUBJECTIVE: Patient reporting no contact with his daughter since his admission. He reports his mood is improving. Patient focused on his life and thoughts of having nothing to show for it. Patient counseled material things are not the only means to measure a life. He continues to be focused in his psychosocial stressors. Patient reports he is homeless, but has an application pending at a senior assisted living facility. Patient is medication compliant. Patient denies current SI and HI. Patient has made no bizarre statements nor has he displayed bizarre or inappropriate behavior. Patient reports improving sleep and appetite. OBJECTIVE: VITAL SIGNS: See below. NEW TEST RESULTS: See below. CURRENT MEDICATIONS: See below. MENTAL STATUS EXAMINATION: Patient is a 75-year-old male, thin, frail, who appears than the stated age. Speech: Slow, prosody within normal limits, but spontaneous. Language skills are intact. Thought process: clear, as that Goal directed. Thought content: irrational, Description of associations:intact. Description of abnormal or psychotic thoughts: NO hallucinations, delusions, preoccupation with violence, homicidal or suicidal ideation, and obsessions. Judgment: poor, Insight: poor. Orientation to time, place and person. Recent and remote memory: Immediate, short-term and long-term memory is intact. Attention span and concentration: Poor, good, fair. Language: Normal. Fund of knowledge: adequate, intact, poor, fair, good. Mood:depressed,Affect: Depressed ASSESSMENT: -Depressive disorder unspecified PLAN: -Continue Prozac 20 mg by mouth every morning for depressive symptoms. -Continue trazodone 50 mg by mouth daily at bedtime when necessary insomnia TIME SPENT: 30 minutes. Vital Signs Vital Signs Date Time Temp Pulse Resp B/P Pulse Ox O2 Delivery O2 Flow Rate FiO2 10/15/16 18:00 97.7 87 16 131/60 10/11/16 06:32 93 Nasal Cannula 2.0 Laboratory Data 24H Labs Laboratory Tests 2 10/15/16 06:06: Bedside Glucose (Misc Panel) 223H 10/15/16 11:38: Bedside Glucose (Misc Panel) 169H 10/15/16 16:55: Bedside Glucose (Misc Panel) 300H 10/15/16 20:17: Bedside Glucose (Misc Panel) 125H Current Medications Current Medications Medications (Trade) Dose Ordered Sig/Reshma Route PRN Reason Start Time Stop Time Status Last Admin Dose Admin Acetaminophen (Tylenol) 650 mg Q6HP PRN PO HEADACHE or DISCOMFORT 10/10/16 21:00 11/09/16 20:59 Al Hydrox/Mg Hydrox/Simethicone (Mylanta) 30 ml Q4HP PRN PO HEARTBURN/INDIGESTION 10/10/16 21:00 11/09/16 20:59 Albuterol Sulfate (Proventil Neb) 2.5 mg Q2HP PRN NEB SOB/WHEEZING 10/10/16 21:15 10/10/16 21:43 DC Albuterol Sulfate (Proventil Neb) 2.5 mg Q2HP PRN NEB SOB/WHEEZING 10/11/16 06:30 11/10/16 06:29 Albuterol Sulfate (Proventil, Ventolin Hfa) 2 puff QID INH 10/11/16 09:00 10/11/16 09:00 DC Albuterol Sulfate (Proventil, Ventolin Hfa) 2 puff QID INH 10/11/16 09:00 11/10/16 08:59 10/15/16 20:21 Allopurinol (Zyloprim) 200 mg DAILY PO 10/11/16 09:00 11/10/16 08:59 10/15/16 09:37 Atorvastatin Calcium (Lipitor) 20 mg DAILY PO 10/11/16 09:00 11/10/16 08:59 10/15/16 09:36 Azithromycin (Zithromax) 500 mg DAILY PO 10/11/16 09:00 10/11/16 09:00 DC Calcitriol (Rocaltrol) 0.25 mcg DAILY PO 10/11/16 09:00 11/10/16 08:59 10/15/16 09:36 Dextrose (Dextrose 50%) 25 ml ASDIRECTED PRN IV SEE LABEL COMMENTS 10/10/16 21:00 11/09/16 20:59 Enoxaparin Sodium (Lovenox) 40 mg DAILY SC 10/11/16 09:00 10/11/16 10:11 DC 10/11/16 08:18 Fluoxetine HCl (PROzac) 20 mg DAILY PO 10/11/16 09:00 11/10/16 08:59 10/15/16 09:36 Glucagon (Glucagon) 1 mg ASDIRECTED PRN SC SEE LABEL COMMENTS 10/10/16 21:00 11/09/16 20:59 Glucose (Glucose) 16 GM ASDIRECTED PRN PO SEE LABEL COMMENTS 10/10/16 21:00 11/09/16 20:59 Hydralazine HCl (Apresoline) 10 mg Q6H PO 10/11/16 00:00 11/10/16 00:00 10/13/16 06:05 Insulin Human Lispro (HumaLOG INSULIN) See Protocol Table AC SC 10/11/16 07:30 11/10/16 07:29 10/15/16 16:59 Insulin Human Lispro (HumaLOG INSULIN) See Protocol Table QHS SC 10/10/16 21:00 11/09/16 20:59 10/13/16 22:21 Isosorbide Mononitrate (Imdur) 30 mg DAILY PO 10/11/16 09:00 11/10/16 08:59 10/15/16 09:37 Levalbuterol HCl (Xopenex Neb) 1.25 mg Q1HP PRN INH SHORTNESS OF BREATH 10/10/16 21:15 10/11/16 09:56 DC Levalbuterol HCl (Xopenex Neb) 1.25 mg RQ4H INH 10/11/16 00:00 10/11/16 09:56 DC Magnesium Hydroxide (Milk Of Magnesia) 30 ml DAILYPRN PRN PO CONSTIPATION 10/10/16 21:00 11/09/16 20:59 Moxifloxacin HCl (Avelox) 400 mg DAILY@06 PO 10/11/16 06:00 10/18/16 05:59 10/15/16 06:00 Nitroglycerin (Nitrostat (1/ 150)) 0.4 mg Q5MP PRN SL CHEST PAIN 10/10/16 22:00 11/09/16 21:59 Salmeterol Xinafoate/ Fluticasone (Advair Diskus 500/50) 1 puff BID INH 10/11/16 09:00 11/10/16 08:59 10/15/16 20:21 Theophylline (Jameson-24) 200 mg DAILY PO 10/11/16 09:00 11/10/16 08:59 10/15/16 09:36 Tiotropium [place] (Spiriva Handihaler) 1 inhalation DAILY@08 INH 10/11/16 08:00 11/10/16 07:59 10/15/16 09:37 Torsemide (Demadex) 50 mg QAM PO 10/11/16 09:00 11/10/16 08:59 10/15/16 09:37 Trazodone HCl (Desyrel) 50 mg QHSP PRN PO INSOMNIA 10/10/16 21:00 11/09/16 20:59 Allergies Coded Allergies: Warfarin (Unverified Allergy, Unknown, UNKNOWN, 07/07/16) JULIANNE DIEZ MD Oct 15, 2016 23:40
--- NOTE | 2016-10-15 23:40 | IPNPDOC ---
[facility] Progress Note Progress Note DATE OF SERVICE: 10/14/16 SUBJECTIVE: Patient calm and cooperative with interview this morning. Patient reports ongoing for mood. He again reports feelings of hopelessness and worthlessness feeling he has no friends. Patient also concerned with his belongings still at his old residence. Patient hopefully will be able to move into the care home facility next week. Patient is attending groups. He denies medication side effects. Patient is medication compliant. Patient denies current SI and HI. Patient has made no bizarre statements nor has he displayed bizarre or inappropriate behavior. Patient reports improving sleep and appetite. OBJECTIVE: VITAL SIGNS: See below. NEW TEST RESULTS: See below. CURRENT MEDICATIONS: See below. MENTAL STATUS EXAMINATION: Patient is a 75-year-old male, thin, frail, who appears than the stated age. Speech: Slow, prosody within normal limits, but spontaneous. Language skills are intact. Thought process: clear, as that Goal directed. Thought content: irrational, Description of associations:intact. Description of abnormal or psychotic thoughts: NO hallucinations, delusions, preoccupation with violence, homicidal or suicidal ideation, and obsessions. Judgment: poor, Insight: poor. Orientation to time, place and person. Recent and remote memory: Immediate, short-term and long-term memory is intact. Attention span and concentration: Poor, good, fair. Language: Normal. Fund of knowledge: adequate, intact, poor, fair, good. Mood:depressed, Affect: Depressed ASSESSMENT: -Depressive disorder unspecified PLAN: -Continue Prozac 20 mg by mouth every morning for depressive symptoms. -Continue trazodone 50 mg by mouth daily at bedtime when necessary insomnia TIME SPENT: 30 minutes. Vital Signs Vital Signs Date Time Temp Pulse Resp B/P Pulse Ox O2 Delivery O2 Flow Rate FiO2 10/15/16 18:00 97.7 87 16 131/60 10/11/16 06:32 93 Nasal Cannula 2.0 Laboratory Data 24H Labs Laboratory Tests 2 10/15/16 06:06: Bedside Glucose (Misc Panel) 223H 10/15/16 11:38: Bedside Glucose (Misc Panel) 169H 10/15/16 16:55: Bedside Glucose (Misc Panel) 300H 10/15/16 20:17: Bedside Glucose (Misc Panel) 125H Current Medications Current Medications Medications (Trade) Dose Ordered Sig/Reshma Route PRN Reason Start Time Stop Time Status Last Admin Dose Admin Acetaminophen (Tylenol) 650 mg Q6HP PRN PO HEADACHE or DISCOMFORT 10/10/16 21:00 11/09/16 20:59 Al Hydrox/Mg Hydrox/Simethicone (Mylanta) 30 ml Q4HP PRN PO HEARTBURN/INDIGESTION 10/10/16 21:00 11/09/16 20:59 Albuterol Sulfate (Proventil Neb) 2.5 mg Q2HP PRN NEB SOB/WHEEZING 10/10/16 21:15 10/10/16 21:43 DC Albuterol Sulfate (Proventil Neb) 2.5 mg Q2HP PRN NEB SOB/WHEEZING 10/11/16 06:30 11/10/16 06:29 Albuterol Sulfate (Proventil, Ventolin Hfa) 2 puff QID INH 10/11/16 09:00 10/11/16 09:00 DC Albuterol Sulfate (Proventil, Ventolin Hfa) 2 puff QID INH 10/11/16 09:00 11/10/16 08:59 10/15/16 20:21 Allopurinol (Zyloprim) 200 mg DAILY PO 10/11/16 09:00 11/10/16 08:59 10/15/16 09:37 Atorvastatin Calcium (Lipitor) 20 mg DAILY PO 10/11/16 09:00 11/10/16 08:59 10/15/16 09:36 Azithromycin (Zithromax) 500 mg DAILY PO 10/11/16 09:00 10/11/16 09:00 DC Calcitriol (Rocaltrol) 0.25 mcg DAILY PO 10/11/16 09:00 11/10/16 08:59 10/15/16 09:36 Dextrose (Dextrose 50%) 25 ml ASDIRECTED PRN IV SEE LABEL COMMENTS 10/10/16 21:00 11/09/16 20:59 Enoxaparin Sodium (Lovenox) 40 mg DAILY SC 10/11/16 09:00 10/11/16 10:11 DC 10/11/16 08:18 Fluoxetine HCl (PROzac) 20 mg DAILY PO 10/11/16 09:00 11/10/16 08:59 10/15/16 09:36 Glucagon (Glucagon) 1 mg ASDIRECTED PRN SC SEE LABEL COMMENTS 10/10/16 21:00 11/09/16 20:59 Glucose (Glucose) 16 GM ASDIRECTED PRN PO SEE LABEL COMMENTS 10/10/16 21:00 11/09/16 20:59 Hydralazine HCl (Apresoline) 10 mg Q6H PO 10/11/16 00:00 11/10/16 00:00 10/13/16 06:05 Insulin Human Lispro (HumaLOG INSULIN) See Protocol Table AC SC 10/11/16 07:30 11/10/16 07:29 10/15/16 16:59 Insulin Human Lispro (HumaLOG INSULIN) See Protocol Table QHS SC 10/10/16 21:00 11/09/16 20:59 10/13/16 22:21 Isosorbide Mononitrate (Imdur) 30 mg DAILY PO 10/11/16 09:00 11/10/16 08:59 10/15/16 09:37 Levalbuterol HCl (Xopenex Neb) 1.25 mg Q1HP PRN INH SHORTNESS OF BREATH 10/10/16 21:15 10/11/16 09:56 DC Levalbuterol HCl (Xopenex Neb) 1.25 mg RQ4H INH 10/11/16 00:00 10/11/16 09:56 DC Magnesium Hydroxide (Milk Of Magnesia) 30 ml DAILYPRN PRN PO CONSTIPATION 10/10/16 21:00 11/09/16 20:59 Moxifloxacin HCl (Avelox) 400 mg DAILY@06 PO 10/11/16 06:00 10/18/16 05:59 10/15/16 06:00 Nitroglycerin (Nitrostat (1/ 150)) 0.4 mg Q5MP PRN SL CHEST PAIN 10/10/16 22:00 11/09/16 21:59 Salmeterol Xinafoate/ Fluticasone (Advair Diskus 500/50) 1 puff BID INH 10/11/16 09:00 11/10/16 08:59 10/15/16 20:21 Theophylline (Jameson-24) 200 mg DAILY PO 10/11/16 09:00 11/10/16 08:59 10/15/16 09:36 Tiotropium [place] (Spiriva Handihaler) 1 inhalation DAILY@08 INH 10/11/16 08:00 11/10/16 07:59 10/15/16 09:37 Torsemide (Demadex) 50 mg QAM PO 10/11/16 09:00 11/10/16 08:59 10/15/16 09:37 Trazodone HCl (Desyrel) 50 mg QHSP PRN PO INSOMNIA 10/10/16 21:00 11/09/16 20:59 Allergies Coded Allergies: Warfarin (Unverified Allergy, Unknown, UNKNOWN, 07/07/16) JULIANNE DIEZ MD Oct 15, 2016 23:40
[2016-10-16 06:00] VITALS: BP 141/73
[2016-10-16] MEDS: **hydrALAZINE** 10 MG TAB PO SCH ×4 (06:00→17:06)
[2016-10-16] MEDS: MOXIFLOXACIN 400 MG TAB PO SCH (06:09)
[2016-10-16] MEDS: HumaLOG INSULIN (NovoLOG) PER UNIT SC SCH ×4 (06:49→21:00)
[2016-10-16 06:56] LABS: MEAN CORPUSCULAR HEMOGLOBIN 31.5 pg (27.0-33.0); MEAN CORPUSCULAR HGB CONC 31.8 g/dl (32.0-36.5); RED CELL DISTRIBUTION WIDTH 13.3 % (11.5-14.5); WHITE BLOOD COUNT 9.3 K/mm3 (4.0-10.0)
--- NOTE | 2016-10-16 08:33 | CR ---
DATE OF CONSULTATION: 10/10/2016 HISTORY OF PRESENT ILLNESS: This is a 75-year-old white man who I was asked to see to evaluate for suicidal ideation. The patient was admitted due to pneumonia but he had been brought in by the police because he had been found sitting in his car in a [employer] parking lot. He had purchased a notebook apparently to leave a note and he had a vial of pills that he was thinking of overdosing on. The patient was admitted to the medical service for treatment of the pneumonia and is now stable. The patient admits that he had been feeling pretty depressed and having suicidal thoughts. He states that he has ongoing conflicts with this woman that he lives with but they are just friends. However, he feels that they are having more and more arguments and he just became very depressed and thinking of suicide by overdosing on pills. He tells me today that he is not feeling that way anymore. He does have a history of one prior psychiatric hospitalizations at [facility] from 07/07/2016 to 07/13/2016 and his presentation was similar at the time. He had an argument with his friend that he lives with. He was eventually diagnosed with the diagnosis of major depression and he was continued on his Prozac which was increased to 30 mg prior to discharge. I do not elicit any hypomanic or panic like symptoms, or obsessive compulsive disorder (OCD) or post traumatic stress disorder (PTSD) symptoms in this patient. PAST PSYCHIATRIC HISTORY: This is pretty much as noted above. He has a history of one psychiatric hospitalization on 07/07/2016 at [facility]. The patient has actually not made any suicidal attempts. FAMILY HISTORY: The patient denies any psychiatric illness in the family or any suicide in the family. PAST MEDICAL HISTORY: 1. Diabetes. 2. Hypercholesterolemia. 3. Hypertension. 4. Gastrointestinal reflux disease (GERD). 5. He was treated for pneumonia. ABUSE HISTORY: There is no history of abuse. SUBSTANCE ABUSE HISTORY: Denies any history of substance abuse. MENTAL STATUS EXAMINATION: He is alert and oriented times three. Eye contact is fairly good. Psychomotor activity is decreased. There is no formal thought disorder noted. He is verbally spontaneous. He says his mood is good. His affect is full range and appropriate. He is not psychotic. He denies suicidal ideation today but having suicidal ideation when admitted to the hospital. He denies homicidal ideation. Concentration is fair. Memory intact. Insight and judgment is poor. DIAGNOSES: 1. Adjustment disorder with depressed mood. 2. Rule out major depressive disorder. TREATMENT PLAN: At this point will transfer the patient to the psychiatric unit. Even though he denies suicidal ideation now, he admits that he had some thoughts on the day of admission and so I feel that he remains at potential suicidal risk.
[2016-10-16] MEDS: ALBUTEROL 90 MCG/ACT 8GM HFA INHALER INH SCH ×4 (08:49→22:00)
[2016-10-16] MEDS: TIOTROPIUM INHALER/CAPSULE (SPIRIVA) INH SCH (08:49)
[2016-10-16] MEDS: ADVAIR DISKUS 500/50 INH PWD INH SCH ×2 (08:49→21:57)
[2016-10-16] MEDS: ATORVASTATIN 20 MG TAB PO SCH (08:49)
[2016-10-16] MEDS: CALCITRIOL 0.25 MCG CAP (S0169) PO SCH (08:49)
[2016-10-16] MEDS: TORSEMIDE (DEMADEX) 50 MG PER 1/2 TAB PO SCH (08:50)
[2016-10-16] MEDS: THEOPHYLLINE (THEO-24) 100MG SR **CAPSULE PO SCH (08:50)
[2016-10-16] MEDS: FLUoxetine 20 MG CAP PO SCH (08:50)
[2016-10-16] MEDS: ALLOPURINOL 100 MG TAB PO SCH (08:50)
[2016-10-16] MEDS: ISOSORBIDE MON. (IMDUR) 30 MG XR TAB PO SCH (08:51)
[2016-10-16 18:00] VITALS: BP 141/88
[2016-10-17] MEDS: MOXIFLOXACIN 400 MG TAB PO SCH (05:57)
[2016-10-17 06:00] VITALS: BP 132/59
[2016-10-17] MEDS: **hydrALAZINE** 10 MG TAB PO SCH ×5 (06:00→23:42)
[2016-10-17] MEDS: HumaLOG INSULIN (NovoLOG) PER UNIT SC SCH ×4 (06:35→21:00)
[2016-10-17] MEDS: TIOTROPIUM INHALER/CAPSULE (SPIRIVA) INH SCH (09:07)
[2016-10-17] MEDS: TORSEMIDE (DEMADEX) 50 MG PER 1/2 TAB PO SCH (09:07)
[2016-10-17] MEDS: ADVAIR DISKUS 500/50 INH PWD INH SCH ×2 (09:07→21:13)
[2016-10-17] MEDS: ALBUTEROL 90 MCG/ACT 8GM HFA INHALER INH SCH ×4 (09:07→21:13)
[2016-10-17] MEDS: THEOPHYLLINE (THEO-24) 100MG SR **CAPSULE PO SCH (09:08)
[2016-10-17] MEDS: CALCITRIOL 0.25 MCG CAP (S0169) PO SCH (09:08)
[2016-10-17] MEDS: FLUoxetine 20 MG CAP PO SCH (09:08)
[2016-10-17] MEDS: ATORVASTATIN 20 MG TAB PO SCH (09:08)
[2016-10-17] MEDS: ISOSORBIDE MON. (IMDUR) 30 MG XR TAB PO SCH (09:08)
[2016-10-17] MEDS: ALLOPURINOL 100 MG TAB PO SCH (09:08)
[2016-10-17 18:00] VITALS: BP 128/61
[2016-10-18] MEDS: **hydrALAZINE** 10 MG TAB PO SCH ×4 (06:00→23:09)
[2016-10-18 06:42] VITALS: BP 146/80
[2016-10-18] MEDS: HumaLOG INSULIN (NovoLOG) PER UNIT SC SCH ×4 (07:10→20:05)
[2016-10-18] MEDS: ADVAIR DISKUS 500/50 INH PWD INH SCH ×2 (08:36→20:05)
[2016-10-18] MEDS: TIOTROPIUM INHALER/CAPSULE (SPIRIVA) INH SCH (08:36)
[2016-10-18] MEDS: ALLOPURINOL 100 MG TAB PO SCH (08:37)
[2016-10-18] MEDS: FLUoxetine 20 MG CAP PO SCH (08:37)
[2016-10-18] MEDS: ALBUTEROL 90 MCG/ACT 8GM HFA INHALER INH SCH ×4 (08:37→20:05)
[2016-10-18] MEDS: ATORVASTATIN 20 MG TAB PO SCH (08:37)
[2016-10-18] MEDS: ISOSORBIDE MON. (IMDUR) 30 MG XR TAB PO SCH (08:37)
[2016-10-18] MEDS: TORSEMIDE (DEMADEX) 50 MG PER 1/2 TAB PO SCH (08:37)
[2016-10-18] MEDS: CALCITRIOL 0.25 MCG CAP (S0169) PO SCH (08:37)
[2016-10-18] MEDS: THEOPHYLLINE (THEO-24) 100MG SR **CAPSULE PO SCH (08:37)
[2016-10-18 18:00] VITALS: BP 132/65
[2016-10-19] MEDS: **hydrALAZINE** 10 MG TAB PO SCH ×4 (06:00→23:40)
[2016-10-19] MEDS: HumaLOG INSULIN (NovoLOG) PER UNIT SC SCH ×4 (06:41→21:00)
[2016-10-19 06:44] VITALS: BP 155/69
[2016-10-19 06:55] LABS: MEAN CORPUSCULAR HEMOGLOBIN 30.9 pg (27.0-33.0); MEAN CORPUSCULAR VOLUME 99.7 fl (80.0-96.0); RED CELL DISTRIBUTION WIDTH 13.5 % (11.5-14.5); WHITE BLOOD COUNT 9.5 K/mm3 (4.0-10.0)
[2016-10-19] MEDS: FLUoxetine 20 MG CAP PO SCH (09:15)
[2016-10-19] MEDS: TIOTROPIUM INHALER/CAPSULE (SPIRIVA) INH SCH (09:15)
[2016-10-19] MEDS: TORSEMIDE (DEMADEX) 50 MG PER 1/2 TAB PO SCH (09:15)
[2016-10-19] MEDS: ATORVASTATIN 20 MG TAB PO SCH (09:15)
[2016-10-19] MEDS: ALLOPURINOL 100 MG TAB PO SCH (09:16)
[2016-10-19] MEDS: ALBUTEROL 90 MCG/ACT 8GM HFA INHALER INH SCH ×4 (09:16→21:15)
[2016-10-19] MEDS: ISOSORBIDE MON. (IMDUR) 30 MG XR TAB PO SCH (09:16)
[2016-10-19] MEDS: CALCITRIOL 0.25 MCG CAP (S0169) PO SCH (09:16)
[2016-10-19] MEDS: ADVAIR DISKUS 500/50 INH PWD INH SCH ×2 (09:16→21:15)
[2016-10-19] MEDS: THEOPHYLLINE (THEO-24) 100MG SR **CAPSULE PO SCH (09:16)
[2016-10-19 18:00] VITALS: BP 149/67
[2016-10-20] MEDS: **hydrALAZINE** 10 MG TAB PO SCH ×3 (06:00→17:18)
[2016-10-20 06:32] VITALS: BP 152/70
[2016-10-20] MEDS: HumaLOG INSULIN (NovoLOG) PER UNIT SC SCH ×4 (06:41→21:58)
[2016-10-20] MEDS: THEOPHYLLINE (THEO-24) 100MG SR **CAPSULE PO SCH (08:26)
[2016-10-20] MEDS: ADVAIR DISKUS 500/50 INH PWD INH SCH ×2 (08:26→21:59)
[2016-10-20] MEDS: ALBUTEROL 90 MCG/ACT 8GM HFA INHALER INH SCH ×4 (08:26→21:59)
[2016-10-20] MEDS: TIOTROPIUM INHALER/CAPSULE (SPIRIVA) INH SCH (08:26)
[2016-10-20] MEDS: ATORVASTATIN 20 MG TAB PO SCH (08:27)
[2016-10-20] MEDS: CALCITRIOL 0.25 MCG CAP (S0169) PO SCH (08:27)
[2016-10-20] MEDS: ALLOPURINOL 100 MG TAB PO SCH (08:27)
[2016-10-20] MEDS: FLUoxetine 20 MG CAP PO SCH (08:27)
[2016-10-20] MEDS: ISOSORBIDE MON. (IMDUR) 30 MG XR TAB PO SCH (08:27)
[2016-10-20] MEDS: TORSEMIDE (DEMADEX) 50 MG PER 1/2 TAB PO SCH (08:31)
[2016-10-20 18:00] VITALS: BP 109/56
[2016-10-21] MEDS: **hydrALAZINE** 10 MG TAB PO SCH ×4 (06:00→17:24)
[2016-10-21] MEDS: HumaLOG INSULIN (NovoLOG) PER UNIT SC SCH ×4 (06:31→20:12)
[2016-10-21 06:50] VITALS: BP 145/66
[2016-10-21] MEDS: FLUoxetine 20 MG CAP PO SCH (08:42)
[2016-10-21] MEDS: ALLOPURINOL 100 MG TAB PO SCH (08:42)
[2016-10-21] MEDS: TIOTROPIUM INHALER/CAPSULE (SPIRIVA) INH SCH (08:42)
[2016-10-21] MEDS: ATORVASTATIN 20 MG TAB PO SCH (08:42)
[2016-10-21] MEDS: TORSEMIDE (DEMADEX) 50 MG PER 1/2 TAB PO SCH (08:42)
[2016-10-21] MEDS: ALBUTEROL 90 MCG/ACT 8GM HFA INHALER INH SCH ×4 (08:43→20:12)
[2016-10-21] MEDS: CALCITRIOL 0.25 MCG CAP (S0169) PO SCH (08:43)
[2016-10-21] MEDS: ISOSORBIDE MON. (IMDUR) 30 MG XR TAB PO SCH (08:43)
[2016-10-21] MEDS: ADVAIR DISKUS 500/50 INH PWD INH SCH ×2 (08:43→20:12)
[2016-10-21] MEDS: THEOPHYLLINE (THEO-24) 100MG SR **CAPSULE PO SCH (08:43)
[2016-10-21 18:00] VITALS: BP 129/63
[2016-10-22] MEDS: **hydrALAZINE** 10 MG TAB PO SCH ×4 (06:00→17:11)
[2016-10-22] MEDS: HumaLOG INSULIN (NovoLOG) PER UNIT SC SCH ×4 (06:41→20:55)
[2016-10-22 06:52] VITALS: BP 168/70
[2016-10-22 06:52] LABS: MEAN CORPUSCULAR HEMOGLOBIN 30.8 pg (27.0-33.0); MEAN CORPUSCULAR HGB CONC 31.1 g/dl (32.0-36.5); MEAN CORPUSCULAR VOLUME 99.2 fl (80.0-96.0); WHITE BLOOD COUNT 7.9 K/mm3 (4.0-10.0)
[2016-10-22] MEDS: TORSEMIDE (DEMADEX) 50 MG PER 1/2 TAB PO SCH (09:07)
[2016-10-22] MEDS: ALBUTEROL 90 MCG/ACT 8GM HFA INHALER INH SCH ×4 (09:07→20:50)
[2016-10-22] MEDS: TIOTROPIUM INHALER/CAPSULE (SPIRIVA) INH SCH (09:07)
[2016-10-22] MEDS: ADVAIR DISKUS 500/50 INH PWD INH SCH ×2 (09:07→20:50)
[2016-10-22] MEDS: ISOSORBIDE MON. (IMDUR) 30 MG XR TAB PO SCH (09:08)
[2016-10-22] MEDS: ATORVASTATIN 20 MG TAB PO SCH (09:08)
[2016-10-22] MEDS: ALLOPURINOL 100 MG TAB PO SCH (09:08)
[2016-10-22] MEDS: THEOPHYLLINE (THEO-24) 100MG SR **CAPSULE PO SCH (09:08)
[2016-10-22] MEDS: CALCITRIOL 0.25 MCG CAP (S0169) PO SCH (09:08)
[2016-10-22] MEDS: FLUoxetine 20 MG CAP PO SCH (09:08)
[2016-10-22 18:00] VITALS: BP 137/85
[2016-10-23] MEDS: **hydrALAZINE** 10 MG TAB PO SCH ×4 (06:00→17:29)
[2016-10-23] MEDS: HumaLOG INSULIN (NovoLOG) PER UNIT SC SCH ×4 (06:31→21:00)
[2016-10-23 06:36] VITALS: BP 125/71
[2016-10-23] MEDS: FLUoxetine 20 MG CAP PO SCH (09:24)
[2016-10-23] MEDS: ADVAIR DISKUS 500/50 INH PWD INH SCH ×2 (09:24→22:06)
[2016-10-23] MEDS: TORSEMIDE (DEMADEX) 50 MG PER 1/2 TAB PO SCH (09:24)
[2016-10-23] MEDS: THEOPHYLLINE (THEO-24) 100MG SR **CAPSULE PO SCH (09:24)
[2016-10-23] MEDS: ALBUTEROL 90 MCG/ACT 8GM HFA INHALER INH SCH ×4 (09:24→22:06)
[2016-10-23] MEDS: ATORVASTATIN 20 MG TAB PO SCH (09:24)
[2016-10-23] MEDS: ALLOPURINOL 100 MG TAB PO SCH (09:24)
[2016-10-23] MEDS: ISOSORBIDE MON. (IMDUR) 30 MG XR TAB PO SCH (09:25)
[2016-10-23] MEDS: TIOTROPIUM INHALER/CAPSULE (SPIRIVA) INH SCH (09:25)
[2016-10-23] MEDS: CALCITRIOL 0.25 MCG CAP (S0169) PO SCH (09:25)
--- NOTE | 2016-10-23 17:29 | IPNPDOC ---
[facility] Progress Note Progress Note DATE OF SERVICE: 10/15/16 SUBJECTIVE: Patient reports ongoing depressed mood. He rates the depression at a 5 out of 10 in intensity. Patient encouraged to focus his mild solution rather than problems. Patient has begun the process of admission into a senior's living facility, he is encouraged to not worry regarding things out of his control. Encouraged to focus on his support here on the unit and in the community. Patient is attending groups. He denies medication side effects. Patient is medication compliant. Patient denies current SI and HI. Patient has made no bizarre statements nor has he displayed bizarre or inappropriate behavior. Patient reports improving sleep and appetite. OBJECTIVE: VITAL SIGNS: See below. NEW TEST RESULTS: See below. CURRENT MEDICATIONS: See below. MENTAL STATUS EXAMINATION: Patient is a 75-year-old male, thin, frail, who appears than the stated age. Speech: Slow, prosody within normal limits, spontaneous. Language skills are intact. Thought process: linear and Goal directed. Thought content:focused on homelessness; Description of associations: intact. Description of abnormal or psychotic thoughts: NO hallucinations, delusions, preoccupation with violence, homicidal or suicidal ideation, and obsessions. Judgment: poor to fair, Insight: poor to fair. Orientation to time, place and person. Recent and remote memory: Immediate, short-term and long-term memory is intact. Attention span and concentration: Poor, good, fair. Language: Normal. Fund of knowledge: adequate, intact, poor, fair, good. Mood: Depressed, Affect: Depressed ASSESSMENT: -Depressive disorder unspecified PLAN: -Continue Prozac 20 mg by mouth every morning for depressive symptoms. -Continue trazodone 50 mg by mouth daily at bedtime when necessary insomnia TIME SPENT: 30 minutes. Vital Signs Vital Signs Date Time Temp Pulse Resp B/P Pulse Ox O2 Delivery O2 Flow Rate FiO2 10/23/16 11:57 132/63 10/23/16 06:36 98.3 70 18 Laboratory Data 24H Labs Laboratory Tests 2 10/22/16 20:52: Bedside Glucose (Misc Panel) 250H 10/23/16 05:50: Bedside Glucose (Misc Panel) 147H 10/23/16 11:53: Bedside Glucose (Misc Panel) 173H 10/23/16 16:45: Bedside Glucose (Misc Panel) 204H Current Medications Current Medications Medications (Trade) Dose Ordered Sig/Reshma Route PRN Reason Start Time Stop Time Status Last Admin Dose Admin Acetaminophen (Tylenol) 650 mg Q6HP PRN PO HEADACHE or DISCOMFORT 10/10/16 21:00 11/09/16 20:59 Al Hydrox/Mg Hydrox/Simethicone (Mylanta) 30 ml Q4HP PRN PO HEARTBURN/INDIGESTION 10/10/16 21:00 11/09/16 20:59 Albuterol Sulfate (Proventil Neb) 2.5 mg Q2HP PRN NEB SOB/WHEEZING 10/10/16 21:15 10/10/16 21:43 DC Albuterol Sulfate (Proventil Neb) 2.5 mg Q2HP PRN NEB SOB/WHEEZING 10/11/16 06:30 11/10/16 06:29 Albuterol Sulfate (Proventil, Ventolin Hfa) 2 puff QID INH 10/11/16 09:00 10/11/16 09:00 DC Albuterol Sulfate (Proventil, Ventolin Hfa) 2 puff QID INH 10/11/16 09:00 11/10/16 08:59 10/23/16 16:48 Allopurinol (Zyloprim) 200 mg DAILY PO 10/11/16 09:00 11/10/16 08:59 10/23/16 09:24 Atorvastatin Calcium (Lipitor) 20 mg DAILY PO 10/11/16 09:00 11/10/16 08:59 10/23/16 09:24 Azithromycin (Zithromax) 500 mg DAILY PO 10/11/16 09:00 10/11/16 09:00 DC Calcitriol (Rocaltrol) 0.25 mcg DAILY PO 10/11/16 09:00 11/10/16 08:59 10/23/16 09:25 Dextrose (Dextrose 50%) 25 ml ASDIRECTED PRN IV SEE LABEL COMMENTS 10/10/16 21:00 11/09/16 20:59 Enoxaparin Sodium (Lovenox) 40 mg DAILY SC 10/11/16 09:00 10/11/16 10:11 DC 10/11/16 08:18 Fluoxetine HCl (PROzac) 20 mg DAILY PO 10/11/16 09:00 11/10/16 08:59 10/23/16 09:24 Glucagon (Glucagon) 1 mg ASDIRECTED PRN SC SEE LABEL COMMENTS 10/10/16 21:00 11/09/16 20:59 Glucose (Glucose) 16 GM ASDIRECTED PRN PO SEE LABEL COMMENTS 10/10/16 21:00 11/09/16 20:59 Hydralazine HCl (Apresoline) 10 mg Q6H PO 10/11/16 00:00 11/10/16 00:00 10/18/16 23:09 Insulin Human Lispro (HumaLOG INSULIN) See Protocol Table AC SC 10/11/16 07:30 11/10/16 07:29 10/23/16 16:46 Insulin Human Lispro (HumaLOG INSULIN) See Protocol Table QHS SC 10/10/16 21:00 11/09/16 20:59 10/20/16 21:58 Isosorbide Mononitrate (Imdur) 30 mg DAILY PO 10/11/16 09:00 11/10/16 08:59 10/23/16 09:25 Levalbuterol HCl (Xopenex Neb) 1.25 mg Q1HP PRN INH SHORTNESS OF BREATH 10/10/16 21:15 10/11/16 09:56 DC Levalbuterol HCl (Xopenex Neb) 1.25 mg RQ4H INH 10/11/16 00:00 10/11/16 09:56 DC Magnesium Hydroxide (Milk Of Magnesia) 30 ml DAILYPRN PRN PO CONSTIPATION 10/10/16 21:00 11/09/16 20:59 Miscellaneous (Unresolved Clarification Entry) SEE LABEL COMMENTS UNRESOLVED XX 10/18/16 00:01 10/19/16 15:16 DC Miscellaneous (Unresolved Clarification Entry) SEE LABEL COMMENTS UNRESOLVED XX 10/19/16 00:01 11/18/16 00:00 Moxifloxacin HCl (Avelox) 400 mg DAILY@06 PO 10/11/16 06:00 10/18/16 05:59 DC 10/17/16 05:57 Nitroglycerin (Nitrostat (1/ 150)) 0.4 mg Q5MP PRN SL CHEST PAIN 10/10/16 22:00 11/09/16 21:59 Salmeterol Xinafoate/ Fluticasone (Advair Diskus 500/50) 1 puff BID INH 10/11/16 09:00 11/10/16 08:59 Future hold 10/23/16 09:24 Theophylline (Jameson-24) 200 mg DAILY PO 10/11/16 09:00 11/10/16 08:59 10/23/16 09:24 Tiotropium [place] (Spiriva Handihaler) 1 inhalation DAILY@08 INH 10/11/16 08:00 11/10/16 07:59 10/23/16 09:25 Torsemide (Demadex) 50 mg QAM PO 10/11/16 09:00 11/10/16 08:59 10/23/16 09:24 Trazodone HCl (Desyrel) 50 mg QHSP PRN PO INSOMNIA 10/10/16 21:00 11/09/16 20:59 Allergies Coded Allergies: Warfarin (Unverified Allergy, Unknown, UNKNOWN, 07/07/16) JULIANNE DIEZ MD Oct 23, 2016 17:29
--- NOTE | 2016-10-23 17:30 | IPNPDOC ---
[facility] Progress Note Progress Note DATE OF SERVICE: 10/17/16 SUBJECTIVE: Patient more visible on the unit and is observed to be social during meals. He is reporting ongoing improving mood. Patient is engaged in the interview. Patient is attending groups. He denies medication side effects. Patient is medication compliant. Patient denies current SI and HI. Patient has made no bizarre statements nor has he displayed bizarre or inappropriate behavior. Patient reports sleep and appetite are fair. OBJECTIVE: VITAL SIGNS: See below. NEW TEST RESULTS: See below. CURRENT MEDICATIONS: See below. MENTAL STATUS EXAMINATION: Patient is a 75-year-old male, thin, frail, who appears than the stated age. Speech: RRR, spontaneous; Associations:intact. TP- linear, TC-appropriate; Description of abnormal or psychotic thoughts: NO hallucinations, delusions, preoccupation with violence, homicidal or suicidal ideation, and obsessions. Judgment: poor to fair, Insight: poor to fair. Orientation to time, place and person. Recent and remote memory: Immediate, short-term and long-term memory is intact. Attention span and concentration: Poor, good, fair. Language: Normal. Fund of knowledge: adequate, intact, poor, fair, good. Mood: Improving, Affect: Euthymic ASSESSMENT: -Depressive disorder unspecified PLAN: -Continue Prozac 20 mg by mouth every morning for depressive symptoms. -Continue trazodone 50 mg by mouth daily at bedtime when necessary insomnia TIME SPENT: 30 minutes. Vital Signs Vital Signs Date Time Temp Pulse Resp B/P Pulse Ox O2 Delivery O2 Flow Rate FiO2 10/23/16 11:57 132/63 10/23/16 06:36 98.3 70 18 Laboratory Data 24H Labs Laboratory Tests 2 10/22/16 20:52: Bedside Glucose (Misc Panel) 250H 10/23/16 05:50: Bedside Glucose (Misc Panel) 147H 10/23/16 11:53: Bedside Glucose (Misc Panel) 173H 10/23/16 16:45: Bedside Glucose (Misc Panel) 204H Current Medications Current Medications Medications (Trade) Dose Ordered Sig/Reshma Route PRN Reason Start Time Stop Time Status Last Admin Dose Admin Acetaminophen (Tylenol) 650 mg Q6HP PRN PO HEADACHE or DISCOMFORT 10/10/16 21:00 11/09/16 20:59 Al Hydrox/Mg Hydrox/Simethicone (Mylanta) 30 ml Q4HP PRN PO HEARTBURN/INDIGESTION 10/10/16 21:00 11/09/16 20:59 Albuterol Sulfate (Proventil Neb) 2.5 mg Q2HP PRN NEB SOB/WHEEZING 10/10/16 21:15 10/10/16 21:43 DC Albuterol Sulfate (Proventil Neb) 2.5 mg Q2HP PRN NEB SOB/WHEEZING 10/11/16 06:30 11/10/16 06:29 Albuterol Sulfate (Proventil, Ventolin Hfa) 2 puff QID INH 10/11/16 09:00 10/11/16 09:00 DC Albuterol Sulfate (Proventil, Ventolin Hfa) 2 puff QID INH 10/11/16 09:00 11/10/16 08:59 10/23/16 16:48 Allopurinol (Zyloprim) 200 mg DAILY PO 10/11/16 09:00 11/10/16 08:59 10/23/16 09:24 Atorvastatin Calcium (Lipitor) 20 mg DAILY PO 10/11/16 09:00 11/10/16 08:59 10/23/16 09:24 Azithromycin (Zithromax) 500 mg DAILY PO 10/11/16 09:00 10/11/16 09:00 DC Calcitriol (Rocaltrol) 0.25 mcg DAILY PO 10/11/16 09:00 11/10/16 08:59 10/23/16 09:25 Dextrose (Dextrose 50%) 25 ml ASDIRECTED PRN IV SEE LABEL COMMENTS 10/10/16 21:00 11/09/16 20:59 Enoxaparin Sodium (Lovenox) 40 mg DAILY SC 10/11/16 09:00 10/11/16 10:11 DC 10/11/16 08:18 Fluoxetine HCl (PROzac) 20 mg DAILY PO 10/11/16 09:00 11/10/16 08:59 10/23/16 09:24 Glucagon (Glucagon) 1 mg ASDIRECTED PRN SC SEE LABEL COMMENTS 10/10/16 21:00 11/09/16 20:59 Glucose (Glucose) 16 GM ASDIRECTED PRN PO SEE LABEL COMMENTS 10/10/16 21:00 11/09/16 20:59 Hydralazine HCl (Apresoline) 10 mg Q6H PO 10/11/16 00:00 11/10/16 00:00 10/18/16 23:09 Insulin Human Lispro (HumaLOG INSULIN) See Protocol Table AC SC 10/11/16 07:30 11/10/16 07:29 10/23/16 16:46 Insulin Human Lispro (HumaLOG INSULIN) See Protocol Table QHS SC 10/10/16 21:00 11/09/16 20:59 10/20/16 21:58 Isosorbide Mononitrate (Imdur) 30 mg DAILY PO 10/11/16 09:00 11/10/16 08:59 10/23/16 09:25 Levalbuterol HCl (Xopenex Neb) 1.25 mg Q1HP PRN INH SHORTNESS OF BREATH 10/10/16 21:15 10/11/16 09:56 DC Levalbuterol HCl (Xopenex Neb) 1.25 mg RQ4H INH 10/11/16 00:00 10/11/16 09:56 DC Magnesium Hydroxide (Milk Of Magnesia) 30 ml DAILYPRN PRN PO CONSTIPATION 10/10/16 21:00 11/09/16 20:59 Miscellaneous (Unresolved Clarification Entry) SEE LABEL COMMENTS UNRESOLVED XX 10/18/16 00:01 10/19/16 15:16 DC Miscellaneous (Unresolved Clarification Entry) SEE LABEL COMMENTS UNRESOLVED XX 10/19/16 00:01 11/18/16 00:00 Moxifloxacin HCl (Avelox) 400 mg DAILY@06 PO 10/11/16 06:00 10/18/16 05:59 DC 10/17/16 05:57 Nitroglycerin (Nitrostat (1/ 150)) 0.4 mg Q5MP PRN SL CHEST PAIN 10/10/16 22:00 11/09/16 21:59 Salmeterol Xinafoate/ Fluticasone (Advair Diskus 500/50) 1 puff BID INH 10/11/16 09:00 11/10/16 08:59 Future hold 10/23/16 09:24 Theophylline (Jameson-24) 200 mg DAILY PO 10/11/16 09:00 11/10/16 08:59 10/23/16 09:24 Tiotropium [place] (Spiriva Handihaler) 1 inhalation DAILY@08 INH 10/11/16 08:00 11/10/16 07:59 10/23/16 09:25 Torsemide (Demadex) 50 mg QAM PO 10/11/16 09:00 11/10/16 08:59 10/23/16 09:24 Trazodone HCl (Desyrel) 50 mg QHSP PRN PO INSOMNIA 10/10/16 21:00 11/09/16 20:59 Allergies Coded Allergies: Warfarin (Unverified Allergy, Unknown, UNKNOWN, 07/07/16) JULIANNE DIEZ MD Oct 23, 2016 17:30
--- NOTE | 2016-10-23 17:31 | IPNPDOC ---
[facility] Progress Note Progress Note DATE OF SERVICE: 10/19/16 SUBJECTIVE: Patient reports contact with his daughter today. She is working with the landlord of patient's upcoming residence to ensure his move in as soon as possible. Patient reports anxiety regarding his new living environment and peers. Patient is attending groups and reports benefit from them. He denies medication side effects. Patient is medication compliant. Patient denies current SI and HI. Patient has made no bizarre statements nor has he displayed bizarre or inappropriate behavior. Patient reports improving sleep and appetite. OBJECTIVE: VITAL SIGNS: See below. NEW TEST RESULTS: See below. CURRENT MEDICATIONS: See below. MENTAL STATUS EXAMINATION: Patient is a 75-year-old male, thin, frail, who appears than the stated age. Speech: RRR, spontaneous; Associations:intact. TP- linear, TC-appropriate; Description of abnormal or psychotic thoughts: NO hallucinations, delusions, preoccupation with violence, homicidal or suicidal ideation, and obsessions. Judgment: poor to fair, Insight: poor to fair. Orientation to time, place and person. Recent and remote memory: Immediate, short-term and long-term memory is intact. Attention span and concentration: Poor, good, fair. Language: Normal. Fund of knowledge: adequate, intact, poor, fair, good. Mood: Euthymic Affect: Mildly anxious ASSESSMENT: -Depressive disorder unspecified PLAN: -Continue Prozac 20 mg by mouth every morning for depressive symptoms. -Continue trazodone 50 mg by mouth daily at bedtime when necessary insomnia TIME SPENT: 30 minutes.. Vital Signs Vital Signs Date Time Temp Pulse Resp B/P Pulse Ox O2 Delivery O2 Flow Rate FiO2 10/23/16 11:57 132/63 10/23/16 06:36 98.3 70 18 Laboratory Data 24H Labs Laboratory Tests 2 10/22/16 20:52: Bedside Glucose (Misc Panel) 250H 10/23/16 05:50: Bedside Glucose (Misc Panel) 147H 10/23/16 11:53: Bedside Glucose (Misc Panel) 173H 10/23/16 16:45: Bedside Glucose (Misc Panel) 204H Current Medications Current Medications Medications (Trade) Dose Ordered Sig/Reshma Route PRN Reason Start Time Stop Time Status Last Admin Dose Admin Acetaminophen (Tylenol) 650 mg Q6HP PRN PO HEADACHE or DISCOMFORT 10/10/16 21:00 11/09/16 20:59 Al Hydrox/Mg Hydrox/Simethicone (Mylanta) 30 ml Q4HP PRN PO HEARTBURN/INDIGESTION 10/10/16 21:00 11/09/16 20:59 Albuterol Sulfate (Proventil Neb) 2.5 mg Q2HP PRN NEB SOB/WHEEZING 10/10/16 21:15 10/10/16 21:43 DC Albuterol Sulfate (Proventil Neb) 2.5 mg Q2HP PRN NEB SOB/WHEEZING 10/11/16 06:30 11/10/16 06:29 Albuterol Sulfate (Proventil, Ventolin Hfa) 2 puff QID INH 10/11/16 09:00 10/11/16 09:00 DC Albuterol Sulfate (Proventil, Ventolin Hfa) 2 puff QID INH 10/11/16 09:00 11/10/16 08:59 10/23/16 16:48 Allopurinol (Zyloprim) 200 mg DAILY PO 10/11/16 09:00 11/10/16 08:59 10/23/16 09:24 Atorvastatin Calcium (Lipitor) 20 mg DAILY PO 10/11/16 09:00 11/10/16 08:59 10/23/16 09:24 Azithromycin (Zithromax) 500 mg DAILY PO 10/11/16 09:00 10/11/16 09:00 DC Calcitriol (Rocaltrol) 0.25 mcg DAILY PO 10/11/16 09:00 11/10/16 08:59 10/23/16 09:25 Dextrose (Dextrose 50%) 25 ml ASDIRECTED PRN IV SEE LABEL COMMENTS 10/10/16 21:00 11/09/16 20:59 Enoxaparin Sodium (Lovenox) 40 mg DAILY SC 10/11/16 09:00 10/11/16 10:11 DC 10/11/16 08:18 Fluoxetine HCl (PROzac) 20 mg DAILY PO 10/11/16 09:00 11/10/16 08:59 10/23/16 09:24 Glucagon (Glucagon) 1 mg ASDIRECTED PRN SC SEE LABEL COMMENTS 10/10/16 21:00 11/09/16 20:59 Glucose (Glucose) 16 GM ASDIRECTED PRN PO SEE LABEL COMMENTS 10/10/16 21:00 11/09/16 20:59 Hydralazine HCl (Apresoline) 10 mg Q6H PO 10/11/16 00:00 11/10/16 00:00 10/18/16 23:09 Insulin Human Lispro (HumaLOG INSULIN) See Protocol Table AC SC 10/11/16 07:30 11/10/16 07:29 10/23/16 16:46 Insulin Human Lispro (HumaLOG INSULIN) See Protocol Table QHS SC 10/10/16 21:00 11/09/16 20:59 10/20/16 21:58 Isosorbide Mononitrate (Imdur) 30 mg DAILY PO 10/11/16 09:00 11/10/16 08:59 10/23/16 09:25 Levalbuterol HCl (Xopenex Neb) 1.25 mg Q1HP PRN INH SHORTNESS OF BREATH 10/10/16 21:15 10/11/16 09:56 DC Levalbuterol HCl (Xopenex Neb) 1.25 mg RQ4H INH 10/11/16 00:00 10/11/16 09:56 DC Magnesium Hydroxide (Milk Of Magnesia) 30 ml DAILYPRN PRN PO CONSTIPATION 10/10/16 21:00 11/09/16 20:59 Miscellaneous (Unresolved Clarification Entry) SEE LABEL COMMENTS UNRESOLVED XX 10/18/16 00:01 10/19/16 15:16 DC Miscellaneous (Unresolved Clarification Entry) SEE LABEL COMMENTS UNRESOLVED XX 10/19/16 00:01 11/18/16 00:00 Moxifloxacin HCl (Avelox) 400 mg DAILY@06 PO 10/11/16 06:00 10/18/16 05:59 DC 10/17/16 05:57 Nitroglycerin (Nitrostat (1/ 150)) 0.4 mg Q5MP PRN SL CHEST PAIN 10/10/16 22:00 11/09/16 21:59 Salmeterol Xinafoate/ Fluticasone (Advair Diskus 500/50) 1 puff BID INH 10/11/16 09:00 11/10/16 08:59 Future hold 10/23/16 09:24 Theophylline (Jameson-24) 200 mg DAILY PO 10/11/16 09:00 11/10/16 08:59 10/23/16 09:24 Tiotropium [place] (Spiriva Handihaler) 1 inhalation DAILY@08 INH 10/11/16 08:00 11/10/16 07:59 10/23/16 09:25 Torsemide (Demadex) 50 mg QAM PO 10/11/16 09:00 11/10/16 08:59 10/23/16 09:24 Trazodone HCl (Desyrel) 50 mg QHSP PRN PO INSOMNIA 10/10/16 21:00 11/09/16 20:59 Allergies Coded Allergies: Warfarin (Unverified Allergy, Unknown, UNKNOWN, 07/07/16) JULIANNE DIEZ MD Oct 23, 2016 17:31 Allergies Coded Allergies: Warfarin (Unverified Allergy, Unknown, UNKNOWN, 07/07/16) JULIANNE DIEZ MD Oct 23, 2016 17:31
--- NOTE | 2016-10-23 17:31 | IPNPDOC ---
[facility] Progress Note Progress Note DATE OF SERVICE: 10/18/16 SUBJECTIVE: Patient continues to be visible in the milieu. He reports benefit from groups and is noticed to be engaging staff in conversation. Patient reports his mood is improving. Patient is attending groups. He denies medication side effects. Patient is medication compliant. Patient denies current SI and HI. Patient has made no bizarre statements nor has he displayed bizarre or inappropriate behavior. Patient reports improving sleep and appetite. OBJECTIVE: VITAL SIGNS: See below. NEW TEST RESULTS: See below. CURRENT MEDICATIONS: See below. MENTAL STATUS EXAMINATION: Patient is a 75-year-old male, thin, frail, who appears than the stated age. Speech: RRR, spontaneous; Associations:intact. TP- linear, TC-appropriate; Description of abnormal or psychotic thoughts: NO hallucinations, delusions, preoccupation with violence, homicidal or suicidal ideation, and obsessions. Judgment: poor to fair, Insight: poor to fair. Orientation to time, place and person. Recent and remote memory: Immediate, short-term and long-term memory is intact. Attention span and concentration: Poor, good, fair. Language: Normal. Fund of knowledge: adequate. Mood: Euthymic ; Affect: Euthymic ASSESSMENT: -Depressive disorder unspecified PLAN: -Continue Prozac 20 mg by mouth every morning for depressive symptoms. -Continue trazodone 50 mg by mouth daily at bedtime when necessary insomnia TIME SPENT: 30 minutes. Vital Signs Vital Signs Date Time Temp Pulse Resp B/P Pulse Ox O2 Delivery O2 Flow Rate FiO2 10/23/16 11:57 132/63 10/23/16 06:36 98.3 70 18 Laboratory Data 24H Labs Laboratory Tests 2 10/22/16 20:52: Bedside Glucose (Misc Panel) 250H 10/23/16 05:50: Bedside Glucose (Misc Panel) 147H 10/23/16 11:53: Bedside Glucose (Misc Panel) 173H 10/23/16 16:45: Bedside Glucose (Misc Panel) 204H Current Medications Current Medications Medications (Trade) Dose Ordered Sig/Reshma Route PRN Reason Start Time Stop Time Status Last Admin Dose Admin Acetaminophen (Tylenol) 650 mg Q6HP PRN PO HEADACHE or DISCOMFORT 10/10/16 21:00 11/09/16 20:59 Al Hydrox/Mg Hydrox/Simethicone (Mylanta) 30 ml Q4HP PRN PO HEARTBURN/INDIGESTION 10/10/16 21:00 11/09/16 20:59 Albuterol Sulfate (Proventil Neb) 2.5 mg Q2HP PRN NEB SOB/WHEEZING 10/10/16 21:15 10/10/16 21:43 DC Albuterol Sulfate (Proventil Neb) 2.5 mg Q2HP PRN NEB SOB/WHEEZING 10/11/16 06:30 11/10/16 06:29 Albuterol Sulfate (Proventil, Ventolin Hfa) 2 puff QID INH 10/11/16 09:00 10/11/16 09:00 DC Albuterol Sulfate (Proventil, Ventolin Hfa) 2 puff QID INH 10/11/16 09:00 11/10/16 08:59 10/23/16 16:48 Allopurinol (Zyloprim) 200 mg DAILY PO 10/11/16 09:00 11/10/16 08:59 10/23/16 09:24 Atorvastatin Calcium (Lipitor) 20 mg DAILY PO 10/11/16 09:00 11/10/16 08:59 10/23/16 09:24 Azithromycin (Zithromax) 500 mg DAILY PO 10/11/16 09:00 10/11/16 09:00 DC Calcitriol (Rocaltrol) 0.25 mcg DAILY PO 10/11/16 09:00 11/10/16 08:59 10/23/16 09:25 Dextrose (Dextrose 50%) 25 ml ASDIRECTED PRN IV SEE LABEL COMMENTS 10/10/16 21:00 11/09/16 20:59 Enoxaparin Sodium (Lovenox) 40 mg DAILY SC 10/11/16 09:00 10/11/16 10:11 DC 10/11/16 08:18 Fluoxetine HCl (PROzac) 20 mg DAILY PO 10/11/16 09:00 11/10/16 08:59 10/23/16 09:24 Glucagon (Glucagon) 1 mg ASDIRECTED PRN SC SEE LABEL COMMENTS 10/10/16 21:00 11/09/16 20:59 Glucose (Glucose) 16 GM ASDIRECTED PRN PO SEE LABEL COMMENTS 10/10/16 21:00 11/09/16 20:59 Hydralazine HCl (Apresoline) 10 mg Q6H PO 10/11/16 00:00 11/10/16 00:00 10/18/16 23:09 Insulin Human Lispro (HumaLOG INSULIN) See Protocol Table AC SC 10/11/16 07:30 11/10/16 07:29 10/23/16 16:46 Insulin Human Lispro (HumaLOG INSULIN) See Protocol Table QHS SC 10/10/16 21:00 11/09/16 20:59 10/20/16 21:58 Isosorbide Mononitrate (Imdur) 30 mg DAILY PO 10/11/16 09:00 11/10/16 08:59 10/23/16 09:25 Levalbuterol HCl (Xopenex Neb) 1.25 mg Q1HP PRN INH SHORTNESS OF BREATH 10/10/16 21:15 10/11/16 09:56 DC Levalbuterol HCl (Xopenex Neb) 1.25 mg RQ4H INH 10/11/16 00:00 10/11/16 09:56 DC Magnesium Hydroxide (Milk Of Magnesia) 30 ml DAILYPRN PRN PO CONSTIPATION 10/10/16 21:00 11/09/16 20:59 Miscellaneous (Unresolved Clarification Entry) SEE LABEL COMMENTS UNRESOLVED XX 10/18/16 00:01 10/19/16 15:16 DC Miscellaneous (Unresolved Clarification Entry) SEE LABEL COMMENTS UNRESOLVED XX 10/19/16 00:01 11/18/16 00:00 Moxifloxacin HCl (Avelox) 400 mg DAILY@06 PO 10/11/16 06:00 10/18/16 05:59 DC 10/17/16 05:57 Nitroglycerin (Nitrostat (1/ 150)) 0.4 mg Q5MP PRN SL CHEST PAIN 10/10/16 22:00 11/09/16 21:59 Salmeterol Xinafoate/ Fluticasone (Advair Diskus 500/50) 1 puff BID INH 10/11/16 09:00 11/10/16 08:59 Future hold 10/23/16 09:24 Theophylline (Jameson-24) 200 mg DAILY PO 10/11/16 09:00 11/10/16 08:59 10/23/16 09:24 Tiotropium [place] (Spiriva Handihaler) 1 inhalation DAILY@08 INH 10/11/16 08:00 11/10/16 07:59 10/23/16 09:25 Torsemide (Demadex) 50 mg QAM PO 10/11/16 09:00 11/10/16 08:59 10/23/16 09:24 Trazodone HCl (Desyrel) 50 mg QHSP PRN PO INSOMNIA 10/10/16 21:00 11/09/16 20:59 Allergies Coded Allergies: Warfarin (Unverified Allergy, Unknown, UNKNOWN, 07/07/16) JULIANNE DIEZ MD Oct 23, 2016 17:31
--- NOTE | 2016-10-23 17:32 | IPNPDOC ---
[facility] Progress Note Progress Note DATE OF SERVICE: 10/23/16 SUBJECTIVE: Patient is engaged in the interview and reports no issues on the unit. She is awaiting move them at his new residence. The current landlord is having issues with a prior tenants belongings still being in the unit. Patient reports his mood is improving. Patient is attending groups. He denies medication side effects. Patient is medication compliant. Patient denies current SI and HI. Patient has made no bizarre statements nor has he displayed bizarre or inappropriate behavior. Patient reports improving sleep and appetite. OBJECTIVE: VITAL SIGNS: See below. NEW TEST RESULTS: See below. CURRENT MEDICATIONS: See below. MENTAL STATUS EXAMINATION: Patient is a 75-year-old male, thin, frail, who appears than the stated age. Speech: RRR, spontaneous; Associations:intact. TP- linear, TC-appropriate; Description of abnormal or psychotic thoughts: NO hallucinations, delusions, preoccupation with violence, homicidal or suicidal ideation, and obsessions. Judgment: poor to fair, Insight: poor to fair. Orientation to time, place and person. Recent and remote memory: Immediate, short-term and long-term memory is intact. Attention span and concentration: Poor, good, fair. Language: Normal. Fund of knowledge: adequate, intact, poor, fair, good. Mood: Improving, Affect: Euthymic ASSESSMENT: -Depressive disorder unspecified PLAN: -Continue Prozac 20 mg by mouth every morning for depressive symptoms. -Continue trazodone 50 mg by mouth daily at bedtime when necessary insomnia TIME SPENT: 30 minutes. Vital Signs Vital Signs Date Time Temp Pulse Resp B/P Pulse Ox O2 Delivery O2 Flow Rate FiO2 10/23/16 11:57 132/63 10/23/16 06:36 98.3 70 18 Laboratory Data 24H Labs Laboratory Tests 2 10/22/16 20:52: Bedside Glucose (Misc Panel) 250H 10/23/16 05:50: Bedside Glucose (Misc Panel) 147H 10/23/16 11:53: Bedside Glucose (Misc Panel) 173H 10/23/16 16:45: Bedside Glucose (Misc Panel) 204H Current Medications Current Medications Medications (Trade) Dose Ordered Sig/Reshma Route PRN Reason Start Time Stop Time Status Last Admin Dose Admin Acetaminophen (Tylenol) 650 mg Q6HP PRN PO HEADACHE or DISCOMFORT 10/10/16 21:00 11/09/16 20:59 Al Hydrox/Mg Hydrox/Simethicone (Mylanta) 30 ml Q4HP PRN PO HEARTBURN/INDIGESTION 10/10/16 21:00 11/09/16 20:59 Albuterol Sulfate (Proventil Neb) 2.5 mg Q2HP PRN NEB SOB/WHEEZING 10/10/16 21:15 10/10/16 21:43 DC Albuterol Sulfate (Proventil Neb) 2.5 mg Q2HP PRN NEB SOB/WHEEZING 10/11/16 06:30 11/10/16 06:29 Albuterol Sulfate (Proventil, Ventolin Hfa) 2 puff QID INH 10/11/16 09:00 10/11/16 09:00 DC Albuterol Sulfate (Proventil, Ventolin Hfa) 2 puff QID INH 10/11/16 09:00 11/10/16 08:59 10/23/16 16:48 Allopurinol (Zyloprim) 200 mg DAILY PO 10/11/16 09:00 11/10/16 08:59 10/23/16 09:24 Atorvastatin Calcium (Lipitor) 20 mg DAILY PO 10/11/16 09:00 11/10/16 08:59 10/23/16 09:24 Azithromycin (Zithromax) 500 mg DAILY PO 10/11/16 09:00 10/11/16 09:00 DC Calcitriol (Rocaltrol) 0.25 mcg DAILY PO 10/11/16 09:00 11/10/16 08:59 10/23/16 09:25 Dextrose (Dextrose 50%) 25 ml ASDIRECTED PRN IV SEE LABEL COMMENTS 10/10/16 21:00 11/09/16 20:59 Enoxaparin Sodium (Lovenox) 40 mg DAILY SC 10/11/16 09:00 10/11/16 10:11 DC 10/11/16 08:18 Fluoxetine HCl (PROzac) 20 mg DAILY PO 10/11/16 09:00 11/10/16 08:59 10/23/16 09:24 Glucagon (Glucagon) 1 mg ASDIRECTED PRN SC SEE LABEL COMMENTS 10/10/16 21:00 11/09/16 20:59 Glucose (Glucose) 16 GM ASDIRECTED PRN PO SEE LABEL COMMENTS 10/10/16 21:00 11/09/16 20:59 Hydralazine HCl (Apresoline) 10 mg Q6H PO 10/11/16 00:00 11/10/16 00:00 10/18/16 23:09 Insulin Human Lispro (HumaLOG INSULIN) See Protocol Table AC SC 10/11/16 07:30 11/10/16 07:29 10/23/16 16:46 Insulin Human Lispro (HumaLOG INSULIN) See Protocol Table QHS SC 10/10/16 21:00 11/09/16 20:59 10/20/16 21:58 Isosorbide Mononitrate (Imdur) 30 mg DAILY PO 10/11/16 09:00 11/10/16 08:59 10/23/16 09:25 Levalbuterol HCl (Xopenex Neb) 1.25 mg Q1HP PRN INH SHORTNESS OF BREATH 10/10/16 21:15 10/11/16 09:56 DC Levalbuterol HCl (Xopenex Neb) 1.25 mg RQ4H INH 10/11/16 00:00 10/11/16 09:56 DC Magnesium Hydroxide (Milk Of Magnesia) 30 ml DAILYPRN PRN PO CONSTIPATION 10/10/16 21:00 11/09/16 20:59 Miscellaneous (Unresolved Clarification Entry) SEE LABEL COMMENTS UNRESOLVED XX 10/18/16 00:01 10/19/16 15:16 DC Miscellaneous (Unresolved Clarification Entry) SEE LABEL COMMENTS UNRESOLVED XX 10/19/16 00:01 11/18/16 00:00 Moxifloxacin HCl (Avelox) 400 mg DAILY@06 PO 10/11/16 06:00 10/18/16 05:59 DC 10/17/16 05:57 Nitroglycerin (Nitrostat (1/ 150)) 0.4 mg Q5MP PRN SL CHEST PAIN 10/10/16 22:00 11/09/16 21:59 Salmeterol Xinafoate/ Fluticasone (Advair Diskus 500/50) 1 puff BID INH 10/11/16 09:00 11/10/16 08:59 Future hold 10/23/16 09:24 Theophylline (Jameson-24) 200 mg DAILY PO 10/11/16 09:00 11/10/16 08:59 10/23/16 09:24 Tiotropium [place] (Spiriva Handihaler) 1 inhalation DAILY@08 INH 10/11/16 08:00 11/10/16 07:59 10/23/16 09:25 Torsemide (Demadex) 50 mg QAM PO 10/11/16 09:00 11/10/16 08:59 10/23/16 09:24 Trazodone HCl (Desyrel) 50 mg QHSP PRN PO INSOMNIA 10/10/16 21:00 11/09/16 20:59 Allergies Coded Allergies: Warfarin (Unverified Allergy, Unknown, UNKNOWN, 07/07/16) JULIANNE DIEZ MD Oct 23, 2016 17:32
--- NOTE | 2016-10-23 17:32 | IPNPDOC ---
[facility] Progress Note Progress Note DATE OF SERVICE: 10/20/16 SUBJECTIVE: Patient calm and cooperative with interview this morning. Patient more future oriented and conversation. Patient looking forward to meeting new neighbors. Patient expressed increase insight that socializing is essential for a good mood. Patient is attending groups. He denies medication side effects. Patient is medication compliant. Patient denies current SI and HI. Patient has made no bizarre statements nor has he displayed bizarre or inappropriate behavior. Patient reports improving sleep and appetite. OBJECTIVE: VITAL SIGNS: See below. NEW TEST RESULTS: See below. CURRENT MEDICATIONS: See below. MENTAL STATUS EXAMINATION: Patient is a 75-year-old male, thin, frail, who appears than the stated age. Speech: RRR, spontaneous; Associations:intact. TP- linear, TC-appropriate; Description of abnormal or psychotic thoughts: NO hallucinations, delusions, preoccupation with violence, homicidal or suicidal ideation, and obsessions. Judgment: poor to fair, Insight: poor to fair. Orientation to time, place and person. Recent and remote memory: Immediate, short-term and long-term memory is intact. Attention span and concentration: Poor, good, fair. Language: Normal. Fund of knowledge: adequate, intact, poor, fair, good. Mood: Pretty good Affect: Euthymic ASSESSMENT: -Depressive disorder unspecified PLAN: -Continue Prozac 20 mg by mouth every morning for depressive symptoms. -Continue trazodone 50 mg by mouth daily at bedtime when necessary insomnia TIME SPENT: 30 minutes. Vital Signs Vital Signs Date Time Temp Pulse Resp B/P Pulse Ox O2 Delivery O2 Flow Rate FiO2 10/23/16 11:57 132/63 10/23/16 06:36 98.3 70 18 Laboratory Data 24H Labs Laboratory Tests 2 10/22/16 20:52: Bedside Glucose (Misc Panel) 250H 10/23/16 05:50: Bedside Glucose (Misc Panel) 147H 10/23/16 11:53: Bedside Glucose (Misc Panel) 173H 10/23/16 16:45: Bedside Glucose (Misc Panel) 204H Current Medications Current Medications Medications (Trade) Dose Ordered Sig/Reshma Route PRN Reason Start Time Stop Time Status Last Admin Dose Admin Acetaminophen (Tylenol) 650 mg Q6HP PRN PO HEADACHE or DISCOMFORT 10/10/16 21:00 11/09/16 20:59 Al Hydrox/Mg Hydrox/Simethicone (Mylanta) 30 ml Q4HP PRN PO HEARTBURN/INDIGESTION 10/10/16 21:00 11/09/16 20:59 Albuterol Sulfate (Proventil Neb) 2.5 mg Q2HP PRN NEB SOB/WHEEZING 10/10/16 21:15 10/10/16 21:43 DC Albuterol Sulfate (Proventil Neb) 2.5 mg Q2HP PRN NEB SOB/WHEEZING 10/11/16 06:30 11/10/16 06:29 Albuterol Sulfate (Proventil, Ventolin Hfa) 2 puff QID INH 10/11/16 09:00 10/11/16 09:00 DC Albuterol Sulfate (Proventil, Ventolin Hfa) 2 puff QID INH 10/11/16 09:00 11/10/16 08:59 10/23/16 16:48 Allopurinol (Zyloprim) 200 mg DAILY PO 10/11/16 09:00 11/10/16 08:59 10/23/16 09:24 Atorvastatin Calcium (Lipitor) 20 mg DAILY PO 10/11/16 09:00 11/10/16 08:59 10/23/16 09:24 Azithromycin (Zithromax) 500 mg DAILY PO 10/11/16 09:00 10/11/16 09:00 DC Calcitriol (Rocaltrol) 0.25 mcg DAILY PO 10/11/16 09:00 11/10/16 08:59 10/23/16 09:25 Dextrose (Dextrose 50%) 25 ml ASDIRECTED PRN IV SEE LABEL COMMENTS 10/10/16 21:00 11/09/16 20:59 Enoxaparin Sodium (Lovenox) 40 mg DAILY SC 10/11/16 09:00 10/11/16 10:11 DC 10/11/16 08:18 Fluoxetine HCl (PROzac) 20 mg DAILY PO 10/11/16 09:00 11/10/16 08:59 10/23/16 09:24 Glucagon (Glucagon) 1 mg ASDIRECTED PRN SC SEE LABEL COMMENTS 10/10/16 21:00 11/09/16 20:59 Glucose (Glucose) 16 GM ASDIRECTED PRN PO SEE LABEL COMMENTS 10/10/16 21:00 11/09/16 20:59 Hydralazine HCl (Apresoline) 10 mg Q6H PO 10/11/16 00:00 11/10/16 00:00 10/18/16 23:09 Insulin Human Lispro (HumaLOG INSULIN) See Protocol Table AC SC 10/11/16 07:30 11/10/16 07:29 10/23/16 16:46 Insulin Human Lispro (HumaLOG INSULIN) See Protocol Table QHS SC 10/10/16 21:00 11/09/16 20:59 10/20/16 21:58 Isosorbide Mononitrate (Imdur) 30 mg DAILY PO 10/11/16 09:00 11/10/16 08:59 10/23/16 09:25 Levalbuterol HCl (Xopenex Neb) 1.25 mg Q1HP PRN INH SHORTNESS OF BREATH 10/10/16 21:15 10/11/16 09:56 DC Levalbuterol HCl (Xopenex Neb) 1.25 mg RQ4H INH 10/11/16 00:00 10/11/16 09:56 DC Magnesium Hydroxide (Milk Of Magnesia) 30 ml DAILYPRN PRN PO CONSTIPATION 10/10/16 21:00 11/09/16 20:59 Miscellaneous (Unresolved Clarification Entry) SEE LABEL COMMENTS UNRESOLVED XX 10/18/16 00:01 10/19/16 15:16 DC Miscellaneous (Unresolved Clarification Entry) SEE LABEL COMMENTS UNRESOLVED XX 10/19/16 00:01 11/18/16 00:00 Moxifloxacin HCl (Avelox) 400 mg DAILY@06 PO 10/11/16 06:00 10/18/16 05:59 DC 10/17/16 05:57 Nitroglycerin (Nitrostat (1/ 150)) 0.4 mg Q5MP PRN SL CHEST PAIN 10/10/16 22:00 11/09/16 21:59 Salmeterol Xinafoate/ Fluticasone (Advair Diskus 500/50) 1 puff BID INH 10/11/16 09:00 11/10/16 08:59 Future hold 10/23/16 09:24 Theophylline (Jameson-24) 200 mg DAILY PO 10/11/16 09:00 11/10/16 08:59 10/23/16 09:24 Tiotropium [place] (Spiriva Handihaler) 1 inhalation DAILY@08 INH 10/11/16 08:00 11/10/16 07:59 10/23/16 09:25 Torsemide (Demadex) 50 mg QAM PO 10/11/16 09:00 11/10/16 08:59 10/23/16 09:24 Trazodone HCl (Desyrel) 50 mg QHSP PRN PO INSOMNIA 10/10/16 21:00 11/09/16 20:59 Allergies Coded Allergies: Warfarin (Unverified Allergy, Unknown, UNKNOWN, 07/07/16) JULIANNE DIEZ MD Oct 23, 2016 17:31
[2016-10-23 18:30] VITALS: BP 123/60
[2016-10-24] MEDS: **hydrALAZINE** 10 MG TAB PO SCH ×4 (06:00→17:12)
[2016-10-24 06:35] VITALS: BP 164/98
[2016-10-24] MEDS: HumaLOG INSULIN (NovoLOG) PER UNIT SC SCH ×4 (06:38→21:00)
[2016-10-24] MEDS: TORSEMIDE (DEMADEX) 50 MG PER 1/2 TAB PO SCH (08:45)
[2016-10-24] MEDS: TIOTROPIUM INHALER/CAPSULE (SPIRIVA) INH SCH (08:45)
[2016-10-24] MEDS: THEOPHYLLINE (THEO-24) 100MG SR **CAPSULE PO SCH (08:45)
[2016-10-24] MEDS: CALCITRIOL 0.25 MCG CAP (S0169) PO SCH (08:46)
[2016-10-24] MEDS: ALLOPURINOL 100 MG TAB PO SCH (08:46)
[2016-10-24] MEDS: FLUoxetine 20 MG CAP PO SCH (08:46)
[2016-10-24] MEDS: ALBUTEROL 90 MCG/ACT 8GM HFA INHALER INH SCH ×4 (08:48→21:18)
[2016-10-24] MEDS: ADVAIR DISKUS 500/50 INH PWD INH SCH ×2 (08:48→21:18)
[2016-10-24] MEDS: ATORVASTATIN 20 MG TAB PO SCH (08:48)
[2016-10-24] MEDS: ISOSORBIDE MON. (IMDUR) 30 MG XR TAB PO SCH (08:48)
[2016-10-24 22:04] VITALS: BP 140/67
--- NOTE | 2016-10-24 23:21 | IPNPDOC ---
[facility] Progress Note Progress Note DATE OF SERVICE: 10/24/16 SUBJECTIVE: Patient reports mood is good. Patient is attending groups. He denies medication side effects. Patient is medication compliant. Patient denies headache chest pain and abdominal pain. He reports no problems with constipation diarrhea nausea or vomiting. Patient denies current SI and HI. Patient has made no bizarre statements nor has he displayed bizarre or inappropriate behavior. Patient reports improving sleep and appetite. OBJECTIVE: VITAL SIGNS: See below. NEW TEST RESULTS: See below. CURRENT MEDICATIONS: See below. MENTAL STATUS EXAMINATION: Patient is a 75-year-old male, thin, frail, who appears than the stated age. Speech: RRR, spontaneous; Associations:intact. TP- linear, TC-appropriate, ready for his new residence and open to being social there; Description of abnormal or psychotic thoughts: NO hallucinations, delusions, preoccupation with violence, homicidal or suicidal ideation, and obsessions. Judgment: fair, Insight: fair. Orientation to time, place and person. Recent and remote memory: Immediate, short-term and long-term memory is intact. Attention span and concentration: Poor, good, fair. Language: Normal. Fund of knowledge: adequate, intact, poor, fair, good. Mood: good, Affect: Euthymic ASSESSMENT: -Depressive disorder unspecified PLAN: -Continue Prozac 20 mg by mouth every morning for depressive symptoms. -Continue trazodone 50 mg by mouth daily at bedtime when necessary insomnia TIME SPENT: 30 minutes. Vital Signs Vital Signs Date Time Temp Pulse Resp B/P Pulse Ox O2 Delivery O2 Flow Rate FiO2 10/24/16 22:04 97.8 85 16 140/67 Laboratory Data 24H Labs Laboratory Tests 2 10/24/16 06:32: Bedside Glucose (Misc Panel) 147H 10/24/16 11:42: Bedside Glucose (Misc Panel) 150H 10/24/16 17:10: Bedside Glucose (Misc Panel) 190H 10/24/16 21:21: Bedside Glucose (Misc Panel) 192H Current Medications Current Medications Medications (Trade) Dose Ordered Sig/Reshma Route PRN Reason Start Time Stop Time Status Last Admin Dose Admin Acetaminophen (Tylenol) 650 mg Q6HP PRN PO HEADACHE or DISCOMFORT 10/10/16 21:00 11/09/16 20:59 Al Hydrox/Mg Hydrox/Simethicone (Mylanta) 30 ml Q4HP PRN PO HEARTBURN/INDIGESTION 10/10/16 21:00 11/09/16 20:59 Albuterol Sulfate (Proventil Neb) 2.5 mg Q2HP PRN NEB SOB/WHEEZING 10/10/16 21:15 10/10/16 21:43 DC Albuterol Sulfate (Proventil Neb) 2.5 mg Q2HP PRN NEB SOB/WHEEZING 10/11/16 06:30 11/10/16 06:29 Albuterol Sulfate (Proventil, Ventolin Hfa) 2 puff QID INH 10/11/16 09:00 10/11/16 09:00 DC Albuterol Sulfate (Proventil, Ventolin Hfa) 2 puff QID INH 10/11/16 09:00 11/10/16 08:59 10/24/16 21:18 Allopurinol (Zyloprim) 200 mg DAILY PO 10/11/16 09:00 11/10/16 08:59 10/24/16 08:46 Atorvastatin Calcium (Lipitor) 20 mg DAILY PO 10/11/16 09:00 11/10/16 08:59 10/24/16 08:48 Azithromycin (Zithromax) 500 mg DAILY PO 10/11/16 09:00 10/11/16 09:00 DC Calcitriol (Rocaltrol) 0.25 mcg DAILY PO 10/11/16 09:00 11/10/16 08:59 10/24/16 08:46 Dextrose (Dextrose 50%) 25 ml ASDIRECTED PRN IV SEE LABEL COMMENTS 10/10/16 21:00 11/09/16 20:59 Enoxaparin Sodium (Lovenox) 40 mg DAILY SC 10/11/16 09:00 10/11/16 10:11 DC 10/11/16 08:18 Fluoxetine HCl (PROzac) 20 mg DAILY PO 10/11/16 09:00 11/10/16 08:59 10/24/16 08:46 Glucagon (Glucagon) 1 mg ASDIRECTED PRN SC SEE LABEL COMMENTS 10/10/16 21:00 11/09/16 20:59 Glucose (Glucose) 16 GM ASDIRECTED PRN PO SEE LABEL COMMENTS 10/10/16 21:00 11/09/16 20:59 Hydralazine HCl (Apresoline) 10 mg Q6H PO 10/11/16 00:00 11/10/16 00:00 10/18/16 23:09 Insulin Human Lispro (HumaLOG INSULIN) See Protocol Table AC SC 10/11/16 07:30 11/10/16 07:29 10/24/16 17:12 Insulin Human Lispro (HumaLOG INSULIN) See Protocol Table QHS SC 10/10/16 21:00 11/09/16 20:59 10/20/16 21:58 Isosorbide Mononitrate (Imdur) 30 mg DAILY PO 10/11/16 09:00 11/10/16 08:59 10/24/16 08:48 Levalbuterol HCl (Xopenex Neb) 1.25 mg Q1HP PRN INH SHORTNESS OF BREATH 10/10/16 21:15 10/11/16 09:56 DC Levalbuterol HCl (Xopenex Neb) 1.25 mg RQ4H INH 10/11/16 00:00 10/11/16 09:56 DC Magnesium Hydroxide (Milk Of Magnesia) 30 ml DAILYPRN PRN PO CONSTIPATION 10/10/16 21:00 11/09/16 20:59 Miscellaneous (Unresolved Clarification Entry) SEE LABEL COMMENTS UNRESOLVED XX 10/18/16 00:01 10/19/16 15:16 DC Miscellaneous (Unresolved Clarification Entry) SEE LABEL COMMENTS UNRESOLVED XX 10/19/16 00:01 11/18/16 00:00 Moxifloxacin HCl (Avelox) 400 mg DAILY@06 PO 10/11/16 06:00 10/18/16 05:59 DC 10/17/16 05:57 Nitroglycerin (Nitrostat (1/ 150)) 0.4 mg Q5MP PRN SL CHEST PAIN 10/10/16 22:00 11/09/16 21:59 Salmeterol Xinafoate/ Fluticasone (Advair Diskus 500/50) 1 puff BID INH 10/11/16 09:00 11/10/16 08:59 Future hold 10/24/16 21:18 Theophylline (Jameson-24) 200 mg DAILY PO 10/11/16 09:00 11/10/16 08:59 10/24/16 08:45 Tiotropium [place] (Spiriva Handihaler) 1 inhalation DAILY@08 INH 10/11/16 08:00 11/10/16 07:59 10/24/16 08:45 Torsemide (Demadex) 50 mg QAM PO 10/11/16 09:00 11/10/16 08:59 10/24/16 08:45 Trazodone HCl (Desyrel) 50 mg QHSP PRN PO INSOMNIA 10/10/16 21:00 11/09/16 20:59 Allergies Coded Allergies: Warfarin (Unverified Allergy, Unknown, UNKNOWN, 07/07/16) JULIANNE DIEZ MD Oct 24, 2016 23:21 Allergies Coded Allergies: Warfarin (Unverified Allergy, Unknown, UNKNOWN, 07/07/16) JULIANNE DIEZ MD Oct 24, 2016 23:21
[2016-10-25] MEDS: **hydrALAZINE** 10 MG TAB PO SCH ×4 (06:00→17:21)
[2016-10-25] MEDS: HumaLOG INSULIN (NovoLOG) PER UNIT SC SCH ×4 (06:37→21:00)
[2016-10-25 06:52] VITALS: BP 150/68
[2016-10-25] MEDS: TORSEMIDE (DEMADEX) 50 MG PER 1/2 TAB PO SCH (09:16)
[2016-10-25] MEDS: TIOTROPIUM INHALER/CAPSULE (SPIRIVA) INH SCH (09:17)
[2016-10-25] MEDS: ISOSORBIDE MON. (IMDUR) 30 MG XR TAB PO SCH (09:18)
[2016-10-25] MEDS: THEOPHYLLINE (THEO-24) 100MG SR **CAPSULE PO SCH (09:18)
[2016-10-25] MEDS: CALCITRIOL 0.25 MCG CAP (S0169) PO SCH (09:18)
[2016-10-25] MEDS: ALLOPURINOL 100 MG TAB PO SCH (09:18)
[2016-10-25] MEDS: FLUoxetine 20 MG CAP PO SCH (09:18)
[2016-10-25] MEDS: ATORVASTATIN 20 MG TAB PO SCH (09:18)
[2016-10-25] MEDS: ALBUTEROL 90 MCG/ACT 8GM HFA INHALER INH SCH ×4 (09:18→21:08)
[2016-10-25] MEDS: ADVAIR DISKUS 500/50 INH PWD INH SCH ×2 (09:19→21:08)
--- NOTE | 2016-10-25 09:22 | IPNPDOC ---
[facility] Progress Note Progress Note DATE OF SERVICE: 10/25/16 SUBJECTIVE: Patient is calm and cooperative with interview this morning. Patient is engaged in the interview and reports benefit from groups on coping strategies to deal with anxiety and depression. Patient reports his mood as really good Patient is attending groups. He denies medication side effects. Patient is medication compliant. Patient denies current SI and HI. Patient has made no bizarre statements nor has he displayed bizarre or inappropriate behavior. Patient reports improving sleep and appetite. OBJECTIVE: VITAL SIGNS: See below. NEW TEST RESULTS: See below. CURRENT MEDICATIONS: See below. MENTAL STATUS EXAMINATION: Patient is a 75-year-old male, thin, frail, who appears than the stated age. Speech: RRR, spontaneous; Associations:intact. TP- linear, TC-appropriate, ready for discharge; Description of abnormal or psychotic thoughts: NO hallucinations, delusions, preoccupation with violence, homicidal or suicidal ideation, and obsessions. Judgment: fair, Insight: fair. Orientation to time, place and person. Recent and remote memory: Immediate, short-term and long-term memory is intact. Attention span and concentration: fair. Language: Normal. Fund of knowledge: adequate. Mood: Really good, Affect: Euthymic ASSESSMENT: -Depressive disorder unspecified PLAN: -Continue Prozac 20 mg by mouth every morning for depressive symptoms. -Continue trazodone 50 mg by mouth daily at bedtime when necessary insomnia TIME SPENT: 30 minutes. Vital Signs Vital Signs Date Time Temp Pulse Resp B/P Pulse Ox O2 Delivery O2 Flow Rate FiO2 10/25/16 09:18 128/68 10/25/16 09:10 Nasal Cannula 10/25/16 06:52 97.7 70 20 Laboratory Data 24H Labs Laboratory Tests 2 10/24/16 11:42: Bedside Glucose (Misc Panel) 150H 10/24/16 17:10: Bedside Glucose (Misc Panel) 190H 10/24/16 21:21: Bedside Glucose (Misc Panel) 192H 10/25/16 06:29: Bedside Glucose (Misc Panel) 152H Current Medications Current Medications Acetaminophen (Tylenol) 650 mg Q6HP PRN PO HEADACHE or DISCOMFORT; Start at 21:00; Stop 11/09/16 at 20:59 Al Hydrox/Mg Hydrox/Simethicone (Mylanta) 30 ml Q4HP PRN PO HEARTBURN/ INDIGESTION; Start 10/10/16 at 21:00; Stop 11/09/16 at 20:59 Albuterol Sulfate (Proventil Neb) 2.5 mg Q2HP PRN NEB SOB/WHEEZING; Start 10/10 at 21:15; Stop 10/10/16 at 21:43; Status DC Albuterol Sulfate (Proventil Neb) 2.5 mg Q2HP PRN NEB SOB/WHEEZING; Start 10/11 at 06:30; Stop 11/10/16 at 06:29 Albuterol Sulfate (Proventil, Ventolin Hfa) 2 puff QID INH ; Start 10/11/16 at 09:00; Stop 10/11/16 at 09:00; Status DC Albuterol Sulfate (Proventil, Ventolin Hfa) 2 puff QID INH Last administered on 10/25/16 09:18; Start 10/11/16 at 09:00; Stop 11/10/16 at 08:59 Allopurinol (Zyloprim) 200 mg DAILY PO Last administered on 10/25/16 09:18; Start 10/11/16 at 09:00; Stop 11/10/16 at 08:59 Atorvastatin Calcium (Lipitor) 20 mg DAILY PO Last administered on 10/25/16 09: 18; Start 10/11/16 at 09:00; Stop 11/10/16 at 08:59 Azithromycin (Zithromax) 500 mg DAILY PO ; Start 10/11/16 at 09:00; Stop at 09:00; Status DC Calcitriol (Rocaltrol) 0.25 mcg DAILY PO Last administered on 10/25/16 09:18; Start 10/11/16 at 09:00; Stop 11/10/16 at 08:59 Dextrose (Dextrose 50%) 25 ml ASDIRECTED PRN IV SEE LABEL COMMENTS; Start 10/10 at 21:00; Stop 11/09/16 at 20:59 Enoxaparin Sodium (Lovenox) 40 mg DAILY SC Last administered on 10/11/16 08:18 ; Start 10/11/16 at 09:00; Stop 10/11/16 at 10:11; Status DC Fluoxetine HCl (PROzac) 20 mg DAILY PO Last administered on 10/25/16 09:18; Start 10/11/16 at 09:00; Stop 11/10/16 at 08:59 Glucagon (Glucagon) 1 mg ASDIRECTED PRN SC SEE LABEL COMMENTS; Start 10/10/16 at 21:00; Stop 11/09/16 at 20:59 Glucose (Glucose) 16 GM ASDIRECTED PRN PO SEE LABEL COMMENTS; Start 10/10/16 at 21:00; Stop 11/09/16 at 20:59 Hydralazine HCl (Apresoline) 10 mg Q6H PO Last administered on 10/18/16 23:09; Start 10/11/16 at 00:00; Stop 11/10/16 at 00:00 Insulin Human Lispro (HumaLOG INSULIN) See Protocol Table AC SC Last administered on 10/25/16 06:37; Start 10/11/16 at 07:30; Stop 11/10/16 at 07:29 Insulin Human Lispro (HumaLOG INSULIN) See Protocol Table QHS SC Last administered on 10/20/16 21:58; Start 10/10/16 at 21:00; Stop 11/09/16 at 20:59 Isosorbide Mononitrate (Imdur) 30 mg DAILY PO Last administered on 10/25/16 09: 18; Start 10/11/16 at 09:00; Stop 11/10/16 at 08:59 Levalbuterol HCl (Xopenex Neb) 1.25 mg Q1HP PRN INH SHORTNESS OF BREATH; Start 10/10/16 at 21:15; Stop 10/11/16 at 09:56; Status DC Levalbuterol HCl (Xopenex Neb) 1.25 mg RQ4H INH ; Start 10/11/16 at 00:00; Stop 10/11/16 at 09:56; Status DC Magnesium Hydroxide (Milk Of Magnesia) 30 ml DAILYPRN PRN PO CONSTIPATION; Start 10/10/16 at 21:00; Stop 11/09/16 at 20:59 Miscellaneous (Unresolved Clarification Entry) SEE LABEL COMMENTS UNRESOLVED XX ; Start 10/18/16 at 00:01; Stop 10/19/16 at 15:16; Status DC Miscellaneous (Unresolved Clarification Entry) SEE LABEL COMMENTS UNRESOLVED XX ; Start 10/19/16 at 00:01; Stop 11/18/16 at 00:00 Moxifloxacin HCl (Avelox) 400 mg DAILY@06 PO Last administered on 10/17/16 05: 57; Start 10/11/16 at 06:00; Stop 10/18/16 at 05:59; Status DC Nitroglycerin (Nitrostat (1/ 150)) 0.4 mg Q5MP PRN SL CHEST PAIN; Start at 22:00; Stop 11/09/16 at 21:59 Salmeterol Xinafoate/ Fluticasone (Advair Diskus 500/50) 1 puff BID INH Last administered on 10/25/16 09:19; Start 10/11/16 at 09:00; Stop 11/10/16 at 08:59 ; Status Future hold Theophylline (Jameson-24) 200 mg DAILY PO Last administered on 10/25/16 09:18; Start 10/11/16 at 09:00; Stop 11/10/16 at 08:59 Tiotropium [place] (Spiriva Handihaler) 1 inhalation DAILY@08 INH Last administered on 10/25/16 09:17; Start 10/11/16 at 08:00; Stop 11/10/16 at 07:59 Torsemide (Demadex) 50 mg QAM PO Last administered on 10/25/16 09:16; Start at 09:00; Stop 11/10/16 at 08:59 Trazodone HCl (Desyrel) 50 mg QHSP PRN PO INSOMNIA; Start 10/10/16 at 21:00; Stop 11/09/16 at 20:59 Allergies Coded Allergies: Warfarin (Unverified Allergy, Unknown, UNKNOWN, 07/07/16) JULIANNE DIEZ MD Oct 25, 2016 09:22
[2016-10-25 18:27] VITALS: BP 138/65
[2016-10-26] MEDS: **hydrALAZINE** 10 MG TAB PO SCH ×2 (06:00)
[2016-10-26] MEDS: HumaLOG INSULIN (NovoLOG) PER UNIT SC SCH (07:05)
[2016-10-26 07:31] VITALS: BP 107/67
[2016-10-26] MEDS: ATORVASTATIN 20 MG TAB PO SCH (08:48)
[2016-10-26] MEDS: ADVAIR DISKUS 500/50 INH PWD INH SCH (08:48)
[2016-10-26] MEDS: FLUoxetine 20 MG CAP PO SCH (08:48)
[2016-10-26] MEDS: ALBUTEROL 90 MCG/ACT 8GM HFA INHALER INH SCH (08:48)
[2016-10-26 08:49] VITALS: BP 107/67
[2016-10-26] MEDS: TIOTROPIUM INHALER/CAPSULE (SPIRIVA) INH SCH (08:49)
[2016-10-26] MEDS: THEOPHYLLINE (THEO-24) 100MG SR **CAPSULE PO SCH (08:49)
[2016-10-26] MEDS: CALCITRIOL 0.25 MCG CAP (S0169) PO SCH (08:49)
[2016-10-26] MEDS: ALLOPURINOL 100 MG TAB PO SCH (08:49)
[2016-10-26] MEDS: ISOSORBIDE MON. (IMDUR) 30 MG XR TAB PO SCH (08:49)
[2016-10-26] MEDS: TORSEMIDE (DEMADEX) 50 MG PER 1/2 TAB PO SCH (08:49)
[2016-10-26] MEDS ORDERED: TRAZO50TA PO (11:13)
[2016-10-26] MEDS ORDERED: FLUO20CA9 PO (11:13)
--- NOTE | 2016-10-26 11:16 | DS.PDOC ---
[facility] Discharge Summary Discharge Summary DATE OF ADMISSION: Oct 10, 2016 at 20:38 DATE OF DISCHARGE: 10/26/16 DISCHARGE DIAGNOSES: 1. Depressive disorder, unspecified REASON FOR ADMISSION: HISTORY OF THE PRESENT ILLNESS: Patient is a 75-year-old male who presents to the emergency department by police escort after being found sitting in his car with a bottle of pills, completing suicide. Patient has a past psychiatric history significant for depression. Patient has no prior suicide attempt history. Patient reports recent stressor of frequent verbal altercations with his landlord he is with. Patient pays mortgage for landlorsara Mckeon. She in turn allows him to stay there and have access to the entire house. She reports he has been living in this arrangement for the last 3 years. Patient reports over the last 6 months he and his landlord have been easily agitated by each other. He reports weslord has made passive vincent about finding a new apartment but then tells them he can stay. Patient reports on the day prior to admission he was playing with his landlord's dog and she abruptly took the animal from him which really upset him as he is close with the dog. Patient reports this extremely irritated him and he decided he no longer could live with his landlord. Patient reports driving off in his car and over the next hours becoming very depressed. He focused on feeling that he had nothing to show for his life; no home, no money, no friends. Patient reports he drove to a local pharmacy and bought a bottle of pills, a notebook, and a pen. He reports he pulled into a [employer] parking lot and sat there contemplating suicide and what to write in a suicide letter. He reports next police knocking on his window, which he found out later were called by his worry daughter. Patient is also stressed by the fact that his daughter is very upset with his behaviors. Patient reports his depression has been up and down in intensity. He reports approximately one year of diminished memory and episodes of losing his train of thought during conversations. He reports diminished sleep and concentration. Patient reports poor energy and thoughts of hopelessness and helplessness and worthlessness. Patient reports thoughts of suicide have been more frequent. Early patient denies suicidal and homicidal ideations. He displays good immediate recent and remote memory on interview. He denies auditory or visual hallucinations. He is appropriate in common and behavior. No signs of psychosis are reported or noted on exam. HOSPITALIZATION COURSE: Patient admitted to the inpatient mental health unit. Patient started on Prozac 20 mg by mouth every morning for depressive symptoms. Patient started on trazodone 50 mg by mouth daily at bedtime when necessary insomnia. Patient initially with feelings of hopelessness helplessness and worthlessness, but with a need of beneficial group therapies patient no longer feels suicidal. Patient counseled to focus on solutions and not the problems/ psychosocial stressors. Patient more mindful of thoughts and expresses insight into the importance of socializing Patient's mood improved over the course of the admission. On day of discharge patient denied SI and HI. Thought process is linear and goal directed. Thought content is appropriate. Patient very social on the unit and active in groups. Sleep and appetite returned within normal limits. Patient will return to his home driven by her supportive niece. Outpatient mental healthcare and PCP follow-up appointments made by farm planner. MENTAL STATUS EXAMINATION on discharge: Patient is a 75-year-old male, thin, frail, who appears the stated age. Speech : RRR, spontaneous; Associations:intact. TP-linear, TC-appropriate, ready for discharge; Description of abnormal or psychotic thoughts: NO hallucinations, delusions, preoccupation with violence, homicidal or suicidal ideation, and obsessions. Judgment: fair, Insight: fair. Orientation to time, place and person. Recent and remote memory: Immediate, short-term and long-term memory is intact. Attention span and concentration: fair. Language: Normal. Fund of knowledge: adequate. Mood: Good, Affect: Euthymic Consultants: none Labs: Please see below MEDICATIONS ON DISCHARGE: -Continue Prozac 20 mg by mouth every morning for depressive symptoms. -Continue trazodone 50 mg by mouth daily at bedtime when necessary insomnia PLAN/FOLLOWUP ARRANGEMENTS: Patient has mental health care and PCP follow-up appointments within 14 days of this discharge. Appointments arranged by farm planner. The amount of time spent in the coordination of care for this patient was approximately 60 minutes. Vital Signs Vital Sign - Last 24 Hours 10/25/16 10/25/16 10/25/16 10/26/16 11:40 17:21 18:27 06:00 Temp 98.2 Pulse 74 Resp 16 B/P 120/58 138/65 138/65 148/76 10/26/16 10/26/16 07:31 08:49 Temp 97.9 Pulse 71 Resp 21 B/P 107/67 107/67 Laboratory Data Labs 24H Laboratory Tests 2 10/25/16 11:39: Bedside Glucose (Misc Panel) 221H 10/25/16 16:58: Bedside Glucose (Misc Panel) 187H 10/25/16 21:07: Bedside Glucose (Misc Panel) 140H 10/26/16 05:41: Bedside Glucose (Misc Panel) 129H FSBS Laboratory Tests Test 10/25/16 11:39 10/25/16 16:58 10/25/16 21:07 10/26/16 05:41 Range/Units Bedside Glucose (Misc Panel) 221 187 140 129 83-110 MG/DL Medications Scheduled Albuterol Sulfate (Ventolin Hfa) 200 Puff/8 Gm Aers 2 PUFF INH QID SOB/WHEEZING (Reported) Allopurinol (Allopurinol) 100 Mg Tab 200 MG PO DAILY (Reported) Atorvastatin Calcium (Atorvastatin Calcium) 20 Mg Tab 20 MG PO DAILY cholesterol (Reported) Fluoxetine HCl (Prozac) 20 Mg Cap 20 MG PO DAILY DEPRESSION (Reported) Fluoxetine Hcl (Fluoxetine HCl) 20 Mg Cap #7 20 MG PO DAILY DEPRESSION AND ANXIETY Glipizide (Glipizide ER) 10 Mg Tab 10 MG PO DAILY (Reported) Isosorbide Mononitrate (Isosorbide Mononitrate ER) 30 Mg Tab 30 MG PO DAILY chest pain (Reported) Salmeterol/Fluticasone (Advair Diskus 500-50 Mcg/Dose) 28 Puff/Inhaler Aerp 1 PUFF INH BID SHORTNESS OF BREATH (Reported) Theophylline (Jameson-24) 100 Mg Capcr 200 MG PO DAILY (Reported) Tiotropium [place] Monohydrate (Spiriva Handihaler) 5 Inhalation/Inhaler Powd 1 INHALATION INH DAILY SHORTNESS OF BREATH (Reported) Torsemide (Torsemide) 100 Mg Tab 50 MG PO DAILY (Reported) Scheduled PRN Nitroglycerin (Nitroglycerin) 0.4 Mg Sub 0.4 MG SL Q5MP PRN PRN chest pain ( Reported) Trazodone HCl (Trazodone HCl) 50 Mg Tab #7 50 MG PO QHSP PRN PRN INSOMNIA Miscellaneous Medications Calcitriol (Calcitriol) 0.25 Mcg Cap 0.25 MCG PO thyroid (Reported) Allergies Coded Allergies: Warfarin (Unverified Allergy, Unknown, UNKNOWN, 07/07/16) JULIANNE DIEZ MD Oct 26, 2016 11:16
== END 2016-10-26 12:15 | disposition home or self-care (01) | DRG 881 ==
LOC: M PSY 20:38
PROVIDERS: ADMIT Psychiatry & Neurology Psychiatry; ATTEND Psychiatry & Neurology Psychiatry
DX: F32.9 Major depressive disorder, single episode, unspecified (principal); J18.9 Pneumonia, unspecified organism; R45.851 Suicidal ideations; F43.21 Adjustment disorder with depressed mood; I10 Essential (primary) hypertension; J44.9 Chronic obstructive pulmonary disease, unspecified; E11.9 Type 2 diabetes mellitus without complications; K21.9 Gastro-esophageal reflux disease without esophagitis; M10.9 Gout, unspecified; I48.91 Unspecified atrial fibrillation; Z90.49 Acquired absence of other specified parts of digestive tract; Z87.891 Personal history of nicotine dependence; Z82.49 Family history of ischemic heart disease and other diseases of the circulatory system; Z83.3 Family history of diabetes mellitus; Z91.5 Personal history of self-harm; Z79.84 Long term (current) use of oral hypoglycemic drugs; Z79.01 Long term (current) use of anticoagulants; Z79.899 Other long term (current) drug therapy; Z95.0 Presence of cardiac pacemaker

== ENCOUNTER 2017-03-29 15:46 | Emergency (ER) | payer MEDICARE ==
[~2017-03-29] VITALS: Ht 170.2 cm; Wt 62.0 kg
[~2017-03-29 15:46] MED LIST changes: +FLUO20CA19 PO; -FLUO20CA9 PO; -GLIP10TA13 PO; +GLIP1TAB51 PO; +THEO200T11 PO; -THEO200T4 PO; +TRAZO50TA PO; +VITA1CAP40 PO; -VITA50003 PO
[2017-03-29 16:30] LABS: ADD MANUAL DIFFER YES; DIFF SLIDE NUMBER 273; MEAN CORPUSCULAR HGB CONC 33.7 g/dl (32.0-36.5); MEAN CORPUSCULAR VOLUME 97.9 fl (80.0-96.0); PLATELET COUNT, AUTOMATED 226 k/mm3 (150-450); RED CELL DISTRIBUTION WIDTH 13.4 % (11.5-14.5); WHITE BLOOD COUNT 6.8 K/mm3 (4.0-10.0)
[2017-03-29 16:41] LABS: CALCIUM LEVEL 9.1 MG/DL (8.8-10.2); CREATININE FOR GFR 1.48 MG/DL (0.70-1.30); GLOMERULAR FILTRATION RATE 49.2 (>42); POTASSIUM SERUM 4.1 MEQ/L (3.5-5.1)
[2017-03-29 17:24] LABS: BASOPHILS 2 % (0-4); EOSINOPHILS 5 % (0-5)
[2017-03-29] MEDS ORDERED: HumuLIN R (REGULAR) INSULIN (NovoLIN R) **100U/ML** PER UNIT IV ONE (17:45)
[2017-03-29 20:06] VITALS: BP 137/77
== END 2017-03-29 20:49 | disposition home or self-care (01) ==
LOC: M ED 15:46
DX: E11.65 Type 2 diabetes mellitus with hyperglycemia (principal); I48.91 Unspecified atrial fibrillation; I51.9 Heart disease, unspecified; I10 Essential (primary) hypertension; J44.9 Chronic obstructive pulmonary disease, unspecified; F32.9 Major depressive disorder, single episode, unspecified; Z95.0 Presence of cardiac pacemaker; Z86.14 Personal history of Methicillin resistant Staphylococcus aureus infection; Z79.84 Long term (current) use of oral hypoglycemic drugs; Z79.899 Other long term (current) drug therapy; Z88.8 Allergy status to other drugs, medicaments and biological substances

== ENCOUNTER 2018-06-03 15:24 | Emergency (ER) | payer MEDICARE ==
[2018-06-03 16:38] LABS: BASO # 0.1 10^3/uL (0.0-0.2); BASO % 1.7 % (0.0-1.0); EOS # 0.1 10^3/uL (0.0-0.50); EOS % 1.9 % (0.0-3.0); HEMATOCRIT 43.4 % (42.0-52.0); HEMOGLOBIN 14.2 g/dl (13.5-17.5); LYMPH % 14.3 % (24.0-44.0); MEAN CORPUSCULAR HEMOGLOBIN 31.3 pg (27.0-33.0); MEAN CORPUSCULAR HGB CONC 32.7 g/dl (32.0-36.5); MEAN CORPUSCULAR VOLUME 95.8 fl (80.0-96.0); MONO # 0.4 10^3/uL (0.0-0.8); NEUTROPHILS # 5.4 10^3/uL (1.8-7.7); NEUTROPHILS % 75.1 % (36.0-66.0); PLATELET COUNT, AUTOMATED 279 10^3/uL (150-450); RED BLOOD COUNT 4.53 10^6/uL (4.30-6.10); RED CELL DISTRIBUTION WIDTH 13.7 % (11.5-14.5); WHITE BLOOD COUNT 7.2 10^3/uL (4.0-10.0)
[2018-06-03 16:43] LABS: BEDSIDE GLUCOSE 155 MG/DL (83-110)
[2018-06-03 17:00] LABS: ACETAMINOPHEN LEVEL < 2.0 UG/ML (10.0-30.0); ALBUMIN 3.5 GM/DL (3.2-5.2); ALBUMIN/GLOBULIN RATIO 1.21 (1.00-1.93); ALKALINE PHOSPHATASE 103 U/L (45-117); ALT/SGPT 20 U/L (12-78); ANION GAP 10 MEQ/L (8-16); AST/SGOT 15 U/L (7-37); BILIRUBIN,DIRECT 0.2 MG/DL (0.0-0.2); BILIRUBIN,TOTAL 0.8 MG/DL (0.2-1.0); BLOOD UREA NITROGEN 13 MG/DL (7-18); CARBON DIOXIDE LEVEL 27 MEQ/L (21-32); CHLORIDE LEVEL 102 MEQ/L (98-107); CPK CREATINE PHOSPHOKINASE 53 U/L (39-308); CREATININE FOR GFR 1.16 MG/DL (0.70-1.30); GLOMERULAR FILTRATION RATE > 60.0 (>42); GLUCOSE, FASTING 160 MG/DL (70-100); MB/CK RELATIVE INDEX 1.89 (< OR =4); POTASSIUM SERUM 4.4 MEQ/L (3.5-5.1); SALICYLATE LEVEL < 1.7 MG/DL (5.0-30.0); SODIUM LEVEL 139 MEQ/L (136-145); TOTAL PROTEIN 6.4 GM/DL (6.4-8.2); TROPONIN I 0.02 NG/ML (< 0.10)
[2018-06-03] MEDS: TORSEMIDE 100 MG TAB PO (17:15)
[2018-06-03] MEDS: IPRATROPIUM 0.5MG/ALBUTEROL 2.5MG INH SOL UD 3ML (DUONEB)(J7620) NEB (17:18)
[2018-06-03] MEDS: ASPIRIN 325 MG TAB PO (17:32)
[2018-06-03 17:35] LABS: KETONE, URINE AUTO RFX NEGATIVE (NEGATIVE); LEUKOCYTE ESTERASE UR AUTO RFX NEGATIVE (NEGATIVE); NITRITE, URINE AUTO RFX NEGATIVE (NEGATIVE); RBC, URINE AUTO RFX 1 /HPF (0-3); SPECIFIC GRAVITY UR AUTO RFX 1.003 (1.002-1.035); SQUAM EPITHELIAL CELL UR AURFX 0 /HPF (0-6); WBC, URINE AUTO RFX 0 /HPF (0-3)
[2018-06-03 17:45] LABS: ETHYL ALCOHOL (ETHANOL) < 0.003 % (0.000-0.010)
[2018-06-03 18:19] LABS: AMPHETAMINES LEVEL URINE NEGATIVE (NEGATIVE); BARBITURATES URINE NEGATIVE (NEGATIVE); BENZODIAZEPINES URINE NEGATIVE (NEGATIVE); CANNABINOIDS URINE NEGATIVE (NEGATIVE); COCAINE METABOLITE URINE NEGATIVE (NEGATIVE); METHADONE URINE NEGATIVE (NEGATIVE); OPIATES URINE NEGATIVE (NEGATIVE); PHENCYCLIDINE URINE NEGATIVE (NEGATIVE)
== END 2018-06-03 19:15 | disposition home or self-care (01) ==
LOC: M ED 15:24
DX: F43.0 Acute stress reaction (principal); R45.851 Suicidal ideations; E11.9 Type 2 diabetes mellitus without complications; I10 Essential (primary) hypertension; J44.9 Chronic obstructive pulmonary disease, unspecified; Z79.899 Other long term (current) drug therapy; Z79.51 Long term (current) use of inhaled steroids; Z88.8 Allergy status to other drugs, medicaments and biological substances
CPT/HCPCS: 71045

== ENCOUNTER 2018-06-08 14:26 | Inpatient (IN) | payer MEDICARE ==
[2018-06-08 15:45] LABS: BASO # 0.1 10^3/uL (0.0-0.2); BASO % 1.3 % (0.0-1.0); EOS # 0.1 10^3/uL (0.0-0.50); EOS % 1.4 % (0.0-3.0); HEMATOCRIT 44.9 % (42.0-52.0); HEMOGLOBIN 14.8 g/dl (13.5-17.5); IMMATURE GRANULOCYTE % 1.1 % (0-3.0); LYMPH # 1.4 10^3/uL (1.5-4.5); LYMPH % 15.2 % (24.0-44.0); MEAN CORPUSCULAR HEMOGLOBIN 31.1 pg (27.0-33.0); MEAN CORPUSCULAR VOLUME 94.3 fl (80.0-96.0); MONO # 0.7 10^3/uL (0.0-0.8); MONO % 7.8 % (0.0-5.0); NEUTROPHILS % 73.2 % (36.0-66.0); PLATELET COUNT, AUTOMATED 287 10^3/uL (150-450); RED BLOOD COUNT 4.76 10^6/uL (4.30-6.10); RED CELL DISTRIBUTION WIDTH 13.4 % (11.5-14.5); WHITE BLOOD COUNT 9.5 10^3/uL (4.0-10.0)
[2018-06-08] MEDS: NS 500 ML IV (15:45)
[2018-06-08 16:07] LABS: ANION GAP 11 MEQ/L (8-16); BLOOD UREA NITROGEN 37 MG/DL (7-18); CALCIUM LEVEL 8.6 MG/DL (8.8-10.2); CARBON DIOXIDE LEVEL 34 MEQ/L (21-32); CHLORIDE LEVEL 88 MEQ/L (98-107); CPK CREATINE PHOSPHOKINASE 142 U/L (39-308); CREATININE FOR GFR 1.77 MG/DL (0.70-1.30); ETHYL ALCOHOL (ETHANOL) < 0.003 % (0.000-0.010); GLOMERULAR FILTRATION RATE 39.9 (>42); GLUCOSE, FASTING 177 MG/DL (70-100); MAGNESIUM LEVEL 1.6 MG/DL (1.8-2.4); MB/CK RELATIVE INDEX 0.99 (< OR =4); POTASSIUM SERUM 3.4 MEQ/L (3.5-5.1); SODIUM LEVEL 133 MEQ/L (136-145); TROPONIN I 0.02 NG/ML (< 0.10)
[2018-06-08 16:32] LABS: LACTIC ACID SEPSIS PROTOCOL 2.7 MMOL/L (0.4-2.0)
[2018-06-08 17:50] LABS: AMPHETAMINES LEVEL URINE NEGATIVE (NEGATIVE); BARBITURATES URINE NEGATIVE (NEGATIVE); BENZODIAZEPINES URINE NEGATIVE (NEGATIVE); CANNABINOIDS URINE NEGATIVE (NEGATIVE); COCAINE METABOLITE URINE NEGATIVE (NEGATIVE); METHADONE URINE NEGATIVE (NEGATIVE); OPIATES URINE NEGATIVE (NEGATIVE); PHENCYCLIDINE URINE NEGATIVE (NEGATIVE)
[2018-06-08] MEDS: NS 1,000 ML IV (18:07)
[2018-06-08] MEDS: POTASSIUM CHLORIDE 10 MEQ SR TABLET PO ×2 (18:07→20:23)
[2018-06-08] MEDS: MAG SULF 1GM/100ML (MAG RUN) 1 GM in APPROPRIATE DILUENT 1 EA IV (18:07)
[2018-06-08] MEDS ORDERED: GLUCAGON FOR INJ 1 MG VIAL (J1610) SC (19:45)
[2018-06-08] MEDS ORDERED: DOCUSATE SODIUM 100 MG CAP PO (19:45)
[2018-06-08] MEDS ORDERED: DEXTROSE 50% 50 ML SYRINGE IV (19:45)
[2018-06-08] MEDS ORDERED: ACETAMINOPHEN 500 MG TAB PO (19:45)
[2018-06-08] MEDS ORDERED: GLUCOSE 4 GM CHEW TABLET PO (19:45)
[2018-06-08] MEDS ORDERED: ALBUTEROL SULFATE 2.5 MG/0.5 ML INH NEB SOLN NEB (19:45)
[2018-06-08] MEDS ORDERED: NITROGLYCERIN 0.4 MG SUBL TABLET SL (19:45)
[2018-06-08] MEDS: **hydrALAZINE HCL** 25 MG TAB PO (20:23)
[2018-06-08] MEDS: NS 0.45% 500 ML IV (20:23)
[2018-06-08] MEDS: ADVAIR HFA 115/21MCG INHALER INH (21:22)
[2018-06-08] MEDS: HEPARIN SOD (PORCINE) 5000 UNITS/ML VIAL SC (22:39)
[2018-06-09] MEDS: HEPARIN SOD (PORCINE) 5000 UNITS/ML VIAL SC ×3 (06:00→21:51)
[2018-06-09 07:06] LABS: HEMOGLOBIN 14.1 g/dl (13.5-17.5); MEAN CORPUSCULAR HEMOGLOBIN 30.9 pg (27.0-33.0); MEAN CORPUSCULAR HGB CONC 32.8 g/dl (32.0-36.5); MEAN CORPUSCULAR VOLUME 94.3 fl (80.0-96.0); PLATELET COUNT, AUTOMATED 229 10^3/uL (150-450); RED BLOOD COUNT 4.56 10^6/uL (4.30-6.10); RED CELL DISTRIBUTION WIDTH 13.4 % (11.5-14.5); WHITE BLOOD COUNT 6.4 10^3/uL (4.0-10.0)
[2018-06-09] MEDS: HumaLOG INSULIN (NovoLOG) PER UNIT SC ×3 (07:30→17:19)
[2018-06-09 07:59] LABS: ANION GAP 8 MEQ/L (8-16); BLOOD UREA NITROGEN 29 MG/DL (7-18); CALCIUM LEVEL 8.6 MG/DL (8.8-10.2); CARBON DIOXIDE LEVEL 34 MEQ/L (21-32); CHLORIDE LEVEL 101 MEQ/L (98-107); CREATININE FOR GFR 1.53 MG/DL (0.70-1.30); GLOMERULAR FILTRATION RATE 47.2 (>42); GLUCOSE, FASTING 201 MG/DL (70-100); MAGNESIUM LEVEL 2.2 MG/DL (1.8-2.4); POTASSIUM SERUM 4.7 MEQ/L (3.5-5.1); SODIUM LEVEL 143 MEQ/L (136-145)
[2018-06-09] MEDS: TIOTROPIUM INHALER/CAPSULE (SPIRIVA) INH (08:00)
[2018-06-09] MEDS: ADVAIR HFA 115/21MCG INHALER INH ×2 (08:20→21:01)
[2018-06-09 11:10] LABS: BEDSIDE GLUCOSE 195 MG/DL (83-110)
[2018-06-09] MEDS: FLUoxetine 20 MG CAP PO (11:56)
[2018-06-09 12:35] LABS: ANION GAP 6 MEQ/L (8-16); BLOOD UREA NITROGEN 27 MG/DL (7-18); CALCIUM LEVEL 8.7 MG/DL (8.8-10.2); CARBON DIOXIDE LEVEL 33 MEQ/L (21-32); CHLORIDE LEVEL 100 MEQ/L (98-107); CREATININE FOR GFR 1.55 MG/DL (0.70-1.30); GLOMERULAR FILTRATION RATE 46.5 (>42); GLUCOSE, FASTING 261 MG/DL (70-100); POTASSIUM SERUM 4.2 MEQ/L (3.5-5.1); SODIUM LEVEL 139 MEQ/L (136-145)
[2018-06-09] MEDS: NS 1,000 ML IV (13:38)
[2018-06-09 17:23] LABS: BEDSIDE GLUCOSE 107 MG/DL (83-110)
[2018-06-10 00:21] LABS: BEDSIDE GLUCOSE 180 MG/DL (83-110)
[2018-06-10] MEDS: NS 1,000 ML IV (05:18)
[2018-06-10] MEDS: HEPARIN SOD (PORCINE) 5000 UNITS/ML VIAL SC ×3 (06:16→21:06)
[2018-06-10 06:24] LABS: HEMATOCRIT 40.4 % (42.0-52.0); MEAN CORPUSCULAR HGB CONC 32.2 g/dl (32.0-36.5); MEAN CORPUSCULAR VOLUME 96.4 fl (80.0-96.0); PLATELET COUNT, AUTOMATED 222 10^3/uL (150-450); RED BLOOD COUNT 4.19 10^6/uL (4.30-6.10); RED CELL DISTRIBUTION WIDTH 13.4 % (11.5-14.5); WHITE BLOOD COUNT 5.3 10^3/uL (4.0-10.0)
[2018-06-10 06:43] LABS: ANION GAP 6 MEQ/L (8-16); BLOOD UREA NITROGEN 20 MG/DL (7-18); CALCIUM LEVEL 8.5 MG/DL (8.8-10.2); CARBON DIOXIDE LEVEL 32 MEQ/L (21-32); CHLORIDE LEVEL 103 MEQ/L (98-107); CREATININE FOR GFR 1.13 MG/DL (0.70-1.30); GLOMERULAR FILTRATION RATE > 60.0 (>42); GLUCOSE, FASTING 158 MG/DL (70-100); MAGNESIUM LEVEL 2.1 MG/DL (1.8-2.4); POTASSIUM SERUM 3.5 MEQ/L (3.5-5.1); SODIUM LEVEL 141 MEQ/L (136-145)
[2018-06-10] MEDS: ADVAIR HFA 115/21MCG INHALER INH ×2 (07:22→21:00)
[2018-06-10] MEDS: TIOTROPIUM INHALER/CAPSULE (SPIRIVA) INH ×2 (07:22→07:26)
[2018-06-10] MEDS: FLUoxetine 20 MG CAP PO (09:08)
[2018-06-10] MEDS: HumaLOG INSULIN (NovoLOG) PER UNIT SC ×3 (09:09→17:20)
[2018-06-10 11:37] LABS: BEDSIDE GLUCOSE 116 MG/DL (83-110)
[2018-06-10 17:48] LABS: BEDSIDE GLUCOSE 94 MG/DL (83-110)
[2018-06-11 00:43] LABS: BEDSIDE GLUCOSE 161 MG/DL (83-110)
[2018-06-11] MEDS: HEPARIN SOD (PORCINE) 5000 UNITS/ML VIAL SC (05:41)
[2018-06-11 05:58] LABS: HEMOGLOBIN 13.2 g/dl (13.5-17.5); MEAN CORPUSCULAR HEMOGLOBIN 30.6 pg (27.0-33.0); MEAN CORPUSCULAR HGB CONC 31.4 g/dl (32.0-36.5); MEAN CORPUSCULAR VOLUME 97.2 fl (80.0-96.0); PLATELET COUNT, AUTOMATED 222 10^3/uL (150-450); RED BLOOD COUNT 4.32 10^6/uL (4.30-6.10); RED CELL DISTRIBUTION WIDTH 13.2 % (11.5-14.5)
[2018-06-11 06:18] LABS: ANION GAP 7 MEQ/L (8-16); BLOOD UREA NITROGEN 19 MG/DL (7-18); CALCIUM LEVEL 8.7 MG/DL (8.8-10.2); CARBON DIOXIDE LEVEL 31 MEQ/L (21-32); CHLORIDE LEVEL 103 MEQ/L (98-107); CREATININE FOR GFR 1.12 MG/DL (0.70-1.30); GLOMERULAR FILTRATION RATE > 60.0 (>42); GLUCOSE, FASTING 127 MG/DL (70-100); SODIUM LEVEL 141 MEQ/L (136-145)
[2018-06-11] MEDS: FLUoxetine 20 MG CAP PO (08:07)
[2018-06-11] MEDS: HumaLOG INSULIN (NovoLOG) PER UNIT SC (08:07)
[2018-06-11] MEDS: TIOTROPIUM INHALER/CAPSULE (SPIRIVA) INH (08:45)
[2018-06-11] MEDS: ADVAIR HFA 115/21MCG INHALER INH (08:46)
== END 2018-06-11 11:05 | disposition home health service (06) | DRG 917 ==
LOC: M MSPAV 06-09 15:02 → M ED 14:26 → M ED INP 19:30
DX: T50.1X1A Poisoning by loop [high-ceiling] diuretics, accidental (unintentional), initial encounter (principal); G93.41 Metabolic encephalopathy; N17.9 Acute kidney failure, unspecified; E87.4 Mixed disorder of acid-base balance; I50.32 Chronic diastolic (congestive) heart failure; I48.91 Unspecified atrial fibrillation; I11.0 Hypertensive heart disease with heart failure; J44.9 Chronic obstructive pulmonary disease, unspecified; E11.9 Type 2 diabetes mellitus without complications; M10.9 Gout, unspecified; I25.10 Atherosclerotic heart disease of native coronary artery without angina pectoris; K21.9 Gastro-esophageal reflux disease without esophagitis; F32.9 Major depressive disorder, single episode, unspecified; E87.6 Hypokalemia; E83.42 Hypomagnesemia; Z95.0 Presence of cardiac pacemaker; Z90.49 Acquired absence of other specified parts of digestive tract; Z98.49 Cataract extraction status, unspecified eye; Z79.51 Long term (current) use of inhaled steroids; Z79.84 Long term (current) use of oral hypoglycemic drugs; Z79.899 Other long term (current) drug therapy; Z88.8 Allergy status to other drugs, medicaments and biological substances; Z87.891 Personal history of nicotine dependence

== ENCOUNTER → 2018-08-05 | Outpatient (CLI) | payer MEDICARE ==
[2018-08-05 09:34] LABS: CREATININE FOR GFR 1.15 MG/DL (0.70-1.30); GLOMERULAR FILTRATION RATE > 60.0 (>42)
[2018-08-05 09:34] LABS: BLOOD UREA NITROGEN 10 MG/DL (7-18)
== END ==
LOC: M LAB 08:40
DX: N18.9 Chronic kidney disease, unspecified (principal)
CPT/HCPCS: 82565

== ENCOUNTER → 2018-08-06 | Outpatient (CLI) | payer MEDICARE ==
[~2018-08-06] MED LIST changes: -/ADVA50050 IN; -/GLIP10TAB OR; -/LINE60TA PO; -/MOXI40TA OR; -/PANT40TA OR; -/TIOT18INH INH; -ADV500INH INH; -ALBU17IN INH; -ALBU83IN INH; -ALLO100T OR; -ALLO100T PO; -ALLO10TA PO; -ASPI81TA3 OR; -ATOR1TAB21 PO; -AZEL0.1S3; -CALC0.5C OR; -CALC12502 PO; -CALC1CAP31 PO; -CALCCHW12 OR; -CAPT12.5 OR; -COLA50CA3 PO; -DEMA100T OR; -DRIS50002 PO; -ECOT81TA5 PO; -FERR325T OR; -FLAG500T OR; -FLUO10CA9 PO; -FLUO20CA19 PO; -GLIP10TA6 PO; -GLIP1TAB51 PO; -INSUDET SC; -ISOS30TA4 OR; -ISOS30TA4 PO; +ISOVUE-370 76% 100ML VIAL (Q9967) As Ordered; -KLOR20TA PO; -NITR0.4S14 SL; -NITR4TASL SL; -NITROSTAT; -OMEP40CA2 PO; -POTA10CA2 OR; -PROZ20CA11 PO; -SIMV40TA2 OR; -SPIR1CAP INH; -SPIR25TA2 PO; -THEO OR; -THEO1CAP2 PO; -THEO200T11 PO; -TIOT18INH INH; -TORS100T PO; -TRAZO50TA PO; -TUMS500C PO; -VENTAER IN; -VITA1CAP40 PO; -VITA500C24 PO; -VITA500T OR; -ZOCO40TA PO; -[UNRECOGNIZED DRUG - CODE] PO; -[UNRECOGNIZED DRUG - OTHER] OR; -levemir SQ; -pradaxa
== END ==
LOC: M RAD 13:10
DX: G31.84 Mild cognitive impairment of uncertain or unknown etiology (principal)
CPT/HCPCS: Q9967

== ENCOUNTER 2018-09-14 17:35 | Inpatient (IN) | payer MEDICARE ==
[~2018-09-14] VITALS: Ht 175.3 cm; Wt 62.6 kg
[~2018-09-14 17:35] MED LIST changes: +/ADVA50050 IN; +/GLIP10TAB OR; +/LINE60TA PO; +/MOXI40TA OR; +/PANT40TA OR; +/TIOT18INH INH; +ADV250INH INH; +ADV500INH INH; +ALBU17IN INH; +ALBU83IN INH; +ALLO100T OR; +ALLO100T PO; +ALLO10TA PO; +APAP500T10 PO; +ASPI81TA3 OR; +ATOR1TAB21 PO; +AZEL0.1S3; +CALC0.5C OR; +CALC12502 PO; +CALC1CAP31 PO; +CALCCHW12 OR; +CAPT12.5 OR; +COLA50CA3 PO; +DEMA100T OR; +DOCU100C16 PO; +DRIS50003 PO; +ECOT81TA5 PO; +FERR325T OR; +FLAG500T OR; +FLUO10CA9 PO; +FLUO20CA19 PO; +FURO20TA2 PO; +GLIP10TA18 PO; +GLIP10TA6 PO; +INSUDET SC; +ISOS30TA4 OR; +ISOS30TA4 PO; -ISOVUE-370 76% 100ML VIAL (Q9967) As Ordered; +KLOR20TA PO; +METF500T13 PO; +NITR0.4S14 SL; +NITR4TASL SL; +NITROSTAT; +OMEP40CA2 PO; +POTA10CA2 OR; +PROZ20CA11 PO; +SIMV40TA2 OR; +SPIR-10 PO; +SPIR1CAP INH; +THEO OR; +THEO1CAP2 PO; +THEO200T11 PO; +TIOT18INH INH; +TORS100T PO; +TRAZO50TA PO; +TUMS500C PO; +VENTAER IN; +VENTAER INH; +VITA50005 PO; +VITA500C24 PO; +VITA500T OR; +ZOCO40TA PO; +[UNRECOGNIZED DRUG - CODE] PO; +[UNRECOGNIZED DRUG - OTHER] OR; +levemir SQ; +pradaxa
[2018-09-14] MEDS ORDERED: LABETALOL HCL 100 MG/20 ML VIAL IV STA (18:08)
[2018-09-14] MEDS ORDERED: ASPIRIN 81 MG CHEW TABLET PO ONE (18:15)
[2018-09-14] MEDS ORDERED: FUROSEMIDE 20 MG/2 ML VIAL (J1940) IV ONE (18:15)
--- NOTE | 2018-09-14 18:33 | ECGEPIP ---
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
--- NOTE | 2018-09-14 18:36 | REP ---
Clinical: Chest pain. Technique: PA and lateral. Comparison: 06/09/2018. Findings: Mediastinum cardiac silhouette are stable. Dual lead pacemaker in stable position. Lung wallace demonstrate chronic interstitial changes. Superimposed perihilar and right lower lobe infiltrate/atelectasis noted. No obvious effusion. No pneumothorax. Impression: Superimposed perihilar and right lower lobe infiltrate/atelectasis. Electronically Signed by Edward Weeks MD 09/14/2018 06:27 P
[2018-09-14 18:40] LABS: BASO # 0.1 10^3/uL (0.0-0.2); BASO % 1.1 % (0.0-1.0); EOS # 0.1 10^3/uL (0.0-0.50); EOS % 1.8 % (0.0-3.0); HEMATOCRIT 43.3 % (42.0-52.0); HEMOGLOBIN 13.9 g/dl (13.5-17.5); LYMPH # 1.2 10^3/uL (1.5-4.5); LYMPH % 16.3 % (24.0-44.0); MEAN CORPUSCULAR HEMOGLOBIN 31.3 pg (27.0-33.0); MEAN CORPUSCULAR HGB CONC 32.1 g/dl (32.0-36.5); MEAN CORPUSCULAR VOLUME 97.5 fl (80.0-96.0); MONO # 0.5 10^3/uL (0.0-0.8); MONO % 6.8 % (0.0-5.0); NEUTROPHILS # 5.4 10^3/uL (1.8-7.7); NEUTROPHILS % 73.2 % (36.0-66.0); PLATELET COUNT, AUTOMATED 254 10^3/uL (150-450); RED BLOOD COUNT 4.44 10^6/uL (4.30-6.10); WHITE BLOOD COUNT 7.4 10^3/uL (4.0-10.0)
[2018-09-14 18:45] LABS: ABG BASE EXCESS 2.2 (-2.0-2.0); ABG HCO3 27.3 MEQ/L (22.0-26.0); ABG O2 SATURATION 95.4 % (95.0-99.0); ABG PARTIAL PRESSURE CO2 44.4 mmHg (35.0-45.0); ABG PARTIAL PRESSURE O2 76.5 mmHg (75.0-100.0); ABG STANDARD HCO3 26.4 MEQ/L (22.0-26.0); ABG TOTAL CO2 28.7 MEQ/L (23.0-31.0); ABG pH (ARTERIAL) 7.407 UNITS (7.350-7.450)
[2018-09-14 18:53] LABS: INR 0.98
[2018-09-14 19:05] LABS: ALBUMIN 3.1 GM/DL (3.2-5.2); ALT/SGPT 43 U/L (12-78); BILIRUBIN,DIRECT 0.2 MG/DL (0.0-0.2); BILIRUBIN,TOTAL 0.6 MG/DL (0.2-1.0); BLOOD UREA NITROGEN 14 MG/DL (7-18); CALCIUM LEVEL 8.8 MG/DL (8.8-10.2); CARBON DIOXIDE LEVEL 30 MEQ/L (21-32); CHLORIDE LEVEL 103 MEQ/L (98-107); CPK CREATINE PHOSPHOKINASE 46 U/L (39-308); CREATININE FOR GFR 1.22 MG/DL (0.70-1.30); GLOMERULAR FILTRATION RATE > 60.0 (>42); GLUCOSE, FASTING 205 MG/DL (70-100); MB/CK RELATIVE INDEX 3.04 (< OR =4); NT-PRO BNP 3837 PG/ML (<450); POTASSIUM SERUM 4.4 MEQ/L (3.5-5.1); SODIUM LEVEL 140 MEQ/L (136-145); TOTAL PROTEIN 5.9 GM/DL (6.4-8.2); TROPONIN I 0.03 NG/ML (< 0.10)
--- NOTE | 2018-09-14 19:09 | REP ---
Clinical: Confusion. Comparison: 08/06/2018 . Findings: Age-related atrophy and microvascular ischemic changes are appreciated. The ventricles and sulci are symmetric. Dickinson-white differentiation is maintained. There is no evidence for acute intracranial hemorrhage, mass/mass effect, pathology or infarction. No extra-axial fluid collection. Calvarium is intact. Paranasal sinuses and mastoid air cells are clear. Impression: Age related atrophy and microvascular ischemic changes. No acute intracranial hemorrhage, infarction, or mass/mass effect. Electronically Signed by Edward Weeks MD 09/14/2018 07:02 P
--- NOTE | 2018-09-14 19:44 | REPVR ---
EXAM: US Bilateral Duplex Lower Extremity Veins EXAM DATE/TIME: 09/14/2018 7:27 PM CLINICAL HISTORY: 77 years old, male; Signs and symptoms; Swelling (edema) of limb; Lower extremity, bilateral; Additional info: Swelling SOB TECHNIQUE: Real-time duplex ultrasound of the Bilateral Lower Extremities with 2-D alvarado scale, color Doppler flow and spectral waveform analysis. Complete exam focused on the bilateral lower extremity veins. COMPARISON: No relevant prior studies available. FINDINGS: Right deep veins: Unremarkable. The common femoral, femoral and popliteal veins are patent without thrombus. Normal compressibility, augmentation response and Doppler waveforms. 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 Right superficial veins: Saphenofemoral junction is patent without thrombus. Left deep veins: Unremarkable. The common femoral, femoral and popliteal veins are patent without thrombus. Normal compressibility, augmentation response and Doppler waveforms. 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 Left superficial veins: Saphenofemoral junction is patent without thrombus. Soft tissues: There is soft tissue swelling of the legs. IMPRESSION: No acute findings. No evidence of deep vein thrombosis. 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 Electronically signed by: Dennis Phan On 09/14/2018 19:43:21 PM
[2018-09-14] MEDS ORDERED: cefTRIAXone SOD 1 GM in D5W MINI-BAG PLUS 50 ML IV ONE (19:45)
[2018-09-14] MEDS ORDERED: AZITHROMYCIN INJ 500 MG, VIAL MATE ADAPTER 1 EACH in D5W 250 ML IV ONE (19:45)
[2018-09-14] MEDS ORDERED: FURO20TA2 PO (20:04)
[2018-09-14] MEDS ORDERED: ATOR40TA75 PO (20:04)
[2018-09-14] MEDS ORDERED: IPRATROPIUM 0.5MG/ALBUTEROL 2.5MG INH SOL UD 3ML (DUONEB)(J7620) NEB PRN (21:30)
[2018-09-14] MEDS ORDERED: ACETAMINOPHEN TAB 650MG DOSE (2X325MG) PO PRN (21:30)
[2018-09-14] MEDS ORDERED: ONDANSETRON 4MG/2ML VIAL (J2405) IV PRN (21:30)
[2018-09-14] MEDS ORDERED: BISACODYL 10 MG SUPP PR PRN (21:30)
[2018-09-14] MEDS ORDERED: BISACODYL 5 MG TAB PO PRN (21:30)
[2018-09-14] MEDS ORDERED: NITROGLYCERIN 0.4 MG SUBL TABLET SL PRN (21:45)
--- NOTE | 2018-09-14 21:46 | HPEPDOC ---
[facility] Medical History & Physical Date of Admission Sep 14, 2018 Attending Physician: SUNDAY,JOEL SEE History and Physical CHIEF COMPLAINT: [dyspnea] HISTORY OF PRESENT ILLNESS: [77-year-old gentleman with past medical history of atrial fibrillation, pacemaker, hypertension, COPD, diabetes, diastolic CHF, coronary artery disease, GERD, depression, noncompliant, intermittently confused and not the best historian complaining shortness of breath per ER. Patient states that he has been noncompliant his medication due to wanting to hurt himself. Patient is happy living where he is but he had some thoughts of ending his life. Patient states that he does not currently want to hurt himself or others but occasionally has thoughts of ending his life with no specific plans at times. He states that not taking his medications was one of his plan and and stopped short of further going into detail about other plans. Patient has chronic lower short he swelling, which he denied of pain. Patient denied of any chest pain or shortness of breath on my questioning. Patient states that he has chronic sputum production. Patient smoked in the past but quit 20 years ago. Patient currently resides at home alone. He does not often sees family states that he is a loner. In the emergency room patient was evaluated and noted to hav e abnormal CXR finding showing superimposed perihilar and right lower lobe infiltrate/atelectasis. ER requests patient admitted for further evaluation and treatment. PMH: atrial fibrillation, pacemaker, hypertension, COPD, diabetes, diastolic CHF, coronary artery disease, GERD, depression Surgical past medical history: Pacemaker placement, appendectomy, cholecystectomy, cataract surgery Social history: Former smoker. Denies alcohol or illicit drug use. Family medical history: Diabetes, hypertension in his sister, and emphysema in his father. ALLERGIES: Please see below. HOME MEDICATIONS: Please see below. PHYSICAL EXAMINATION: VITAL SIGNS: Please see below GENERAL APPEARANCE: Resting comfortably HEENT: Normocephalic, PERRLA, Mucous moist, CARDIOVASCULAR: S1,S2, pulse present, regularly, regular, LUNGS: Equal decreased air entry b/l, minimal wheezes but or crackle ABDOMEN: Soft, BS present, no tenderness, no guarding GENITOURINARY: No Peterson EXTREMITIES: B/L +2 edema up to the knee, capillary refill present SKIN: Warm, No fever NEUROLOGICAL: Cranial nerves grossly intact PSYCHIATRIC: intermittent confusion and short term memory loss, denied wanting to hurt himself or others at this time LABORATORY DATA: See below. IMAGING: [CT head: Age related atrophy and microvascular ischemic changes. No acute intracranial hemorrhage, infarction, or mass/mass effect. CXR: Superimposed perihilar and right lower lobe infiltrate/atelectasis. Doppler LE: No acute findings. No evidence of deep vein thrombosis. 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 ] MICROBIOLOGY: Please see below. Assessment and plan: 77-year-old gentleman with past medical history of atrial fibrillation, pacemaker, hypertension, COPD, diabetes, diastolic CHF, coronary artery disease, GERD, depression, noncompliant, intermittently confused and not the best historian complaining shortness of breath per ER found to have abnormal cxr mentioning and forthcoming about suicidal thoughts. 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 -Last adx on Lasix and torsemide but no longer on them -Resume Lasix and monitor -Not on any medication, uncertain whether patient stop on his own accord or medication discontinued. Pharm to verify in am w PCP. Coronary artery disease -Not on any medication, uncertain whether patient stop on his own accord or medication discontinued. Pharm to verify in am w PCP. Gastroesophageal reflux disease -Not on any medication, uncertain whether patient stop on his own accord or medication discontinued. Pharm to verify in am w PCP. Lives alone -Social service consult Deep vein thrombosis prophylaxis: Heparin subcutaneous Vital Signs Vital Signs Date Time Temp Pulse Resp B/P (MAP) Pulse Ox O2 Delivery O2 Flow Rate FiO2 09/14/18 20:52 71 19 166/71 (102) 97 Nasal Cannula 2.0 09/14/18 17:55 97.4 Laboratory Data Labs 24H Laboratory Tests 2 09/14/18 18:15: Immature Granulocyte % (Auto) 0.8, White Blood Count 7.4, Red Blood Count 4.44, Hemoglobin 13.9, Hematocrit 43.3, Mean Corpuscular Volume 97.5H, Mean Corpuscular Hemoglobin 31.3, Mean Corpuscular Hemoglobin Concent 32.1, Red Cell Distribution Width 13.5, Platelet Count 254, Neutrophils (%) (Auto) 73.2H, Lymphocytes (%) (Auto) 16.3L, Monocytes (%) (Auto) 6.8H, Eosinophils (%) (Auto) 1.8, Basophils (%) (Auto) 1.1H, Neutrophils # (Auto) 5.4, Lymphocytes # (Auto) 1.2L, Monocytes # (Auto) 0.5, Eosinophils # (Auto) 0.1, Basophils # (Auto) 0.1, Nucleated Red Blood Cells % (auto) 0.0, Prothrombin Time 13.0, Prothromb Time International Ratio 0.98, Anion Gap 7L, Glomerular Filtration Rate > 60.0, Calcium Level 8.8, Aspartate Amino Transf (AST/SGOT) 34, Alanine Aminotransferase (ALT/SGPT) 43, Alkaline Phosphatase 137H, Total Bilirubin 0.6, Direct Bilirubin 0.2, Total Creatine Kinase 46, Creatine Kinase MB 1.0, Creatine Kinase MB Relative Index 3.04, Troponin I 0.03, XA-Ovz-E-Type Natriuretic Peptide 3837H, Total Protein 5.9L, Albumin 3.1L, Albumin/Globulin Ratio 1.11 09/14/18 18:37: Blood Gas Bicarbonate Standard 26.4H, Arterial Blood pH 7.407, Arterial Blood Partial Pressure CO2 44.4, Arterial Blood Partial Pressure O2 76.5, Arterial Blood Total CO2 28.7, Arterial Blood HCO3 27.3H, Arterial Blood Base Excess 2.2H, Arterial Blood Oxygen Saturation 95.4 CBC/BMP Laboratory Tests 09/14/18 18:15 Red Blood Count 4.44, Mean Corpuscular Volume 97.5 H, Mean Corpuscular Hemoglobin 31.3, Mean Corpuscular Hemoglobin Concent 32.1, Red Cell Distribution Width 13.5, Neutrophils (%) (Auto) 73.2 H, Lymphocytes (%) (Auto) 16.3 L, Monocytes (%) (Auto) 6.8 H, Eosinophils (%) (Auto) 1.8, Basophils (%) (Auto) 1.1 H, Neutrophils # (Auto) 5.4, Lymphocytes # (Auto) 1.2 L, Monocytes # (Auto) 0.5, Eosinophils # (Auto) 0.1, Basophils # (Auto) 0.1 Home Medications Scheduled Metformin Hydrochloride (Metformin HCl) 500 Mg Tab, 500 MG PO BID Scheduled PRN Acetaminophen (APAP Extra Strength) 500 Mg Tab, 500 MG PO Q4H PRN for PAIN Albuterol Sulfate (Ventolin Hfa) 108 Mcg/Act Aer, 2 PUFF INH Q4H PRN for SHORTNESS OF BREATH Nitroglycerin (Nitrostat) 0.4 Mg Subl, 0.4 MG SL NITRO PRN for CHEST PAIN Allergies Coded Allergies: Warfarin (Unverified Allergy, Unknown, UNKNOWN, 06/03/18) FLORES THOMAS MD Sep 14, 2018 21:46
[2018-09-14 22:13] LABS: MB/CK RELATIVE INDEX 3.7 (< OR =4); TROPONIN I 0.03 NG/ML (< 0.10)
[2018-09-15] VITALS (8 sets, daily range): BP systolic 156–178; BP diastolic 71–84
[2018-09-15] MEDS: methylPREDNISolone INJ 40 MG/1 ML VIAL (J2920) IV SCH ×2 (00:54→13:23)
[2018-09-15] MEDS ORDERED: DEXTROSE 50% 50 ML SYRINGE IV PRN (01:30)
[2018-09-15] MEDS ORDERED: GLUCAGON FOR INJ 1 MG VIAL (J1610) SC PRN (01:30)
[2018-09-15] MEDS ORDERED: GLUCOSE 4 GM CHEW TABLET PO PRN (01:30)
[2018-09-15] MEDS ORDERED: SLF 3 ML SYR IV PRN (02:45)
[2018-09-15 05:02] LABS: HEMOGLOBIN 13.8 g/dl (13.5-17.5); MEAN CORPUSCULAR HEMOGLOBIN 30.5 pg (27.0-33.0); MEAN CORPUSCULAR HGB CONC 31.4 g/dl (32.0-36.5); MEAN CORPUSCULAR VOLUME 97.3 fl (80.0-96.0); PLATELET COUNT, AUTOMATED 260 10^3/uL (150-450); RED BLOOD COUNT 4.52 10^6/uL (4.30-6.10); WHITE BLOOD COUNT 8.5 10^3/uL (4.0-10.0)
[2018-09-15] MEDS: IPRATROPIUM 0.5MG/ALBUTEROL 2.5MG INH SOL UD 3ML (DUONEB)(J7620) NEB SCH ×4 (05:20→20:00)
[2018-09-15 05:39] LABS: CALCIUM LEVEL 8.6 MG/DL (8.8-10.2); CREATININE FOR GFR 1.26 MG/DL (0.70-1.30); FREE THYROXINE INDEX 3.7 % (1.4-3.8); GLOMERULAR FILTRATION RATE 59.1 (>42); MB/CK RELATIVE INDEX 3.75 (< OR =4); POTASSIUM SERUM 4.3 MEQ/L (3.5-5.1); THYROID STIMULATING HORMONE 0.639 uIU/ML (0.358-3.740); THYROXINE (T4) 11.2 UG/DL (4.5-12.0); TROPONIN I 0.02 NG/ML (< 0.10)
[2018-09-15] MEDS: LISINOPRIL 10 MG TAB PO SCH ×2 (05:40→10:12)
[2018-09-15] MEDS: HEPARIN SOD (PORCINE) 5000 UNITS/ML VIAL SC SCH ×3 (05:41→21:28)
[2018-09-15] MEDS: SLF 3 ML SYR IV SCH ×3 (05:41→21:29)
[2018-09-15] MEDS ORDERED: LevoFLOXacin 750 MG TABLET PO SCH (06:00)
[2018-09-15] MEDS ORDERED: FUROSEMIDE 40 MG TAB PO SCH (09:00)
[2018-09-15] MEDS: HumaLOG INSULIN (NovoLOG) PER UNIT SC SCH ×4 (10:11→20:25)
[2018-09-15 13:55] LABS: CPK CREATINE PHOSPHOKINASE 181 U/L (39-308); MB/CK RELATIVE INDEX 1.38 (< OR =4); TROPONIN I < 0.02 NG/ML (< 0.10)
[2018-09-15] MEDS ORDERED: HALOPERIDOL 5 MG/ML VIAL (J1630) IV PRN (15:15)
--- NOTE | 2018-09-15 15:34 | IPNPDOC ---
Date Seen The patient was seen on 09/15/18. Progress Note SUBJECTIVE: Patient seen and examined at bedside, combative, confused. does not appear in any distress, on day 2 of levaquin for suspected community acquired pneumonia OBJECTIVE PHYSICAL EXAMINATION: VITAL SIGNS: Please see below. GENERAL: confused. NAD HEENT: normocephalic, atraumatic CARDIOVASCULAR: irregularly irregular, no MGR RESPIRATORY: good air entry, no wheezing or crackles ABDOMINAL: soft, non tender, non distended, + BS EXTREMITIES: 2+ edema, no calf tenderness NEUROLOGICAL: confused, no focal deficits PSYCHOLOGICAL:confused and combative LABORATORY DATA, IMAGING STUDIES, MICROBIOLOGY: Please see below. Echocardiogram: completed. awaiting results DVT prophylaxis ordered?: heparin subcutaneous ASSESSMENT AND PLAN: This is a -year-old [RACE] [GENDER] with . PROBLEMS: 77-year-old gentleman with past medical history of atrial fibrillation, pacemaker, hypertension, COPD, diabetes, diastolic CHF, coronary artery disease, GERD, depression, noncompliant, intermittently confused and not the best historian complaining shortness of breath per ER found to have abnormal cxr mentioning and forthcoming about suicidal thoughts. Dyspnea secondary to COPD exacerbation with ? community acquired pneumonia -on prednisone and levaquin. will d/c after short course -Oxygen as needed Mild CHF ex -serial trops negative, TSH wnl -lasix 40 IV daily - daily weigjts Diabetes -Finger sticks, sliding scale, hold oral med, use long acting prn Hypertension uncontrolled -On lasix , Lisinopril started, will titrate as needed Coronary artery disease ASA, Ntg prn Confused? dementia/ delerium will get UA, TSH wnl, will get b12 and folate level, CT head noted will get psych consult will get SW involved, unclear if pt has family VS, I&O, 24H, Fishbone Vital Signs/I&O Vital Signs Date Time Temp Pulse Resp B/P (MAP) Pulse Ox O2 Delivery O2 Flow Rate FiO2 09/15/18 12:00 97.8 70 14 168/74 (105) 99 Nasal Cannula 2.0 I&O- Last 24 Hours up to 6 AM 09/15/18 06:00 Intake Total 100 ml Output Total 600 ml Balance -500 ml Laboratory Data 24H LABS Laboratory Tests 2 09/14/18 18:15: Immature Granulocyte % (Auto) 0.8, White Blood Count 7.4, Red Blood Count 4.44, Hemoglobin 13.9, Hematocrit 43.3, Mean Corpuscular Volume 97.5H, Mean Corpuscular Hemoglobin 31.3, Mean Corpuscular Hemoglobin Concent 32.1, Red Cell Distribution Width 13.5, Platelet Count 254, Neutrophils (%) (Auto) 73.2H, Lymphocytes (%) (Auto) 16.3L, Monocytes (%) (Auto) 6.8H, Eosinophils (%) (Auto) 1.8, Basophils (%) (Auto) 1.1H, Neutrophils # (Auto) 5.4, Lymphocytes # (Auto) 1.2L, Monocytes # (Auto) 0.5, Eosinophils # (Auto) 0.1, Basophils # (Auto) 0.1, Nucleated Red Blood Cells % (auto) 0.0, Prothrombin Time 13.0, Prothromb Time International Ratio 0.98, Anion Gap 7L, Glomerular Filtration Rate > 60.0, Calcium Level 8.8, Aspartate Amino Transf (AST/SGOT) 34, Alanine Aminotransferase (ALT/SGPT) 43, Alkaline Phosphatase 137H, Total Bilirubin 0.6, Direct Bilirubin 0.2, Total Creatine Kinase 46, Creatine Kinase MB 1.0, Creatine Kinase MB Relative Index 3.04, Troponin I 0.03, LD-Hhp-A-Type Natriuretic Peptide 3837H, Total Protein 5.9L, Albumin 3.1L, Albumin/Globulin Ratio 1.11 09/14/18 18:37: Blood Gas Bicarbonate Standard 26.4H, Arterial Blood pH 7.407, Arterial Blood Partial Pressure CO2 44.4, Arterial Blood Partial Pressure O2 76.5, Arterial Blood Total CO2 28.7, Arterial Blood HCO3 27.3H, Arterial Blood Base Excess 2.2H, Arterial Blood Oxygen Saturation 95.4 09/14/18 21:40: Total Creatine Kinase 46, Creatine Kinase MB 2.0, Creatine Kinase MB Relative Index 3.70, Troponin I 0.03 09/15/18 00:56: Bedside Glucose (Misc Panel) 277H 09/15/18 04:47: Nucleated Red Blood Cells % (auto) 0.0, Anion Gap 6L, Glomerular Filtration Rate 59.1, Blood Urea Nitrogen 13, Creatinine 1.26, Sodium Level 136, Potassium Level 4.3, Chloride Level 100, Carbon Dioxide Level 30, Calcium Level 8.6L, Total Creatine Kinase 48, Creatine Kinase MB 2.0, Creatine Kinase MB Relative Index 3.75, Troponin I 0.02#, Thyroid Stimulating Hormone (TSH) 0.639, Free Thy roxine Index 3.7, Thyroxine (T4) 11.2, Triiodothyronine (T3) Uptake 33 09/15/18 12:00: Bedside Glucose (Misc Panel) 170H 09/15/18 13:14: Total Creatine Kinase 181#, Creatine Kinase MB 2.0, Creatine Kinase MB Relative Index 1.38, Troponin I < 0.02 CBC/BMP Laboratory Tests 09/14/18 18:15 Red Blood Count 4.44, Mean Corpuscular Volume 97.5 H, Mean Corpuscular Hemoglobin 31.3, Mean Corpuscular Hemoglobin Concent 32.1, Red Cell Distribution Width 13.5, Neutrophils (%) (Auto) 73.2 H, Lymphocytes (%) (Auto) 16.3 L, Monocytes (%) (Auto) 6.8 H, Eosinophils (%) (Auto) 1.8, Basophils (%) (Auto) 1.1 H, Neutrophils # (Auto) 5.4, Lymphocytes # (Auto) 1.2 L, Monocytes # (Auto) 0.5, Eosinophils # (Auto) 0.1, Basophils # (Auto) 0.1 09/15/18 04:47 Red Blood Count 4.52, Mean Corpuscular Volume 97.3 H, Mean Corpuscular Hemoglobin 30.5, Mean Corpuscular Hemoglobin Concent 31.4 L, Red Cell Distribution Width 13.2, Calcium Level 8.6 L, Total Creatine Kinase 48 SUNDAY,JOEL SEE Sep 15, 2018 15:34
[2018-09-15 19:02] LABS: APPEARANCE, URINE CLEAR (CLEAR); BACTERIA, URINE AUTO NEGATIVE (NEGATIVE); BILIRUBIN, URINE AUTO NEGATIVE (NEGATIVE); BLOOD, URINE BLOOD 1+ (NEGATIVE); COLOR, URINE STRAW (YELLOW); GLUCOSE, URINE (UA) AUTO NEGATIVE (NEGATIVE); KETONE, URINE AUTO TRACE mg/dL (NEGATIVE); LEUKOCYTE ESTERASE, URINE AUTO NEGATIVE (NEGATIVE); NITRITE, URINE AUTO NEGATIVE (NEGATIVE); PROTEIN, URINE AUTO 2+ mg/dL (NEGATIVE); RBC, URINE AUTO 1 /HPF (0-3); SPECIFIC GRAVITY URINE AUTO 1.006 (1.002-1.035); SQUAMOUS EPITHELIAL CELL UR AU 0 /HPF (0-6); UROBILINOGEN, URINE AUTO 0.2 mg/dL (0.0-2.0); WBC, URINE AUTO 0 /HPF (0-3)
[2018-09-15] MEDS: AUGMENTIN 875 MG TAB PO SCH (21:27)
[2018-09-16] VITALS (7 sets, daily range): BP systolic 127–170; BP diastolic 51–90
[2018-09-16] MEDS ORDERED: FUROSEMIDE 20 MG/2 ML VIAL (J1940) IV ONE
[2018-09-16] MEDS: **hydrALAZINE** 10 MG TAB PO PRN ×2 (02:14→17:27)
[2018-09-16] MEDS: IPRATROPIUM 0.5MG/ALBUTEROL 2.5MG INH SOL UD 3ML (DUONEB)(J7620) NEB SCH ×4 (02:14→20:00)
--- NOTE | 2018-09-16 04:01 | ECHO ---
DATE OF PROCEDURE: 09/15/2018 AGE: 77 GENDER: Male REFERRING PHYSICIAN: Dr. Emely Watson. HEIGHT: 69 inches. WEIGHT: 154 pounds. BODY SURFACE AREA: 1.85 sq m. INPATIENT: PCU Room 3218 INDICATION: Dyspnea. MEASUREMENTS: 2D MEASUREMENTS: RV - 4.2 cm LV- 4.6 cm Septum - 1.2 cm Posterior wall - 1.2 cm Aortic root - 3.6 cm LA - 4.5 cm LVEF - 50% DOPPLER MEASUREMENTS: AV - 0.91 m/s LVOT - 0.79 m/s MV-E: 84 Early mitral deacceleration time 153 ms E-prime - 7 E/E prime ratio 12 PCWP - 16 mmHg PV - 0.8 m/s Pulmonary artery acceleration time 85 ms RVSP - 68 - 72 mmHg IVC - 2.1 cm COMMENTS: Underlying atrial fibrillation with mostly ventricular paced complexes with LBV QRS configuration. M-mode and two-dimensional echocardiography was performed with pulsed, continuous wave, color flow and tissue Doppler study. Borderline concentric left ventricular hypertrophy with septal wall motion abnormality (question right ventricular pacing versus right ventricular pressure overload) and mild impairment of global resting systolic function. Mild to moderately dilated left atrium with currently normal estimated mean left atrial pressure. Mildly dilated right heart chambers with right ventricular free wall hypokinesis and Doppler evidence of severe pulmonary hypertension. IVC size upper limits of normal with reduced respiratory collapse in keeping with an elevated central venous pressure/right heart failure. Mild aortic valvular sclerosis without functional abnormality. Normal aortic root size. Very mild mitral annular thickening with mild mitral insufficiency. Normal appearing tricuspid valve with mild insufficiency. Pacing leads could be visualized traversing right heart structures but no separate intracardiac mass. No pericardial effusion. MTDD
[2018-09-16] MEDS: SLF 3 ML SYR IV SCH ×3 (05:56→21:29)
[2018-09-16] MEDS: HEPARIN SOD (PORCINE) 5000 UNITS/ML VIAL SC SCH ×3 (05:56→21:27)
[2018-09-16 06:23] LABS: HEMATOCRIT 45.7 % (42.0-52.0); HEMOGLOBIN 14.8 g/dl (13.5-17.5); MEAN CORPUSCULAR HEMOGLOBIN 30.8 pg (27.0-33.0); MEAN CORPUSCULAR HGB CONC 32.4 g/dl (32.0-36.5); PLATELET COUNT, AUTOMATED 299 10^3/uL (150-450); RED BLOOD COUNT 4.81 10^6/uL (4.30-6.10); WHITE BLOOD COUNT 10.1 10^3/uL (4.0-10.0)
[2018-09-16 06:56] LABS: BLOOD UREA NITROGEN 19 MG/DL (7-18); CALCIUM LEVEL 9.3 MG/DL (8.8-10.2); CARBON DIOXIDE LEVEL 31 MEQ/L (21-32); CHLORIDE LEVEL 96 MEQ/L (98-107); CREATININE FOR GFR 1.45 MG/DL (0.70-1.30); GLOMERULAR FILTRATION RATE 50.2 (>42); GLUCOSE, FASTING 201 MG/DL (70-100); SODIUM LEVEL 136 MEQ/L (136-145)
[2018-09-16] MEDS: AUGMENTIN 875 MG TAB PO SCH ×2 (08:58→21:27)
[2018-09-16] MEDS ORDERED: predniSONE 20 MG TAB PO SCH (09:00)
[2018-09-16] MEDS ORDERED: FUROSEMIDE 40 MG/4 ML VIAL (J1940) IV SCH (09:00)
[2018-09-16] MEDS: HumaLOG INSULIN (NovoLOG) PER UNIT SC SCH ×4 (09:00→21:28)
[2018-09-16] MEDS ORDERED: LISINOPRIL 20 MG TAB PO SCH (09:00)
[2018-09-16 12:02] LABS: VITAMIN B12 LEVEL 386 PG/ML (247-911)
--- NOTE | 2018-09-16 18:12 | IPNPDOC ---
Date Seen The patient was seen on 09/16/18. Progress Note SUBJECTIVE: Patient seen and examined at bedside, more lucid today, on day 2 of augmentin for suspected CAP, s/p 2 days of levaquin. has been seen by psychiatry to determine capacity. ECHO shows right sided heart failure, pul HTN. breathing improved, no complaints OBJECTIVE PHYSICAL EXAMINATION: VITAL SIGNS: Please see below. GENERAL: confused. NAD HEENT: normocephalic, atraumatic CARDIOVASCULAR: irregularly irregular, no MGR RESPIRATORY: good air entry, no wheezing or crackles ABDOMINAL: soft, non tender, non distended, + BS EXTREMITIES: 2+ edema, no calf tenderness NEUROLOGICAL: confused, no focal deficits PSYCHOLOGICAL:calm LABORATORY DATA, IMAGING STUDIES, MICROBIOLOGY: Please see below. Echocardiogram: completed. awaiting results DVT prophylaxis ordered?: heparin subcutaneous ASSESSMENT AND PLAN: This is a -year-old [RACE] [GENDER] with . PROBLEMS: 77-year-old gentleman with past medical history of atrial fibrillation, pacemaker, hypertension, COPD, diabetes, diastolic CHF, coronary artery disease, GERD, depression, noncompliant, intermittently confused and not the best historian complaining shortness of breath per ER found to have abnormal cxr mentioning and forthcoming about suicidal thoughts. Dyspnea secondary to COPD exacerbation with ? community acquired pneumonia -on prednisone , levaquin recieved 2 doses, now on augmentin day 2 -Oxygen as needed, duonebs cor pulmonale/ severe pul htn : hear failure exacerbation -serial trops negative, TSH wnl -lasix 40 IV daily - daily weigjts -ehco Diabetes -Finger sticks, sliding scale, hold oral med, use long acting prn Hypertension uncontrolled -On lasix ,lisinopril d/c with rising cr, now on hydralazine 10 TID Coronary artery disease ASA, Ntg prn Confused? dementia/ delerium UA wnl, TSH wnl, b12 386, CT head noted, RPR neg psychiatry consulted to determine capacity will get SW involved, unclear if pt has family Disposition: awaiting psych to determine capacity. Pt lives alone, appears to have some level of dementia. Is assisted by neighbor, has been missing appointments and more forgetful over past several weeks to months. manager program management/ SW consulted VS, I&O, 24H, Fishbone Vital Signs/I&O Vital Signs Date Time Temp Pulse Resp B/P (MAP) Pulse Ox O2 Delivery O2 Flow Rate FiO2 09/16/18 17:27 173/74 09/16/18 14:00 98.3 75 18 100 Room Air 09/15/18 12:50 2.0 I&O- Last 24 Hours up to 6 AM 09/16/18 06:00 Intake Total 1333 ml Output Total 2425 ml Balance -1092 ml Laboratory Data 24H LABS Laboratory Tests 2 09/15/18 18:48: Urine Appearance CLEAR, Urine Color STRAW, Urine pH 5.0, Urine Specific [place] 1.006, Urine Protein 2+H, Urine Glucose (UA) NEGATIVE, Urine Ketones TRACEH, Urine Urobilinogen 0.2, Urine Bilirubin NEGATIVE, Urine Leukocyte Esterase NEGATIVE, Urine Blood 1+H, Urine Nitrite NEGATIVE, Urine WBC (Auto) 0, Urine RBC (Auto) 1, Urine Hyaline Casts (Auto) 0, Urine Bacteria (Auto) NEGATIVE, Urine Squamous Epithelial Cells 0, Urine Sperm (Auto) 09/15/18 20:23: Bedside Glucose (Misc Panel) 226H 09/16/18 06:07: Nucleated Red Blood Cells % (auto) 0.0, Anion Gap 9, Glomerular Filtration Rate 50.2, Blood Urea Nitrogen 19H, Creatinine 1.45H, Sodium Level 136, Potassium Level 4.0, Chloride Level 96L, Carbon Dioxide Level 31, Calcium Level 9.3, Vitamin B12 Level 386, Syphilis Serology NONREACTIVE 09/16/18 11:43: Bedside Glucose (Misc Panel) 166H 09/16/18 16:35: Bedside Glucose (Misc Panel) 301H CBC/BMP Laboratory Tests 09/16/18 06:07 Red Blood Count 4.81, Mean Corpuscular Volume 95.0, Mean Corpuscular Hemoglobin 30.8, Mean Corpuscular Hemoglobin Concent 32.4, Red Cell Distribution Width 13.2, Calcium Level 9.3 SUNDAY,JOEL SEE Sep 16, 2018 18:12
[2018-09-16] MEDS: **hydrALAZINE** 10 MG TAB PO SCH (18:15)
[2018-09-16] MEDS ORDERED: **hydrALAZINE** 10 MG TAB PO SCH (22:00)
[2018-09-17] VITALS (7 sets, daily range): BP systolic 138–194; BP diastolic 65–88
[2018-09-17] MEDS: IPRATROPIUM 0.5MG/ALBUTEROL 2.5MG INH SOL UD 3ML (DUONEB)(J7620) NEB SCH ×4 (02:00→21:18)
[2018-09-17] MEDS: **hydrALAZINE** 10 MG TAB PO SCH ×3 (03:39→17:30)
[2018-09-17] MEDS: HEPARIN SOD (PORCINE) 5000 UNITS/ML VIAL SC SCH ×3 (05:44→21:17)
[2018-09-17] MEDS: SLF 3 ML SYR IV SCH ×3 (05:44→21:18)
[2018-09-17 07:14] LABS: HEMATOCRIT 38.8 % (42.0-52.0); MEAN CORPUSCULAR HEMOGLOBIN 30.8 pg (27.0-33.0); MEAN CORPUSCULAR HGB CONC 32.7 g/dl (32.0-36.5); MEAN CORPUSCULAR VOLUME 94.2 fl (80.0-96.0); PLATELET COUNT, AUTOMATED 274 10^3/uL (150-450); RED BLOOD COUNT 4.12 10^6/uL (4.30-6.10); WHITE BLOOD COUNT 9.8 10^3/uL (4.0-10.0)
[2018-09-17 07:15] LABS: CALCIUM LEVEL 8.8 MG/DL (8.8-10.2); CREATININE FOR GFR 1.32 MG/DL (0.70-1.30); POTASSIUM SERUM 3.9 MEQ/L (3.5-5.1)
[2018-09-17 07:21] LABS: HEMOGLOBIN 12.7 g/dl (13.5-17.5)
[2018-09-17] MEDS: AUGMENTIN 875 MG TAB PO SCH ×2 (08:33→21:16)
[2018-09-17] MEDS: HumaLOG INSULIN (NovoLOG) PER UNIT SC SCH ×4 (08:34→21:18)
[2018-09-17] MEDS ORDERED: predniSONE 20 MG TAB PO SCH (09:00)
[2018-09-17] MEDS ORDERED: FUROSEMIDE 40 MG/4 ML VIAL (J1940) IV SCH (09:00)
[2018-09-17] MEDS ORDERED: ONDANSETRON 4MG/2ML VIAL (J2405) IV PRN (09:00)
--- NOTE | 2018-09-17 11:38 | MHCR ---
DATE OF CONSULTATION: 09/16/2018 IDENTIFYING DATA: His is a 77-year-old male with a history of atrial fibrillation, pacemaker, chronic obstructive pulmonary disease, gastroesophageal reflux disease (GERD), depression, who was admitted for shortness of breath due to COPD. He reportedly told the staff that he had suicidal thoughts. Consultation was called to assess his capacity to make decisions regarding treatment. HISTORY OF PRESENT ILLNESS: Patient was evaluated. Staff was consulted, and I spoke to the doctor. The patient is a poor historian. He is currently disoriented to time, place, and situation. He thinks this is his own apartment where he is sleeping. He tells me that he knew me from last year. When asked about his age, he said he is in his 60s. Date, month and year patient did not know. He was confabulating his answers. He reports he is depressed but said that he is willing to take medications. When asked about suicidal ideas, he reports he has but will not do it and he does not have any plans. Unable to get a complete history. MENTAL STATUS EXAMINATION: He is alert, disoriented to place time and situation. He is cooperative. Made good eye contact. Mood is depressed. Affect is blunted. Unable assess auditory or visual hallucinations. Currently denies any suicidal thoughts, but he is vague about it. Cognition: Attention is fair. Could count backwards from 20. Memory: Immediate recall and recent memory are poor. His insight is impaired. Judgment could not be tested. ASSESSMENT: Major cognitive disorder. Rule out dementia not otherwise specified (NOS). Rule out delirium NOS. Unspecified depressive disorder. ASSESSMENT/PLAN: Patient currently is disoriented. He agrees to take his antidepressant but does not have factual understanding of the proposed treatment. When asked about the treatment with medication, he becomes blank. Does not know what his doctor has told him about the treatment. Does not know the risks and benefits of the treatments. He wants to take it blindly. Does not know the consequences of no treatment. Does not know any alternative treatment. In my assessment, patient does not have the capacity to make a decision regarding treatment or discharge. His baseline is not known. Need some more collaterals. Consult neurology to rule out dementia. Call us again when patient is more coherent. Proposed treatment: An antidepressant, I Effexor SR 37.5 mg will be used for further depression. Probably a [place] [facility] placement would be ideal.
[2018-09-17 13:11] LABS: APPEARANCE, URINE CLEAR (CLEAR); BACTERIA, URINE AUTO NEGATIVE (NEGATIVE); BILIRUBIN, URINE AUTO NEGATIVE (NEGATIVE); BLOOD, URINE BLOOD NEGATIVE (NEGATIVE); COLOR, URINE STRAW (YELLOW); GLUCOSE, URINE (UA) AUTO NEGATIVE (NEGATIVE); KETONE, URINE AUTO NEGATIVE (NEGATIVE); LEUKOCYTE ESTERASE, URINE AUTO NEGATIVE (NEGATIVE); NITRITE, URINE AUTO NEGATIVE (NEGATIVE); PROTEIN, URINE AUTO 1+ mg/dL (NEGATIVE); RBC, URINE AUTO 3 /HPF (0-3); SPECIFIC GRAVITY URINE AUTO 1.005 (1.002-1.035); SQUAMOUS EPITHELIAL CELL UR AU 0 /HPF (0-6); UROBILINOGEN, URINE AUTO 0.2 mg/dL (0.0-2.0); WBC, URINE AUTO 0 /HPF (0-3)
--- NOTE | 2018-09-17 13:22 | REP ---
Clinical: Altered mental status. Comparison: 09/14/2018 . Findings: Age-related atrophy and microvascular ischemic changes are appreciated. The ventricles and sulci are symmetric. Dickinson-white differentiation is maintained. There is no evidence for acute intracranial hemorrhage, mass/mass effect, pathology or infarction. No extra-axial fluid collection. Calvarium is intact. Paranasal sinuses and mastoid air cells are clear. Impression: Age related atrophy and microvascular ischemic changes. No acute intracranial hemorrhage, infarction, or mass/mass effect. Electronically Signed by Edward Weeks MD 09/17/2018 01:14 P
[2018-09-17] MEDS: VENLAFAXINE **XR** 37.5 MG CAPSULE PO SCH (14:36)
[2018-09-18 01:20] VITALS: BP 156/78
[2018-09-18] MEDS: **hydrALAZINE HCL** 25 MG TAB PO SCH ×3 (01:29→17:40)
--- NOTE | 2018-09-18 01:54 | IPN ---
DATE OF SERVICE: 09/17/2018 The patient was seen and examined. No acute events overnight. Patient stated that he is aware that he has severe lung disease and probably does not have much time and he does not want to name a healthcare proxy because he does not want to burden other people but he does not want to bring back if he passes. The patient wanted to go home despite the fact that patient was deemed to not have capacity by psychiatry yesterday. The patient was very upset regarding that issue but he said he will listen to the doctors. The patient reported that he is occasionally depressed but he said so is everyone else. The patient denies any suicidal thoughts, just does not want to take medication. Denies any chest pain, pressure or discomfort. VITAL SIGNS: Temperature 98.3, pulse 72, respirations 18, blood pressure 143/66, pulse oximetry 93% on room air. LABORATORY: White blood cell (WBC) 9.8, hemoglobin and hematocrit (H and H) 12.7./33.8, platelets 274. Chemistry: Sodium 140, potassium 3.9, chloride 102, bicarbonate 31, BUN 28, creatinine 1.32. PHYSICAL EXAMINATION: GENERAL: The patient is comfortable, mildly agitated but in no acute distress. HEENT: Normocephalic, atraumatic. PULMONARY: No significant wheeze. CARDIAC: Irregularly irregular, tachycardia. ABDOMEN: Soft, nontender. EXTREMITIES: 1+ bilateral lower extremity edema. ASSESSMENT AND PLAN: This is a 77-year-old male patient with underlying medical history of atrial fibrillation with pacemaker, hypertension, chronic obstructive pulmonary disease (COPD), diabetes, diastolic congestive heart failure, coronary artery disease, gastroesophageal reflux disease (GERD), depression, poor compliance, intermittent confusion. The patient is a poor historian presented with shortness of breath. 1. Shortness of breath likely acute COPD exacerbation. Patient currently switched to Augmentin, taper steroids, respiration almost back to baseline. Nebulizer as needed. 2. Cor pulmonale and pulmonary artery hypertension. The patient was given Lasix. Serial troponin appreciated to be negative. Continue diuresis, strict input/output (Is and Os). 3. Hypertension. The patient has been poorly compliant with medication refusing medication from time to time. Continue hydralazine. Dosage has been adjusted. 4. Depression. Continue current medication. Effexor has been added. 5. Coronary artery disease. Continue aspirin. Lisinopril has been discontinued given increasing creatinine. 6. Confusion. Dementia. Psychiatry has been consulted. The patient is currently on Effexor. Was deemed to not have capacity. RPR has been negative. CT head repeat has been appreciated. Will reconsult psychiatry given patient mental status has improved. 7. Diabetes. Insulin according to protocol. 8. Deep vein thrombosis (DVT) prophylaxis. Heparin subcutaneously. 9. Elevation in creatinine currently improved. Lisinopril has been on hold. DISPOSITION: Will reconsult psychiatrist. odd jobs day worker has also been consulted.
[2018-09-18] MEDS: IPRATROPIUM 0.5MG/ALBUTEROL 2.5MG INH SOL UD 3ML (DUONEB)(J7620) NEB SCH ×4 (02:00→20:00)
[2018-09-18 06:00] VITALS: BP 158/70
[2018-09-18] MEDS: HEPARIN SOD (PORCINE) 5000 UNITS/ML VIAL SC SCH ×3 (06:14→22:00)
[2018-09-18] MEDS: SLF 3 ML SYR IV SCH ×3 (06:14→21:17)
[2018-09-18 06:28] LABS: HEMATOCRIT 47.8 % (42.0-52.0); MEAN CORPUSCULAR HEMOGLOBIN 30.9 pg (27.0-33.0); MEAN CORPUSCULAR VOLUME 96.6 fl (80.0-96.0); PLATELET COUNT, AUTOMATED 328 10^3/uL (150-450); RED BLOOD COUNT 4.95 10^6/uL (4.30-6.10); WHITE BLOOD COUNT 13.5 10^3/uL (4.0-10.0)
[2018-09-18 06:43] LABS: HEMOGLOBIN 15.3 g/dl (13.5-17.5)
[2018-09-18 06:58] LABS: CALCIUM LEVEL 9.1 MG/DL (8.8-10.2); CREATININE FOR GFR 1.42 MG/DL (0.70-1.30); GLOMERULAR FILTRATION RATE 51.5 (>42); POTASSIUM SERUM 3.8 MEQ/L (3.5-5.1)
[2018-09-18] MEDS: predniSONE 10 MG TAB PO SCH (08:32)
[2018-09-18] MEDS: AUGMENTIN 875 MG TAB PO SCH ×2 (08:32→21:16)
[2018-09-18] MEDS: VENLAFAXINE **XR** 37.5 MG CAPSULE PO SCH (08:32)
[2018-09-18] MEDS: FUROSEMIDE 40 MG TAB PO SCH (08:33)
[2018-09-18] MEDS: ISOSORBIDE MON. (IMDUR) 30 MG XR TAB PO SCH (08:36)
[2018-09-18] MEDS: HumaLOG INSULIN (NovoLOG) PER UNIT SC SCH ×4 (08:36→21:15)
[2018-09-18 10:49] VITALS: BP 162/70
[2018-09-18 11:09] LABS: HEMOGLOBIN A1c 8.7 %
[2018-09-18 14:00] VITALS: BP 158/91
--- NOTE | 2018-09-18 15:00 | IPNPDOC ---
Text Note Date of Service The patient was seen on 09/18/18. NOTE Patient seen and examined. Denied sob, chest pain. Denied suicidality. Stating he was just saying it before, and would never act upon it. PHYSICAL EXAMINATION: GENERAL: The patient is comfortable, NAD HEENT: Normocephalic, atraumatic. PULMONARY: No significant wheeze. CARDIAC: Irregularly irregular, tachycardia. ABDOMEN: Soft, nontender. EXTREMITIES: 1+ bilateral lower extremity edema. ASSESSMENT AND PLAN: This is a 77-year-old male patient with underlying medical history of atrial fibrillation with pacemaker, hypertension, chronic obstructive pulmonary disease (COPD), diabetes, diastolic congestive heart failure, coronary artery disease, gastroesophageal reflux disease (GERD), depression, poor compliance, intermittent confusion. The patient is a poor historian presented with shortness of breath. 1. Shortness of breath likely acute COPD exacerbation. Patient currently switched to Augmentin, taper steroids, respiration almost back to baseline. Nebulizer as needed. 2. Cor pulmonale and pulmonary artery hypertension. The patient was given Lasix. Serial troponin appreciated to be negative. Continue diuresis, strict input/output (Is and Os). 3. Hypertension. The patient has been poorly compliant with medication refusing medication from time to time. Continue hydralazine. Dosage has been adjusted. imdur added 4. Depression. Continue current medication. Effexor has been added. 5. Coronary artery disease. Continue aspirin. Lisinopril has been discontinued given increasing creatinine. hydralazine and imdur 6. Confusion. Dementia. Psychiatry has been consulted. The patient is currently on Effexor. Was deemed to not have capacity. RPR has been negative. CT head repeat has been appreciated. reconsulted psych given patient condition improve neurology consulted. EEG ordered. 7. Diabetes. Insulin according to protocol. 8. Elevation in creatinine currently improved. Lisinopril has been on hold. 9. Deep vein thrombosis (DVT) prophylaxis. Heparin subcutaneously. DISPOSITION: reconsulted psych, consulte neuro. EEG. tire worker has also been consulted. VS,Fishbone, I+O VS, Fishbone, I+O Laboratory Tests 09/18/18 06:17 Red Blood Count 4.95, Mean Corpuscular Volume 96.6 H, Mean Corpuscular Hemoglobin 30.9, Mean Corpuscular Hemoglobin Concent 32.0, Red Cell Distribution Width 13.2, Calcium Level 9.1 Vital Signs Date Time Temp Pulse Resp B/P (MAP) Pulse Ox O2 Delivery O2 Flow Rate FiO2 09/18/18 10:49 97.0 90 18 162/70 (100) 95 Room Air 09/17/18 04:00 2.0 I&O- Last 24 Hours up to 6 AM 09/18/18 06:00 Intake Total 720 ml Output Total 625 ml Balance 95 ml DARÍO FLORES MD Sep 18, 2018 15:00
[2018-09-18 17:42] VITALS: BP 142/70
[2018-09-18] MEDS ORDERED: CYANOCOBALAMIN 1,000 MCG/ML VIAL (J3420) SC ONE (17:45)
[2018-09-18] MEDS ORDERED: LIDOCAINE 2% JELLY 30 ML TOP ONE (18:00)
[2018-09-18 20:00] VITALS: BP 132/67
[2018-09-19] VITALS: BP 135/75
[2018-09-19] MEDS: **hydrALAZINE HCL** 25 MG TAB PO SCH ×3 (03:07→17:28)
[2018-09-19 04:00] VITALS: BP 132/60
[2018-09-19] MEDS: HEPARIN SOD (PORCINE) 5000 UNITS/ML VIAL SC SCH ×3 (05:08→21:25)
[2018-09-19] MEDS: SLF 3 ML SYR IV SCH ×3 (05:09→21:27)
[2018-09-19] MEDS: IPRATROPIUM 0.5MG/ALBUTEROL 2.5MG INH SOL UD 3ML (DUONEB)(J7620) NEB SCH ×4 (05:53→19:02)
[2018-09-19 06:42] LABS: HEMATOCRIT 41.7 % (42.0-52.0); MEAN CORPUSCULAR HEMOGLOBIN 30.4 pg (27.0-33.0); MEAN CORPUSCULAR HGB CONC 31.9 g/dl (32.0-36.5); MEAN CORPUSCULAR VOLUME 95.4 fl (80.0-96.0); PLATELET COUNT, AUTOMATED 286 10^3/uL (150-450); RED BLOOD COUNT 4.37 10^6/uL (4.30-6.10); WHITE BLOOD COUNT 10.5 10^3/uL (4.0-10.0)
[2018-09-19 06:51] LABS: HEMOGLOBIN 13.3 g/dl (13.5-17.5)
[2018-09-19 07:03] LABS: BLOOD UREA NITROGEN 26 MG/DL (7-18); CALCIUM LEVEL 8.2 MG/DL (8.8-10.2); CARBON DIOXIDE LEVEL 29 MEQ/L (21-32); CHLORIDE LEVEL 102 MEQ/L (98-107); CREATININE FOR GFR 1.15 MG/DL (0.70-1.30); GLOMERULAR FILTRATION RATE > 60.0 (>42); GLUCOSE, FASTING 141 MG/DL (70-100); POTASSIUM SERUM 3.9 MEQ/L (3.5-5.1); SODIUM LEVEL 139 MEQ/L (136-145)
[2018-09-19] MEDS: HumaLOG INSULIN (NovoLOG) PER UNIT SC SCH ×5 (08:55→21:26)
[2018-09-19] MEDS: VENLAFAXINE **XR** 37.5 MG CAPSULE PO SCH (08:55)
[2018-09-19] MEDS: FUROSEMIDE 40 MG TAB PO SCH (08:55)
[2018-09-19] MEDS: predniSONE 10 MG TAB PO SCH (08:56)
[2018-09-19] MEDS: ISOSORBIDE MON. (IMDUR) 30 MG XR TAB PO SCH (08:56)
[2018-09-19] MEDS: AUGMENTIN 875 MG TAB PO SCH ×2 (08:57→21:24)
--- NOTE | 2018-09-19 10:12 | EEG ---
DATE OF PROCEDURE: 09/18/2018 REFERRING PHYSICIAN: Dr. Rylan Meier DIAGNOSIS: Altered mental status. EEG #: [id number] HISTORY: The patient is a 77-year-old man who is admitted at [facility] due to altered mental status. He is confused. This electroencephalogram (EEG) was done to rule out epileptic potential. He is currently taking hydralazine, venlafaxine, prednisone, Augmentin, etc. TECHNICAL DESCRIPTION: This digital EEG was recorded by 21 scalp, ear and two electrocardiogram (EKG) electrodes and was reviewed in bipolar and referential montages following reformatting in 10-20 international electrode placement system. INTERPRETATION: The patient was noted to be in awake and drowsy states during this EEG. Background rhythm consisted of 3-4 Hz delta activity measuring 15-50 microvolts in amplitude. No sleep stages were identified. Hyperventilation could not be performed. Photic stimulation remained unremarkable. EKG revealed paced rhythm with capital QRS complexes at a regular interval. No focal, lateralizing or epileptiform abnormalities were seen. CONCLUSION: This EEG in awake and drowsy states is abnormal due to presence of generalized slowing and disorganization of background consistent with nonspecific diffuse cerebral dysfunction such as seen in encephalopathy due to multiple potential causes. No epileptiform abnormalities were seen. Clinical correlation is recommended.
[2018-09-19 10:30] VITALS: BP 130/65
--- NOTE | 2018-09-19 19:42 | IPNPDOC ---
Text Note Date of Service The patient was seen on 09/19/18. NOTE Patient seen and examined. Denied sob, chest pain. Denied suicidality. No new complaint. PHYSICAL EXAMINATION: GENERAL: The patient is comfortable, NAD HEENT: Normocephalic, atraumatic. PULMONARY: No significant wheeze. CARDIAC: Irregularly irregular, tachycardia. ABDOMEN: Soft, nontender. EXTREMITIES: 1+ bilateral lower extremity edema. ASSESSMENT AND PLAN: This is a 77-year-old male patient with underlying medical history of atrial fibrillation with pacemaker, hypertension, chronic obstructive pulmonary disease (COPD), diabetes, diastolic congestive heart failure, coronary artery disease, gastroesophageal reflux disease (GERD), depression, poor compliance, intermittent confusion. The patient is a poor historian presented with shortness of breath. 1. Shortness of breath likely acute COPD exacerbation. Patient currently switched to Augmentin, taper steroids, respiration almost back to baseline. Nebulizer as needed. 2. Cor pulmonale and pulmonary artery hypertension. The patient was given Lasix. Serial troponin appreciated to be negative. Continue diuresis, strict input/output (Is and Os). 3. Hypertension. The patient has been poorly compliant with medication refusing medication from time to time. Continue hydralazine. Dosage has been adjusted. imdur added 4. Depression. Continue current medication. Effexor has been added. 5. Coronary artery disease. Continue aspirin. Lisinopril has been discontinued given increasing creatinine. hydralazine and imdur 6. Confusion. Dementia. Psychiatry has been consulted. The patient is currently on Effexor. RPR has been negative. CT head repeat has been appreciated. neurology consult appreciated, EEG appreciated. re-evaluation by psych, has capacity to go home. given dementia, need to have a safe dispo plan such as assisted living vs living arrangement with family. PFS consulted. 7. Diabetes. Insulin according to protocol. 8. Elevation in creatinine currently improved. Lisinopril has been on hold. 9. Deep vein thrombosis (DVT) prophylaxis. Heparin subcutaneously. DISPOSITION: sugar mill worker has also been consulted. VS,Fishbone, I+O VS, Fishbone, I+O Laboratory Tests 09/19/18 06:23 Red Blood Count 4.37, Mean Corpuscular Volume 95.4, Mean Corpuscular Hemoglobin 30.4, Mean Corpuscular Hemoglobin Concent 31.9 L, Red Cell Distribution Width 13.3, Calcium Level 8.2 L Vital Signs Date Time Temp Pulse Resp B/P (MAP) Pulse Ox O2 Delivery O2 Flow Rate FiO2 09/19/18 17:28 163/73 09/19/18 10:30 81 09/19/18 04:00 97.9 18 93 Room Air 09/17/18 04:00 2.0 I&O- Last 24 Hours up to 6 AM 09/19/18 06:00 Intake Total 1290 ml Balance 1290 ml DARÍO FLORES MD Sep 19, 2018 19:42
[2018-09-19 22:00] VITALS: BP 114/56
[2018-09-20] MEDS: **hydrALAZINE HCL** 25 MG TAB PO SCH ×3 (02:57→18:32)
[2018-09-20] MEDS: SLF 3 ML SYR IV SCH ×3 (04:13→22:00)
[2018-09-20] MEDS: HEPARIN SOD (PORCINE) 5000 UNITS/ML VIAL SC SCH ×3 (05:33→20:48)
[2018-09-20 06:00] VITALS: BP 196/89
[2018-09-20] MEDS: IPRATROPIUM 0.5MG/ALBUTEROL 2.5MG INH SOL UD 3ML (DUONEB)(J7620) NEB SCH ×2 (06:23→08:00)
[2018-09-20 06:27] LABS: HEMATOCRIT 39.3 % (42.0-52.0); HEMOGLOBIN 12.6 g/dl (13.5-17.5); MEAN CORPUSCULAR HEMOGLOBIN 30.8 pg (27.0-33.0); MEAN CORPUSCULAR HGB CONC 32.1 g/dl (32.0-36.5); MEAN CORPUSCULAR VOLUME 96.1 fl (80.0-96.0); PLATELET COUNT, AUTOMATED 265 10^3/uL (150-450); RED BLOOD COUNT 4.09 10^6/uL (4.30-6.10); WHITE BLOOD COUNT 10.5 10^3/uL (4.0-10.0)
[2018-09-20 06:49] LABS: CALCIUM LEVEL 8.4 MG/DL (8.8-10.2); CREATININE FOR GFR 1.25 MG/DL (0.70-1.30); GLOMERULAR FILTRATION RATE 59.6 (>42); POTASSIUM SERUM 3.9 MEQ/L (3.5-5.1)
[2018-09-20] MEDS ORDERED: predniSONE 20 MG TAB PO SCH (09:00)
[2018-09-20] MEDS ORDERED: ISOSORBIDE MON. (IMDUR) 30 MG XR TAB PO SCH (09:00)
[2018-09-20] MEDS: AUGMENTIN 875 MG TAB PO SCH ×2 (09:20→20:48)
[2018-09-20] MEDS: VENLAFAXINE **XR** 37.5 MG CAPSULE PO SCH (09:21)
[2018-09-20] MEDS: FUROSEMIDE 40 MG TAB PO SCH (09:21)
[2018-09-20] MEDS: HumaLOG INSULIN (NovoLOG) PER UNIT SC SCH ×4 (09:27→21:00)
[2018-09-20 14:00] VITALS: BP 138/72
--- NOTE | 2018-09-20 15:19 | CR ---
DATE OF CONSULTATION: 09/20/2018 CONSULTATION REPORT FOR: Dr. Katie Pineda REASON FOR CONSULTATION: Evaluation for possible dementia. Jack Tao is a 77-year-old gentleman who is a patient at the [facility] under the care of Dr. Josefina Mcqueen and Rafaela Whitlock PA-C for his dementia. The patient has a history of atrial fibrillation, pacemaker, hypertension, chronic obstructive pulmonary disease (COPD), diabetes, diastolic heart failure, coronary artery disease, depression, and medical noncompliance. The patient was brought to the hospital for confusion and also symptoms of suicidal ideation. The patient is accompanied by a neighbor who was also able to provide history. The patient's neighbor's name is Paloma. Paloma states that Jack has had symptoms of suicidal attempt in the past. The patient is usually pleasantly confused. He needs assistance with his banking and financing. She takes him to the bank. He does his own grocery shopping, so as long as he is taken to the grocery store. He is able to cook for himself, clean for himself, and take care of his own activities of daily living (ADLs). Today on examination, he scored 19 points out of possible 30 points on MMSE examination. The patient has moderate dementia. The patient is fully aware of his memory deficits. He does become quite easily confused and apparently during this hospitalization, he ripped up a 1200 dollar refund check and flushed it down the toilet. The patient also accidentally threw away his wallet into the garbage. The patient has been evaluated by psychiatry who recommended a neurology evaluation. The patient is known to have low normal levels of vitamin B12. REVIEW OF SYSTEMS: 14-point review of systems obtained and is negative except as per history of present illness (HPI). PAST MEDICAL HISTORY: As per HPI. PAST SURGICAL HISTORY: Pacemaker placement, appendectomy, cholecystectomy, cataract surgery. SOCIAL HISTORY: The patient denies use of any alcohol, tobacco or illicit drugs but is a former smoker. FAMILY HISTORY: Noncontributory. ALLERGIES: WARFARIN. LABORATORY FINDINGS: B12 level 271. Head CT shows small-vessel ischemic disease and atrophy. Slightly elevated BUN, creatinine, and blood glucose. MEDICATIONS: Prednisone, Imdur, Lasix, hydralazine, Zofran, Effexor, Augmentin, Haldol as needed, heparin 5000 subcutaneously every eight hours, albuterol, nitroglycerin as needed. PHYSICAL EXAMINATION: Blood pressure 162/70, pulse rate is 90, temperature is 97 degrees Fahrenheit, oxygenation 95% on room air, respiratory rate is 18. MMSE examination is 19 out of 30 points, taken away for not knowing what place he is in, what floor he is on, not knowing the correct year, inability to spell world backwards, missing by three letters, inability to follow a complex command, inability to recall three words after five minutes, and inability to draw a pentagon overlapping another pentagon. The patient is oriented to his name and he is aware that he is in a hospital-like place. There is no dysarthria or aphasia. Pupils are 2-1/2 mm, round and reactive to light. Extraocular movements are intact in all directions without nystagmus. Sensation V1, V2, V3 is intact to light touch. No facial asymmetry to activation. Palate elevates symmetrically. Tongue is midline. No weakness of sternocleidomastoids bilaterally. Hearing is subjectively equal to finger rub. There is no pronator drift. Strength is 5/5 including bilateral deltoids, biceps, triceps, handgrip, iliopsoas, quadriceps, anterior tibialis. Gait is normal. Romberg testing is negative. Sensory is intact to light touch in all four extremities. Coordination: Normal [id number] without any signs of ataxia or dysmetria. ASSESSMENT: 1. Moderate dementia, MMSE score 19 out of 30. 2. B12 deficiency. 3. Depression and history of suicidal ideation with suicidal attempt. PLAN: B12 supplementation can be initiated 1000 mcg intramuscular monthly. The patient can followup in [facility] for ongoing management of dementia. The patient's neighbor, Paloma, is willing to help and assist the patient. She has reached out to family members who are eager to also get involved to assist him.
--- NOTE | 2018-09-20 20:05 | IPNPDOC ---
Text Note Date of Service The patient was seen on 09/20/18. NOTE Patient seen and examined. Denied sob, chest pain. Denied suicidality. No new complaint. PHYSICAL EXAMINATION: GENERAL: The patient is comfortable, NAD HEENT: Normocephalic, atraumatic. PULMONARY: No significant wheeze. CARDIAC: Irregularly irregular, tachycardia. ABDOMEN: Soft, nontender. EXTREMITIES: 1+ bilateral lower extremity edema. ASSESSMENT AND PLAN: This is a 77-year-old male patient with underlying medical history of atrial fibrillation with pacemaker, hypertension, chronic obstructive pulmonary disease (COPD), diabetes, diastolic congestive heart failure, coronary artery disease, gastroesophageal reflux disease (GERD), depression, poor compliance, intermittent confusion. The patient is a poor historian presented with shortness of breath. 1. Shortness of breath likely acute COPD exacerbation. Patient currently switched to Augmentin, taper steroids, respiration almost back to baseline. Nebulizer as needed. 2. Cor pulmonale and pulmonary artery hypertension. The patient was given Lasix. Serial troponin appreciated to be negative. Continue diuresis, strict input/output (Is and Os). 3. Hypertension. The patient has been poorly compliant with medication refusing medication from time to time. Continue hydralazine, imdur. Dosage has been adjusted. 4. Depression. Continue current medication. Effexor has been added. 5. Coronary artery disease. Continue aspirin. Lisinopril has been discontinued given increasing creatinine. hydralazine and imdur 6. Confusion. Dementia. Psychiatry has been consulted. The patient is currently on Effexor. RPR has been negative. CT head repeat has been appreciated. neurology consult appreciated, EEG appreciated. re-evaluation by psych, has capacity to go home. given dementia, need to have a safe dispo plan such as assisted living vs living arrangement with family. PFS consulted. 7. Diabetes. Insulin according to protocol. 8. Elevation in creatinine currently improved. Lisinopril has been on hold. 9. Deep vein thrombosis (DVT) prophylaxis. Heparin subcutaneously. DISPOSITION: railroad worker has also been consulted. VS,Fishbone, I+O VS, Fishbone, I+O Laboratory Tests 09/20/18 06:09 Red Blood Count 4.09 L, Mean Corpuscular Volume 96.1 H, Mean Corpuscular Hemoglobin 30.8, Mean Corpuscular Hemoglobin Concent 32.1, Red Cell Distribution Width 13.2, Calcium Level 8.4 L Vital Signs Date Time Temp Pulse Resp B/P (MAP) Pulse Ox O2 Delivery O2 Flow Rate FiO2 09/20/18 18:32 136/62 09/20/18 14:00 97.5 90 18 93 Room Air 09/17/18 04:00 2.0 I&O- Last 24 Hours up to 6 AM 09/20/18 06:00 Intake Total 780 ml Balance 780 ml DARÍO FLORES MD Sep 20, 2018 20:05
[2018-09-20 22:00] VITALS: BP 117/82
[2018-09-21] MEDS: **hydrALAZINE HCL** 25 MG TAB PO SCH ×3 (03:01→17:58)
[2018-09-21] MEDS: HEPARIN SOD (PORCINE) 5000 UNITS/ML VIAL SC SCH ×3 (05:41→21:29)
[2018-09-21] MEDS: SLF 3 ML SYR IV SCH ×3 (05:41→20:23)
[2018-09-21 06:00] VITALS: BP 123/77
[2018-09-21 06:41] LABS: HEMATOCRIT 41.2 % (42.0-52.0); MEAN CORPUSCULAR HEMOGLOBIN 30.8 pg (27.0-33.0); MEAN CORPUSCULAR HGB CONC 31.6 g/dl (32.0-36.5); MEAN CORPUSCULAR VOLUME 97.6 fl (80.0-96.0); PLATELET COUNT, AUTOMATED 280 10^3/uL (150-450); RED BLOOD COUNT 4.22 10^6/uL (4.30-6.10); WHITE BLOOD COUNT 9.4 10^3/uL (4.0-10.0)
[2018-09-21 07:02] LABS: BLOOD UREA NITROGEN 24 MG/DL (7-18); CALCIUM LEVEL 8.5 MG/DL (8.8-10.2); CARBON DIOXIDE LEVEL 34 MEQ/L (21-32); CHLORIDE LEVEL 99 MEQ/L (98-107); CREATININE FOR GFR 1.16 MG/DL (0.70-1.30); GLOMERULAR FILTRATION RATE > 60.0 (>42); GLUCOSE, FASTING 118 MG/DL (70-100); POTASSIUM SERUM 4.3 MEQ/L (3.5-5.1); SODIUM LEVEL 137 MEQ/L (136-145)
[2018-09-21] MEDS: AUGMENTIN 875 MG TAB PO SCH ×2 (08:13→20:27)
[2018-09-21] MEDS: predniSONE 10 MG TAB PO SCH (08:13)
[2018-09-21] MEDS: HumaLOG INSULIN (NovoLOG) PER UNIT SC SCH ×4 (08:13→20:22)
[2018-09-21] MEDS: ISOSORBIDE MON. (IMDUR) 30 MG XR TAB PO SCH (08:14)
[2018-09-21] MEDS: FUROSEMIDE 40 MG TAB PO SCH (08:14)
[2018-09-21] MEDS: VENLAFAXINE **XR** 37.5 MG CAPSULE PO SCH (08:14)
[2018-09-21 14:00] VITALS: BP 107/53
--- NOTE | 2018-09-21 16:28 | IPNPDOC ---
Text Note Date of Service The patient was seen on 09/21/18. NOTE Patient seen and examined. Denied sob, chest pain.. No new complaint. PHYSICAL EXAMINATION: GENERAL: The patient is comfortable, NAD HEENT: Normocephalic, atraumatic. PULMONARY: No significant wheeze. CARDIAC: Irregularly irregular, tachycardia. ABDOMEN: Soft, nontender. EXTREMITIES: 1+ bilateral lower extremity edema. ASSESSMENT AND PLAN: This is a 77-year-old male patient with underlying medical history of atrial fibrillation with pacemaker, hypertension, chronic obstructive pulmonary disease (COPD), diabetes, diastolic congestive heart failure, coronary artery disease, gastroesophageal reflux disease (GERD), depression, poor compliance, intermittent confusion. The patient is a poor historian presented with shortness of breath. 1. Shortness of breath likely acute COPD exacerbation. conmpleted antibiotics, taper steroids, respiration almost back to baseline. Nebulizer as needed. 2. Cor pulmonale and pulmonary artery hypertension. The patient was given Lasix. Serial troponin appreciated to be negative. Continue diuresis, strict input/output (Is and Os). 3. Hypertension. The patient has been poorly compliant with medication refusing medication from time to time. Continue hydralazine, imdur. Dosage has been adjusted. 4. Depression. Continue current medication. Effexor has been added. 5. Coronary artery disease. Continue aspirin. Lisinopril has been discontinued given increasing creatinine. hydralazine and imdur 6. Confusion. Dementia. Psychiatry has been consulted. The patient is currently on Effexor. RPR has been negative. CT head repeat has been appreciated. neurology consult appreciated, EEG appreciated. re-evaluation by psych, has capacity to go home. given dementia, need to have a safe dispo plan such as assisted living vs living arrangement with family. PFS consulted. 7. Diabetes. Insulin according to protocol. 8. Elevation in creatinine currently improved. Lisinopril has been on hold. 9. Deep vein thrombosis (DVT) prophylaxis. Heparin subcutaneously. DISPOSITION: gas worker has also been consulted. ACP 30min MOLST form complete, DNR/DNI, patient stated if he dies he does not want to be brought back and he does not want to be kept alive on the light support machine. VS,Fishbone, I+O VS, Fishbone, I+O Laboratory Tests 09/21/18 06:13 Red Blood Count 4.22 L, Mean Corpuscular Volume 97.6 H, Mean Corpuscular Hemoglobin 30.8, Mean Corpuscular Hemoglobin Concent 31.6 L, Red Cell Distribution Width 13.2, Calcium Level 8.5 L Vital Signs Date Time Temp Pulse Resp B/P (MAP) Pulse Ox O2 Delivery O2 Flow Rate FiO2 09/21/18 14:00 97.7 86 17 107/53 (71) 97 Room Air 09/17/18 04:00 2.0 I&O- Last 24 Hours up to 6 AM 09/21/18 06:00 Intake Total 1580 ml Output Total 0 ml Balance 1580 ml DARÍO FLORES MD Sep 21, 2018 16:28
[2018-09-21 22:00] VITALS: BP 128/61
[2018-09-22] MEDS: **hydrALAZINE HCL** 25 MG TAB PO SCH ×3 (02:01→18:02)
[2018-09-22] MEDS: HEPARIN SOD (PORCINE) 5000 UNITS/ML VIAL SC SCH ×3 (05:50→21:40)
[2018-09-22] MEDS: SLF 3 ML SYR IV SCH (05:51)
[2018-09-22 06:00] VITALS: BP 148/76
[2018-09-22] MEDS: AUGMENTIN 875 MG TAB PO SCH (08:26)
[2018-09-22] MEDS: predniSONE 10 MG TAB PO SCH (08:26)
[2018-09-22] MEDS: ISOSORBIDE MON. (IMDUR) 30 MG XR TAB PO SCH (08:26)
[2018-09-22] MEDS: HumaLOG INSULIN (NovoLOG) PER UNIT SC SCH ×4 (08:27→21:40)
[2018-09-22] MEDS: FUROSEMIDE 40 MG TAB PO SCH (08:27)
[2018-09-22] MEDS: VENLAFAXINE **XR** 37.5 MG CAPSULE PO SCH (08:27)
[2018-09-22 14:00] VITALS: BP 111/51
--- NOTE | 2018-09-22 19:18 | IPNPDOC ---
Text Note Date of Service The patient was seen on 09/22/18. NOTE Patient seen and examined. Denied sob, chest pain.. No new complaint. continue to have dementia need daily reorienting PHYSICAL EXAMINATION: GENERAL: The patient is comfortable, NAD HEENT: Normocephalic, atraumatic. PULMONARY: No significant wheeze. CARDIAC: Irregularly irregular, tachycardia. ABDOMEN: Soft, nontender. EXTREMITIES: 1+ bilateral lower extremity edema. ASSESSMENT AND PLAN: This is a 77-year-old male patient with underlying medical history of atrial fibrillation with pacemaker, hypertension, chronic obstructive pulmonary disease (COPD), diabetes, diastolic congestive heart failure, coronary artery disease, gastroesophageal reflux disease (GERD), depression, poor compliance, intermittent confusion. The patient is a poor historian presented with shortness of breath. 1. Shortness of breath likely acute COPD exacerbation. conmpleted antibiotics, taperred off steroids, respiration almost back to baseline. Nebulizer as needed. 2. Cor pulmonale and pulmonary artery hypertension. The patient was given Lasix. Serial troponin appreciated to be negative. Continue diuresis, strict input/output (Is and Os). 3. Hypertension. Continue hydralazine, imdur. Dosage has been adjusted. 4. Depression. Continue current medication. Effexor has been added. 5. Coronary artery disease. Continue aspirin. Lisinopril has been discontinued given increasing creatinine. hydralazine and imdur 6. Confusion. Dementia. Psychiatry has been consulted. The patient is currently on Effexor. RPR has been negative. CT head repeat has been appreciated. neurology consult appreciated, EEG appreciated. re-evaluation by psych, has cap acity to go home. given dementia, need to have a safe dispo plan such as assisted living vs living arrangement with family. PFS consulted. 7. Diabetes. Insulin according to protocol. 8. Elevation in creatinine currently improved. Lisinopril has been on hold. 9. Deep vein thrombosis (DVT) prophylaxis. Heparin subcutaneously. DISPOSITION: ornamental bronze worker has also been consulted. assisted living VS,Fishbone, I+O VS, Fishbone, I+O Vital Signs Date Time Temp Pulse Resp B/P (MAP) Pulse Ox O2 Delivery O2 Flow Rate FiO2 09/22/18 18:02 143/64 09/22/18 14:00 96.7 79 18 93 Room Air 09/17/18 04:00 2.0 I&O- Last 24 Hours up to 6 AM 09/22/18 05:59 Intake Total 2340 ml Output Total 0 ml Balance 2340 ml DARÍO FLORES MD Sep 22, 2018 19:18
[2018-09-22 20:00] VITALS: BP 115/50
[2018-09-22 22:00] VITALS: BP 115/50
[2018-09-23] MEDS: **hydrALAZINE HCL** 25 MG TAB PO SCH ×3 (03:27→18:10)
[2018-09-23] MEDS: HEPARIN SOD (PORCINE) 5000 UNITS/ML VIAL SC SCH ×3 (05:19→22:08)
[2018-09-23 06:00] VITALS: BP 163/74
[2018-09-23 06:10] LABS: HEMATOCRIT 44.2 % (42.0-52.0); MEAN CORPUSCULAR HGB CONC 31.7 g/dl (32.0-36.5); PLATELET COUNT, AUTOMATED 297 10^3/uL (150-450); RED BLOOD COUNT 4.51 10^6/uL (4.30-6.10); WHITE BLOOD COUNT 9.9 10^3/uL (4.0-10.0)
[2018-09-23 06:39] LABS: CALCIUM LEVEL 8.6 MG/DL (8.8-10.2); CREATININE FOR GFR 1.28 MG/DL (0.70-1.30); MAGNESIUM LEVEL 2.3 MG/DL (1.8-2.4); POTASSIUM SERUM 4.4 MEQ/L (3.5-5.1)
[2018-09-23] MEDS: FUROSEMIDE 40 MG TAB PO SCH (08:51)
[2018-09-23] MEDS: VENLAFAXINE **XR** 37.5 MG CAPSULE PO SCH (08:51)
[2018-09-23] MEDS: HumaLOG INSULIN (NovoLOG) PER UNIT SC SCH ×4 (08:51→21:00)
[2018-09-23] MEDS: ISOSORBIDE MON. (IMDUR) 30 MG XR TAB PO SCH (08:52)
[2018-09-23 14:00] VITALS: BP 106/54
[2018-09-23 14:10] LABS: BODY FLUID CULTURE Not Indicated (.); LEGIONELLA ANTIGEN URINE Negative (Negative); ORGANISM ID Not indicated. (.); SPECIMEN SOURCE Urine (.); URINE STREP PNEUMONIAE ANTIGEN Negative (Negative)
--- NOTE | 2018-09-23 16:53 | IPNPDOC ---
Text Note Date of Service The patient was seen on 09/23/18. NOTE Patient seen and examined. Denied sob, chest pain.. No new complaint. continue to have dementia need daily reorienting PHYSICAL EXAMINATION: GENERAL: The patient is comfortable, NAD HEENT: Normocephalic, atraumatic. PULMONARY: No significant wheeze. CARDIAC: Irregularly irregular, tachycardia. ABDOMEN: Soft, nontender. EXTREMITIES: 1+ bilateral lower extremity edema. ASSESSMENT AND PLAN: This is a 77-year-old male patient with underlying medical history of atrial fibrillation with pacemaker, hypertension, chronic obstructive pulmonary disease (COPD), diabetes, diastolic congestive heart failure, coronary artery disease, gastroesophageal reflux disease (GERD), depression, poor compliance, intermittent confusion. The patient is a poor historian presented with shortness of breath. 1. Shortness of breath likely acute COPD exacerbation. conmpleted antibiotics, taperred off steroids, respiration almost back to baseline. Nebulizer as needed. 2. Cor pulmonale and pulmonary artery hypertension. The patient was given Lasix. Serial troponin appreciated to be negative. Continue diuresis, strict input/output (Is and Os). 3. Hypertension. Continue hydralazine, imdur. Dosage has been adjusted. 4. Depression. Continue current medication. Effexor has been added. psych consult appreciated 5. Coronary artery disease. Continue aspirin. Lisinopril has been discontinued given increasing creatinine. hydralazine and imdur 6. Confusion. Dementia. Psychiatry has been consulted. The patient is currently on Effexor. RPR has been negative. CT head repeat has been appreciated. Neurology consult appreciated, EEG appreciated. re-evaluation by psych, has capacity to go home. given dementia, need to have a safe dispo plan such as assisted living vs living arrangement with family. PFS consulted. 7. Diabetes. Insulin according to protocol. restart metformin as outpatient 8. Elevation in creatinine currently improved. Lisinopril has been on hold. 9. Deep vein thrombosis (DVT) prophylaxis. Heparin subcutaneously. DISPOSITION: farmworker field crop has also been consulted. assisted living VS,Amado, I+O VS, Amado, I+O Laboratory Tests 09/23/18 05:28 Red Blood Count 4.51, Mean Corpuscular Volume 98.0 H, Mean Corpuscular Hemoglobin 31.0, Mean Corpuscular Hemoglobin Concent 31.7 L, Red Cell Distribution Width 13.2, Calcium Level 8.6 L Vital Signs Date Time Temp Pulse Resp B/P (MAP) Pulse Ox O2 Delivery O2 Flow Rate FiO2 09/23/18 14:00 98.4 83 18 106/54 (71) 96 Room Air 09/17/18 04:00 2.0 I&O- Last 24 Hours up to 6 AM 09/23/18 06:00 Intake Total 1140 ml Output Total 0 ml Balance 1140 ml DARÍO FLORES MD Sep 23, 2018 16:53
[2018-09-23 22:00] VITALS: BP 136/63
[2018-09-24] MEDS: **hydrALAZINE HCL** 25 MG TAB PO SCH ×3 (03:31→17:06)
[2018-09-24 06:00] VITALS: BP 143/77
[2018-09-24] MEDS: HEPARIN SOD (PORCINE) 5000 UNITS/ML VIAL SC SCH ×3 (06:15→21:19)
[2018-09-24] MEDS: HumaLOG INSULIN (NovoLOG) PER UNIT SC SCH ×4 (08:24→21:00)
[2018-09-24] MEDS: VENLAFAXINE **XR** 37.5 MG CAPSULE PO SCH (08:24)
[2018-09-24] MEDS: FUROSEMIDE 40 MG TAB PO SCH (08:25)
[2018-09-24] MEDS: ISOSORBIDE MON. (IMDUR) 30 MG XR TAB PO SCH (08:25)
[2018-09-24 14:00] VITALS: BP 161/87
--- NOTE | 2018-09-24 14:56 | IPNPDOC ---
Text Note Date of Service The patient was seen on 09/24/18. NOTE Subjective: Patient denies any shortness of breath. No cough. No chest pain or palpitations. Feels well. Objective: Vitals: (see below) General: No acute distress, laying comfortably in bed. HEENT: Moist mucous membranes. Neck: No JVD or lymphadenopathy Cardiac: RRR, No murmurs Pulm: Clear to auscultation b/l. No wheezing, rhonchi Abd: NT/ND + BS Ext: No edema or cyanosis Labs (see below) Assessment/Plan 1. Status post acute COPD exacerbation. Improved. Completed abx and tapered off steroids. At baseline. Nebulizers as needed. 2. Cor pulmonale pulmonary hypertension. Will need outpatient follow-up. 3. Hypertension controlled continue current meds. 4. History of depression continue patient's home meds. Effexor has been adequately psych 5. History of CAD continue aspirin. Lisinopril discontinued given rising creatinine. On hydralazine and indur. We will add low-dose beta tryone. 6. Diabetes mellitus continue current settings insulin. 7. Confusion/dementia. Psychiatry consulted. On Effexor. CT head negative for acute findings. Neurology consulted. DVT prophy: Heparin subcutaneous Overall prognosis guarded. Will likely need placement. VS,Fishbone, I+O VS, Fishbone, I+O Vital Signs Date Time Temp Pulse Resp B/P (MAP) Pulse Ox O2 Delivery O2 Flow Rate FiO2 09/24/18 10:34 153/72 09/24/18 06:00 98.8 70 18 95 Room Air I&O- Last 24 Hours up to 6 AM 09/24/18 06:00 Intake Total 1560 ml Balance 1560 ml TOMI PEÑA MD Sep 24, 2018 14:56
[2018-09-24] MEDS: CARVedilol 3.125 MG TAB PO SCH (21:19)
[2018-09-24 22:00] VITALS: BP 133/62
[2018-09-25] MEDS: **hydrALAZINE HCL** 25 MG TAB PO SCH ×3 (03:10→18:03)
[2018-09-25 06:00] VITALS: BP 169/77
[2018-09-25] MEDS: HEPARIN SOD (PORCINE) 5000 UNITS/ML VIAL SC SCH ×3 (06:09→21:53)
[2018-09-25 06:12] LABS: HEMATOCRIT 41.8 % (42.0-52.0); HEMOGLOBIN 13.4 g/dl (13.5-17.5); MEAN CORPUSCULAR HEMOGLOBIN 30.5 pg (27.0-33.0); MEAN CORPUSCULAR HGB CONC 32.1 g/dl (32.0-36.5); MEAN CORPUSCULAR VOLUME 95.2 fl (80.0-96.0); PLATELET COUNT, AUTOMATED 285 10^3/uL (150-450); RED BLOOD COUNT 4.39 10^6/uL (4.30-6.10); WHITE BLOOD COUNT 7.7 10^3/uL (4.0-10.0)
[2018-09-25 06:37] LABS: CALCIUM LEVEL 8.1 MG/DL (8.8-10.2); CREATININE FOR GFR 1.28 MG/DL (0.70-1.30); MAGNESIUM LEVEL 2.4 MG/DL (1.8-2.4); POTASSIUM SERUM 4.4 MEQ/L (3.5-5.1)
[2018-09-25] MEDS: ISOSORBIDE MON. (IMDUR) 30 MG XR TAB PO SCH (08:29)
[2018-09-25] MEDS: FUROSEMIDE 40 MG TAB PO SCH (08:30)
[2018-09-25] MEDS: CARVedilol 3.125 MG TAB PO SCH ×2 (08:30→21:55)
[2018-09-25] MEDS: VENLAFAXINE **XR** 37.5 MG CAPSULE PO SCH (08:30)
[2018-09-25] MEDS: HumaLOG INSULIN (NovoLOG) PER UNIT SC SCH ×4 (08:32→21:00)
--- NOTE | 2018-09-25 12:54 | IPNPDOC ---
Text Note Date of Service The patient was seen on 09/25/18. NOTE Subjective: Feels well. Denies any complaints. Objective: Vitals: (see below) General: No acute distress, laying comfortably in bed. HEENT: Moist mucous membranes. Neck: No JVD or lymphadenopathy Cardiac: RRR, No murmurs Pulm: Clear to auscultation b/l. No wheezing, rhonchi Abd: NT/ND + BS Ext: No edema or cyanosis Labs (see below) Assessment/Plan 1. Status post acute COPD exacerbation. Improved. Completed abx and tapered off steroids. At baseline. Nebulizers as needed. 2. Cor pulmonale pulmonary hypertension. Will need outpatient follow-up. 3. Hypertension controlled continue current meds. 4. History of depression continue patient's home meds. Effexor has been a dequately psych 5. History of CAD continue aspirin. Lisinopril discontinued given rising creatinine. On hydralazine and indur. We will add low-dose beta tyrone. 6. Diabetes mellitus continue current settings insulin. 7. Confusion/dementia. Psychiatry consulted. On Effexor. CT head negative for acute findings. Neurology consulted. DVT prophy: Heparin subcutaneous Overall prognosis guarded. Will likely need placement. CM on board. VS,Fishbone, I+O VS, Fishbone, I+O Laboratory Tests 09/25/18 05:55 Red Blood Count 4.39, Mean Corpuscular Volume 95.2, Mean Corpuscular Hemoglobin 30.5, Mean Corpuscular Hemoglobin Concent 32.1, Red Cell Distribution Width 13.2, Calcium Level 8.1 L Vital Signs Date Time Temp Pulse Resp B/P (MAP) Pulse Ox O2 Delivery O2 Flow Rate FiO2 09/25/18 08:30 69 169/77 09/25/18 06:00 98.1 18 95 Room Air I&O- Last 24 Hours up to 6 AM 09/25/18 06:00 Intake Total 1680 ml Balance 1680 ml TOMI PEÑA MD Sep 25, 2018 12:54
[2018-09-25] MEDS ORDERED: amLODIPine 5 MG TAB PO ONE (13:00)
[2018-09-25 13:30] VITALS: BP 127/60
[2018-09-25 14:00] VITALS: BP 129/71
[2018-09-25 22:00] VITALS: BP 134/60
[2018-09-26] MEDS: **hydrALAZINE HCL** 25 MG TAB PO SCH ×3 (02:59→17:27)
[2018-09-26] MEDS: HEPARIN SOD (PORCINE) 5000 UNITS/ML VIAL SC SCH ×3 (05:33→20:43)
[2018-09-26 06:00] VITALS: BP 170/73
[2018-09-26] MEDS: FUROSEMIDE 40 MG TAB PO SCH (08:18)
[2018-09-26] MEDS: VENLAFAXINE **XR** 37.5 MG CAPSULE PO SCH (08:18)
[2018-09-26] MEDS: ISOSORBIDE MON. (IMDUR) 30 MG XR TAB PO SCH (08:19)
[2018-09-26] MEDS: HumaLOG INSULIN (NovoLOG) PER UNIT SC SCH ×4 (08:19→21:00)
[2018-09-26] MEDS: CARVedilol 3.125 MG TAB PO SCH ×2 (08:19→20:42)
[2018-09-26] MEDS ORDERED: LEVEMIR (INSULIN DETEMIR) 1 UNITS/0.01ML SC SCH (09:00)
[2018-09-26] MEDS: amLODIPine 5 MG TAB PO SCH (09:29)
--- NOTE | 2018-09-26 12:57 | IPNPDOC ---
Text Note Date of Service The patient was seen on 09/26/18. NOTE Subjective: Feels well. Denies any complaints. Anxious to find placement. Objective: Vitals: (see below) General: No acute distress, laying comfortably in bed. HEENT: Moist mucous membranes. Neck: No JVD or lymphadenopathy Cardiac: RRR, No murmurs Pulm: Clear to auscultation b/l. No wheezing, rhonchi Abd: NT/ND + BS Ext: No edema or cyanosis Labs (see below) Assessment/Plan 1. Status post acute COPD exacerbation. Improved. Completed abx and tapered off steroids. At baseline. Nebulizers as needed. 2. Cor pulmonale pulmonary hypertension. Will need outpatient follow-up. 3. Hypertension controlled continue current meds. 4. History of depression continue patient's home meds. Effexor has been adequately psych 5. History of CAD continue aspirin. Lisinopril discontinued given rising creatinine. On hydralazine and indur. We will add low-dose beta tyrone. 6. Diabetes mellitus continue current settings insulin. Levemir added 7. Confusion/dementia. Psychiatry consulted. On Effexor. CT head negative for acute findings. Neurology consulted. DVT prophy: Heparin subcutaneous Overall prognosis guarded. Will likely need placement. CM on board VS,Fishbone, I+O VS, Fishbone, I+O Vital Signs Date Time Temp Pulse Resp B/P (MAP) Pulse Ox O2 Delivery O2 Flow Rate FiO2 09/26/18 09:29 113/55 09/26/18 08:19 75 09/26/18 06:00 98.3 18 94 Room Air I&O- Last 24 Hours up to 6 AM 09/26/18 06:00 Intake Total 2040 ml Output Total 0 ml Balance 2040 ml TOMI PEÑA MD Sep 26, 2018 12:57
[2018-09-26] MEDS ORDERED: SITagliptin 50 MG TAB (JANUVIA) PO ONE (13:45)
[2018-09-26 14:00] VITALS: BP 149/68
[2018-09-26] MEDS: metFORMIN (GLUCOPHAGE) 500 MG TAB PO SCH (20:42)
[2018-09-26 22:00] VITALS: BP 133/63
[2018-09-27] MEDS: **hydrALAZINE HCL** 25 MG TAB PO SCH ×3 (01:51→18:50)
[2018-09-27] MEDS: HEPARIN SOD (PORCINE) 5000 UNITS/ML VIAL SC SCH ×3 (05:33→20:42)
[2018-09-27 06:00] VITALS: BP 141/69
[2018-09-27 06:59] LABS: HEMOGLOBIN 13.6 g/dl (13.5-17.5); MEAN CORPUSCULAR HEMOGLOBIN 30.9 pg (27.0-33.0); MEAN CORPUSCULAR HGB CONC 31.6 g/dl (32.0-36.5); MEAN CORPUSCULAR VOLUME 97.7 fl (80.0-96.0); PLATELET COUNT, AUTOMATED 289 10^3/uL (150-450); WHITE BLOOD COUNT 7.7 10^3/uL (4.0-10.0)
[2018-09-27 07:25] LABS: CALCIUM LEVEL 8.3 MG/DL (8.8-10.2); CREATININE FOR GFR 1.37 MG/DL (0.70-1.30); GLOMERULAR FILTRATION RATE 53.6 (>42); MAGNESIUM LEVEL 2.2 MG/DL (1.8-2.4); POTASSIUM SERUM 4.6 MEQ/L (3.5-5.1)
[2018-09-27] MEDS: HumaLOG INSULIN (NovoLOG) PER UNIT SC SCH ×4 (08:41→20:20)
[2018-09-27] MEDS: metFORMIN (GLUCOPHAGE) 500 MG TAB PO SCH ×2 (08:42→20:41)
[2018-09-27] MEDS: amLODIPine 5 MG TAB PO SCH (08:45)
[2018-09-27] MEDS: FUROSEMIDE 40 MG TAB PO SCH (08:46)
[2018-09-27] MEDS: SITagliptin 50 MG TAB (JANUVIA) PO SCH (08:46)
[2018-09-27] MEDS: CARVedilol 3.125 MG TAB PO SCH ×2 (08:46→20:41)
[2018-09-27] MEDS: VENLAFAXINE **XR** 37.5 MG CAPSULE PO SCH (08:47)
[2018-09-27] MEDS: ISOSORBIDE MON. (IMDUR) 30 MG XR TAB PO SCH (08:47)
--- NOTE | 2018-09-27 13:22 | IPNPDOC ---
Text Note Date of Service The patient was seen on 09/27/18. NOTE Subjective: Denies any complaints. Objective: Vitals: (see below) General: No acute distress, laying comfortably in bed. HEENT: Moist mucous membranes. Neck: No JVD or lymphadenopathy Cardiac: RRR, No murmurs Pulm: Clear to auscultation b/l. No wheezing, rhonchi Abd: NT/ND + BS Ext: No edema or cyanosis Labs (see below) Assessment/Plan 1. Status post acute COPD exacerbation. Improved. Completed abx and tapered off steroids. At baseline. Nebulizers as needed. 2. Cor pulmonale pulmonary hypertension. Will need outpatient follow-up. 3. Hypertension controlled continue current meds. 4. History of depression continue patient's home meds. Effexor has been adequately psych 5. History of CAD continue aspirin. Lisinopril discontinued given rising creatinine. On hydralazine and indur. We will add low-dose beta tyrone. 6. Diabetes mellitus continue current settings insulin. Levemir added 7. Confusion/dementia. Psychiatry consulted. On Effexor. CT head negative for a cute findings. Neurology consulted. DVT prophy: Heparin subcutaneous Overall prognosis guarded. Will likely need placement. CM on board VS,Amado, I+O VS, Amado, I+O Laboratory Tests 09/27/18 06:17 Red Blood Count 4.40, Mean Corpuscular Volume 97.7 H, Mean Corpuscular Hemoglobin 30.9, Mean Corpuscular Hemoglobin Concent 31.6 L, Red Cell Distribu tion Width 13.2, Calcium Level 8.3 L Vital Signs Date Time Temp Pulse Resp B/P (MAP) Pulse Ox O2 Delivery O2 Flow Rate FiO2 09/27/18 10:13 115/58 09/27/18 08:45 76 09/27/18 06:00 97.5 20 94 Room Air I&O- Last 24 Hours up to 6 AM 09/27/18 05:59 Intake Total 1440 ml Output Total 0 ml Balance 1440 ml TOMI PEÑA MD Sep 27, 2018 13:22
[2018-09-27 14:00] VITALS: BP 146/55
[2018-09-27 22:00] VITALS: BP 122/57
[2018-09-28] MEDS: **hydrALAZINE HCL** 25 MG TAB PO SCH ×3 (02:10→17:44)
[2018-09-28] MEDS: HEPARIN SOD (PORCINE) 5000 UNITS/ML VIAL SC SCH ×3 (05:33→22:13)
[2018-09-28 06:00] VITALS: BP 159/67
[2018-09-28] MEDS: SITagliptin 50 MG TAB (JANUVIA) PO SCH (08:38)
[2018-09-28] MEDS: VENLAFAXINE **XR** 37.5 MG CAPSULE PO SCH (08:38)
[2018-09-28] MEDS: HumaLOG INSULIN (NovoLOG) PER UNIT SC SCH ×4 (08:38→21:00)
[2018-09-28] MEDS: metFORMIN (GLUCOPHAGE) 500 MG TAB PO SCH ×2 (08:39→22:14)
[2018-09-28] MEDS: FUROSEMIDE 40 MG TAB PO SCH (08:39)
[2018-09-28] MEDS: CARVedilol 3.125 MG TAB PO SCH ×2 (08:42→21:00)
[2018-09-28] MEDS: amLODIPine 5 MG TAB PO SCH (08:42)
[2018-09-28] MEDS: ISOSORBIDE MON. (IMDUR) 30 MG XR TAB PO SCH (08:43)
[2018-09-28] MEDS ORDERED: NS 1,000 ML IV SCH (09:00)
[2018-09-28 14:00] VITALS: BP 152/67
--- NOTE | 2018-09-28 15:52 | IPNPDOC ---
Text Note Date of Service The patient was seen on 09/28/18. NOTE Subjective: No acute changes overnight. Objective: Vitals: (see below) General: No acute distress, laying comfortably in bed. HEENT: Moist mucous membranes. Neck: No JVD or lymphadenopathy Cardiac: RRR, No murmurs Pulm: Clear to auscultation b/l. No wheezing, rhonchi Abd: NT/ND + BS Ext: No edema or cyanosis Labs (see below) Assessment/Plan 1. Status post acute COPD exacerbation. Improved. Completed abx and tapered off steroids. At baseline. Nebulizers as needed. 2. Cor pulmonale pulmonary hypertension. Will need outpatient follow-up. 3. Hypertension controlled continue current meds. 4. History of depression continue patient's home meds. Effexor has been adequately psych 5. History of CAD continue aspirin. Lisinopril discontinued given rising creatinine. On hydralazine and indur. We will add low-dose beta tyrone. 6. Diabetes mellitus continue current settings insulin. Levemir added 7. Confusion/dementia. Psychiatry consulted. On Effexor. CT head negative for acute findings. Neurology consulted. DVT prophy: Heparin subcutaneous Overall prognosis guarded. Will likely need placement. CM on board VS,Fishbone, I+O VS, Fishbone, I+O Vital Signs Date Time Temp Pulse Resp B/P (MAP) Pulse Ox O2 Delivery O2 Flow Rate FiO2 09/28/18 10:14 141/52 09/28/18 08:42 71 09/28/18 06:00 98.2 20 94 Room Air I&O- Last 24 Hours up to 6 AM 09/28/18 05:59 Intake Total 1560 ml Output Total 0 ml Balance 1560 ml TOMI PEÑA MD Sep 28, 2018 15:52
[2018-09-28 22:00] VITALS: BP 167/78
[2018-09-29] MEDS: **hydrALAZINE HCL** 25 MG TAB PO SCH ×3 (02:33→17:42)
[2018-09-29 06:00] VITALS: BP 142/55
[2018-09-29 06:09] LABS: HEMATOCRIT 39.8 % (42.0-52.0); HEMOGLOBIN 12.5 g/dl (13.5-17.5); MEAN CORPUSCULAR HGB CONC 31.4 g/dl (32.0-36.5); MEAN CORPUSCULAR VOLUME 98.8 fl (80.0-96.0); PLATELET COUNT, AUTOMATED 253 10^3/uL (150-450); RED BLOOD COUNT 4.03 10^6/uL (4.30-6.10); WHITE BLOOD COUNT 7.8 10^3/uL (4.0-10.0)
[2018-09-29] MEDS: HEPARIN SOD (PORCINE) 5000 UNITS/ML VIAL SC SCH ×3 (06:24→21:50)
[2018-09-29 06:37] LABS: CALCIUM LEVEL 8.4 MG/DL (8.8-10.2); CREATININE FOR GFR 1.31 MG/DL (0.70-1.30); GLOMERULAR FILTRATION RATE 56.5 (>42); MAGNESIUM LEVEL 2.1 MG/DL (1.8-2.4); POTASSIUM SERUM 4.7 MEQ/L (3.5-5.1)
[2018-09-29] MEDS: amLODIPine 5 MG TAB PO SCH (08:37)
[2018-09-29] MEDS: FUROSEMIDE 40 MG TAB PO SCH (08:37)
[2018-09-29] MEDS: metFORMIN (GLUCOPHAGE) 500 MG TAB PO SCH ×2 (08:37→21:50)
[2018-09-29] MEDS: ISOSORBIDE MON. (IMDUR) 30 MG XR TAB PO SCH (08:39)
[2018-09-29] MEDS: SITagliptin 50 MG TAB (JANUVIA) PO SCH (08:39)
[2018-09-29] MEDS: CARVedilol 3.125 MG TAB PO SCH ×2 (08:39→21:50)
[2018-09-29] MEDS: HumaLOG INSULIN (NovoLOG) PER UNIT SC SCH ×4 (08:40→21:00)
[2018-09-29] MEDS: VENLAFAXINE **XR** 37.5 MG CAPSULE PO SCH (08:44)
--- NOTE | 2018-09-29 11:38 | IPNPDOC ---
Text Note Date of Service The patient was seen on 09/29/18. NOTE Subjective: Pending placement. Denies any complaints. Objective: Vitals: (see below) General: No acute distress, laying comfortably in bed. HEENT: Moist mucous membranes. Neck: No JVD or lymphadenopathy Cardiac: RRR, No murmurs Pulm: Clear to auscultation b/l. No wheezing, rhonchi Abd: NT/ND + BS Ext: No edema or cyanosis Labs (see below) Assessment/Plan 1. Status post acute COPD exacerbation. Improved. Completed abx and tapered off steroids. At baseline. Nebulizers as needed. 2. Cor pulmonale pulmonary hypertension. Will need outpatient follow-up. 3. Hypertension controlled continue current meds. 4. History of depression continue patient's home meds. Effexor has been adequately psych 5. History of CAD continue aspirin. Lisinopril discontinued given rising crea tinine. On hydralazine and indur. We will add low-dose beta tyrone. 6. Diabetes mellitus continue current settings insulin. Levemir added 7. Confusion/dementia. Psychiatry consulted. On Effexor. CT head negative for acute findings. Neurology consulted. DVT prophy: Heparin subcutaneous Overall prognosis guarded. Will likely need placement. CM on board VS,Amado, I+O VS, Amado, I+O Laboratory Tests 09/29/18 05:44 Red Blood Count 4.03 L, Mean Corpuscular Volume 98.8 H, Mean Corpuscular Hemoglobin 31.0, Mean Corpuscular Hemoglobin Concent 31.4 L, Red Cell Distribution Width 13.2, Calcium Level 8.4 L Vital Signs Date Time Temp Pulse Resp B/P (MAP) Pulse Ox O2 Delivery O2 Flow Rate FiO2 09/29/18 08:39 70 142/55 09/29/18 06:00 98.5 20 94 Room Air I&O- Last 24 Hours up to 6 AM 09/29/18 05:59 Intake Total 2440 ml Output Total 0 ml Balance 2440 ml TOMI PEÑA MD Sep 29, 2018 11:38
[2018-09-29 22:00] VITALS: BP 156/67
[2018-09-30] MEDS: **hydrALAZINE HCL** 25 MG TAB PO SCH ×3 (02:25→17:30)
[2018-09-30 06:00] VITALS: BP 163/76
[2018-09-30] MEDS: HEPARIN SOD (PORCINE) 5000 UNITS/ML VIAL SC SCH ×3 (06:14→23:08)
[2018-09-30] MEDS: SITagliptin 50 MG TAB (JANUVIA) PO SCH (09:02)
[2018-09-30] MEDS: VENLAFAXINE **XR** 37.5 MG CAPSULE PO SCH (09:02)
[2018-09-30] MEDS: FUROSEMIDE 40 MG TAB PO SCH (09:03)
[2018-09-30] MEDS: metFORMIN (GLUCOPHAGE) 500 MG TAB PO SCH ×2 (09:03→23:09)
[2018-09-30] MEDS: ISOSORBIDE MON. (IMDUR) 30 MG XR TAB PO SCH (09:03)
[2018-09-30] MEDS: CARVedilol 3.125 MG TAB PO SCH ×2 (09:04→23:08)
[2018-09-30] MEDS: amLODIPine 5 MG TAB PO SCH (09:04)
[2018-09-30] MEDS: HumaLOG INSULIN (NovoLOG) PER UNIT SC SCH ×4 (09:05→21:00)
--- NOTE | 2018-09-30 10:37 | IPNPDOC ---
Text Note Date of Service The patient was seen on 09/30/18. NOTE Subjective: Pending placement. Denies any complaints. Feels well. No CP/SOB/palpitations. Objective: Vitals: (see below) General: No acute distress, laying comfortably in bed. HEENT: Moist mucous membranes. Neck: No JVD or lymphadenopathy Cardiac: RRR, No murmurs Pulm: Clear to auscultation b/l. No wheezing, rhonchi Abd: NT/ND + BS Ext: No edema or cyanosis Labs (see below) Assessment/Plan 1. Status post acute COPD exacerbation. Improved. Completed abx and tapered off steroids. At baseline. Nebulizers as needed. 2. Cor pulmonale pulmonary hypertension. Will need outpatient follow-up. 3. Hypertension controlled continue current meds. 4. History of depression continue patient's home meds. Effexor has been adequately psych 5. History of CAD continue aspirin. Lisinopril discontinued given rising creatinine. On hydralazine and indur. We will add low-dose beta tyrone. 6. Diabetes mellitus continue current settings insulin. Levemir added 7. Confusion/dementia. Psychiatry consulted. On Effexor. CT head negative for acute findings. Neurology consulted. DVT prophy: Heparin subcutaneous Overall prognosis guarded. Will likely need placement. CM on board. Place on ALC status. VS,Fishbone, I+O VS, Fishbone, I+O Vital Signs Date Time Temp Pulse Resp B/P (MAP) Pulse Ox O2 Delivery O2 Flow Rate FiO2 09/30/18 09:04 70 163/76 09/30/18 06:00 97.5 18 93 Room Air I&O- Last 24 Hours up to 6 AM 09/30/18 05:59 Intake Total 840 ml Output Total 0 ml Balance 840 ml TOMI PEÑA MD Sep 30, 2018 10:36
[2018-10-01] MEDS: **hydrALAZINE HCL** 25 MG TAB PO SCH ×3 (03:15→17:29)
[2018-10-01] MEDS: HEPARIN SOD (PORCINE) 5000 UNITS/ML VIAL SC SCH ×2 (05:26→22:04)
[2018-10-01 06:00] VITALS: BP 135/63
[2018-10-01 06:39] LABS: HEMATOCRIT 38.4 % (42.0-52.0); HEMOGLOBIN 12.3 g/dl (13.5-17.5); MEAN CORPUSCULAR HEMOGLOBIN 30.9 pg (27.0-33.0); MEAN CORPUSCULAR VOLUME 96.5 fl (80.0-96.0); PLATELET COUNT, AUTOMATED 241 10^3/uL (150-450); RED BLOOD COUNT 3.98 10^6/uL (4.30-6.10); WHITE BLOOD COUNT 8.2 10^3/uL (4.0-10.0)
[2018-10-01 07:06] LABS: BLOOD UREA NITROGEN 23 MG/DL (7-18); CALCIUM LEVEL 8.8 MG/DL (8.8-10.2); CARBON DIOXIDE LEVEL 31 MEQ/L (21-32); CHLORIDE LEVEL 102 MEQ/L (98-107); CREATININE FOR GFR 1.22 MG/DL (0.70-1.30); GLOMERULAR FILTRATION RATE > 60.0 (>42); GLUCOSE, FASTING 123 MG/DL (70-100); MAGNESIUM LEVEL 1.9 MG/DL (1.8-2.4); POTASSIUM SERUM 4.3 MEQ/L (3.5-5.1); SODIUM LEVEL 138 MEQ/L (136-145)
[2018-10-01] MEDS: metFORMIN (GLUCOPHAGE) 500 MG TAB PO SCH ×2 (08:22→22:04)
[2018-10-01] MEDS: HumaLOG INSULIN (NovoLOG) PER UNIT SC SCH ×4 (08:22→21:00)
[2018-10-01] MEDS: VENLAFAXINE **XR** 37.5 MG CAPSULE PO SCH (08:22)
[2018-10-01] MEDS: SITagliptin 50 MG TAB (JANUVIA) PO SCH (08:22)
[2018-10-01] MEDS: FUROSEMIDE 40 MG TAB PO SCH (08:23)
[2018-10-01] MEDS: CARVedilol 3.125 MG TAB PO SCH ×2 (08:23→22:05)
[2018-10-01] MEDS: amLODIPine 5 MG TAB PO SCH (08:23)
[2018-10-01] MEDS: ISOSORBIDE MON. (IMDUR) 30 MG XR TAB PO SCH (08:23)
[2018-10-01 22:00] VITALS: BP 137/64
[2018-10-02] MEDS: **hydrALAZINE HCL** 25 MG TAB PO SCH (03:47)
[2018-10-02 06:00] VITALS: BP 160/69
[2018-10-02] MEDS: HumaLOG INSULIN (NovoLOG) PER UNIT SC SCH (08:11)
[2018-10-02] MEDS: SITagliptin 50 MG TAB (JANUVIA) PO SCH (08:11)
[2018-10-02] MEDS: HEPARIN SOD (PORCINE) 5000 UNITS/ML VIAL SC SCH (08:11)
[2018-10-02 08:12] VITALS: BP 160/69
[2018-10-02] MEDS: CARVedilol 3.125 MG TAB PO SCH (08:12)
[2018-10-02] MEDS: ISOSORBIDE MON. (IMDUR) 30 MG XR TAB PO SCH (08:12)
[2018-10-02] MEDS: amLODIPine 5 MG TAB PO SCH (08:12)
[2018-10-02] MEDS: FUROSEMIDE 40 MG TAB PO SCH (08:12)
[2018-10-02] MEDS: metFORMIN (GLUCOPHAGE) 500 MG TAB PO SCH (08:12)
[2018-10-02] MEDS: VENLAFAXINE **XR** 37.5 MG CAPSULE PO SCH (08:12)
[2018-10-02] MEDS ORDERED: VENL37.598 PO (08:32)
[2018-10-02] MEDS ORDERED: CARV3.12 PO (08:32)
[2018-10-02] MEDS ORDERED: ISOS30TA4 PO (08:32)
[2018-10-02] MEDS ORDERED: SITA50TAB PO (08:32)
[2018-10-02] MEDS ORDERED: AMLO5TAB6 PO (08:32)
[2018-10-02] MEDS ORDERED: HYDR25TA PO (08:32)
[2018-10-02] MEDS ORDERED: FURO40TA2 PO (08:32)
[2018-10-02] MEDS ORDERED: METF500T13 PO (10:16)
[2018-10-02] MEDS ORDERED: VENTAER INH (10:16)
--- NOTE | 2018-10-02 16:37 | DSES ---
DATE OF ADMISSION: 09/14/2018 DATE OF DISCHARGE: 10/02/2018 PRIMARY CARE PROVIDER: Dr. Renato Mckeon NEUROLOGIST: Dr. Mendoza PSYCHIATRIST: Dr. Hardwick and Dr. Calderon FINAL DIAGNOSES: 1. Acute chronic obstructive pulmonary disease exacerbation. 2. Cor pulmonale. 3. Pulmonary hypertension. 4. Bilateral lower extremity edema secondary to pulmonary artery hypertension. 5. Hypertension. 6. Depression. 7. Coronary artery disease. 8. Diabetes mellitus, poorly compliant. 9. Confusion. 10. Dementia. HISTORY OF PRESENT ILLNESS: This is a 77-year-old gentleman with underlying medical history of hypertension, pacemaker, hypertension, chronic obstructive pulmonary disease (COPD), diabetes mellitus, diastolic congestive heart failure (CHF), coronary artery disease, gastroesophageal reflux disease (GERD), depression, poorly compliant. Patient was from home from detention. Intermittently lives at home alone. Intermittently confused. Is not the best historian. Presented with complaints of shortness of breath to the emergency room. Has been noncompliant with his medication. Patient stated that he wanted to hurt himself because of his illness. He is happy with his living conditions but has thoughts of ending his life. In the emergency room patient denies any thoughts, but stating that occasionally he has such thoughts with no specific plan. Patient stated that he is not taking any medication. Patient has chronic bilateral lower extremity swelling. Denies any chest pain. Has chronic cough with sputum production. Patient quit smoking 20 years ago. HOSPITAL COURSE: Patient was admitted to the hospital. Initially started on antibiotics, steroids, and nebulizer treatment. Patient completed a course of antibiotics. Steroids were tapered off. Psychiatry was consulted. Serial troponin was done. Blood pressure medication was started and adjusted. Insulin was prescribed. Patient was started on Effexor by psychiatry. Patient's kidney function was monitored closely, and blood pressure was adjusted accordingly. Patient's angiotensin-converting enzyme (PAUL) was discontinued. The patient was also diuresed. mortar worker was consulted. Initially psychiatrist believed that patient does not have capacity, but after patient's respiratory condition improved, patient's mental status also improved significantly. Patient stated that he has never had any plans of hurting himself, he is just saying what he said because he is irritable with all his chronic medical conditions. He understands that his COPD is not getting any better, and he wants to live his life his way, and if he dies he does not want to be brought back to life and does not want to be intubated. Re-evaluation by psychiatry was done as well as evaluation by neurology. It was determined that patient has capacity, but given worsening dementia, social worker clinical was consulted to arrange for finding a safe disposition. Patient's detention complex was contacted, and it was determined that supervised living condition will best guarantee patient with independence as well as making sure patient will be taking his medication and will have a safe environment that is supervised, for patient does want to return to home and does not want to go to half-way at this time. Medical order for life-sustaining treatment (MOLST) form was completed during the hospital stay. Patient was made DO NOT RESUSCITATE/DO NOT INTUBATE. Patient currently tolerating oral, tolerating diuresis with resolution of lower extremity edema and at baseline respiration. Comfortable, ambulatory, ready to be discharged for further care as outpatient. VITAL SIGNS: Temperature 98.4, pulse 72, respirations 18, blood pressure 160/69, pulse oximetry 94% on room air. LABORATORY DATA: WBC 8.5, hemoglobin and hematocrit 12.3/38.4, platelets 241. Sodium 138, potassium 4.3, chloride 102, bicarbonate 31, BUN 23, creatinine 1.22. PHYSICAL EXAMINATION: GENERAL: Patient alert, comfortable in no acute distress. HEENT: Moist mucous membranes. Normocephalic, atraumatic. NECK: Supple. CARDIAC: Regular, S1, S2. PULMONARY: Bilaterally clear. No wheezes, rales, or rhonchi. ABDOMEN: Soft and nontender. EXTREMITIES: No significant edema. DISCHARGE MEDICATIONS: - Norvasc 5 mg by mouth daily - Coreg 3.125 mg by mouth twice a day - Lasix 40 mg by mouth daily - hydralazine 25 mg by mouth every 8 hours - isosorbide mononitrate 90 mg by mouth daily - Januvia 50 mg by mouth daily - Effexor 37.5 mg by mouth daily - acetaminophen 500 mg by mouth every 4 hours as needed - Ventolin inhaler every 4 hours as needed - metformin 500 mg by mouth twice a day - sublingual nitroglycerine 0.4 mg as needed DISCHARGE INSTRUCTIONS: Please see primary care provider in 7 days for improved glucose control and improved blood pressure control. Home with [id number] supervision. Return to the hospital if symptoms worsen.
== END 2018-10-02 10:25 | disposition home or self-care (01) | DRG 191 ==
LOC: EDBD 17:35 → M ED 17:35 → M ED INP 21:25 → M PCU 09-15 00:35 → M MS4PR 09-15 17:29 → M MS5PR 09-20 16:35
PROVIDERS: ADMIT Internal Medicine; ATTEND Hospitalist
DX: J44.1 Chronic obstructive pulmonary disease with (acute) exacerbation (principal); R45.851 Suicidal ideations; I50.32 Chronic diastolic (congestive) heart failure; F03.91 Unspecified dementia, unspecified severity, with behavioral disturbance; I11.0 Hypertensive heart disease with heart failure; E11.9 Type 2 diabetes mellitus without complications; Z91.19 Patient's noncompliance with other medical treatment and regimen; I25.10 Atherosclerotic heart disease of native coronary artery without angina pectoris; F32.9 Major depressive disorder, single episode, unspecified; I27.20 Pulmonary hypertension, unspecified; I27.81 Cor pulmonale (chronic); Z95.0 Presence of cardiac pacemaker; K21.9 Gastro-esophageal reflux disease without esophagitis; Z66 Do not resuscitate; Z79.899 Other long term (current) drug therapy; I48.91 Unspecified atrial fibrillation; Z87.891 Personal history of nicotine dependence; E53.8 Deficiency of other specified B group vitamins

== ENCOUNTER → 2019-04-04 | Outpatient (REF) | payer MEDICARE ==
[~2019-04-04] MED LIST changes: -/ADVA50050 IN; -/LINE60TA PO; -/MOXI40TA OR; -/PANT40TA OR; -/TIOT18INH INH; +ADVA1AER2 IN; +AMLO5TAB6 PO; +ATOR40TA75 PO; +AVEL1TAB2 OR; -CALC0.5C OR; +CALC0.5C14 OR; -CALC12502 PO; +CALC500T60 PO; +CARV3.12 PO; +FURO40TA2 PO; +HYDR25TA PO; +PROT1TAB2 OR; +SITA50TAB PO; -THEO OR; +THEO1CAP OR; +TRAZ1TAB10 PO; -TRAZO50TA PO; +VENL37.598 PO; +ZYVO100T PO; -[UNRECOGNIZED DRUG - OTHER] OR
== END ==
LOC: M SFHCPLAZ 14:22
DX: R63.4 Abnormal weight loss (principal); Z53.8 Procedure and treatment not carried out for other reasons

== ENCOUNTER 2019-07-23 10:50 | Day surgery (SDC) | payer MEDICARE ==
[~2019-07-23] VITALS: Ht 172.7 cm; Wt 59.5 kg
[~2019-07-23 10:50] MED LIST changes: +AMLO25TA PO; +FLUT1INH2 IN; +LR 1,000 ML IV ONE; +ceFAZolin SOD 2 GM in IV 1 EA IV ONE
[2019-07-23] MEDS ORDERED: LIDOCAINE 1% SDV INJ 30 ML VIAL As Ordered ONE (13:04)
[2019-07-23] MEDS ORDERED: AMIODARONE HCL 150 MG/100 ML PREMIXED BAG (NEXTERONE) As Ordered ONE (13:04)
[2019-07-23] MEDS ORDERED: ISOVUE-300 61% 50ML VIAL (Q9967) As Ordered ONE (13:04)
[2019-07-23] MEDS ORDERED: BACITRACIN PWD 50,000 UNITS VIAL As Ordered ONE (13:05)
[2019-07-23] MEDS ORDERED: PROPOFOL 200 MG/20 ML VIAL As Ordered ONE (13:28)
[2019-07-23 14:50] VITALS: BP 180/88
--- NOTE | 2019-07-23 15:06 | RO ---
DATE OF PROCEDURE: 07/23/2019 PROCEDURES: 1. Explantation of depleted dual-chamber pulse generator pacemaker. 2. Testing of old atrial and ventricular pacing leads. 3. Implantation of new dual-chamber cardiac pulse generator implanting. POND WORKER: Dr. Jack Lopez. ANESTHESIOLOGIST Dr. Bergeron. TYPE OF ANESTHESIA: Monitored local anesthesia. 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 He had been followed regularly through our office until being lost to followup December 2012. He was referred by his primary physician to Dr. Masters's office and was found to have his pacemaker at the elective replacement indicator. His current battery replacement was scheduled today. Other medical problems include slowly worsening dementia, chronic obstructive pulmonary disease (COPD), peripheral and carotid vascular disease. Degenerative joint disease. Prior gastrointestinal (GI) bleeding with oral anticoagulant therapy. Prior amiodarone therapy was discontinued because of pulmonary toxicity. His current level of activity is chiefly limited by fatigue. Walks no farther than 700 feet 3 or 4 times daily. No history of chest pain and despite chronic cough and wheezy bronchitis, dyspnea is not his chief limitation. Has had no awareness of his heart action. Has momentary positional lightheadedness but has not fallen or lost consciousness. Despite history of prior atrial fibrillation off oral anticoagulation because of GI bleeding, he has been free of any lateralizing neurological deficits to suggest systemic thromboembolic event. No history of claudication or lower leg swelling. PHYSICAL EXAMINATION: On examination, pleasant slightly demented elderly male, barrel-chested of medium body build. Heart rate 60 beats per minute and regular, blood pressure 170/68 supine, 132/58 sitting and 116/38 standing. Respiratory rate 16, body mass index (BMI) 19.6. O2 saturation 98% on room air with low level activity. No pallor or cyanosis. Normal oral moisture. Trachea midline. Neck veins were 6 cm above sternal angle. Increased anteroposterior chest diameter with good air entry over both lung wallace. Pacemaker incision left subclavian region. Mild gynecomastia. Slightly reduced air entry with few scattered inspiratory rales both lower lobes. Prolonged expiration but no audible wheeze. Apical impulse not palpable. Heart sounds quite distant. S4 gallop with soft systolic ejection murmur over the right base. Normal carotid upstroke and volume with transmitted bruit. Palpable abdominal aorta without aneurysm. Normal femoral pulses but difficult pedal pulses to palpate in light of his dependent edema. Has 3 - 4 mm foot and ankle swelling with 1 mm [address]itting three-quarters the way up both lower legs. Soft scaphoid abdomen with thyromegaly. Liver span of 10 cm in the right mid clavicular line. Normal gait. No obvious joint deformities. Some proximal muscle weakness but normal tone. EKG July 15, 2019 showed atrially paced rhythm at 58 beats per minute (bpm) initially, spontaneous AV conduction with narrow akutan QRS complexes, akutan complexes showing a marked left axis with low voltage and slow precordial R-wave progression in keeping with body habitus versus pulmonary disease. Anterolateral ST/T-wave abnormalities. His rhythm converted from our last available EKG that showed atrial fibrillation June 03, 2013. LABORATORY DATA: Normal complete blood count with hemoglobin 12.6. Normal white blood cell count and platelet count. Electrolytes were in balance with BUN 19, creatinine 1.02, random glucose slightly elevated at 282. Liver function studies were slightly abnormal. Pro-BNP level was elevated at 11,135. DESCRIPTION OF PROCEDURE: In the fasting state following informed consent and Ancef 2 grams IV premedication, the patient was taken to the operating theater. Numerous skin electrodes were applied to facilitate continuous electrocardiographic monitoring. The left subclavian region on the site of his old pacemaker was prepped and draped in usual fashion. The old incision was then infiltrated with 1% Xylocaine and a 5 cm linear incision was made over the same site. His old device was then carefully explanted ([employer] model #5386, serial #[id number] originally implanted November 27, 2005) and the old atrial and ventricular pacing leads were then disconnected and tested independently. The right ventricular lead ([employer] model #1388T/58, [id number]) measurements were: Pacing threshold 0.7 V/0.4 mms/impedance 396 ohms. R wave amplitude was 5.8 mV. The atrial lead ([employer] model #1388T/52, serial #[id number]) measurements were: Stimulation threshold 0.8 V/0.4 mms/impedance 300 ohms. The capital P measured 1.7 mV. These old leads were then connected to a new dual-chamber pulse generator ([employer] - Assurity, MRI compatible model # PM 2272, serial #[id number]) and appropriate, DDD pacing was documented. His old pacer pocket was thoroughly irrigated with bacitracin solution and the new pulse generator was then placed in the pocket and secured in position with a suture through the upper right-hand corner of the proxy header. The subcutaneous tissues were approximated using a running chromic suture and skin was closed using clinton. No apparent complications. Estimated blood loss less than 5 mL. He was returned to the advanced recovery with plans for him to be discharged home today. FINAL DIAGNOSES: 1. Pacemaker battery depletion - now replaced. 2. Tachy-norman syndrome/paroxysmal atrial fibrillation. 3. Abnormal EKG - first-degree AV block and left anterior hemiblock. 4. Heart failure (systolic and diastolic dysfunction/chronic). 5. Coronary artery disease (akutan vessel)/post multiple percutaneous transluminal coronary angioplasties (PTCAs). 6. Hypertensive heart disease (benign with heart failure). 7. Cor pulmonale (chronic). DISCHARGE RECOMMENDATIONS AND MEDICATIONS: The patient was instructed to continue with his modest salt, low fat, low cholesterol diet. We requested to perform only light activities of daily living with his left arm and try avoid getting his incision wet until his clinton are removed in our office in 7-10 days time. His medications will continue amlodipine 2.5 mg daily, carvedilol 3.125 mg twice a day, Lasix 40 mg daily, Ventolin inhaler 2 puffs four times a day as needed, Advair discus 500-50 one inhalation daily, nitroglycerin 0.4 mg sublingual every 5 minutes as needed chest pain and venlafaxine 37.5 mg daily. He has been encouraged to contact us promptly for any abnormal erythema, swelling or discharge.
== END 2019-07-23 15:10 | disposition home or self-care (01) ==
LOC: M SDC 10:50
PROVIDERS: ATTEND Internal Medicine Cardiovascular Disease
DX: Z45.010 Encounter for checking and testing of cardiac pacemaker pulse generator [battery] (principal); I49.5 Sick sinus syndrome; R94.31 Abnormal electrocardiogram [ECG] [EKG]; I44.0 Atrioventricular block, first degree; I44.4 Left anterior fascicular block; T82.111A Breakdown (mechanical) of cardiac pulse generator (battery), initial encounter; Y71.2 Prosthetic and other implants, materials and accessory cardiovascular devices associated with adverse incidents; I50.42 Chronic combined systolic (congestive) and diastolic (congestive) heart failure; I11.0 Hypertensive heart disease with heart failure; I27.81 Cor pulmonale (chronic); I48.0 Paroxysmal atrial fibrillation; I45.3 Trifascicular block; J44.9 Chronic obstructive pulmonary disease, unspecified; I65.29 Occlusion and stenosis of unspecified carotid artery; R60.0 Localized edema; E11.51 Type 2 diabetes mellitus with diabetic peripheral angiopathy without gangrene; D64.9 Anemia, unspecified; M19.90 Unspecified osteoarthritis, unspecified site; F41.9 Anxiety disorder, unspecified; F32.9 Major depressive disorder, single episode, unspecified; Z87.19 Personal history of other diseases of the digestive system; Z79.899 Other long term (current) drug therapy; Z79.51 Long term (current) use of inhaled steroids; Z87.891 Personal history of nicotine dependence; Z88.8 Allergy status to other drugs, medicaments and biological substances
CPT/HCPCS: 33228; C1785; J0690

== ENCOUNTER → 2020-04-02 | Outpatient (CLI) | payer MEDICARE ==
[~2020-04-02] MED LIST changes: -FLUO20CA19 PO; +FLUO20CA22 PO; -LR 1,000 ML IV ONE; -ceFAZolin SOD 2 GM in IV 1 EA IV ONE
--- NOTE | 2020-04-02 13:19 | REP ---
REASON: History of COPD. COMPARISON: Multiple, the latest 04/07/2019. Dual-chamber bipolar pacemaker device, status quo. Cardiomediastinal silhouette is essentially unchanged. There is a new patchy right basilar opacity with right CP angle blunting. The lung wallace are otherwise unchanged. IMPRESSION: New abnormal right base lung field findings as described above. This needs to be correlated clinically. Pneumonia/atelectasis/effusion. Consider chest CT. Electronically Signed by Jamari Del Rosario DO 04/02/2020 05:00 P
== END ==
LOC: M CLY 11:55
PROVIDERS: ATTEND Family Medicine
DX: R91.8 Other nonspecific abnormal finding of lung field (principal); J44.9 Chronic obstructive pulmonary disease, unspecified; I27.81 Cor pulmonale (chronic); Z95.0 Presence of cardiac pacemaker

== ENCOUNTER → 2020-04-02 | Outpatient (REF) | payer MEDICARE ==
[~2020-04-02] MED LIST changes: +AMLO1TAB24 PO; -AMLO5TAB6 PO; +ASPI1CHW3 PO; +CARV12.5 PO; +METF-839 PO; +PATIENT COMMENT; +PROAAER10 INH; +VENL150C43 PO
[2020-04-02 16:07] LABS: HEMATOCRIT 46.6 % (42.0-52.0); HEMOGLOBIN 14.2 g/dl (13.5-17.5); MEAN CORPUSCULAR HEMOGLOBIN 29.5 pg (27.0-33.0); MEAN CORPUSCULAR HGB CONC 30.5 g/dl (32.0-36.5); MEAN CORPUSCULAR VOLUME 96.7 fl (80.0-96.0); PLATELET COUNT, AUTOMATED 318 10^3/uL (150-450); RED BLOOD COUNT 4.82 10^6/uL (4.30-6.10); WHITE BLOOD COUNT 7.1 10^3/uL (4.0-10.0)
[2020-04-02 16:32] LABS: CALCIUM LEVEL 9.6 MG/DL (8.8-10.2); CREATININE FOR GFR 1.51 MG/DL (0.70-1.30); GLOMERULAR FILTRATION RATE 47.7 (>42); POTASSIUM SERUM 5.4 MEQ/L (3.5-5.1)
== END ==
LOC: M SFHCCLAY 12:54
PROVIDERS: ATTEND Family Medicine
DX: J44.9 Chronic obstructive pulmonary disease, unspecified (principal); J90 Pleural effusion, not elsewhere classified
CPT/HCPCS: 80048; 85027; G0463

== ENCOUNTER → 2020-04-05 | Outpatient (REF) | payer MEDICARE ==
[2020-04-05 16:41] LABS: CALCIUM LEVEL 9.2 MG/DL (8.8-10.2); CREATININE FOR GFR 1.52 MG/DL (0.70-1.30); GLOMERULAR FILTRATION RATE 47.3 (>42); POTASSIUM SERUM 4.2 MEQ/L (3.5-5.1)
== END ==
LOC: M SFHCCLAY 10:51
PROVIDERS: ATTEND Family Medicine
DX: E87.5 Hyperkalemia (principal)

== ENCOUNTER → 2020-04-14 | Outpatient (CLI) | payer MEDICARE ==
--- NOTE | 2020-06-04 08:20 | REP ---
CT OF THE CHEST WITHOUT CONTRAST: HISTORY: COPD. History of pleural effusion. Report is delayed pursuant to a malware attack on the facility. COMPARISON: CT study from 10/07/16. FINDINGS: There are emphysematous changes predominantly in the upper lobes, right greater than left as previously noted. There is a small right pleural effusion. This is not new, but has increased from the 10/07/16 prior study. There is a very small quantity of left pleural fluid as well. Cardiomegaly with a multilead pacemaker noted. Vascular calcification including coronary artery vascular calcification. No hilar or mediastinal mass or adenopathy is seen. No extrathoracic mass or adenopathy is observed. There are fibrotic changes in the lingular segment of the left upper lobe and to a lesser extent in the lower lobes. There is focal calcific pleural plaquing along the right diaphragm. No bony destructive lesion is seen. IMPRESSION: Cardiomegaly with pacemaker. Evidence COPD. Small bilateral pleural effusions, right greater than left, increased from the prior study. Right lower lobe and lingular linear fibrosis. Some linear fibrosis in the right middle lobe. MTDD
== END ==
LOC: M RAD 08:18
PROVIDERS: ATTEND Family Medicine
DX: J44.9 Chronic obstructive pulmonary disease, unspecified (principal); J90 Pleural effusion, not elsewhere classified; I51.7 Cardiomegaly; Z95.0 Presence of cardiac pacemaker

== ENCOUNTER → 2020-05-17 | Outpatient (REF) | payer MEDICARE ==
[2020-05-17 14:20] LABS: HEMATOCRIT 40.8 % (42.0-52.0); MEAN CORPUSCULAR HEMOGLOBIN 30.5 pg (27.0-33.0); MEAN CORPUSCULAR HGB CONC 31.9 g/dl (32.0-36.5); MEAN CORPUSCULAR VOLUME 95.8 fl (80.0-96.0); PLATELET COUNT, AUTOMATED 335 10^3/uL (150-450); RED BLOOD COUNT 4.26 10^6/uL (4.30-6.10); WHITE BLOOD COUNT 9.5 10^3/uL (4.0-10.0)
[2020-05-17 14:29] LABS: CALCIUM LEVEL 9.4 MG/DL (8.8-10.2); CREATININE FOR GFR 2.02 MG/DL (0.70-1.30); GLOMERULAR FILTRATION RATE 34.1 (>42); POTASSIUM SERUM 3.9 MEQ/L (3.5-5.1)
== END ==
LOC: M LAB REF 12:33
PROVIDERS: ATTEND Family Medicine
DX: J44.1 Chronic obstructive pulmonary disease with (acute) exacerbation (principal); I27.81 Cor pulmonale (chronic)

== ENCOUNTER 2020-06-17 19:58 | Inpatient (IN) | payer MEDICARE ==
[~2020-06-17] VITALS: Ht 175.3 cm; Wt 64.2 kg
[~2020-06-17 19:58] MED LIST changes: -ASPI1CHW3 PO; -CARV12.5 PO; -METF-839 PO; -PATIENT COMMENT; -PROAAER10 INH; -VENL150C43 PO
[2020-06-17] MEDS: HumaLOG INSULIN (NovoLOG) PER UNIT SC SCH (21:00)
[2020-06-17] MEDS ORDERED: MAALOX 30 ML SUSP *UDC PO PRN (21:30)
[2020-06-17] MEDS ORDERED: ACETAMINOPHEN TAB 650MG DOSE (2X325MG) PO PRN (21:30)
[2020-06-17] MEDS ORDERED: MOM 30ML SUSPENSION UDC PO PRN (21:30)
[2020-06-17 22:03] VITALS: BP 108/54
--- NOTE | 2020-06-17 22:30 | HPEPDOC ---
[facility] Medical History & Physical Date of Admission Jun 17, 2020 Date of Service: Jun 17, 2020 Primary Care Physician: Mark Amanda MD Attending Physician: KARTHIKEYAN EATON MD History and Physical TIME OF SERVICE: 11 PM CHIEF COMPLAINT: Confusion / The history was obtained via chart review, the patient was unable to provide any meaningful history HISTORY OF PRESENT ILLNESS: This 79-year-old male presented at [facility] today with complaints of 3 day duration, shortness of breath. He reported not eating or drinking anything for the last 3 days except for a little bit of watermelon and complained of feeling weak and sitting in his chair most of the day. He was diagnosed with a UTI, which is presumed to be the cause of his altered mental status. The majority of the workup was unremarkable except for a WBC count of 13, BUN of 55 creatinine of 2.2, lactic acid of 3.2 and a UA that was positive for WBCs and leukocyte esterase. The respiratory panel was negative, while a CT of the head showed atrophic changes, periventricular leukomalacia but no acute process. Providers at [facility] presumed that his mental status changes may be due to the urinary tract infection; he was treated for dehydration, and CANDI. Transfer was requested for a higher level of care. At the time of my evaluation the patient was unable to recall any events leading to his transfer to [facility] or provide any meaningful history. He denied having any pain or any acute complaints. REVIEW OF SYSTEMS: unobtainable because of the patient's mental status PAST MEDICAL/ SURGICAL HISTORY: Emphysema CKD3 NIDDM Chronic CAD Chronic HTN Dyslipidemia Chronic systolic CHF with his hypokinesis and an EF of 22% (Echo Apr 2020 at [facility]) Complete AV block/Pacemaker placement Anxiety/depression Low BMI/protein calorie nutrition Dementia Hernia repair Cholecystectomy SOCIAL HISTORY: Is a former smoker with a 52-[id number]-gaya habit quit in 2009 He does not recall alcohol He does not use drugs He lives with a family member FAMILY HISTORY: Unobtainable because of the patient's mental status ALLERGIES: Please see below HOME MEDICATIONS: Please see below PHYSICAL EXAMINATION: Vital Signs Date Time Temp Pulse Resp B/P (MAP) Pulse Ox O2 Delivery O2 Flow Rate FiO2 06/17/20 22:03 98.6 80 20 108/54 (72) 99 Nasal Cannula 2.0 GEN: slim build/ NAD INTEGUMENT: not flushed/ not diaphoretic HEENT: NCAT / mucus membranes moist and pink / sclera anicteric CVS: RRR/NMRG/ radial pulses intact / no lower extremity edema LUNGS: lungs are clear to auscultation bilaterally on room air ABDOMEN: Contour (scaphoid) / soft & not tender with palpation MSK/EXTREMITIES: range of motion intact in all 4 extremities NEURO: CN 2-12 are grossly intact / speech is not dysarthric PSYCH: alert and oriented to person , doesn't recall the year or the month or the president/ able to understand and follow all commands LABORATORY DATA: 06/17/20 23:24 IMAGING: Chest x-ray done at [facility] showed moderate central lobar emphysema and confirmed the history of cholecystectomy CT of the chest without contrast confirmed central lobar emphysema and DJD MICROBIOLOGY: Please see below. ASSESSMENT: Mr. Tao is a 79-year-old male with a history of COPD, CKD3, NIDDM, CAD, HTN, dyslipidemia, systolic CHF, AV block with pacemaker, anxiety, depression, dementia, and protein calorie nutrition who presented at [facility] with complaints of shortness of breath of unclear cause; he was diagnosed with UTI and altered mental status; transfer [facility] was requested for a higher level of care. PLAN: 1. Dyspnea of unclear cause Resolved X-ray, CT, and respiratory panel were unremarkable. Plan: Continue to monitor 2. UTI He has leukocytosis and lactic acidosis, but currently doesn't meet SIRS criteria UA results from [facility] are in HPI. Plan: IV fluids, continue ceftriaxone, trend, lactic acid, the daytime team can consider calling [facility] to obtain the final final urine culture results 3. Encephalopathy vs Dementia At this time it is unclear what his baseline mental status is. CT the head was unrevealing TSH is wnl Plan: Follow-up [facility] to check PCO /The daytime team can call his family to obtain additional history & determine what his baseline is prior to ordering B12, B1, TSH and MRI of the brain 4. Macrocytic anemia, likely due to COPD His hemoglobin has dropped from 13 to 11.9, within the last month. Plan: Follow-up iron studies, B12, TSH and RBC 5. Emphysema Plan: ProAir HFA and Advair 6. CKD3 His CANDI has resolved Plan: f/u BMP 7. NIDDM Plan: diabetic diet / f/u accuchecks & A1C / hypoglycemia protocol / sliding scale insulin / hold oral anti-glycemics 8. Chronic CAD / Dyslipidemia Plan: Atorvastatin, Coreg, aspirin, Atripla, glycerin 9. Chronic HTN Plan: Amlodipine, Coreg, furosemide 10. Chronic systolic CHF with his hypokinesis and an EF of 22% (Echo Apr 2020 at [facility]) Is clinically compensated Plan: Coreg, furosemide 11. Anxiety/depression Plan: Venlafaxine 12. Sarcopenia He has a low BMI Not sure if this is due to advanced dementia Plan: f/u pre-albumin / the time team may consider dietitian consult for calorie count and recommendations on supplementation DVT PROPHYLAXIS: Lovenox DISPOSITION: Home versus placement after more than 2 midnight's stay Home Medications Scheduled Amlodipine Besylate (Amlodipine Besylate) 5 Mg Tablet, 5 MG PO DAILY Aspirin (Aspirin) 81 Mg Tab.chew, 81 MG PO DAILY Atorvastatin Calcium (Atorvastatin Calcium) 40 Mg Tablet, 40 MG PO QHS Carvedilol (Carvedilol) 12.5 Mg Tablet, 12.5 MG PO BID Furosemide (Furosemide) 40 Mg Tablet, 40 MG PO BID Metformin HCl (Metformin HCl) 500 Mg Tablet, 500 MG PO BID Salmeterol/Fluticasone (Advair 500-50 Diskus) 1 Each Blst.w.dev, 1 PUFF INH BID Venlafaxine HCl (Venlafaxine HCl ER) 150 Mg Cap.er.24h, 150 MG PO DAILY Scheduled PRN Albuterol Sulfate (Proair Hfa) 8.5 Gm Hfa.aer.ad, 2 PUFF INH Q4H PRN for SHORTNESS OF BREATH Nitroglycerin (Nitrostat) 0.4 Mg Subl, 0.4 MG SL NITRO PRN for CHEST PAIN Miscellaneous Medications [Patient Comment] PATIENT IS A POOR HISTORIAN. MED REC DONE WITH EXTERNAL MED HISTORY AND PREVIOUS CLINIC VISIT. Allergies Coded Allergies: No Known Allergies (Unverified , 07/18/19) A-FIB/CHADSVASC A-FIB History Current/History of A-Fib/PAF?: No Current PO Anticoag Therapy: No KARTHIKEYAN EATON MD Jun 17, 2020 22:30
[2020-06-17 23:34] LABS: HEMATOCRIT 37.6 % (42.0-52.0); HEMOGLOBIN 11.9 g/dl (13.5-17.5); MEAN CORPUSCULAR HGB CONC 31.6 g/dl (32.0-36.5); MEAN CORPUSCULAR VOLUME 97.9 fl (80.0-96.0); PLATELET COUNT, AUTOMATED 337 10^3/uL (150-450); RED BLOOD COUNT 3.84 10^6/uL (4.30-6.10); WHITE BLOOD COUNT 12.4 10^3/uL (4.0-10.0)
[2020-06-18] VITALS: BP 138/54
[2020-06-18 00:16] LABS: CALCIUM LEVEL 9.2 MG/DL (8.8-10.2); CREATININE FOR GFR 1.79 MG/DL (0.70-1.30); GLOMERULAR FILTRATION RATE 39.2 (>42); POTASSIUM SERUM 3.8 MEQ/L (3.5-5.1)
[2020-06-18] MEDS ORDERED: AMLO1TAB24 PO (00:20)
[2020-06-18] MEDS ORDERED: PROAAER10 INH (00:20)
[2020-06-18] MEDS ORDERED: METF-839 PO (00:20)
[2020-06-18] MEDS ORDERED: ATOR40TA75 PO (00:20)
[2020-06-18] MEDS ORDERED: VENL150C43 PO (00:20)
[2020-06-18] MEDS ORDERED: FURO40TA2 PO (00:20)
[2020-06-18] MEDS ORDERED: CARV12.5 PO (00:20)
[2020-06-18] MEDS ORDERED: ASPI1CHW3 PO (00:20)
[2020-06-18] MEDS ORDERED: PATIENT COMMENT (00:21)
[2020-06-18] MEDS ORDERED: GLUCAGON INJ 1MG VIAL SC PRN (00:45)
[2020-06-18] MEDS ORDERED: NITROGLYCERIN 0.4 MG SUBL TABLET SL PRN (00:45)
[2020-06-18] MEDS ORDERED: GLUCOSE 4GM CHEW TABLET PO PRN (00:45)
[2020-06-18] MEDS: NS 1,000 ML IV SCH ×2 (01:00→17:30)
[2020-06-18 02:43] LABS: PREALBUMIN 11.6 MG/DL (20.0-40.0)
[2020-06-18 04:00] VITALS: BP 131/60
[2020-06-18 05:26] LABS: VENOUS HCO3 35.7 MEQ/L (23.0-27.0); VENOUS O2 SATURATION 64.4 % (60.0-80.0); VENOUS PARTIAL PRESSURE CO2 72.6 mmHg (38.0-50.0); VENOUS PH 7.309 UNITS (7.330-7.430); VENOUS STANDARD HCO3 30.1 MEQ/L; VENOUS TOTAL CO2 37.9 MEQ/L (24.0-28.0)
[2020-06-18 05:35] LABS: HEMATOCRIT 36.3 % (42.0-52.0); HEMOGLOBIN 11.4 g/dl (13.5-17.5); MEAN CORPUSCULAR HEMOGLOBIN 30.7 pg (27.0-33.0); MEAN CORPUSCULAR HGB CONC 31.4 g/dl (32.0-36.5); MEAN CORPUSCULAR VOLUME 97.8 fl (80.0-96.0); PLATELET COUNT, AUTOMATED 343 10^3/uL (150-450); RED BLOOD COUNT 3.71 10^6/uL (4.30-6.10); WHITE BLOOD COUNT 11.8 10^3/uL (4.0-10.0)
[2020-06-18 05:58] LABS: CALCIUM LEVEL 8.9 MG/DL (8.8-10.2); CREATININE FOR GFR 1.58 MG/DL (0.70-1.30); GLOMERULAR FILTRATION RATE 45.3 (>42); PERCENT SATURATION 33.7 % (19.7-50.0); POTASSIUM SERUM 3.6 MEQ/L (3.5-5.1)
[2020-06-18] MEDS: ADVAIR HFA 230/21MCG INHALER INH SCH ×2 (07:12→19:55)
[2020-06-18 08:00] VITALS: BP 138/62
[2020-06-18] MEDS: HumaLOG INSULIN (NovoLOG) PER UNIT SC SCH ×4 (08:09→21:00)
[2020-06-18] MEDS: ENOXAPARIN 30MG/0.3ML SYRINGE (J1650 PER 10MG) SC SCH (08:10)
[2020-06-18] MEDS: VENLAFAXINE **XR** 75MG CAPSULE PO SCH (08:10)
[2020-06-18] MEDS: ASPIRIN 81 MG CHEW TABLET PO SCH (08:10)
[2020-06-18] MEDS: amLODIPine 5 MG TAB PO SCH (08:11)
[2020-06-18] MEDS: CARVedilol 12.5 MG TAB PO SCH ×2 (08:11→20:16)
[2020-06-18] MEDS ORDERED: FUROSEMIDE 40 MG TAB PO SCH (09:00)
--- NOTE | 2020-06-18 11:41 | IPNPDOC ---
Text Note Date of Service The patient was seen on 06/18/20. NOTE Subjective: Pt feels well. Denies any complaints. Does not recall events from y ester. No CP/SOB/palpitations. No N/V/Abd pain\n. Objective: Vitals: (see below) General: No acute distress, laying comfortably in bed. cachectic HEENT: Moist mucous membranes. Neck: No JVD or lymphadenopathy Cardiac: RRR, No murmurs Pulm: Diminished b/l. No wheezing, rhonchi Abd: NT/ND + BS Ext: No edema or cyanosis Labs (see below) ASSESSMENT: Mr. Tao is a 79-year-old male with a history of COPD, CKD3, NIDDM, CAD, HTN, dyslipidemia, systolic CHF, AV block with pacemaker, anxiety, depression, dementia, and protein calorie nutrition who presented at [facility] with complaints of shortness of breath of unclear cause; he was diagnosed with UTI and altered mental status; transfer [facility] was requested for a higher level of care. PLAN: 1. Complicating UTI He has leukocytosis and lactic acidosis UA results from [facility] are in HPI. Plan: IV fluids, continue ceftriaxone, trend, lactic acid. bld/urine cx pending 3. Encephalopathy 2/2 UTI with ? Baseline Dementia At this time it is unclear what his baseline mental status is. CT the head was unrevealing TSH , b12 wbl 4. Macrocytic anemia, likely due to COPD His hemoglobin has dropped from 13 to 11.9, within the last month. Plan: Follow-up iron studies, B12, TSH and RBC 5. Emphysema Plan: ProAir HFA and Advair 6. CKD3 His CANDI has resolved Plan: f/u BMP 7. NIDDM Plan: diabetic diet / f/u accuchecks & A1C / hypoglycemia protocol / sliding scale insulin / hold oral anti-glycemics 8. Chronic CAD / Dyslipidemia Plan: Atorvastatin, Coreg, aspirin, Atripla, glycerin 9. Chronic HTN Plan: Amlodipine, Coreg, furosemide 10. Chronic systolic CHF with his hypokinesis and an EF of 22% (Echo Apr 2020 at [facility]) Is clinically compensated Plan: Coreg, furosemide 11. Anxiety/depression Plan: Venlafaxine 12. Sarcopenia He has a low BMI Not sure if this is due to advanced dementia nutrition consult DVT PROPHYLAXIS: Lovenox PT consult VS,Amado I+O VS, Amado, I+O Laboratory Tests 06/17/20 23:24 06/18/20 05:17 Vital Signs Date Time Temp Pulse Resp B/P (MAP) Pulse Ox O2 Delivery O2 Flow Rate FiO2 06/18/20 08:11 79 135/58 06/18/20 08:00 96.8 18 90 06/18/20 04:00 2.0 06/18/20 04:00 Nasal Cannula I&O- Last 24 Hours up to 6 AM 06/18/20 05:59 Intake Total 60 ml Output Total 400 ml Balance -340 ml TOMI PEÑA MD Jun 18, 2020 11:41
[2020-06-18 12:00] VITALS: BP 117/56
[2020-06-18 16:00] VITALS: BP 133/56
[2020-06-18] MEDS: cefTRIAXone SOD 1 GM in D5W MINI-BAG PLUS 50 ML IV SCH (17:39)
[2020-06-18] MEDS: ALBUTEROL 90 MCG/ACT 8GM HFA INHALER INH PRN (19:55)
[2020-06-18 20:00] VITALS: BP 117/58
[2020-06-18] MEDS: ATORVASTATIN 20 MG TAB PO SCH (20:15)
[2020-06-19] VITALS: BP 115/56
[2020-06-19 04:00] VITALS: BP 136/81
[2020-06-19 05:53] LABS: HEMATOCRIT 36.4 % (42.0-52.0); HEMOGLOBIN 11.4 g/dl (13.5-17.5); MEAN CORPUSCULAR HEMOGLOBIN 31.2 pg (27.0-33.0); MEAN CORPUSCULAR HGB CONC 31.3 g/dl (32.0-36.5); MEAN CORPUSCULAR VOLUME 99.7 fl (80.0-96.0); PLATELET COUNT, AUTOMATED 345 10^3/uL (150-450); RED BLOOD COUNT 3.65 10^6/uL (4.30-6.10); WHITE BLOOD COUNT 11.9 10^3/uL (4.0-10.0)
[2020-06-19 06:27] LABS: BLOOD UREA NITROGEN 36 MG/DL (7-18); CARBON DIOXIDE LEVEL 30 MEQ/L (21-32); CHLORIDE LEVEL 104 MEQ/L (98-107); CREATININE FOR GFR 1.18 MG/DL (0.70-1.30); GLOMERULAR FILTRATION RATE > 60.0 (>42); GLUCOSE, FASTING 121 MG/DL (70-100); POTASSIUM SERUM 3.8 MEQ/L (3.5-5.1); SODIUM LEVEL 144 MEQ/L (136-145)
[2020-06-19] MEDS: ADVAIR HFA 230/21MCG INHALER INH SCH ×2 (07:12→19:42)
[2020-06-19 08:00] VITALS: BP 139/68
[2020-06-19] MEDS: HumaLOG INSULIN (NovoLOG) PER UNIT SC SCH ×4 (08:06→21:00)
[2020-06-19] MEDS: amLODIPine 5 MG TAB PO SCH (08:07)
[2020-06-19] MEDS: VENLAFAXINE **XR** 75MG CAPSULE PO SCH (08:07)
[2020-06-19] MEDS: ASPIRIN 81 MG CHEW TABLET PO SCH (08:07)
[2020-06-19] MEDS: ENOXAPARIN 30MG/0.3ML SYRINGE (J1650 PER 10MG) SC SCH (08:08)
[2020-06-19] MEDS: CARVedilol 12.5 MG TAB PO SCH ×2 (08:08→20:28)
--- NOTE | 2020-06-19 11:01 | IPNPDOC ---
Text Note Date of Service The patient was seen on 06/19/20. NOTE Subjective: Pt feels well. Denies any complaints. No CP/SOB/palpitations. No N/V/Abd pain\n. Passed PT. Objective: Vitals: (see below) General: No acute distress, laying comfortably in bed. cachectic HEENT: Moist mucous membranes. Neck: No JVD or lymphadenopathy Cardiac: RRR, No murmurs Pulm: Diminished b/l. No wheezing, rhonchi Abd: NT/ND + BS Ext: No edema or cyanosis Labs (see below) ASSESSMENT: Mr. Tao is a 79-year-old male with a history of COPD, CKD3, NIDDM, CAD, HTN, dyslipidemia, systolic CHF, AV block with pacemaker, anxiety, depression, dementia, and protein calorie nutrition who presented at [facility] with complaints of shortness of breath of unclear cause; he was diagnosed with UTI and altered mental status; transfer [facility] was requested for a higher level of care. PLAN: 1. Complicating UTI He has leukocytosis and lactic acidosis UA results from [facility] are in HPI. Plan: IV fluids, continue ceftriaxone, trend, lactic acid. bld/urine cx pending 3. Encephalopathy 2/2 UTI with ? Baseline Dementia At this time it is unclear what his baseline mental status is. CT the head was unrevealing TSH , b12 wbl 4. Macrocytic anemia, likely due to COPD His hemoglobin has dropped from 13 to 11.9, within the last month. Plan: Follow-up iron studies, B12, TSH and RBC 5. Emphysema Plan: ProAir HFA and Advair 6. CKD3 His CANDI has resolved Plan: f/u BMP 7. NIDDM Plan: diabetic diet / f/u accuchecks & A1C / hypoglycemia protocol / sliding scale insulin / hold oral anti-glycemics 8. Chronic CAD / Dyslipidemia Plan: Atorvastatin, Coreg, aspirin, Atripla, glycerin 9. Chronic HTN Plan: Amlodipine, Coreg, furosemide 10. Chronic systolic CHF with his hypokinesis and an EF of 22% (Echo Apr 2020 at [facility]) Is clinically compensated Plan: Coreg, furosemide 11. Anxiety/depression Plan: Venlafaxine 12. Sarcopenia He has a low BMI Not sure if this is due to advanced dementia nutrition consult DVT PROPHYLAXIS: Lovenox PT consult; cleared. Pending bld/urine cx. I have called [facility] and their cx is pending as well. D/c pending cx availability. VS,Amado, I+O VS, Setvenbone, I+O Laboratory Tests 06/19/20 05:26 Vital Signs Date Time Temp Pulse Resp B/P (MAP) Pulse Ox O2 Delivery O2 Flow Rate FiO2 06/19/20 08:08 78 139/88 06/19/20 08:00 97.2 20 96 Nasal Cannula 2.0 I&O- Last 24 Hours up to 6 AM 06/19/20 05:59 Intake Total 1820 ml Output Total 950 ml Balance 870 ml TOMI PEÑA MD Jun 19, 2020 11:01
[2020-06-19 12:00] VITALS: BP 146/67
[2020-06-19 16:00] VITALS: BP 153/66
[2020-06-19] MEDS: NS 1,000 ML IV SCH (17:07)
[2020-06-19] MEDS: cefTRIAXone SOD 1 GM in D5W MINI-BAG PLUS 50 ML IV SCH (17:07)
[2020-06-19 20:00] VITALS: BP 132/88
[2020-06-19] MEDS: ATORVASTATIN 20 MG TAB PO SCH (20:28)
[2020-06-20] VITALS: BP 146/68
[2020-06-20 04:00] VITALS: BP 126/58
[2020-06-20 05:11] LABS: HEMATOCRIT 35.7 % (42.0-52.0); MEAN CORPUSCULAR HEMOGLOBIN 30.9 pg (27.0-33.0); MEAN CORPUSCULAR HGB CONC 30.8 g/dl (32.0-36.5); MEAN CORPUSCULAR VOLUME 100.3 fl (80.0-96.0); PLATELET COUNT, AUTOMATED 359 10^3/uL (150-450); RED BLOOD COUNT 3.56 10^6/uL (4.30-6.10); WHITE BLOOD COUNT 9.1 10^3/uL (4.0-10.0)
[2020-06-20 05:34] LABS: BLOOD UREA NITROGEN 31 MG/DL (7-18); CARBON DIOXIDE LEVEL 34 MEQ/L (21-32); CHLORIDE LEVEL 104 MEQ/L (98-107); GLOMERULAR FILTRATION RATE > 60.0 (>42); GLUCOSE, FASTING 234 MG/DL (70-100); SODIUM LEVEL 141 MEQ/L (136-145)
[2020-06-20] MEDS: ADVAIR HFA 230/21MCG INHALER INH SCH ×2 (07:18→20:14)
[2020-06-20 08:00] VITALS: BP 136/63
[2020-06-20] MEDS: ENOXAPARIN 30MG/0.3ML SYRINGE (J1650 PER 10MG) SC SCH (08:56)
[2020-06-20] MEDS: HumaLOG INSULIN (NovoLOG) PER UNIT SC SCH ×4 (08:57→23:37)
[2020-06-20] MEDS: amLODIPine 5 MG TAB PO SCH (08:57)
[2020-06-20] MEDS: VENLAFAXINE **XR** 75MG CAPSULE PO SCH (08:58)
[2020-06-20] MEDS: ASPIRIN 81 MG CHEW TABLET PO SCH (08:58)
[2020-06-20] MEDS: CARVedilol 12.5 MG TAB PO SCH ×2 (08:58→22:09)
--- NOTE | 2020-06-20 10:41 | IPNPDOC ---
Text Note Date of Service The patient was seen on 06/20/20. NOTE Subjective: Pt feels well. Noticed a pimple on his scrotum, that is now draining blood and pus. Mild tenderness. Denies CP/SOB/palpitations. Nurse also noticed ? Blood in stool vs blood from the draining abscess. Objective: Vitals: (see below) General: No acute distress, laying comfortably in bed. cachectic HEENT: Moist mucous membranes. Neck: No JVD or lymphadenopathy Cardiac: RRR, No murmurs Pulm: Diminished b/l. No wheezing, rhonchi Abd: NT/ND + BS Ext: No edema or cyanosis scrotum: Right side:abscess draining pus and serosang. Mild tenderness. No induration. Labs (see below) ASSESSMENT: Mr. Tao is a 79-year-old male with a history of COPD, CKD3, NIDDM, CAD, HTN, dyslipidemia, systolic CHF, AV block with pacemaker, anxiety, depression, dementia, and protein calorie nutrition who presented at [facility] with complaints of shortness of breath of unclear cause; he was diagnosed with UTI and altered mental status; transfer [facility] was requested for a higher level of care. PLAN: 1. Complicating UTI - E. Coli He had leukocytosis and lactic acidosis - Cont rocephin 2. Scrotal abscess - u/s - wound cx 3. Bleeding from scrotal abscess vs rectal - cover abscess - check fobt - cbc q6h - d/c lovenox. 4 Encephalopathy 2/2 UTI with ? Baseline Dementia - resolved At this time it is unclear what his baseline mental status is. CT the head was unrevealing TSH , b12 wbl 5. Macrocytic anemia, likely due to COPD His hemoglobin has dropped from 13 to 11.9, within the last month. Plan: Follow-up iron studies, B12, TSH and RBC 6. Emphysema Plan: ProAir HFA and Advair 7. CKD3 His CANDI has resolved Plan: f/u BMP 8. NIDDM Plan: diabetic diet / f/u accuchecks & A1C / hypoglycemia protocol / sliding scale insulin / hold oral anti-glycemics 9. Chronic CAD / Dyslipidemia Plan: Atorvastatin, Coreg, aspirin, Atripla, glycerin 10. Chronic HTN Plan: Amlodipine, Coreg, furosemide 11. Chronic systolic CHF with his hypokinesis and an EF of 22% (Echo Apr 2020 at [facility]) Is clinically compensated Plan: Coreg, furosemide 12. Anxiety/depression Plan: Venlafaxine 13. Sarcopenia He has a low BMI Not sure if this is due to advanced dementia nutrition consult DVT PROPHYLAXIS: Lovenox PT consult; cleared. VS,Fishbone, I+O VS, Fishbone, I+O Laboratory Tests 06/20/20 04:48 Vital Signs Date Time Temp Pulse Resp B/P (MAP) Pulse Ox O2 Delivery O2 Flow Rate FiO2 06/20/20 08:58 80 136/63 06/20/20 08:00 96.8 18 95 Room Air 06/20/20 04:00 2.0 I&O- Last 24 Hours up to 6 AM 06/20/20 06:00 Intake Total 2655 ml Output Total 700 ml Balance 1955 ml TOMI PEÑA MD Jun 20, 2020 10:41
--- NOTE | 2020-06-20 11:35 | REPVR ---
PROCEDURE INFORMATION: Exam: US Scrotum Exam date and time: 06/20/2020 11:22 AM Age: 79 years old Clinical indication: Scrotum pain; Additional info: Abscess TECHNIQUE: Imaging protocol: Real-time ultrasound of the scrotum and contents with color Doppler and image documentation. COMPARISON: No relevant prior studies available. FINDINGS: Right testicle: There is a 1 x 2 mm right testicular cyst. There is a 3 x 2 x 2 mm right testicular cyst. There is no abnormal right testicular mass or abscess. There is normal right testicular flow. Left testicle: There is no abnormal left testicular abnormal mass or abscess. There is a 2 x 2 x 2 mm left testicular cyst. There is normal left testicular flow. Epididymides: There is 6 x 5 x 4 mm right epididymal cyst. There is a 3 x 2 x 3 mm right epididymal cyst. There is a 2 x 2 x 3 mm right epididymal calcification. There is a 7 x 8 by 8 mm left epididymal cyst. There is a 5 x 3 x 4 mm left epididymal cyst. This cyst has a minimal amount of debris within it. Scrotum: There are small bilateral hydroceles. There is abnormal heterogeneous fluid collection type density involving the right scrotum which according to the history is is an abscess. This measures 40 x 22 x 33 mm. IMPRESSION: 1. Right scrotal abscess. 2. Bilateral testicular cysts with normal testicular flow. 3. Bilateral epididymal cysts with a right epididymal calcification. 4. Small bilateral varicoceles. Electronically signed by: Av Moss On 06/20/2020 11:35:19 AM
[2020-06-20 11:47] VITALS: BP 143/65
[2020-06-20 12:48] LABS: HEMATOCRIT 35.1 % (42.0-52.0); HEMOGLOBIN 10.8 g/dl (13.5-17.5); MEAN CORPUSCULAR HEMOGLOBIN 30.9 pg (27.0-33.0); MEAN CORPUSCULAR HGB CONC 30.8 g/dl (32.0-36.5); MEAN CORPUSCULAR VOLUME 100.3 fl (80.0-96.0); PLATELET COUNT, AUTOMATED 358 10^3/uL (150-450); WHITE BLOOD COUNT 8.6 10^3/uL (4.0-10.0)
[2020-06-20] MEDS: NS 1,000 ML IV SCH (14:09)
--- NOTE | 2020-06-20 14:13 | SMCUROLCON ---
Urology Consultation General Date of Consultation 06/20/20 Reason For Consultation This patient is seen for UTI. History of Present Illness This is a 79 y/o M admitted for UTI and altered mental status 3 days ago, now found to have a scrotal abscess. Per nursing, they while getting him up this morning he started noting pain in his scrotum. They then noticed that he was draining pus from the R side of his scrotum from a small hole. They probed the hole and obtained a culture. A subsequent scrotal US was notable for a 4cm R scrotal abscess. He denies pain at this time. Past Medical History Medical History Emphysema CKD3 NIDDM CAD HTN Dyslipidemia CHF Pacemaker placement Anxiety/depression Dementia Surgical Hstory Pacemaker placement Hernia repair Cholecystectomy Medications Current Medications Current Medications Medications (Trade) Dose Ordered Sig/Ershma Route PRN Reason Start Time Stop Time Status Last Admin Dose Admin Acetaminophen (Tylenol Tab) 650 mg Q4H PRN PO PAIN OR FEVER 06/17/20 21:30 Al Hydrox/Mg Hydrox/Simethicone (Mylanta) 30 ml DAILY PRN PO DYSPEPSIA 06/17/20 21:30 Albuterol Sulfate (Proventil, Ventolin Hfa) 2 puff Q4H PRN INH SHORTNESS OF BREATH 06/18/20 00:45 Amlodipine Besylate (Norvasc) 5 mg DAILY PO 06/18/20 09:00 06/20/20 08:57 Aspirin (Aspirin Chewable) 81 mg DAILY PO 06/18/20 09:00 06/20/20 08:58 Atorvastatin Calcium (Lipitor) 40 mg QHS PO 06/18/20 21:00 06/19/20 20:28 Carvedilol (COReg) 12.5 mg BID PO 06/18/20 09:00 06/20/20 08:58 Ceftriaxone Sodium 1 gm/ Dextrose 50 ml @ 100 mls/hr Q24H IV 06/18/20 18:00 06/19/20 17:07 Dextrose (Dextrose 50%) 25 ml ASDIRECTED PRN IV SEE LABEL COMMENTS 06/18/20 00:45 Enoxaparin Sodium (Lovenox) 30 mg DAILY SC 06/18/20 09:00 06/20/20 09:49 DC 06/20/20 08:56 Furosemide (Lasix) 40 mg BID PO 06/18/20 09:00 06/18/20 07:37 DC Glucagon (Glucagon) 1 mg ASDIRECTED PRN SC SEE LABEL COMMENTS 06/18/20 00:45 Glucose (Glucose) 16 GM ASDIRECTED PRN PO SEE LABEL COMMENTS 06/18/20 00:45 Home Med (Med Rec Complete!) ASDIRECTED XX 06/18/20 00:30 06/18/20 00:22 DC Insulin Human Lispro (HumaLOG INSULIN) SEE PROTOCOL TABLE Q6H SC 06/20/20 12:00 Insulin Human Lispro (HumaLOG INSULIN) See Protocol Table AC SC 06/18/20 07:30 06/20/20 12:15 DC 06/20/20 08:57 Insulin Human Lispro (HumaLOG INSULIN) See Protocol Table QHS SC 06/17/20 21:00 06/20/20 12:15 DC Magnesium Hydroxide (Milk Of Magnesia) 30 ml DAILY PRN PO CONSTIPATION 06/17/20 21:30 Nitroglycerin (Nitrostat (1/ 150)) 0.4 mg Q5MP PRN SL CHEST PAIN 06/18/20 00:45 Salmeterol Xinafoate/ Fluticasone (Advair Hfa 230/ 21) 1 puff RBID INH 06/18/20 08:00 06/20/20 07:18 Sodium Chloride 1,000 ml @ 50 mls/hr Q20H IV 06/17/20 21:30 06/19/20 17:07 Venlafaxine HCl (Effexor Xr) 150 mg DAILY PO 06/18/20 09:00 06/20/20 08:58 Allergies Allergies: Coded Allergies: No Known Allergies (Unverified , 07/18/19) Review of Systems General: Reports: ROS Unobtainable Physical Examination General Exam: Cooperative, No Acute Distress Chest Exam: Normal air movement Heart Exam: Rate Normal Male Exam mild R scrotal wall edema w/ a 3-4mm hole on the lateral aspect draining a small amount of pus - mildly tender; mild erythema Skin Exam: Nl turgor and temperature Psych Exam: Mood NL Vital Signs/I&O Vital Signs Date Time Temp Pulse Resp B/P (MAP) Pulse Ox O2 Delivery O2 Flow Rate FiO2 06/20/20 11:47 95.9 80 18 143/65 (91) 98 Room Air 06/20/20 04:00 2.0 I&O- Last 24 Hours up to 6 AM 06/20/20 06:00 Intake Total 2655 ml Output Total 700 ml Balance 1955 ml Laboratory Data 24H Labs Laboratory Tests 2 06/19/20 16:50: Bedside Glucose (Misc Panel) 243H 06/19/20 20:02: Bedside Glucose (Misc Panel) 146H 06/20/20 04:48: Nucleated Red Blood Cells % (auto) 0.0, Anion Gap 3L, Glomerular Filtration Rate > 60.0, Calcium Level 9.0 06/20/20 12:02: Bedside Glucose (Misc Panel) 108 06/20/20 12:31: Nucleated Red Blood Cells % (auto) 0.0 CBC/BMP Laboratory Tests 06/20/20 04:48 06/20/20 12:31 Microbiology Microbiology 06/20/20 Stool Occult Blood (GRACY) - Final, Complete 06/20/20 Gram Stain - Final, Resulted 06/20/20 Wound Culture, Resulted Pending 06/17/20 Urine Culture - Final, Complete Escherichia Coli 06/17/20 Blood Culture - Preliminary, Resulted No Growth after 48 hours. All Specime... Assessment This is a 79 y/o M admitted 3 days ago for a UTI, now found to have a scrotal abscess. I probed the abscess at bedside and obtained another culture. I was able to express about 5cc of pus from the opening. I then thoroughly irrigated the abscess cavity w/ a total of 50cc of normal saline. The patient tolerated this well. Plan - f/u culture results - patient already on rocephin for his UTI - this should cover the abscess as well - adjust abx based on results - change dressings over abscess opening w/ 4x4s at least once daily until it closes MANOLO RUTH MD Jun 20, 2020 14:12
[2020-06-20 16:00] VITALS: BP 131/62
[2020-06-20] MEDS: DEXTROSE 50% 50 ML SYRINGE IV PRN (16:49)
[2020-06-20 18:27] LABS: HEMOGLOBIN 10.3 g/dl (13.5-17.5); MEAN CORPUSCULAR HGB CONC 31.2 g/dl (32.0-36.5); MEAN CORPUSCULAR VOLUME 99.4 fl (80.0-96.0); PLATELET COUNT, AUTOMATED 339 10^3/uL (150-450); RED BLOOD COUNT 3.32 10^6/uL (4.30-6.10); WHITE BLOOD COUNT 7.5 10^3/uL (4.0-10.0)
[2020-06-20] MEDS: cefTRIAXone SOD 1 GM in D5W MINI-BAG PLUS 50 ML IV SCH (18:50)
[2020-06-20 20:00] VITALS: BP 128/68
[2020-06-20] MEDS: ATORVASTATIN 20 MG TAB PO SCH (22:09)
[2020-06-21] VITALS (12 sets, daily range): BP systolic 124–160; BP diastolic 61–76
[2020-06-21 00:24] LABS: HEMOGLOBIN 10.3 g/dl (13.5-17.5); MEAN CORPUSCULAR HEMOGLOBIN 31.1 pg (27.0-33.0); MEAN CORPUSCULAR HGB CONC 31.2 g/dl (32.0-36.5); MEAN CORPUSCULAR VOLUME 99.7 fl (80.0-96.0); PLATELET COUNT, AUTOMATED 328 10^3/uL (150-450); RED BLOOD COUNT 3.31 10^6/uL (4.30-6.10); WHITE BLOOD COUNT 7.2 10^3/uL (4.0-10.0)
[2020-06-21] MEDS: HumaLOG INSULIN (NovoLOG) PER UNIT SC SCH ×2 (06:29→17:46)
[2020-06-21] MEDS: ADVAIR HFA 230/21MCG INHALER INH SCH ×2 (07:47→20:04)
[2020-06-21] MEDS: VENLAFAXINE **XR** 75MG CAPSULE PO SCH (08:16)
[2020-06-21] MEDS: CARVedilol 12.5 MG TAB PO SCH ×2 (08:17→21:58)
[2020-06-21] MEDS: amLODIPine 5 MG TAB PO SCH (08:18)
[2020-06-21] MEDS: ASPIRIN 81 MG CHEW TABLET PO SCH (08:18)
--- NOTE | 2020-06-21 08:18 | IPNPDOC ---
Subjective Review oF Systems Chief Complaint The patient is a 79-year-old male admitted with a reason for visit of UTI. Events since Last Encounter No acute events o/n. Denies scrotal pain. Objective Physical Examination General Exam: Cooperative, No Acute Distress Other physical findings scrotum w/ 2-3mm hole on the R side w/ small amount of serous drainage, minimal edema, no erythema, nontender Vital Signs/I&O Vital Signs Date Time Temp Pulse Resp B/P (MAP) Pulse Ox O2 Delivery O2 Flow Rate FiO2 06/21/20 04:00 97.6 80 18 160/76 (104) 95 Room Air 06/20/20 04:00 2.0 I&O- Last 24 Hours up to 6 AM 06/21/20 06:00 Intake Total 750 ml Output Total 1100 ml Balance -350 ml Laboratory Data Labs 24H Laboratory Tests 2 06/20/20 12:02: Bedside Glucose (Misc Panel) 108 06/20/20 12:31: Nucleated Red Blood Cells % (auto) 0.0 06/20/20 16:45: Bedside Glucose (Misc Panel) 59L 06/20/20 17:26: Bedside Glucose (Misc Panel) 160H 06/20/20 18:16: Nucleated Red Blood Cells % (auto) 0.0 06/20/20 22:12: Bedside Glucose (Misc Panel) 143H 06/20/20 23:38: Nucleated Red Blood Cells % (auto) 0.0 06/21/20 05:18: Bedside Glucose (Misc Panel) 150H CBC/BMP Laboratory Tests 06/20/20 12:31 06/20/20 18:16 06/20/20 23:38 FSBS Laboratory Tests Test 06/20/20 12:02 06/20/20 16:45 06/20/20 17:26 06/20/20 22:12 Range/Units Bedside Glucose (Misc Panel) 108 59 160 143 83-110 MG/DL Test 06/21/20 05:18 Range/Units Bedside Glucose (Misc Panel) 150 83-110 MG/DL Microbiology Microbiology 06/20/20 Gram Stain, Received Pending 06/20/20 Abscess Culture, Received Pending 06/20/20 Stool Occult Blood (GRACY) - Final, Complete 06/20/20 Gram Stain - Final, Resulted 06/20/20 Wound Culture, Resulted Pending 06/17/20 Urine Culture - Final, Complete Escherichia Coli 06/17/20 Blood Culture - Preliminary, Resulted No Growth after 72 hours. All specime... Assessment/Plan Date Seen The patient was seen on 06/21/20. Patient Summary This is a 79 y/o M admitted 3 days ago for a UTI, now found to have a scrotal abscess. The abscess was drained yesterday. Gram stain showing moderate GNR. WBC normal. Plan/VTE VTE Prophylaxis Ordered?: Yes VTE Exclusion Mechanical Proph: N/A:VTE Prophy Ordered Plan - f/u culture results - rocephin should cover the bacteria - adjust once final cultures are back - should be on abx for 14 days for the scrotal abscess - as long as he continues to improve clinically (improving edema, no erythema, no tenderness), no additional tx will be required MANOLO RUTH MD Jun 21, 2020 08:18
[2020-06-21] MEDS: NS 1,000 ML IV SCH ×2 (10:14→17:32)
[2020-06-21] MEDS ORDERED: diphenhydrAMINE 50MG/ML VIAL (J1200) IV PRN (11:00)
[2020-06-21] MEDS ORDERED: HumaLOG INSULIN (NovoLOG) PER UNIT SC SCH ×2 (12:00→21:00)
--- NOTE | 2020-06-21 13:49 | IPNPDOC ---
Text Note Date of Service The patient was seen on 06/21/20. NOTE Subjective: Pt feels well. Scrotal abscess draining. Denies CP/SOB/palpitati ons. No blood in stool. Objective: Vitals: (see below) General: No acute distress, laying comfortably in bed. cachectic HEENT: Moist mucous membranes. Neck: No JVD or lymphadenopathy Cardiac: RRR, No murmurs Pulm: Diminished b/l. No wheezing, rhonchi Abd: NT/ND + BS Ext: No edema or cyanosis scrotum: Right side:abscess draining serous fluid. non tenderness. No induration. Labs (see below) ASSESSMENT: Mr. Tao is a 79-year-old male with a history of COPD, CKD3, NIDDM, CAD, HTN, dyslipidemia, systolic CHF, AV block with pacemaker, anxiety, depression, dementia, and protein calorie nutrition who presented at [facility] with complaints of shortness of breath of unclear cause; he was diagnosed with UTI and altered mental status; transfer [facility] was requested for a higher level of care. PLAN: 1. Complicating UTI - E. Coli He had leukocytosis and lactic acidosis - Cont rocephin 2. Scrotal abscess - u/s noted - Appreciate urology consult - wound cx pending 3. Bleeding from scrotal abscess vs rectal - cover abscess - check fobt - cbc q6h - d/c lovenox. 4 Encephalopathy 2/2 UTI with ? Baseline Dementia - resolved At this time it is unclear what his baseline mental status is. CT the head was unrevealing TSH , b12 wbl 5. Macrocytic anemia, likely due to COPD His hemoglobin has dropped from 13 to 11.9, within the last month. Plan: Follow-up iron studies, B12, TSH and RBC 6. Emphysema Plan: ProAir HFA and Advair 7. CKD3 His CANDI has resolved Plan: f/u BMP 8. NIDDM Plan: diabetic diet / f/u accuchecks & A1C / hypoglycemia protocol / sliding scale insulin / hold oral anti-glycemics 9. Chronic CAD / Dyslipidemia Plan: Atorvastatin, Coreg, aspirin, Atripla, glycerin 10. Chronic HTN Plan: Amlodipine, Coreg, furosemide 11. Chronic systolic CHF with his hypokinesis and an EF of 22% (Echo Apr 2020 at [facility]) Is clinically compensated Plan: Coreg, furosemide 12. Anxiety/depression Plan: Venlafaxine 13. Sarcopenia He has a low BMI Not sure if this is due to advanced dementia nutrition consult DVT PROPHYLAXIS: Lovenox PT consult; cleared. VS,Fishbone, I+O VS, Fishbone, I+O Laboratory Tests 06/20/20 18:16 06/20/20 23:38 Vital Signs Date Time Temp Pulse Resp B/P (MAP) Pulse Ox O2 Delivery O2 Flow Rate FiO2 06/21/20 12:00 97.8 80 17 146/72 (96) 96 Room Air 06/20/20 04:00 2.0 I&O- Last 24 Hours up to 6 AM 06/21/20 06:00 Intake Total 750 ml Output Total 1100 ml Balance -350 ml TOMI PEÑA MD Jun 21, 2020 13:49
[2020-06-21 16:07] LABS: BASO # 0.1 10^3/uL (0.0-0.2); BASO % 1.1 % (0.0-1.0); EOS # 0.2 10^3/uL (0.0-0.5); EOS % 1.6 % (0.0-3.0); HEMATOCRIT 30.7 % (42.0-52.0); HEMOGLOBIN 9.1 g/dl (13.5-17.5); LYMPH # 0.7 10^3/uL (1.5-5.0); LYMPH % 7.8 % (24.0-44.0); MEAN CORPUSCULAR HEMOGLOBIN 30.2 pg (27.0-33.0); MEAN CORPUSCULAR HGB CONC 29.6 g/dl (32.0-36.5); MONO # 0.3 10^3/uL (0.0-0.8); MONO % 3.7 % (0.0-5.0); NEUTROPHILS # 7.4 10^3/uL (1.5-8.5); NEUTROPHILS % 81.1 % (36.0-66.0); PLATELET COUNT, AUTOMATED 370 10^3/uL (150-450); RED BLOOD COUNT 3.01 10^6/uL (4.30-6.10); WHITE BLOOD COUNT 9.1 10^3/uL (4.0-10.0)
[2020-06-21 16:24] LABS: BLOOD UREA NITROGEN 25 MG/DL (7-18); CALCIUM LEVEL 8.5 MG/DL (8.8-10.2); CARBON DIOXIDE LEVEL 32 MEQ/L (21-32); CHLORIDE LEVEL 105 MEQ/L (98-107); CREATININE FOR GFR 1.21 MG/DL (0.70-1.30); GLOMERULAR FILTRATION RATE > 60.0 (>42); GLUCOSE, FASTING 323 MG/DL (70-100); POTASSIUM SERUM 3.5 MEQ/L (3.5-5.1); SODIUM LEVEL 140 MEQ/L (136-145)
[2020-06-21] MEDS: cefTRIAXone SOD 1 GM in D5W MINI-BAG PLUS 50 ML IV SCH (17:32)
[2020-06-21] MEDS: ATORVASTATIN 20 MG TAB PO SCH (21:58)
[2020-06-21 23:11] LABS: HEMATOCRIT 36.4 % (42.0-52.0); MEAN CORPUSCULAR HEMOGLOBIN 31.3 pg (27.0-33.0); MEAN CORPUSCULAR HGB CONC 31.6 g/dl (32.0-36.5); MEAN CORPUSCULAR VOLUME 99.2 fl (80.0-96.0); PLATELET COUNT, AUTOMATED 371 10^3/uL (150-450); RED BLOOD COUNT 3.67 10^6/uL (4.30-6.10); WHITE BLOOD COUNT 9.1 10^3/uL (4.0-10.0)
[2020-06-21 23:12] LABS: HEMOGLOBIN 11.5 g/dl (13.5-17.5)
[2020-06-22] VITALS: BP 145/65
[2020-06-22] MEDS: DEXTROSE 50% 50 ML SYRINGE IV PRN (00:08)
[2020-06-22 02:20] LABS: HEMATOCRIT 33.8 % (42.0-52.0); HEMOGLOBIN 10.6 g/dl (13.5-17.5); MEAN CORPUSCULAR HEMOGLOBIN 30.8 pg (27.0-33.0); MEAN CORPUSCULAR HGB CONC 31.4 g/dl (32.0-36.5); MEAN CORPUSCULAR VOLUME 98.3 fl (80.0-96.0); PLATELET COUNT, AUTOMATED 306 10^3/uL (150-450); RED BLOOD COUNT 3.44 10^6/uL (4.30-6.10); WHITE BLOOD COUNT 8.2 10^3/uL (4.0-10.0)
[2020-06-22 04:00] VITALS: BP 127/66
[2020-06-22] MEDS: NS 1,000 ML IV SCH ×2 (05:27→19:15)
[2020-06-22] MEDS: HumaLOG INSULIN (NovoLOG) PER UNIT SC SCH ×4 (06:00→17:22)
[2020-06-22] MEDS: ADVAIR HFA 230/21MCG INHALER INH SCH ×2 (07:43→19:38)
[2020-06-22 08:00] VITALS: BP 123/59
[2020-06-22 08:25] LABS: HEMATOCRIT 32.7 % (42.0-52.0); HEMOGLOBIN 10.1 g/dl (13.5-17.5); MEAN CORPUSCULAR HEMOGLOBIN 30.7 pg (27.0-33.0); MEAN CORPUSCULAR HGB CONC 30.9 g/dl (32.0-36.5); MEAN CORPUSCULAR VOLUME 99.4 fl (80.0-96.0); PLATELET COUNT, AUTOMATED 316 10^3/uL (150-450); RED BLOOD COUNT 3.29 10^6/uL (4.30-6.10); WHITE BLOOD COUNT 9.9 10^3/uL (4.0-10.0)
[2020-06-22] MEDS: CARVedilol 12.5 MG TAB PO SCH ×2 (09:06→21:02)
[2020-06-22] MEDS: amLODIPine 5 MG TAB PO SCH (09:06)
[2020-06-22] MEDS: VENLAFAXINE **XR** 75MG CAPSULE PO SCH (09:06)
[2020-06-22 12:00] VITALS: BP 147/69
[2020-06-22 13:56] LABS: HEMATOCRIT 32.9 % (42.0-52.0); HEMOGLOBIN 10.4 g/dl (13.5-17.5); MEAN CORPUSCULAR HEMOGLOBIN 31.3 pg (27.0-33.0); MEAN CORPUSCULAR HGB CONC 31.6 g/dl (32.0-36.5); MEAN CORPUSCULAR VOLUME 99.1 fl (80.0-96.0); PLATELET COUNT, AUTOMATED 332 10^3/uL (150-450); RED BLOOD COUNT 3.32 10^6/uL (4.30-6.10); WHITE BLOOD COUNT 9.1 10^3/uL (4.0-10.0)
[2020-06-22 16:00] VITALS: BP 147/70
--- NOTE | 2020-06-22 16:54 | IPNPDOC ---
Date Seen The patient was seen on 06/22/20. Progress Note Subjective: No complaints overnight. Several dark red bowel movements overnight. Scrotal abscess cx pending. Denies CP/SOB/palpitations. Objective: Vitals: (see below) General: No acute distress, laying comfortably in bed. cachectic HEENT: Moist mucous membranes. Neck: No JVD or lymphadenopathy Cardiac: RRR, No murmurs Pulm: Diminished b/l. No wheezing, rhonchi Abd: NT/ND + BS Ext: No edema or cyanosis : Right scrotal puncture dieudonne, not draining. non tenderness. No induration. Labs (see below) ASSESSMENT: Mr. Tao is a 79-year-old male with a history of COPD, CKD3, NIDDM, CAD, HTN, dyslipidemia, systolic CHF, AV block with pacemaker, anxiety, depression, dementia, and protein calorie nutrition who is being treated for complicated UTI, scrotal abscess and GI bleed. PLAN: Acute GI bleed, cause unknown -ASA and lovenox have been discontinued -Still having bloody bowel movements, dark blood/stool in his depends this AM -Discussed with Dr. Rivera (general surgery) who did not wish to pursue further treatment at this time, would like to see if patient's bleeding stopped on its own. -F/u Q12 hrs CBC -NPO except meds -NS at 50 cc/hr -Tele Complicated UTI, E. Coli -WBC wnl, afebrile, no dysuria. Resolved lactic acidosis -On rocephin (started 06/18/20) Scrotal abscess -s/p drainage -F/u Cx -Urology consulted -Ceftriaxone Encephalopathy 2/2 UTI with ? Baseline Dementia, improved since admission -Currently AAOx3 -CT the head was unrevealing -TSH , b12 wbl Macrocytic anemia -Slightly low iron -B12, folate wnl -F/u Q12 hrs CBC Emphysema -C/w ProAir HFA and Advair CKD3 -Cr stable -Daily labs NIDDM -Diabetic diet -F/u accuchecks & A1C -hypoglycemia protocol -ISS -hold oral anti-glycemics Chronic CAD / Dyslipidemia -C/w Atorvastatin, Coreg, aspirin, Atripla, glycerin Chronic HTN -C/w amlodipine, Coreg, furosemide Chronic systolic CHF with his hypokinesis and an EF of 22% (Echo Apr 2020 at [facility]) -Stable -C/w coreg, furosemide Anxiety/depression -c/w Venlafaxine Sarcopenia -He has a low BMI -Not sure if this is due to advanced dementia GI px: PPI BID DVT Px: SCD DISPOSITION: Holding all AC, monitoring GI bleed closely. Surgery consulted. VS, I&O, 24H, Fishbone Vital Signs/I&O Vital Signs Date Time Temp Pulse Resp B/P (MAP) Pulse Ox O2 Delivery O2 Flow Rate FiO2 06/22/20 12:00 97.3 80 20 147/69 (95) 90 Room Air 06/20/20 04:00 2.0 I&O- Last 24 Hours up to 6 AM 06/22/20 06:00 Intake Total 2015 ml Output Total 700 ml Balance 1315 ml Laboratory Data 24H LABS Laboratory Tests 2 06/21/20 17:34: Bedside Glucose (Misc Panel) 271H 06/21/20 22:07: Nucleated Red Blood Cells % (auto) 0.0, Lactic Acid Followup at 4 Hours 1.8 06/21/20 23:51: Bedside Glucose (Misc Panel) 53L 06/22/20 00:07: Bedside Glucose Confirm (Misc) 55 06/22/20 00:30: Bedside Glucose (Misc Panel) 91 06/22/20 02:02: Nucleated Red Blood Cells % (auto) 0.0 06/22/20 03:55: Bedside Glucose (Misc Panel) 90 06/22/20 06:46: Bedside Glucose (Misc Panel) 98 06/22/20 08:09: Nucleated Red Blood Cells % (auto) 0.0 06/22/20 11:48: Bedside Glucose (Misc Panel) 120H 06/22/20 13:46: Nucleated Red Blood Cells % (auto) 0.0 CBC/BMP Laboratory Tests 06/21/20 22:07 06/22/20 02:02 06/22/20 08:09 06/22/20 13:46 Microbiology Microbiology 06/21/20 Blood Culture, Received Pending 06/21/20 Blood Culture - Preliminary, Resulted No growth after 24 hours . All specim... 06/20/20 Gram Stain - Final, Resulted 06/20/20 Abscess Culture, Resulted Pending 06/20/20 Stool Occult Blood (GRACY) - Final, Complete 06/20/20 Gram Stain - Final, Resulted 06/20/20 Wound Culture - Preliminary, Resulted Staphylococcus Sp Coag Neg 06/17/20 Urine Culture - Final, Complete Escherichia Coli 06/17/20 Blood Culture - Preliminary, Resulted No Growth after 72 hours. All specime... Current Medications Current Medications Medications (Trade) Dose Ordered Sig/Reshma Route PRN Reason Start Time Stop Time Status Last Admin Dose Admin Acetaminophen (Tylenol Tab) 650 mg Q4H PRN PO PAIN OR FEVER 06/17/20 21:30 06/20/20 22:08 Al Hydrox/Mg Hydrox/Simethicone (Mylanta) 30 ml DAILY PRN PO DYSPEPSIA 06/17/20 21:30 Albuterol Sulfate (Proventil, Ventolin Hfa) 2 puff Q4H PRN INH SHORTNESS OF BREATH 06/18/20 00:45 Amlodipine Besylate (Norvasc) 5 mg DAILY PO 06/18/20 09:00 06/22/20 09:06 Aspirin (Aspirin Chewable) 81 mg DAILY PO 06/18/20 09:00 06/21/20 15:20 DC 06/20/20 08:58 Atorvastatin Calcium (Lipitor) 40 mg QHS PO 06/18/20 21:00 06/21/20 21:58 Carvedilol (COReg) 12.5 mg BID PO 06/18/20 09:00 06/22/20 09:06 Ceftriaxone Sodium 1 gm/ Dextrose 50 ml @ 100 mls/hr Q24H IV 06/18/20 18:00 06/21/20 17:32 Dextrose (Dextrose 50%) 25 ml ASDIRECTED PRN IV SEE LABEL COMMENTS 06/18/20 00:45 06/22/20 00:08 Diphenhydramine HCl (Benadryl) 25 mg Q8HP PRN IV ITCHING 06/21/20 11:00 Enoxaparin Sodium (Lovenox) 30 mg DAILY SC 06/18/20 09:00 06/20/20 09:49 DC 06/20/20 08:56 Furosemide (Lasix) 40 mg BID PO 06/18/20 09:00 06/18/20 07:37 DC Glucagon (Glucagon) 1 mg ASDIRECTED PRN SC SEE LABEL COMMENTS 06/18/20 00:45 Glucose (Glucose) 16 GM ASDIRECTED PRN PO SEE LABEL COMMENTS 06/18/20 00:45 Home Med (Med Rec Complete!) ASDIRECTED XX 06/18/20 00:30 06/18/20 00:22 DC Insulin Human Lispro (HumaLOG INSULIN) SEE PROTOCOL TABLE Q6H OH 06/20/20 12:00 06/21/20 11:16 DC 06/21/20 06:29 Insulin Human Lispro (HumaLOG INSULIN) SEE PROTOCOL TABLE Q6H OH 06/21/20 18:00 06/21/20 17:46 Insulin Human Lispro (HumaLOG INSULIN) See Protocol Table AC OH 06/18/20 07:30 06/20/20 12:15 DC 06/20/20 08:57 Insulin Human Lispro (HumaLOG INSULIN) See Protocol Table AC OH 06/21/20 12:00 06/21/20 15:32 DC Insulin Human Lispro (HumaLOG INSULIN) See Protocol Table QHS OH 06/17/20 21:00 06/20/20 12:15 DC Insulin Human Lispro (HumaLOG INSULIN) See Protocol Table QHS OH 06/21/20 21:00 06/21/20 15:32 DC Magnesium Hydroxide (Milk Of Magnesia) 30 ml DAILY PRN PO CONSTIPATION 06/17/20 21:30 Nitroglycerin (Nitrostat (1/ 150)) 0.4 mg Q5MP PRN SL CHEST PAIN 06/18/20 00:45 Salmeterol Xinafoate/ Fluticasone (Advair Hfa 230/ 21) 1 puff RBID INH 06/18/20 08:00 06/22/20 07:43 Sodium Chloride 1,000 ml @ 50 mls/hr Q20H IV 06/17/20 21:30 06/21/20 10:14 Sodium Chloride 1,000 ml @ 80 mls/hr [id number] IV 06/21/20 15:30 06/22/20 16:29 DC 06/22/20 05:27 Venlafaxine HCl (Effexor Xr) 150 mg DAILY PO 06/18/20 09:00 06/22/20 09:06 Allergies Coded Allergies: No Known Allergies (Unverified , 07/18/19) Nery Pimentel MD Jun 22, 2020 16:54
[2020-06-22] MEDS: cefTRIAXone SOD 1 GM in D5W MINI-BAG PLUS 50 ML IV SCH (17:22)
[2020-06-22 17:23] LABS: HEMATOCRIT 33.5 % (42.0-52.0); HEMOGLOBIN 10.5 g/dl (13.5-17.5); MEAN CORPUSCULAR HEMOGLOBIN 31.1 pg (27.0-33.0); MEAN CORPUSCULAR HGB CONC 31.3 g/dl (32.0-36.5); MEAN CORPUSCULAR VOLUME 99.1 fl (80.0-96.0); PLATELET COUNT, AUTOMATED 357 10^3/uL (150-450); RED BLOOD COUNT 3.38 10^6/uL (4.30-6.10); WHITE BLOOD COUNT 8.8 10^3/uL (4.0-10.0)
[2020-06-22 20:00] VITALS: BP 155/74
[2020-06-22] MEDS: ATORVASTATIN 20 MG TAB PO SCH (21:02)
[2020-06-22] MEDS: PANTOPRAZOLE 40MG VIAL (C9113 PER 1) IV SCH (21:02)
[2020-06-23] VITALS: BP 142/66
[2020-06-23 04:00] VITALS: BP 150/66
[2020-06-23 05:36] LABS: HEMATOCRIT 32.6 % (42.0-52.0); MEAN CORPUSCULAR HEMOGLOBIN 30.5 pg (27.0-33.0); MEAN CORPUSCULAR HGB CONC 30.7 g/dl (32.0-36.5); MEAN CORPUSCULAR VOLUME 99.4 fl (80.0-96.0); PLATELET COUNT, AUTOMATED 363 10^3/uL (150-450); RED BLOOD COUNT 3.28 10^6/uL (4.30-6.10)
[2020-06-23 06:11] LABS: ALBUMIN 2.5 GM/DL (3.2-5.2); ALT/SGPT 12 U/L (12-78); BILIRUBIN,TOTAL 0.4 MG/DL (0.2-1.0); BLOOD UREA NITROGEN 18 MG/DL (7-18); CALCIUM LEVEL 8.3 MG/DL (8.8-10.2); CARBON DIOXIDE LEVEL 29 MEQ/L (21-32); CHLORIDE LEVEL 112 MEQ/L (98-107); CREATININE FOR GFR 1.01 MG/DL (0.70-1.30); GLOMERULAR FILTRATION RATE > 60.0 (>42); GLUCOSE, FASTING 175 MG/DL (70-100); POTASSIUM SERUM 4.4 MEQ/L (3.5-5.1); SODIUM LEVEL 145 MEQ/L (136-145); TOTAL PROTEIN 5.6 GM/DL (6.4-8.2)
[2020-06-23] MEDS: HumaLOG INSULIN (NovoLOG) PER UNIT SC SCH ×5 (06:17→22:43)
[2020-06-23] MEDS: ADVAIR HFA 230/21MCG INHALER INH SCH ×2 (07:16→19:37)
[2020-06-23 08:00] VITALS: BP 130/68
[2020-06-23] MEDS: amLODIPine 5 MG TAB PO SCH (10:15)
[2020-06-23] MEDS: PANTOPRAZOLE 40MG VIAL (C9113 PER 1) IV SCH ×2 (10:15→22:42)
[2020-06-23] MEDS: CARVedilol 12.5 MG TAB PO SCH ×2 (10:15→22:43)
[2020-06-23] MEDS: VENLAFAXINE **XR** 75MG CAPSULE PO SCH (10:16)
--- NOTE | 2020-06-23 10:51 | CR ---
DATE OF CONSULTATION: 06/21/2020 REQUESTING PHYSICIAN: Dr. Young of the Hospitalist Service REASON FOR CONSULTATION: Rectal bleeding. HISTORY OF PRESENT ILLNESS: The patient is a 79-year-old man who was admitted to the Hospitalist service on the June. The patient was admitted for treatment of confusion and apparently a recent diagnosis of a urinary tract infection. The patient had apparently been presented at [facility] with some shortness of breath, poor oral intake and some mental status changes. He was found to have evidence for a urinary tract infection. He was transferred to [facility] for management of dehydration, possible acute kidney injury and infection. He has been treated with antibiotics. His white count which was somewhat elevated has returned to normal. He continues with some signs of dementia. Yesterday evening the nurse reports that it was noted that he had some blood in a bowel movement. He did have an occult blood test on the that was positive. Again, earlier this afternoon he had another bowel movement that was reported as showing some blood. His hematocrit was noted to have fallen slightly and I was consulted to evaluate the patient regarding a possible gastrointestinal bleed. MEDICATIONS: * Tylenol as needed. * Ceftriaxone. * Albuterol inhaler. * Amlodipine. * Atorvastatin. * Carvedilol. * Nitroglycerin p.r.n. * Advair inhaler. * Effexor XR. * Diphenhydramine as needed. * Insulin on a sliding scale protocol. ALLERGIES: The patient has no reported drug allergies. MEDICAL HISTORY: Much of the patient's history is obtained from his record, as he is not forthcoming with much detail although some of his surgical history he did recall. The patient's past medical history is significant for: * Coronary artery disease. * Congestive heart failure. * History of hypertension. * Dyslipidemia. * History of atrial ventricular block with his pacemaker in place. * Diabetes mellitus. * History of emphysema. * Chronic kidney disease, type 3. * There is a reported of anxiety and depression as well as dementia. SURGICAL HISTORY: The patient's past surgical history is significant for : * Bilateral cataract surgery. * He reportedly had cardiac catheterization in 2004 and has a pacemaker. * He has had coronary stents placed. * He has had an appendectomy. * Cholecystectomy. * Bilateral inguinal hernia repairs. FAMILY HISTORY: The patient's family history is not obtainable. SOCIAL HISTORY: The patient's past surgical history as reported by the Hospitalist includes a significant history of tobacco use. He reportedly no longer smokes and denies significant alcohol intake. REVIEW OF SYSTEMS: I did not attempt to update. PHYSICAL EXAMINATION: GENERAL APPEARANCE: A thin, elderly man lying quietly on the hospital bed. He appeared to be dozing when I entered but with voice he roused and was appropriate in conversation. He is quite thin. VITAL SIGNS: His most recent vital signs show a temperature of 97.6, pulse of 80, respirations of 18 and a blood pressure of 141/67. SKN: Warm and dry. HEENT: Sclerae are anicteric. NECK: Supple. HEART: Regular rhythm. LUNGS: Good bilateral breath sounds. ABDOMEN: Thin. He has an oblique right lower quadrant scar consistent with an appendectomy. He has bilateral inguinal region scars consistent with inguinal hernia repairs. He has a small scar in the upper mid abdomen, likely associated with his gallbladder. He appears to have a small umbilical hernia which is soft and nontender. The patient abdomen overall is soft with active bowel sounds and nontender to palpation. No masses appreciated. EXTREMITIES: Without significant edema. He has palpable radial pulses bilaterally. LABORATORY STUDIES: Today he has a white count of 9, hemoglobin 9, hematocrit of 31 and a platelet count of 370,000. His differential count showed 91% neutrophils and 8% lymphocytes. His hematocrit on admission was 38, but it was reported that he was somewhat dehydrated at that time. His chemistries today show normal electrolytes with a BUN of 25, creatinine 1.2 and a glucose of 323. He had a lactic acid of 2.6 this afternoon. IMPRESSION: The patient is a 79-year-old man with a history of coronary artery disease and multiple other medical issues including chronic kidney disease and diabetes and pacemaker for AV block. He has some dementia. He has had now some evidence of blood in his stool. The source is unclear. He has no abdominal pain or tenderness. It certainly could represent a diverticular bleed. There are certainly other potential causes. I have no idea when he might have had a colonoscopy or if for that matter, he ever has had a colonoscopy. RECOMMENDATIONS: The patient should be monitored closely as to his medical issues and his hemoglobin and hematocrit. He should be transfused as necessary. It may be reasonable at some point to consider a colonoscopy. He is at this point a DNR/DNI patient based on his MOLST form. We would need to discuss with his Healthcare Proxy how aggressive an approach would be desired as far as further evaluation. If his bleeding ceases, then this kind of discussion can happen at a leisurely pace between his primary physician and his Healthcare Proxy. I will be happy to follow the patient over the next couple days to see how things progress. YUE
[2020-06-23 12:00] VITALS: BP 130/63
[2020-06-23] MEDS: NS 1,000 ML IV SCH (12:20)
--- NOTE | 2020-06-23 15:33 | IPNPDOC ---
Date Seen The patient was seen on 06/23/20. Progress Note Subjective: 3 blood bowel movements, dark red over 06/24/20 and one today. H/H remains stable. Surgery advanced diet. Scrotal abscess cx still pending. PT/OT ordered to continue. Denies CP/SOB/palpitations, lightheadedness, dizziness. Objective: Vitals: (see below) General: No acute distress, laying comfortably in bed. cachectic HEENT: Moist mucous membranes. Neck: No JVD or lymphadenopathy Cardiac: RRR, No murmurs Pulm: Diminished b/l. No wheezing, rhonchi Abd: NT/ND + BS Ext: No edema or cyanosis : Right scrotal puncture dieudonne, not draining. non tenderness. No induration. No increased erythema Labs: Please see below ASSESSMENT: Mr. Tao is a 79-year-old male with a history of COPD, CKD3, NIDDM, CAD, HTN, dyslipidemia, systolic CHF, AV block with pacemaker, anxiety, depression, dementia, and protein calorie nutrition who is being treated for complicated UTI, scrotal abscess and GI bleed. PLAN: Acute GI bleed, cause unknown but likely upper GI -3 bloody BMs 06/22/20, one small this AM. H/H stable at -S/p 1 unit blood transfused this admission -ASA and lovenox have been discontinued -Still having bloody bowel movements, dark blood/stool -Discussed with Dr. Rivera (general surgery), holding off on further intervention at this time. Supportive care to see if bleeding stops on its own -F/u Q12 hrs CBC -Diet advanced this AM -NS at 50 cc/hr UTI, E. Coli -WBC wnl, afebrile, no dysuria. Resolved lactic acidosis -On rocephin (started 06/18/20)- treatment course completed Scrotal abscess -s/p drainage -Scrotal abscess GS: FEW WBCS, MODERATE GRAM POSITIVE COCCI IN PAIRS, MODERATE GRAM NEGATIVE MARGARET -Scrotal abscess Cx: Pending -Urology consulted -Ceftriaxone (started 06/18/20) Encephalopathy 2/2 UTI with ? Baseline Dementia, improved since admission -Currently AAOx3 -CT the head was unrevealing -TSH , b12 wbl Macrocytic anemia, chronic -S/p 1 unit PRBC this admission -Slightly low iron -B12, folate wnl -F/u Q12 hrs CBC Emphysema -Stable on RA -C/w ProAir HFA and Advair CKD3 -Cr stable -Daily labs NIDDM -Diabetic diet -F/u accuchecks & A1C -hypoglycemia protocol -ISS for Q6hrs while starting to eat, change to AC/HS if we see BS rise Chronic CAD / Dyslipidemia -C/w Atorvastatin, Coreg, aspirin, Atripla, glycerin Chronic HTN -C/w amlodipine, Coreg, furosemide Chronic systolic CHF with his hypokinesis and an EF of 22% (Echo Apr 2020 at [facility]) -Stable -C/w coreg, furosemide Anxiety/depression -c/w Venlafaxine Sarcopenia -He has a low BMI -Not sure if this is due to advanced dementia GI px: PPI BID DVT Px: SCD DISPOSITION: Holding all AC, monitoring GI bleed closely. Surgery consulted. PT/OT reordered VS, I&O, 24H, Fishbone Vital Signs/I&O Vital Signs Date Time Temp Pulse Resp B/P (MAP) Pulse Ox O2 Delivery O2 Flow Rate FiO2 06/23/20 12:00 96.5 80 20 130/63 (85) 92 Room Air 06/20/20 04:00 2.0 I&O- Last 24 Hours up to 6 AM 06/23/20 05:59 Intake Total 810 ml Output Total 600 ml Balance 210 ml Laboratory Data 24H LABS Laboratory Tests 2 06/22/20 16:57: Nucleated Red Blood Cells % (auto) 0.0 06/22/20 17:22: Bedside Glucose (Misc Panel) 108 06/23/20 00:36: Bedside Glucose (Misc Panel) 159H 06/23/20 05:15: Nucleated Red Blood Cells % (auto) 0.2H, Anion Gap 4L, Glomerular Filtration Rate > 60.0, Calcium Level 8.3L, Total Bilirubin 0.4, Aspartate Amino Transf (AST/SGOT) 11, Alanine Aminotransferase (ALT/SGPT) 12, Alkaline Phosphatase 117, Total Protein 5.6L, Albumin 2.5L, Albumin/Globulin Ratio 0.8 06/23/20 12:13: Bedside Glucose (Misc Panel) 186H CBC/BMP Laboratory Tests 06/22/20 16:57 06/23/20 05:15 Microbiology Microbiology 06/21/20 Blood Culture - Preliminary, Resulted No growth after 24 hours . All specim... 06/21/20 Blood Culture - Preliminary, Resulted No growth after 24 hours . All specim... 06/20/20 Gram Stain - Final, Resulted 06/20/20 Abscess Culture, Resulted Pending 06/20/20 Stool Occult Blood (GRACY) - Final, Complete 06/20/20 Gram Stain - Final, Resulted 06/20/20 Wound Culture - Preliminary, Resulted Staphylococcus Sp Coag Neg 06/17/20 Urine Culture - Final, Complete Escherichia Coli 06/17/20 Blood Culture - Final, Complete NO GROWTH AFTER 5 DAYS Current Medications Current Medications Medications (Trade) Dose Ordered Sig/Reshma Route PRN Reason Start Time Stop Time Status Last Admin Dose Admin Acetaminophen (Tylenol Tab) 650 mg Q4H PRN PO PAIN OR FEVER 06/17/20 21:30 06/20/20 22:08 Al Hydrox/Mg Hydrox/Simethicone (Mylanta) 30 ml DAILY PRN PO DYSPEPSIA 06/17/20 21:30 Albuterol Sulfate (Proventil, Ventolin Hfa) 2 puff Q4H PRN INH SHORTNESS OF BREATH 06/18/20 00:45 Amlodipine Besylate (Norvasc) 5 mg DAILY PO 06/18/20 09:00 06/23/20 10:15 Aspirin (Aspirin Chewable) 81 mg DAILY PO 06/18/20 09:00 06/21/20 15:20 DC 06/20/20 08:58 Atorvastatin Calcium (Lipitor) 40 mg QHS PO 06/18/20 21:00 06/22/20 21:02 Carvedilol (COReg) 12.5 mg BID PO 06/18/20 09:00 06/23/20 10:15 Ceftriaxone Sodium 1 gm/ Dextrose 50 ml @ 100 mls/hr Q24H IV 06/18/20 18:00 06/22/20 17:22 Dextrose (Dextrose 50%) 25 ml ASDIRECTED PRN IV SEE LABEL COMMENTS 06/18/20 00:45 06/22/20 00:08 Diphenhydramine HCl (Benadryl) 25 mg Q8HP PRN IV ITCHING 06/21/20 11:00 Enoxaparin Sodium (Lovenox) 30 mg DAILY SC 06/18/20 09:00 06/20/20 09:49 DC 06/20/20 08:56 Furosemide (Lasix) 40 mg BID PO 06/18/20 09:00 06/18/20 07:37 DC Glucagon (Glucagon) 1 mg ASDIRECTED PRN SC SEE LABEL COMMENTS 06/18/20 00:45 Glucose (Glucose) 16 GM ASDIRECTED PRN PO SEE LABEL COMMENTS 06/18/20 00:45 Home Med (Med Rec Complete!) ASDIRECTED XX 06/18/20 00:30 06/18/20 00:22 DC Insulin Human Lispro (HumaLOG INSULIN) SEE PROTOCOL TABLE Q6H VA 06/20/20 12:00 06/21/20 11:16 DC 06/21/20 06:29 Insulin Human Lispro (HumaLOG INSULIN) SEE PROTOCOL TABLE Q6H VA 06/21/20 18:00 06/23/20 12:20 Insulin Human Lispro (HumaLOG INSULIN) See Protocol Table AC VA 06/18/20 07:30 06/20/20 12:15 DC 06/20/20 08:57 Insulin Human Lispro (HumaLOG INSULIN) See Protocol Table AC VA 06/21/20 12:00 06/21/20 15:32 DC Insulin Human Lispro (HumaLOG INSULIN) See Protocol Table QHS VA 06/17/20 21:00 06/20/20 12:15 DC Insulin Human Lispro (H[facility]LOG INSULIN) [facility] 06/21/20 21:00 06/21/20 15:32 DC Magnesium Hydroxide (Milk Of Magnesia) 30 ml DAILY PRN PO CONSTIPATION 06/17/20 21:30 Nitroglycerin (Nitrostat (1/ 150)) 0.4 mg Q5MP PRN SL CHEST PAIN 06/18/20 00:45 Pantoprazole Sodium (Protonix) 40 mg BID IV 06/22/20 21:00 06/23/20 10:15 Salmeterol Xinafoate/ Fluticasone (Advair Hfa 230/ 21) 1 puff RBID INH 06/18/20 08:00 06/23/20 07:16 Sodium Chloride 1,000 ml @ 50 mls/hr Q20H IV 06/17/20 21:30 06/23/20 12:20 Sodium Chloride 1,000 ml @ 80 mls/hr [id number] IV 06/21/20 15:30 06/22/20 16:29 DC 06/22/20 05:27 Venlafaxine HCl (Effexor Xr) 150 mg DAILY PO 06/18/20 09:00 06/23/20 10:16 Allergies Coded Allergies: No Known Allergies (Unverified , 07/18/19) Nery Pimentel MD Jun 23, 2020 15:33
[2020-06-23 16:00] VITALS: BP 128/76
[2020-06-23 16:40] LABS: HEMATOCRIT 32.9 % (42.0-52.0); HEMOGLOBIN 10.1 g/dl (13.5-17.5); MEAN CORPUSCULAR HEMOGLOBIN 31.1 pg (27.0-33.0); MEAN CORPUSCULAR HGB CONC 30.7 g/dl (32.0-36.5); MEAN CORPUSCULAR VOLUME 101.2 fl (80.0-96.0); PLATELET COUNT, AUTOMATED 405 10^3/uL (150-450); RED BLOOD COUNT 3.25 10^6/uL (4.30-6.10); WHITE BLOOD COUNT 14.2 10^3/uL (4.0-10.0)
[2020-06-23] MEDS: cefTRIAXone SOD 1 GM in D5W MINI-BAG PLUS 50 ML IV SCH (18:04)
[2020-06-23 20:00] VITALS: BP 128/60
[2020-06-23] MEDS: ATORVASTATIN 20 MG TAB PO SCH (22:42)
[2020-06-24] VITALS: BP 119/59
[2020-06-24 04:00] VITALS: BP 148/68
[2020-06-24] MEDS: HumaLOG INSULIN (NovoLOG) PER UNIT SC SCH ×3 (06:54→17:08)
[2020-06-24 07:18] LABS: HEMATOCRIT 32.9 % (42.0-52.0); HEMOGLOBIN 10.2 g/dl (13.5-17.5); MEAN CORPUSCULAR HEMOGLOBIN 30.7 pg (27.0-33.0); MEAN CORPUSCULAR VOLUME 99.1 fl (80.0-96.0); PLATELET COUNT, AUTOMATED 376 10^3/uL (150-450); RED BLOOD COUNT 3.32 10^6/uL (4.30-6.10); WHITE BLOOD COUNT 11.1 10^3/uL (4.0-10.0)
[2020-06-24] MEDS: ADVAIR HFA 230/21MCG INHALER INH SCH ×2 (07:24→19:41)
[2020-06-24 07:50] LABS: ALBUMIN 2.6 GM/DL (3.2-5.2); ALT/SGPT 12 U/L (12-78); BILIRUBIN,TOTAL 0.3 MG/DL (0.2-1.0); BLOOD UREA NITROGEN 20 MG/DL (7-18); CALCIUM LEVEL 8.1 MG/DL (8.8-10.2); CARBON DIOXIDE LEVEL 29 MEQ/L (21-32); CHLORIDE LEVEL 110 MEQ/L (98-107); CREATININE FOR GFR 1.06 MG/DL (0.70-1.30); GLOMERULAR FILTRATION RATE > 60.0 (>42); GLUCOSE, FASTING 150 MG/DL (70-100); SODIUM LEVEL 143 MEQ/L (136-145); TOTAL PROTEIN 5.4 GM/DL (6.4-8.2)
[2020-06-24 08:00] VITALS: BP_SYST 118; BP_SYST 135; BP_DIAS 62
[2020-06-24] MEDS: amLODIPine 5 MG TAB PO SCH (08:40)
[2020-06-24] MEDS: VENLAFAXINE **XR** 75MG CAPSULE PO SCH (08:41)
[2020-06-24] MEDS: PANTOPRAZOLE 40MG VIAL (C9113 PER 1) IV SCH ×2 (08:41→21:47)
[2020-06-24] MEDS: CARVedilol 12.5 MG TAB PO SCH ×2 (08:41→21:47)
[2020-06-24 12:00] VITALS: BP_SYST 115; BP_SYST 123; BP_DIAS 60; BP_DIAS 65
[2020-06-24] MEDS: NS 1,000 ML IV SCH (13:30)
--- NOTE | 2020-06-24 14:25 | IPNPDOC ---
Date Seen The patient was seen on 06/24/20. Progress Note Subjective: Last small blood BM AM on 06/23/20, seen on evaluation of patient during AM rounds. Depends had some smearing of dark red blood, minimal today on exam. Tolerating advanced diet, H/H remains stable. Scrotal abscess cx still pending. PT: Patient unsafe to return home at this time without 24/7 care. Patient lives alone. Denies CP/SOB/palpitations, lightheadedness, dizziness. Objective: Vitals: (see below) General: No acute distress, laying comfortably in bed. Cachectic HEENT: Moist mucous membranes. Neck: No JVD or lymphadenopathy Cardiac: RRR, No murmurs Pulm: Diminished b/l. No wheezing, rhonchi Abd: NT/ND + BS Ext: No edema or cyanosis : Right scrotal puncture dieudonne, not draining. non tenderness. No induration. No increased erythema LABORATORY: Please see below MICROBIOLOGY: Scrotal wound cx: Staph coag neg, sensitivities in chart Scrotal abscess GS: FEW WBCS, MODERATE GRAM POSITIVE COCCI IN PAIRS, MODERATE GRAM NEGATIVE MARGARET Scrotal abscess fluid cx from abscess drainage: Pending ASSESSMENT: Mr. Tao is a 79-year-old male with a history of COPD, CKD3, NIDDM, CAD, HTN, dyslipidemia, systolic CHF, AV block with pacemaker, anxiety, depression, qasim ia, and protein calorie nutrition who is being treated for complicated UTI, scrotal abscess and GI bleed. PLAN: Acute GI bleed, cause unknown but likely upper GI -No recorded BM today or overnight, H/H stable -S/p 1 unit blood transfused this admission -ASA and lovenox have been discontinued -Still having bloody bowel movements, dark blood/stool -Discussed with Dr. Rivera (general surgery), holding off on further intervention at this time. Supportive care to see if bleeding stops on its own -F/u CBC. -Diet advanced Scrotal abscess s/p drainage -Scrotal wound cx: Staph coag. neg; however, scrotal abscess fluid from drainage cx pending -Scrotal abscess Cx: Pending -Urology consulted -Starting on Bactrim according to sensitivities from wound cx. If needed, tailor when abscess cx results return UTI, E. Coli -WBC wnl, afebrile, no dysuria. Resolved lactic acidosis -Completed tx with rocephin Physical deconditioning, acute on chronic -PT: Concern on pt. orientation on whether pt. has 24/7 of living alone at present time in regards to safety due to decrease in dynamic stability at present time -Discussed with team today -C/w PT/OT for now Encephalopathy 2/2 UTI with ? Baseline Dementia- resolved and at baseline -Currently AAOx3 -CT the head was unrevealing -TSH , b12 wnl Macrocytic anemia, chronic -S/p 1 unit PRBC this admission -Slightly low iron -B12, folate wnl -F/u Q12 hrs CBC Emphysema -Stable on RA -C/w ProAir HFA and Advair CKD3 -Cr stable -Daily labs NIDDM -Diabetic diet -F/u accuchecks & A1C -hypoglycemia protocol -ISS for Q6hrs while starting to eat, change to AC/HS if we see BS rise Chronic CAD / Dyslipidemia -C/w Atorvastatin, Coreg, aspirin, Atripla, glycerin Chronic HTN -C/w amlodipine, Coreg, furosemide Chronic systolic CHF with his hypokinesis and an EF of 22% (Echo Apr 2020 at [facility]) -Stable -C/w coreg, furosemide Anxiety/depression -c/w Venlafaxine Sarcopenia -He has a low BMI -Not sure if this is due to advanced dementia GI px: PPI BID DVT Px: SCD DISPOSITION: Holding all AC, monitoring GI bleed closely. Surgery consulted. PT/OT following. Plan is likely not discharge home, will need to determine s afest discharge plan possible. VS, I&O, 24H, Fishbone Vital Signs/I&O Vital Signs Date Time Temp Pulse Resp B/P (MAP) Pulse Ox O2 Delivery O2 Flow Rate FiO2 06/24/20 12:00 96.7 78 18 115/60 (78) 91 Room Air 06/20/20 04:00 2.0 I&O- Last 24 Hours up to 6 AM 06/24/20 06:00 Intake Total 1126 ml Output Total 775 ml Balance 351 ml Laboratory Data 24H LABS Laboratory Tests 2 06/23/20 16:25: Nucleated Red Blood Cells % (auto) 0.3H 06/23/20 17:57: Bedside Glucose (Misc Panel) 130H 06/23/20 22:21: Bedside Glucose (Misc Panel) 109 06/24/20 02:27: Bedside Glucose (Misc Panel) 129H 06/24/20 06:38: Nucleated Red Blood Cells % (auto) 0.2H, Bedside Glucose (Misc Panel) 141H, Anion Gap 4L, Glomerular Filtration Rate > 60.0, Calcium Level 8.1L, Total Bilirubin 0.3, Aspartate Amino Transf (AST/SGOT) 14, Alanine Aminotransferase (ALT/SGPT) 12, Alkaline Phosphatase 125H, Total Protein 5.4L, Albumin 2.6L, Albumin/Globulin Ratio 0.9 06/24/20 11:15: Bedside Glucose (Misc Panel) 128H CBC/BMP Laboratory Tests 06/23/20 16:25 06/24/20 06:38 Microbiology Microbiology 06/21/20 Blood Culture - Preliminary, Resulted No Growth after 48 hours. All Specime... 06/21/20 Blood Culture - Preliminary, Resulted No Growth after 48 hours. All Specime... 06/20/20 Gram Stain - Final, Resulted 06/20/20 Abscess Culture, Resulted Pending 06/20/20 Stool Occult Blood (GRACY) - Final, Complete 06/20/20 Gram Stain - Final, Resulted 06/20/20 Wound Culture - Preliminary, Resulted Staphylococcus Sp Coag Neg 06/17/20 Urine Culture - Final, Complete Escherichia Coli 06/17/20 Blood Culture - Final, Complete NO GROWTH AFTER 5 DAYS Current Medications Current Medications Medications (Trade) Dose Ordered Sig/Reshma Route PRN Reason Start Time Stop Time Status Last Admin Dose Admin Acetaminophen (Tylenol Tab) 650 mg Q4H PRN PO PAIN OR FEVER 06/17/20 21:30 06/20/20 22:08 Al Hydrox/Mg Hydrox/Simethicone (Mylanta) 30 ml DAILY PRN PO DYSPEPSIA 06/17/20 21:30 Albuterol Sulfate (Proventil, Ventolin Hfa) 2 puff Q4H PRN INH SHORTNESS OF BREATH 06/18/20 00:45 Amlodipine Besylate (Norvasc) 5 mg DAILY PO 06/18/20 09:00 06/24/20 08:40 Aspirin (Aspirin Chewable) 81 mg DAILY PO 06/18/20 09:00 06/21/20 15:20 DC 06/20/20 08:58 Atorvastatin Calcium (Lipitor) 40 mg QHS PO 06/18/20 21:00 06/23/20 22:42 Carvedilol (COReg) 12.5 mg BID PO 06/18/20 09:00 06/24/20 08:41 Ceftriaxone Sodium 1 gm/ Dextrose 50 ml @ 100 mls/hr Q24H IV 06/18/20 18:00 06/23/20 18:04 Dextrose (Dextrose 50%) 25 ml ASDIRECTED PRN IV SEE LABEL COMMENTS 06/18/20 00:45 06/22/20 00:08 Diphenhydramine HCl (Benadryl) 25 mg Q8HP PRN IV ITCHING 06/21/20 11:00 Enoxaparin Sodium (Lovenox) 30 mg DAILY SC 06/18/20 09:00 06/20/20 09:49 DC 06/20/20 08:56 Furosemide (Lasix) 40 mg BID PO 06/18/20 09:00 06/18/20 07:37 DC Glucagon (Glucagon) 1 mg ASDIRECTED PRN SC SEE LABEL COMMENTS 06/18/20 00:45 Glucose (Glucose) 16 GM ASDIRECTED PRN PO SEE LABEL COMMENTS 06/18/20 00:45 Home Med (Med Rec Complete!) ASDIRECTED XX 06/18/20 00:30 06/18/20 00:22 DC Insulin Human Lispro (HumaLOG INSULIN) SEE PROTOCOL TABLE Q6H HI 06/20/20 12:00 06/21/20 11:16 DC 06/21/20 06:29 Insulin Human Lispro (HumaLOG INSULIN) SEE PROTOCOL TABLE Q6H HI 06/21/20 18:00 06/24/20 12:01 Insulin Human Lispro (HumaLOG INSULIN) See Protocol Table AC HI 06/18/20 07:30 06/20/20 12:15 DC 06/20/20 08:57 Insulin Human Lispro (HumaLOG INSULIN) See Protocol Table AC SC 06/21/20 12:00 06/21/20 15:32 DC Insulin Human Lispro (HumaLOG INSULIN) See Protocol Table QHS SC 06/17/20 21:00 06/20/20 12:15 DC Insulin Human Lispro (HumaLOG INSULIN) See Protocol Table QHS SC 06/21/20 21:00 06/21/20 15:32 DC Magnesium Hydroxide (Milk Of Magnesia) 30 ml DAILY PRN PO CONSTIPATION 06/17/20 21:30 Nitroglycerin (Nitrostat (1/ 150)) 0.4 mg Q5MP PRN SL CHEST PAIN 06/18/20 00:45 Pantoprazole Sodium (Protonix) 40 mg BID IV 06/22/20 21:00 06/24/20 08:41 Salmeterol Xinafoate/ Fluticasone (Advair Hfa 230/ 21) 1 puff RBID INH 06/18/20 08:00 06/24/20 07:24 Sodium Chloride 1,000 ml @ 50 mls/hr Q20H IV 06/17/20 21:30 06/23/20 12:20 Sodium Chloride 1,000 ml @ 80 mls/hr [id number] IV 06/21/20 15:30 06/22/20 16:29 DC 06/22/20 05:27 Venlafaxine HCl (Effexor Xr) 150 mg DAILY PO 06/18/20 09:00 06/24/20 08:41 Allergies Coded Allergies: No Known Allergies (Unverified , 07/18/19) Nery Pimentel MD Jun 24, 2020 14:25
[2020-06-24 16:00] VITALS: BP 137/62
[2020-06-24 16:50] LABS: HEMOGLOBIN 8.8 g/dl (13.5-17.5); MEAN CORPUSCULAR HEMOGLOBIN 30.8 pg (27.0-33.0); MEAN CORPUSCULAR HGB CONC 31.4 g/dl (32.0-36.5); MEAN CORPUSCULAR VOLUME 97.9 fl (80.0-96.0); PLATELET COUNT, AUTOMATED 315 10^3/uL (150-450); RED BLOOD COUNT 2.86 10^6/uL (4.30-6.10); WHITE BLOOD COUNT 9.2 10^3/uL (4.0-10.0)
[2020-06-24] MEDS: cefTRIAXone SOD 1 GM in D5W MINI-BAG PLUS 50 ML IV SCH (17:41)
[2020-06-24 20:00] VITALS: BP 137/65
[2020-06-24] MEDS: ATORVASTATIN 20 MG TAB PO SCH (21:47)
[2020-06-25] VITALS: BP 109/56
[2020-06-25] MEDS: HumaLOG INSULIN (NovoLOG) PER UNIT SC SCH ×4 (00:53→18:38)
[2020-06-25 04:00] VITALS: BP 119/56
[2020-06-25 05:23] LABS: HEMATOCRIT 27.1 % (42.0-52.0); HEMOGLOBIN 8.5 g/dl (13.5-17.5); MEAN CORPUSCULAR HEMOGLOBIN 31.1 pg (27.0-33.0); MEAN CORPUSCULAR HGB CONC 31.4 g/dl (32.0-36.5); MEAN CORPUSCULAR VOLUME 99.3 fl (80.0-96.0); PLATELET COUNT, AUTOMATED 301 10^3/uL (150-450); RED BLOOD COUNT 2.73 10^6/uL (4.30-6.10); WHITE BLOOD COUNT 8.2 10^3/uL (4.0-10.0)
[2020-06-25 05:57] LABS: ALBUMIN 2.2 GM/DL (3.2-5.2); ALT/SGPT 11 U/L (12-78); BILIRUBIN,TOTAL 0.2 MG/DL (0.2-1.0); BLOOD UREA NITROGEN 20 MG/DL (7-18); CALCIUM LEVEL 8.2 MG/DL (8.8-10.2); CARBON DIOXIDE LEVEL 30 MEQ/L (21-32); CHLORIDE LEVEL 112 MEQ/L (98-107); CREATININE FOR GFR 0.99 MG/DL (0.70-1.30); GLOMERULAR FILTRATION RATE > 60.0 (>42); GLUCOSE, FASTING 80 MG/DL (70-100); POTASSIUM SERUM 3.8 MEQ/L (3.5-5.1); SODIUM LEVEL 145 MEQ/L (136-145); TOTAL PROTEIN 4.7 GM/DL (6.4-8.2)
[2020-06-25] MEDS: ADVAIR HFA 230/21MCG INHALER INH SCH ×2 (07:24→19:41)
[2020-06-25 08:00] VITALS: BP 144/82
[2020-06-25] MEDS: PANTOPRAZOLE 40MG VIAL (C9113 PER 1) IV SCH ×2 (09:16→20:25)
[2020-06-25] MEDS: VENLAFAXINE **XR** 75MG CAPSULE PO SCH (09:18)
[2020-06-25] MEDS: amLODIPine 5 MG TAB PO SCH (09:18)
[2020-06-25] MEDS: CARVedilol 12.5 MG TAB PO SCH ×2 (09:19→20:26)
[2020-06-25] MEDS ORDERED: SLF 3 ML SYR IV PRN (10:30)
[2020-06-25 12:00] VITALS: BP 138/52
--- NOTE | 2020-06-25 12:07 | IPN ---
DATE: 06/23/2020 HISTORY: Patient was admitted initially with a urinary tract infection and mental status changes. He developed a scrotal abscess. He has had evidence for some rectal bleeding recently and that is the problem that I had been asked to evaluate. Overnight, he had one very small bowel movement with what appeared to be some blood staining. He denies any abdominal pain, nausea, or vomiting. Vital signs show that he has been afebrile over the past 24 hours. Pulse is in the 70s and 80s. His blood pressure is good. Intake and output shows that yesterday he had 800 in with 800 out. PHYSICAL EXAMINATION: Patient is awake and appears comfortable this morning. He responds appropriately to questions. He denies any nausea. He is having no abdominal pain. Heart exam shows a regular rhythm. The lungs are clear. The abdomen is thin and flat and soft and nontender. LABORATORY STUDIES: Show a white count of 10, hemoglobin 10, hematocrit, 33, and a platelet count of 363,000. These values are unchanged from yesterday. Chemistries show normal electrolytes with the exception of a minimal elevation of the chloride to 112. BUN is 18 with a creatinine of 1.0. IMPRESSION: Patient is doing very well with no evidence of any significant bleeding currently. He has no abdominal pain. His hemoglobin and hematocrit have remained stable over the past 24 hours with no additional transfusion. RECOMMENDATIONS: At this point, I am going to start the patient on a diet. I see no upcoming urgent need for endoscopy. YUE
--- NOTE | 2020-06-25 12:10 | IPN ---
DATE: 06/22/2020 HISTORY: Patient had been admitted for mental status changes felt to be secondary to urinary tract infection. During his stay, he was noted to have also a scrotal abscess seen by Dr. Resendiz. Now, he has been having some blood stained bowel movements. He was seen in consultation yesterday afternoon or evening. He did receive one unit of packed red blood cells yesterday evening after his hematocrit was noted to be 31. Vital signs show that the patient has been afebrile over the past 24 hours. His pulse is in the 70s and low 80s. Blood pressure is good. Intake and output shows that yesterday he had 2600 in with 900 mL out. He has had two loose bowel movements since yesterday. The first was described as black and foul smelling and the second as zulma in color. PHYSICAL EXAMINATION: Patient is alert and responsive. He appears comfortable at rest. Abdomen is thin and flat. The abdomen is soft and nontender without appreciable mass. LABORATORY STUDIES: Show that this morning patients white count is 10 with a hemoglobin of 10, hematocrit of 33, and a platelet count of 316,000. Following his transfusion, his hematocrit had been 36 immediately thereafter and then 4 hours later the hematocrit was 34 and this morning 33. His chemistries were not repeated this morning. IMPRESSION: Patient has shown just a small amount of loose zulma described stool. He remains comfortable with stable vital signs. Following one unit of packed red blood cells, his hematocrit remains 33%. He clearly does not have brisk ongoing bleeding. It may well be that this is all residual bleeding. We do not at this time know the source but he has required only one unit of packed red blood cells to maintain a stable hematocrit. RECOMMENDATIONS: At this point, I would not recommend performing urgent endoscopy. He appears stable. If further transfusion is required this should be administered. YUE
--- NOTE | 2020-06-25 12:38 | IPNPDOC ---
Date Seen The patient was seen on 06/25/20. Progress Note Subjective: 1 BM this AM but no noted blood. Tolerating advanced diet, H/H decreasing slowly without signs of worsening bleeding. Scrotal abscess cx still pending. PT: Patient unsafe to return home at this time without 24/7 care. SW working on options with family. Denies CP/SOB/palpitations, lightheadedness, dizziness. Objective: Vitals: (see below) General: No acute distress, laying comfortably in bed. Cachectic, pleasantly confused at times HEENT: Moist mucous membranes. Neck: No JVD or lymphadenopathy Cardiac: RRR, No murmurs Pulm: Diminished b/l. No wheezing, rhonchi Abd: NT/ND + BS Ext: No edema or cyanosis : Right scrotal puncture dieudonne, not draining. non tenderness. No induration. No increased erythema LABORATORY: Please see below MICROBIOLOGY: Scrotal wound cx: Staph coag neg, sensitivities in chart Scrotal abscess GS: FEW WBCS, MODERATE GRAM POSITIVE COCCI IN PAIRS, MODERATE GRAM NEGATIVE MARGARET Scrotal abscess fluid cx from abscess drainage: Pending ASSESSMENT: Mr. Tao is a 79-year-old male with a history of COPD, CKD3, NIDDM, CAD, HTN, dyslipidemia, systolic CHF, AV block with pacemaker, anxiety, depression, dementia, and protein calorie nutrition who is being treated for complicated UTI, scrotal abscess and GI bleed. PLAN: Acute GI bleed, cause unknown but likely upper GI -1 BM this AM, 1 BM 06/24/20- no noted bleeding seen -H/H: 10.2/32 --> 8.8/28 --> today 8.5/. Slowly trending down despite slowing down of bleed -S/p 1 unit blood transfused this admission -ASA and lovenox held -Discussed with Dr. Rivera (general surgery), holding off on further intervention at this time. Supportive care to see if bleeding stops on its own -D/mak IVFs as patient is hemodynamically stable and has good intake -F/u CBCs regularly Scrotal abscess s/p drainage -Scrotal wound cx: Staph coag. neg; however, scrotal abscess fluid from drainage cx pending -Scrotal abscess Cx: Pending -Urology consulted -Dced ceftriaxone. Day 1 Bactrim. If needed, tailor when abscess cx results return Acute on chronic anemia -S/p 1 unit PRBC this admission -Slightly low iron -B12, folate wnl -F/u Q12 hrs CBC UTI, E. Coli -WBC wnl, afebrile, no dysuria. Resolved lactic acidosis -Completed tx with rocephin Physical deconditioning, acute on chronic -PT: Concern on pt. orientation on whether pt. has 24/7 of living alone at present time in regards to safety due to decrease in dynamic stability at present time -C/w PT/OT for now -Lived independently before but will need more support in prior setting before safe to discharge there. SW working with family Encephalopathy 2/2 UTI with ? Baseline Dementia- resolved and at baseline -Currently AAOx3 -CT the head was unrevealing -TSH , b12 wnl Emphysema -Stable on RA -C/w ProAir HFA and Advair CKD3 -Cr stable -Daily labs NIDDM -Diabetic diet -F/u accuchecks & A1C -hypoglycemia protocol -ISS for Q6hrs while starting to eat, change to AC/HS if we see BS rise Chronic CAD / Dyslipidemia -C/w Atorvastatin, Coreg, aspirin, Atripla, glycerin Chronic HTN -C/w amlodipine, Coreg, furosemide Chronic systolic CHF with his hypokinesis and an EF of 22% (Echo Apr 2020 at [facility]) -Stable -C/w coreg, furosemide Anxiety/depression -c/w Venlafaxine Sarcopenia -He has a low BMI -Not sure if this is due to advanced dementia GI px: PPI BID DVT Px: SCD DISPOSITION: Holding all AC, monitoring GI bleed closely. Surgery consulted. PT/OT following. If plan is discharge home, will need 24/7 care for him at home. SW discussing with family. VS, I&O, 24H, Fishbone Vital Signs/I&O Vital Signs Date Time Temp Pulse Resp B/P (MAP) Pulse Ox O2 Delivery O2 Flow Rate FiO2 06/25/20 09:19 68 144/82 06/25/20 08:00 97.5 18 92 Room Air 06/20/20 04:00 2.0 I&O- Last 24 Hours up to 6 AM 06/25/20 06:00 Intake Total 2140 ml Output Total 200 ml Balance 1940 ml Laboratory Data 24H LABS Laboratory Tests 2 06/24/20 16:35: Nucleated Red Blood Cells % (auto) 0.0 06/24/20 17:06: Bedside Glucose (Misc Panel) 91 06/24/20 20:07: Bedside Glucose (Misc Panel) 133H 06/25/20 00:26: Bedside Glucose (Misc Panel) 161H 06/25/20 04:54: Nucleated Red Blood Cells % (auto) 0.4H, Anion Gap 3L, Glomerular Filtration Rate > 60.0, Calcium Level 8.2L, Total Bilirubin 0.2, Aspartate Amino Transf (AST/SGOT) 10, Alanine Aminotransferase (ALT/SGPT) 11L, Alkaline Phosphatase 102, Total Protein 4.7L, Albumin 2.2L, Albumin/Globulin Ratio 0.9 06/25/20 11:54: Bedside Glucose (Misc Panel) 172H CBC/BMP Laboratory Tests 06/24/20 16:35 06/25/20 04:54 Microbiology Microbiology 06/21/20 Blood Culture - Preliminary, Resulted No Growth after 72 hours. All specime... 06/21/20 Blood Culture - Preliminary, Resulted No Growth after 72 hours. All specime... 06/20/20 Gram Stain - Final, Resulted 06/20/20 Abscess Culture, Resulted Pending 06/20/20 Stool Occult Blood (GRACY) - Final, Complete 06/20/20 Gram Stain - Final, Resulted 06/20/20 Wound Culture - Preliminary, Resulted Staphylococcus Sp Coag Neg 06/17/20 Urine Culture - Final, Complete Escherichia Coli 06/17/20 Blood Culture - Final, Complete NO GROWTH AFTER 5 DAYS Current Medications Current Medications Medications (Trade) Dose Ordered Sig/Reshma Route PRN Reason Start Time Stop Time Status Last Admin Dose Admin Acetaminophen (Tylenol Tab) 650 mg Q4H PRN PO PAIN OR FEVER 06/17/20 21:30 06/20/20 22:08 Al Hydrox/Mg Hydrox/Simethicone (Mylanta) 30 ml DAILY PRN PO DYSPEPSIA 06/17/20 21:30 Albuterol Sulfate (Proventil, Ventolin Hfa) 2 puff Q4H PRN INH SHORTNESS OF BREATH 06/18/20 00:45 Amlodipine Besylate (Norvasc) 5 mg DAILY PO 06/18/20 09:00 06/25/20 09:18 Aspirin (Aspirin Chewable) 81 mg DAILY PO 06/18/20 09:00 06/21/20 15:20 DC 06/20/20 08:58 Atorvastatin Calcium (Lipitor) 40 mg QHS PO 06/18/20 21:00 06/24/20 21:47 Carvedilol (COReg) 12.5 mg BID PO 06/18/20 09:00 06/25/20 09:19 Ceftriaxone Sodium 1 gm/ Dextrose 50 ml @ 100 mls/hr Q24H IV 06/18/20 18:00 06/25/20 12:08 DC 06/24/20 17:41 Dextrose (Dextrose 50%) 25 ml ASDIRECTED PRN IV SEE LABEL COMMENTS 06/18/20 00:45 06/22/20 00:08 Diphenhydramine HCl (Benadryl) 25 mg Q8HP PRN IV ITCHING 06/21/20 11:00 Enoxaparin Sodium (Lovenox) 30 mg DAILY SC 06/18/20 09:00 06/20/20 09:49 DC 06/20/20 08:56 Furosemide (Lasix) 40 mg BID PO 06/18/20 09:00 06/18/20 07:37 DC Glucagon (Glucagon) 1 mg ASDIRECTED PRN SC SEE LABEL COMMENTS 06/18/20 00:45 Glucose (Glucose) 16 GM ASDIRECTED PRN PO SEE LABEL COMMENTS 06/18/20 00:45 Home Med (Med Rec Complete!) ASDIRECTED XX 06/18/20 00:30 06/18/20 00:22 DC Insulin Human Lispro (HumaLOG INSULIN) SEE PROTOCOL TABLE Q6H OR 06/20/20 12:00 06/21/20 11:16 DC 06/21/20 06:29 Insulin Human Lispro (HumaLOG INSULIN) SEE PROTOCOL TABLE Q6H SC 06/21/20 18:00 06/25/20 11:57 Insulin Human Lispro (HumaLOG INSULIN) See Protocol Table AC SC 06/18/20 07:30 06/20/20 12:15 DC 06/20/20 08:57 Insulin Human Lispro (HumaLOG INSULIN) See Protocol Table AC SC 06/21/20 12:00 06/21/20 15:32 DC Insulin Human Lispro (HumaLOG INSULIN) See Protocol Table QHS SC 06/17/20 21:00 06/20/20 12:15 DC Insulin Human Lispro (HumaLOG INSULIN) See Protocol Table QHS SC 06/21/20 21:00 06/21/20 15:32 DC Magnesium Hydroxide (Milk Of Magnesia) 30 ml DAILY PRN PO CONSTIPATION 06/17/20 21:30 Nitroglycerin (Nitrostat (1/ 150)) 0.4 mg Q5MP PRN SL CHEST PAIN 06/18/20 00:45 Pantoprazole Sodium (Protonix) 40 mg BID IV 06/22/20 21:00 06/25/20 09:16 Salmeterol Xinafoate/ Fluticasone (Advair Hfa 230/ 21) 1 puff RBID INH 06/18/20 08:00 06/25/20 07:24 Sodium Chloride 1,000 ml @ 50 mls/hr Q20H IV 06/17/20 21:30 06/25/20 08:38 DC 06/24/20 13:30 Sodium Chloride 1,000 ml @ 80 mls/hr [id number] IV 06/21/20 15:30 06/22/20 16:29 DC 06/22/20 05:27 Sodium Chloride (Saline Lock Flush) 2 ml ASDIRECTED PRN IV SEE LABEL COMMENTS 06/25/20 10:30 Sodium Chloride (Saline Lock Flush) 2 ml SLF IV 06/25/20 14:00 Trimethoprim/ Sulfamethoxazole (Bactrim Ds, Septra Ds 160mg/ 800mg) 1 tab BID PO 06/25/20 09:00 Venlafaxine HCl (Effexor Xr) 150 mg DAILY PO 06/18/20 09:00 06/25/20 09:18 Allergies Coded Allergies: No Known Allergies (Unverified , 07/18/19) Nery Pimentel MD Jun 25, 2020 12:38
[2020-06-25] MEDS: BACTRIM 160MG/800MG DS TAB PO SCH ×2 (13:47→20:26)
[2020-06-25] MEDS: SLF 3 ML SYR IV SCH ×2 (13:47→20:26)
[2020-06-25 16:00] VITALS: BP 108/57
[2020-06-25 20:00] VITALS: BP 140/65
[2020-06-25] MEDS: ATORVASTATIN 20 MG TAB PO SCH (20:25)
[2020-06-26] VITALS: BP 131/65
[2020-06-26 04:00] VITALS: BP 142/63
[2020-06-26 04:28] LABS: HEMATOCRIT 28.4 % (42.0-52.0); HEMOGLOBIN 8.7 g/dl (13.5-17.5); MEAN CORPUSCULAR HEMOGLOBIN 30.5 pg (27.0-33.0); MEAN CORPUSCULAR HGB CONC 30.6 g/dl (32.0-36.5); MEAN CORPUSCULAR VOLUME 99.6 fl (80.0-96.0); PLATELET COUNT, AUTOMATED 324 10^3/uL (150-450); RED BLOOD COUNT 2.85 10^6/uL (4.30-6.10); WHITE BLOOD COUNT 9.7 10^3/uL (4.0-10.0)
[2020-06-26 05:00] LABS: ALT/SGPT 13 U/L (12-78); BLOOD UREA NITROGEN 18 MG/DL (7-18); CALCIUM LEVEL 8.2 MG/DL (8.8-10.2); CARBON DIOXIDE LEVEL 29 MEQ/L (21-32); CHLORIDE LEVEL 112 MEQ/L (98-107); CREATININE FOR GFR 1.08 MG/DL (0.70-1.30); GLOMERULAR FILTRATION RATE > 60.0 (>42); GLUCOSE, FASTING 139 MG/DL (70-100); POTASSIUM SERUM 3.8 MEQ/L (3.5-5.1); SODIUM LEVEL 145 MEQ/L (136-145)
[2020-06-26 05:01] LABS: ALBUMIN 2.4 GM/DL (3.2-5.2); BILIRUBIN,TOTAL 0.3 MG/DL (0.2-1.0); TOTAL PROTEIN 5.2 GM/DL (6.4-8.2)
[2020-06-26] MEDS: HumaLOG INSULIN (NovoLOG) PER UNIT SC SCH ×4 (06:34→17:52)
[2020-06-26] MEDS: SLF 3 ML SYR IV SCH ×3 (06:34→20:52)
[2020-06-26 08:00] VITALS: BP 143/67
[2020-06-26] MEDS: ADVAIR HFA 230/21MCG INHALER INH SCH ×2 (08:08→19:41)
[2020-06-26] MEDS: PANTOPRAZOLE 40MG VIAL (C9113 PER 1) IV SCH ×2 (08:30→20:51)
[2020-06-26] MEDS: BACTRIM 160MG/800MG DS TAB PO SCH ×2 (08:30→20:52)
[2020-06-26] MEDS: CARVedilol 12.5 MG TAB PO SCH ×2 (08:30→20:52)
[2020-06-26] MEDS: VENLAFAXINE **XR** 75MG CAPSULE PO SCH (08:31)
[2020-06-26] MEDS: amLODIPine 5 MG TAB PO SCH (08:31)
[2020-06-26 12:00] VITALS: BP 137/65
--- NOTE | 2020-06-26 15:30 | IPNPDOC ---
Date Seen The patient was seen on 06/26/20. Progress Note Subjective: No blood BMs overnight. H/H stabilized at 8.7/8.5. Other scrotal abscess fluid cx: BACTEROIDES OVATUS, no sensitivities. Denies CP/SOB/palpitations, lightheadedness, dizziness. Objective: Vitals: Please see below General: No acute distress, laying comfortably in bed. pleasantly confused at times HEENT: Moist mucous membranes. Neck: No JVD or lymphadenopathy Cardiac: RRR, No murmurs Pulm: Diminished b/l. No wheezing, rhonchi Abd: NT/ND + BS Ext: No edema or cyanosis : Right scrotal puncture dieudonne, not draining. non tenderness. No induration. No increased erythema LABORATORY: Please see below MICROBIOLOGY: Scrotal wound cx: STAPHYLOCOCCUS SP COAG NEG, BACTEROIDES FRAGILIS. sensitivities in chart Scrotal abscess GS: FEW WBCS, MODERATE GRAM POSITIVE COCCI IN PAIRS, MODERATE GRAM NEGATIVE MARGARET Scrotal abscess fluid cx from abscess drainage: BACTEROIDES OVATUS, few ASSESSMENT: Mr. Tao is a 79-year-old male with a history of COPD, CKD3, NIDDM, CAD, HTN, dyslipidemia, systolic CHF, AV block with pacemaker, anxiety, depression, dementia, and protein calorie nutrition who is being treated for complicated UTI, scrotal abscess and GI bleed. PLAN: Acute GI bleed, cause unknown but likely upper GI -2 BM over 24 hrs, no bleeing -H/H: 8.7/28 -S/p 1 unit blood transfused this admission -ASA and lovenox held -Discussed with Dr. Rivera (general surgery), holding off on further intervention at this time. Supportive care to see if bleeding stops on its own -F/u CBCs daily now Scrotal abscess s/p drainage -Scrotal wound cx: STAPHYLOCOCCUS SP COAG NEG, BACTEROIDES FRAGILIS -Scrotal abscess Cx: BACTEROIDES OVATUS -Day 2 Bactrim. Acute on chronic anemia -S/p 1 unit PRBC this admission -Slightly low iron -B12, folate wnl -F/u daily CBC Physical deconditioning, acute on chronic -PT: Concern on pt. orientation on whether pt. has / of living alone at present time in regards to safety due to decrease in dynamic stability at present time -C/w PT/OT for now -Lived independently before but will need more support in prior setting before safe to discharge there. SW working with family UTI, E. Coli -WBC wnl, afebrile, no dysuria. Resolved lactic acidosis -Completed tx with rocephin Encephalopathy 2/2 UTI with ? Baseline Dementia- resolved and at baseline -Currently AAOx3 -CT the head was unrevealing -TSH , b12 wnl Emphysema -Stable on RA -C/w ProAir HFA and Advair CKD3 -Cr stable -Daily labs NIDDM -Diabetic diet -F/u accuchecks & A1C -hypoglycemia protocol -ISS for Q6hrs while starting to eat, change to AC/HS if we see BS rise Chronic CAD / Dyslipidemia -C/w Atorvastatin, Coreg, aspirin, Atripla, glycerin Chronic HTN -C/w amlodipine, Coreg, furosemide Chronic systolic CHF with his hypokinesis and an EF of 22% (Echo Apr 2020 at [facility]) -Stable -C/w coreg, furosemide Anxiety/depression -c/w Venlafaxine Sarcopenia -He has a low BMI -Not sure if this is due to advanced dementia GI px: PPI BID DVT Px: SCD DISPOSITION: Holding all AC, monitoring GI bleed. Surgery following. PT/OT following. If plan is discharge home, will need 24/7 care for him at home. SW discussing with family. VS, I&O, 24H, [place] Vital Signs/I&O Vital Signs Date Time Temp Pulse Resp B/P (MAP) Pulse Ox O2 Delivery O2 Flow Rate FiO2 06/26/20 12:00 96.8 80 20 137/65 (89) 94 Room Air 06/20/20 04:00 2.0 I&O- Last 24 Hours up to 6 AM 06/26/20 06:00 Intake Total 536 ml Output Total 725 ml Balance -189 ml Laboratory Data 24H LABS Laboratory Tests 2 06/25/20 18:28: Bedside Glucose (Misc Panel) 145H 06/26/20 00:13: Bedside Glucose (Misc Panel) 123H 06/26/20 04:14: Nucleated Red Blood Cells % (auto) 0.2H, Anion Gap 4L, Glomerular Filtration Rate > 60.0, Calcium Level 8.2L, Total Bilirubin 0.3, Aspartate Amino Transf (AST/SGOT) 12, Alanine Aminotransferase (ALT/SGPT) 13, Alkaline Phosphatase 107, Total Protein 5.2L, Albumin 2.4L, Albumin/Globulin Ratio 0.9 06/26/20 11:58: Bedside Glucose (Misc Panel) 152H CBC/BMP Laboratory Tests 06/26/20 04:14 Microbiology Microbiology 06/21/20 Blood Culture - Preliminary, Resulted No Growth after 72 hours. All specime... 06/21/20 Blood Culture - Preliminary, Resulted No Growth after 72 hours. All specime... 06/20/20 Gram Stain - Final, Complete 06/20/20 Abscess Culture - Final, Complete Bacteroides Ovatus 06/20/20 Stool Occult Blood (GRACY) - Final, Complete 06/20/20 Gram Stain - Final, Complete 06/20/20 Wound Culture - Final, Complete Staphylococcus Sp Coag Neg Bacteroides Fragilis 06/17/20 Urine Culture - Final, Complete Escherichia Coli 06/17/20 Blood Culture - Final, Complete NO GROWTH AFTER 5 DAYS Current Medications Current Medications Medications (Trade) Dose Ordered Sig/Reshma Route PRN Reason Start Time Stop Time Status Last Admin Dose Admin Acetaminophen (Tylenol Tab) 650 mg Q4H PRN PO PAIN OR FEVER 06/17/20 21:30 06/20/20 22:08 Al Hydrox/Mg Hydrox/Simethicone (Mylanta) 30 ml DAILY PRN PO DYSPEPSIA 06/17/20 21:30 Albuterol Sulfate (Proventil, Ventolin Hfa) 2 puff Q4H PRN INH SHORTNESS OF BREATH 06/18/20 00:45 Amlodipine Besylate (Norvasc) 5 mg DAILY PO 06/18/20 09:00 06/26/20 08:31 Aspirin (Aspirin Chewable) 81 mg DAILY PO 06/18/20 09:00 06/21/20 15:20 DC 06/20/20 08:58 Atorvastatin Calcium (Lipitor) 40 mg QHS PO 06/18/20 21:00 06/25/20 20:25 Carvedilol (COReg) 12.5 mg BID PO 06/18/20 09:00 06/26/20 08:30 Ceftriaxone Sodium 1 gm/ Dextrose 50 ml @ 100 mls/hr Q24H IV 06/18/20 18:00 06/25/20 12:08 DC 06/24/20 17:41 Dextrose (Dextrose 50%) 25 ml ASDIRECTED PRN IV SEE LABEL COMMENTS 06/18/20 00:45 06/22/20 00:08 Diphenhydramine HCl (Benadryl) 25 mg Q8HP PRN IV ITCHING 06/21/20 11:00 Enoxaparin Sodium (Lovenox) 30 mg DAILY SC 06/18/20 09:00 06/20/20 09:49 DC 06/20/20 08:56 Furosemide (Lasix) 40 mg BID PO 06/18/20 09:00 06/18/20 07:37 DC Glucagon (Glucagon) 1 mg ASDIRECTED PRN SC SEE LABEL COMMENTS 06/18/20 00:45 Glucose (Glucose) 16 GM ASDIRECTED PRN PO SEE LABEL COMMENTS 06/18/20 00:45 Home Med (Med Rec Complete!) ASDIRECTED XX 06/18/20 00:30 06/18/20 00:22 DC Insulin Human Lispro (HumaLOG INSULIN) SEE PROTOCOL TABLE Q6H MT 06/20/20 12:00 06/21/20 11:16 DC 06/21/20 06:29 Insulin Human Lispro (HumaLOG INSULIN) SEE PROTOCOL TABLE Q6H MT 06/21/20 18:00 06/26/20 06:34 Insulin Human Lispro (HumaLOG INSULIN) See Protocol Table AC MT 06/18/20 07:30 06/20/20 12:15 DC 06/20/20 08:57 Insulin Human Lispro (HumaLOG INSULIN) See Protocol Table AC MT 06/21/20 12:00 06/21/20 15:32 DC Insulin Human Lispro (HumaLOG INSULIN) See Protocol Table QHS MT 06/17/20 21:00 06/20/20 12:15 DC Insulin Human Lispro (HumaLOG INSULIN) See Protocol Table QHS MT 06/21/20 21:00 06/21/20 15:32 DC Magnesium Hydroxide (Milk Of Magnesia) 30 ml DAILY PRN PO CONSTIPATION 06/17/20 21:30 Nitroglycerin (Nitrostat (1/ 150)) 0.4 mg Q5MP PRN SL CHEST PAIN 06/18/20 00:45 Pantoprazole Sodium (Protonix) 40 mg BID IV 06/22/20 21:00 06/26/20 08:30 Salmeterol Xinafoate/ Fluticasone (Advair Hfa 230/ 21) 1 puff RBID INH 06/18/20 08:00 06/26/20 08:08 Sodium Chloride 1,000 ml @ 50 mls/hr Q20H IV 06/17/20 21:30 06/25/20 08:38 DC 06/24/20 13:30 Sodium Chloride 1,000 ml @ 80 mls/hr [id number] IV 06/21/20 15:30 06/22/20 16:29 DC 06/22/20 05:27 Sodium Chloride (Saline Lock Flush) 2 ml ASDIRECTED PRN IV SEE LABEL COMMENTS 06/25/20 10:30 Sodium Chloride (Saline Lock Flush) 2 ml SLF IV 06/25/20 14:00 06/26/20 14:00 Trimethoprim/ Sulfamethoxazole (Bactrim Ds, Septra Ds 160mg/ 800mg) 1 tab BID PO 06/25/20 09:00 06/26/20 08:30 Venlafaxine HCl (Effexor Xr) 150 mg DAILY PO 06/18/20 09:00 06/26/20 08:31 Allergies Coded Allergies: No Known Allergies (Unverified , 07/18/19) Nery Pimentel MD Jun 26, 2020 15:30
[2020-06-26 16:00] VITALS: BP 149/64
[2020-06-26 20:00] VITALS: BP 158/76
[2020-06-26] MEDS: ATORVASTATIN 20 MG TAB PO SCH (20:51)
[2020-06-27] VITALS: BP 160/70
[2020-06-27 04:00] VITALS: BP_SYST 118; BP_SYST 154; BP_DIAS 67; BP_DIAS 68
[2020-06-27] MEDS: SLF 3 ML SYR IV SCH ×3 (05:34→22:14)
[2020-06-27 05:46] LABS: ALBUMIN 2.6 GM/DL (3.2-5.2); ALT/SGPT 15 U/L (12-78); BILIRUBIN,TOTAL 0.3 MG/DL (0.2-1.0); BLOOD UREA NITROGEN 14 MG/DL (7-18); CALCIUM LEVEL 8.7 MG/DL (8.8-10.2); CARBON DIOXIDE LEVEL 30 MEQ/L (21-32); CHLORIDE LEVEL 111 MEQ/L (98-107); CREATININE FOR GFR 1.22 MG/DL (0.70-1.30); GLOMERULAR FILTRATION RATE > 60.0 (>42); GLUCOSE, FASTING 187 MG/DL (70-100); POTASSIUM SERUM 4.2 MEQ/L (3.5-5.1); SODIUM LEVEL 142 MEQ/L (136-145); TOTAL PROTEIN 5.7 GM/DL (6.4-8.2)
[2020-06-27] MEDS: HumaLOG INSULIN (NovoLOG) PER UNIT SC SCH ×3 (06:00→17:23)
[2020-06-27] MEDS: ADVAIR HFA 230/21MCG INHALER INH SCH ×2 (07:47→19:47)
[2020-06-27 08:00] VITALS: BP 144/67
[2020-06-27] MEDS: PANTOPRAZOLE 40MG VIAL (C9113 PER 1) IV SCH ×2 (08:21→19:52)
[2020-06-27] MEDS: BACTRIM 160MG/800MG DS TAB PO SCH ×2 (08:23→19:53)
[2020-06-27] MEDS: VENLAFAXINE **XR** 75MG CAPSULE PO SCH (08:23)
[2020-06-27] MEDS: CARVedilol 12.5 MG TAB PO SCH ×2 (08:23→19:55)
[2020-06-27] MEDS: amLODIPine 5 MG TAB PO SCH (08:23)
[2020-06-27 12:00] VITALS: BP 151/73
--- NOTE | 2020-06-27 13:13 | IPNPDOC ---
Date Seen The patient was seen on 06/27/20. Progress Note Subjective: No acute complaints overnight. Denies CP/SOB/palpitations, lightheadedness, dizziness. Objective: Vitals: Please see below General: No acute distress, laying comfortably in bed. pleasantly confused at times HEENT: Moist mucous membranes. Neck: No JVD or lymphadenopathy Cardiac: RRR, No murmurs Pulm: Diminished b/l. No wheezing, rhonchi Abd: NT/ND + BS Ext: No edema or cyanosis : Right scrotal puncture dieudonne, not draining. non tenderness- healing well . No induration. No increased erythema LABORATORY: Please see below MICROBIOLOGY: Scrotal wound cx: STAPHYLOCOCCUS SP COAG NEG, BACTEROIDES FRAGILIS. sensitivities in chart Scrotal abscess GS: FEW WBCS, MODERATE GRAM POSITIVE COCCI IN PAIRS, MODERATE GRAM NEGATIVE MARGARET Scrotal abscess fluid cx from abscess drainage: BACTEROIDES OVATUS, few ASSESSMENT: Mr. Tao is a 79-year-old male with a history of COPD, CKD3, NIDDM, CAD, HTN, dyslipidemia, systolic CHF, AV block with pacemaker, anxiety, depression, lonnie ntia, and protein calorie nutrition who is being treated for complicated UTI, scrotal abscess and GI bleed. PLAN: Acute GI bleed, cause unknown but likely upper GI -No bloody BM over 48-72 hrs -S/p 1 unit blood transfused this admission -ASA (last dose 06/21) and lovenox (last dose 06/20) held -Discussed with Dr. Rivera (general surgery), holding off on further intervention at this time. Supportive care -If still no bleeding on 06/28/20 will discuss with surgery about restarting ASA and keeping off lovenox -C/w advanced diet -F/u CBCs daily now Scrotal abscess s/p drainage -Was on Ceftriaxone from 06/18-06/25 waiting on culture sensitivities; however, this was not listed as option when returned -Scrotal wound cx: STAPHYLOCOCCUS SP COAG NEG, BACTEROIDES FRAGILIS -Scrotal abscess Cx: BACTEROIDES OVATUS -Day 3 Bactrim. Needing to complete 7 days total Acute on chronic anemia -H/H stable but low at 8.7/28 -S/p 1 unit PRBC this admission -Slightly low iron; B12, folate wnl -F/u daily CBC -Goal transfusion if not bleeding is <7 Hgb Physical deconditioning, acute on chronic -PT: Concern on pt. orientation on whether pt. has 24/7 of living alone at present time in regards to safety due to decrease in dynamic stability at present time -C/w PT/OT for now -Lived independently before but will need more support in prior setting before safe to discharge there. SW working with family UTI, E. Coli -WBC wnl, afebrile, no dysuria. Resolved lactic acidosis -Completed tx Encephalopathy 2/2 UTI with ? Baseline Dementia- resolved and at baseline -Currently AAOx3 -CT the head was unrevealing -TSH , b12 wnl Emphysema -Stable on RA -C/w ProAir HFA and Advair CKD3 -Cr stable -Daily labs NIDDM -Diabetic diet -ISS , FS AC/HS -hypoglycemia protocol Chronic CAD / Dyslipidemia -C/w Atorvastatin, Coreg, aspirin, Atripla, glycerin Chronic HTN -C/w amlodipine, Coreg, furosemide Chronic systolic CHF with his hypokinesis and an EF of 22% (Echo Apr 2020 at [facility]) -Stable -C/w coreg, furosemide Anxiety/depression -c/w Venlafaxine Sarcopenia -He has a low BMI -Not sure if this is due to advanced dementia GI px: PPI BID DVT Px: SCD DISPOSITION: Holding ASA and further AC,will d/w surgery if can restart after weekend. If plan is discharge home, will need 24/7 care for him at home. SW discussing with family. VS, I&O, 24H, Fishbone Vital Signs/I&O Vital Signs Date Time Temp Pulse Resp B/P (MAP) Pulse Ox O2 Delivery O2 Flow Rate FiO2 06/27/20 12:00 96.0 80 20 151/73 (99) 96 Nasal Cannula 3.0 I&O- Last 24 Hours up to 6 AM 06/27/20 06:00 Intake Total 450 ml Output Total 100 ml Balance 350 ml Laboratory Data 24H LABS Laboratory Tests 2 06/26/20 17:11: Bedside Glucose (Misc Panel) 169H 06/26/20 23:12: Bedside Glucose (Misc Panel) 159H 06/27/20 04:44: Anion Gap 1L, Glomerular Filtration Rate > 60.0, Calcium Level 8.7L, Total Bilirubin 0.3, Aspartate Amino Transf (AST/SGOT) 13, Alanine Aminotransferase (ALT/SGPT) 15, Alkaline Phosphatase 117, Total Protein 5.7L, Albumin 2.6L, Albumin/Globulin Ratio 0.8 06/27/20 11:23: Bedside Glucose (Misc Panel) 174H CBC/BMP Laboratory Tests 06/27/20 04:44 Microbiology Microbiology 06/21/20 Blood Culture - Final, Complete NO GROWTH AFTER 5 DAYS 06/21/20 Blood Culture - Final, Complete NO GROWTH AFTER 5 DAYS 06/20/20 Gram Stain - Final, Complete 06/20/20 Abscess Culture - Final, Complete Bacteroides Ovatus 06/20/20 Stool Occult Blood (GRACY) - Final, Complete 06/20/20 Gram Stain - Final, Complete 06/20/20 Wound Culture - Final, Complete Staphylococcus Sp Coag Neg Bacteroides Fragilis 06/17/20 Urine Culture - Final, Complete Escherichia Coli 06/17/20 Blood Culture - Final, Complete NO GROWTH AFTER 5 DAYS Current Medications Current Medications Medications (Trade) Dose Ordered Sig/Reshma Route PRN Reason Start Time Stop Time Status Last Admin Dose Admin Acetaminophen (Tylenol Tab) 650 mg Q4H PRN PO PAIN OR FEVER 06/17/20 21:30 06/20/20 22:08 Al Hydrox/Mg Hydrox/Simethicone (Mylanta) 30 ml DAILY PRN PO DYSPEPSIA 06/17/20 21:30 Albuterol Sulfate (Proventil, Ventolin Hfa) 2 puff Q4H PRN INH SHORTNESS OF BREATH 06/18/20 00:45 Amlodipine Besylate (Norvasc) 5 mg DAILY PO 06/18/20 09:00 06/27/20 08:23 Aspirin (Aspirin Chewable) 81 mg DAILY PO 06/18/20 09:00 06/21/20 15:20 DC 06/20/20 08:58 Atorvastatin Calcium (Lipitor) 40 mg QHS PO 06/18/20 21:00 06/26/20 20:51 Carvedilol (COReg) 12.5 mg BID PO 06/18/20 09:00 06/27/20 08:23 Ceftriaxone Sodium 1 gm/ Dextrose 50 ml @ 100 mls/hr Q24H IV 06/18/20 18:00 06/25/20 12:08 DC 06/24/20 17:41 Dextrose (Dextrose 50%) 25 ml ASDIRECTED PRN IV SEE LABEL COMMENTS 06/18/20 00:45 06/22/20 00:08 Diphenhydramine HCl (Benadryl) 25 mg Q8HP PRN IV ITCHING 06/21/20 11:00 Enoxaparin Sodium (Lovenox) 30 mg DAILY SC 06/18/20 09:00 06/20/20 09:49 DC 06/20/20 08:56 Furosemide (Lasix) 40 mg BID PO 06/18/20 09:00 06/18/20 07:37 DC Glucagon (Glucagon) 1 mg ASDIRECTED PRN SC SEE LABEL COMMENTS 06/18/20 00:45 Glucose (Glucose) 16 GM ASDIRECTED PRN PO SEE LABEL COMMENTS 06/18/20 00:45 Home Med (Med Rec Complete!) ASDIRECTED XX 06/18/20 00:30 06/18/20 00:22 DC Insulin Human Lispro (HumaLOG INSULIN) SEE PROTOCOL TABLE Q6H [place] 06/20/20 12:00 06/21/20 11:16 DC 06/21/20 06:29 Insulin Human Lispro (HumaLOG INSULIN) SEE PROTOCOL TABLE Q6H OH 06/21/20 18:00 06/26/20 06:34 Insulin Human Lispro (HumaLOG INSULIN) See Protocol Table AC OH 06/18/20 07:30 06/20/20 12:15 DC 06/20/20 08:57 Insulin Human Lispro (HumaLOG INSULIN) See Protocol Table AC OH 06/21/20 12:00 06/21/20 15:32 DC Insulin Human Lispro (HumaLOG INSULIN) See Protocol Table QHS OH 06/17/20 21:00 06/20/20 12:15 DC Insulin Human Lispro (HumaLOG INSULIN) See Protocol Table QHS OH 06/21/20 21:00 06/21/20 15:32 DC Magnesium Hydroxide (Milk Of Magnesia) 30 ml DAILY PRN PO CONSTIPATION 06/17/20 21:30 Nitroglycerin (Nitrostat (1/ 150)) 0.4 mg Q5MP PRN SL CHEST PAIN 06/18/20 00:45 Pantoprazole Sodium (Protonix) 40 mg BID IV 06/22/20 21:00 06/27/20 08:21 Salmeterol Xinafoate/ Fluticasone (Advair Hfa 230/ 21) 1 puff RBID INH 06/18/20 08:00 06/27/20 07:47 Sodium Chloride 1,000 ml @ 50 mls/hr Q20H IV 06/17/20 21:30 06/25/20 08:38 DC 06/24/20 13:30 Sodium Chloride 1,000 ml @ 80 mls/hr [id number] IV 06/21/20 15:30 06/22/20 16:29 DC 06/22/20 05:27 Sodium Chloride (Saline Lock Flush) 2 ml ASDIRECTED PRN IV SEE LABEL COMMENTS 06/25/20 10:30 Sodium Chloride (Saline Lock Flush) 2 ml SLF IV 06/25/20 14:00 06/27/20 05:34 Trimethoprim/ Sulfamethoxazole (Bactrim Ds, Septra Ds 160mg/ 800mg) 1 tab BID PO 06/25/20 09:00 06/27/20 08:23 Venlafaxine HCl (Effexor Xr) 150 mg DAILY PO 06/18/20 09:00 06/27/20 08:23 Allergies Coded Allergies: No Known Allergies (Unverified , 07/18/19) Nery Pimentel MD Jun 27, 2020 13:13
[2020-06-27 16:00] VITALS: BP 168/72
[2020-06-27] MEDS: ATORVASTATIN 20 MG TAB PO SCH (19:53)
[2020-06-27 20:00] VITALS: BP 114/55
[2020-06-28] VITALS: BP 122/56
[2020-06-28 04:00] VITALS: BP 140/65
[2020-06-28] MEDS: ALBUTEROL 90 MCG/ACT 8GM HFA INHALER INH PRN ×2 (05:56→12:08)
[2020-06-28 05:57] LABS: HEMOGLOBIN 9.9 g/dl (13.5-17.5); MEAN CORPUSCULAR HEMOGLOBIN 31.2 pg (27.0-33.0); MEAN CORPUSCULAR HGB CONC 30.9 g/dl (32.0-36.5); MEAN CORPUSCULAR VOLUME 100.9 fl (80.0-96.0); PLATELET COUNT, AUTOMATED 419 10^3/uL (150-450); RED BLOOD COUNT 3.17 10^6/uL (4.30-6.10)
[2020-06-28] MEDS: SLF 3 ML SYR IV SCH ×3 (06:16→20:13)
[2020-06-28 06:18] LABS: CALCIUM LEVEL 8.9 MG/DL (8.8-10.2); CREATININE FOR GFR 1.46 MG/DL (0.70-1.30); GLOMERULAR FILTRATION RATE 49.6 (>42); POTASSIUM SERUM 4.9 MEQ/L (3.5-5.1)
[2020-06-28] MEDS: ADVAIR HFA 230/21MCG INHALER INH SCH ×2 (07:26→19:58)
[2020-06-28] MEDS: HumaLOG INSULIN (NovoLOG) PER UNIT SC SCH ×3 (07:30→17:12)
[2020-06-28] MEDS ORDERED: NS 1,000 ML IV SCH (08:00)
[2020-06-28] MEDS: PANTOPRAZOLE 40MG VIAL (C9113 PER 1) IV SCH ×2 (08:51→20:12)
[2020-06-28] MEDS: VENLAFAXINE **XR** 75MG CAPSULE PO SCH (08:51)
[2020-06-28] MEDS: BACTRIM 160MG/800MG DS TAB PO SCH ×2 (08:52→20:13)
[2020-06-28] MEDS: amLODIPine 5 MG TAB PO SCH (08:54)
[2020-06-28] MEDS: CARVedilol 12.5 MG TAB PO SCH ×2 (08:55→20:03)
[2020-06-28] MEDS: ASPIRIN 81 MG ENTERIC TAB PO SCH (09:00)
[2020-06-28] MEDS: VANICREAM MOISTURIZING SKIN CREAM 113GM TUBE TOP SCH ×2 (09:03→20:13)
[2020-06-28 09:04] VITALS: BP 145/63
[2020-06-28 12:08] VITALS: BP 113/52
--- NOTE | 2020-06-28 14:55 | IPNPDOC ---
Date Seen The patient was seen on 06/28/20. Progress Note Subjective: No acute complaints overnight. Restarting ASA today, monitor for s/s of bleeding. Denies CP/SOB/palpitations, lightheadedness, dizziness. Objective: Vitals: Please see below General: No acute distress, sitting up in bedside chair. pleasantly confused HEENT: Moist mucous membranes. Neck: No JVD or lymphadenopathy Cardiac: RRR, No murmurs Pulm: Diminished b/l. No wheezing, rhonchi Abd: NT/ND + BS Ext: No edema or cyanosis : Right scrotal puncture dieudonne, not draining. well healed . No induration. No increased erythema LABORATORY: Please see below MICROBIOLOGY: Scrotal wound cx: STAPHYLOCOCCUS SP COAG NEG, BACTEROIDES FRAGILIS. sensitivities in chart Scrotal abscess GS: FEW WBCS, MODERATE GRAM POSITIVE COCCI IN PAIRS, MODERATE GRAM NEGATIVE MARGARET Scrotal abscess fluid cx from abscess drainage: BACTEROIDES OVATUS, few ASSESSMENT: Mr. Tao is a 79-year-old male with a history of COPD, CKD3, NIDDM, CAD, HTN, dyslipidemia, systolic CHF, AV block with pacemaker, anxiety, depression, dementia, and protein calorie nutrition who is being treated for complicated UTI, scrotal abscess and GI bleed. PLAN: Acute kidney injury likely 2/2 to mild dehydration -B/l Cr wnl -Encouraging fluids Q2 hrs during the day instead ofstarting IVFs -F/u daily labs in AM, avoid nephrotoxic meds Acute GI bleed, cause unknown but likely upper GI -No bloody BM over >96 hrs -S/p 1 unit blood transfused this admission -ASA (last dose 06/21) and lovenox (last dose 06/20) held -Discussed with Dr. Rivera (general surgery), holding off on further intervention at this time. Supportive care -Restarting ASA today -C/w advanced diet -F/u CBCs daily Acute on chronic anemia -H/H improving slowly, currently 9.9/32 -S/p 1 unit PRBC this admission -Slightly low iron; B12, folate wnl -F/u daily CBC -Goal Hgb if not bleeding is >7 Hgb Physical deconditioning, acute on chronic -PT: Concern on pt. orientation on whether pt. has 24/7 of living alone at present time in regards to safety due to decrease in dynamic stability at present time -C/w PT/OT for now -Lived independently before but will need more support in prior setting before safe to discharge there. SW working with family Scrotal abscess s/p drainage -Was on Ceftriaxone from 06/18-06/25 waiting on culture sensitivities; however, this was not listed as option for treatment when returned -Scrotal wound cx: STAPHYLOCOCCUS SP COAG NEG, BACTEROIDES FRAGILIS -Scrotal abscess Cx: BACTEROIDES OVATUS -Bactrim, stop date 07/02 UTI, E. Coli -WBC wnl, afebrile, no dysuria. Resolved lactic acidosis -Completed tx Encephalopathy 2/2 UTI with ? Baseline Dementia- resolved and at baseline -Currently AAOx3 -CT the head was unrevealing -TSH , b12 wnl Emphysema -Stable on RA -C/w ProAir HFA and Advair CKD3 -Cr stable -Daily labs NIDDM -Diabetic diet -ISS , FS AC/HS -hypoglycemia protocol Chronic CAD / Dyslipidemia -C/w Atorvastatin, Coreg, aspirin, Atripla, glycerin Chronic HTN -C/w amlodipine, Coreg, furosemide Chronic systolic CHF with his hypokinesis and an EF of 22% (Echo Apr 2020 at [facility]) -Stable -C/w coreg, furosemide Anxiety/depression -c/w Venlafaxine Sarcopenia -He has a low BMI -Not sure if this is due to advanced dementia GI px: PPI BID DVT Px: SCD DISPOSITION: Restarting ASA today. Discharge plan still undecided if home with / care vs. rehab, SNF. SW in contact with family. VS, I&O, 24H, Fishbone Vital Signs/I&O Vital Signs Date Time Temp Pulse Resp B/P (MAP) Pulse Ox O2 Delivery O2 Flow Rate FiO2 06/28/20 12:08 97.2 83 21 113/52 (72) 97 Room Air 06/27/20 12:00 3.0 I&O- Last 24 Hours up to 6 AM 06/28/20 06:00 Intake Total 380 ml Output Total 0 ml Balance 380 ml Laboratory Data 24H LABS Laboratory Tests 2 06/27/20 16:40: Bedside Glucose (Misc Panel) 146H 06/28/20 05:32: Nucleated Red Blood Cells % (auto) 0.3H, Anion Gap 8, Glomerular Filtration Rate 49.6, Calcium Level 8.9 06/28/20 12:02: Bedside Glucose (Misc Panel) 121H CBC/BMP Laboratory Tests 06/28/20 05:32 Microbiology Microbiology 06/21/20 Blood Culture - Final, Complete NO GROWTH AFTER 5 DAYS 06/21/20 Blood Culture - Final, Complete NO GROWTH AFTER 5 DAYS 06/20/20 Gram Stain - Final, Complete 06/20/20 Abscess Culture - Final, Complete Bacteroides Ovatus 06/20/20 Stool Occult Blood (GRACY) - Final, Complete 06/20/20 Gram Stain - Final, Complete 06/20/20 Wound Culture - Final, Complete Staphylococcus Sp Coag Neg Bacteroides Fragilis Current Medications Current Medications Medications (Trade) Dose Ordered Sig/Reshma Route PRN Reason Start Time Stop Time Status Last Admin Dose Admin Acetaminophen (Tylenol Tab) 650 mg Q4H PRN PO PAIN OR FEVER 06/17/20 21:30 06/20/20 22:08 Al Hydrox/Mg Hydrox/Simethicone (Mylanta) 30 ml DAILY PRN PO DYSPEPSIA 06/17/20 21:30 Albuterol Sulfate (Proventil, Ventolin Hfa) 2 puff Q4H PRN INH SHORTNESS OF BREATH 06/18/20 00:45 06/28/20 12:08 Amlodipine Besylate (Norvasc) 5 mg DAILY PO 06/18/20 09:00 06/28/20 08:54 Aspirin (Aspirin Chewable) 81 mg DAILY PO 06/18/20 09:00 06/21/20 15:20 DC 06/20/20 08:58 Atorvastatin Calcium (Lipitor) 40 mg QHS PO 06/18/20 21:00 06/27/20 19:53 Carvedilol (COReg) 12.5 mg BID PO 06/18/20 09:00 06/28/20 08:55 Ceftriaxone Sodium 1 gm/ Dextrose 50 ml @ 100 mls/hr Q24H IV 06/18/20 18:00 06/25/20 12:08 DC 06/24/20 17:41 Dextrose (Dextrose 50%) 25 ml ASDIRECTED PRN IV SEE LABEL COMMENTS 06/18/20 00:45 06/22/20 00:08 Diphenhydramine HCl (Benadryl) 25 mg Q8HP PRN IV ITCHING 06/21/20 11:00 Emollient Cream (Vanicream) Apply to all extremities BID TOP 06/28/20 09:00 06/28/20 09:03 Enoxaparin Sodium (Lovenox) 30 mg DAILY SC 06/18/20 09:00 06/20/20 09:49 DC 06/20/20 08:56 Furosemide (Lasix) 40 mg BID PO 06/18/20 09:00 06/18/20 07:37 DC Glucagon (Glucagon) 1 mg ASDIRECTED PRN SC SEE LABEL COMMENTS 06/18/20 00:45 Glucose (Glucose) 16 GM ASDIRECTED PRN PO SEE LABEL COMMENTS 06/18/20 00:45 Home Med (Med Rec Complete!) ASDIRECTED XX 06/18/20 00:30 06/18/20 00:22 DC Insulin Human Lispro (HumaLOG INSULIN) SEE PROTOCOL TABLE AC AL 06/27/20 17:30 Insulin Human Lispro (HumaLOG INSULIN) SEE PROTOCOL TABLE Q6H AL 06/20/20 12:00 06/21/20 11:16 DC 06/21/20 06:29 Insulin Human Lispro (HumaLOG INSULIN) SEE PROTOCOL TABLE Q6H AL 06/21/20 18:00 06/27/20 13:18 DC 06/26/20 06:34 Insulin Human Lispro (HumaLOG INSULIN) See Protocol Table AC AL 06/18/20 07:30 06/20/20 12:15 DC 06/20/20 08:57 Insulin Human Lispro (HumaLOG INSULIN) See Protocol Table AC AL 06/21/20 12:00 06/21/20 15:32 DC Insulin Human Lispro (HumaLOG INSULIN) See Protocol Table QHS AL 06/17/20 21:00 06/20/20 12:15 DC Insulin Human Lispro (HumaLOG INSULIN) See Protocol Table QHS AL 06/21/20 21:00 06/21/20 15:32 DC Magnesium Hydroxide (Milk Of Magnesia) 30 ml DAILY PRN PO CONSTIPATION 06/17/20 21:30 Nitroglycerin (Nitrostat (1/ 150)) 0.4 mg Q5MP PRN SL CHEST PAIN 06/18/20 00:45 Pantoprazole Sodium (Protonix) 40 mg BID IV 06/22/20 21:00 06/28/20 08:51 Salmeterol Xinafoate/ Fluticasone (Advair Hfa 230/ 21) 1 puff RBID INH 06/18/20 08:00 06/28/20 07:26 Sodium Chloride 1,000 ml @ 50 mls/hr Q20H IV 06/17/20 21:30 06/25/20 08:38 DC 06/24/20 13:30 Sodium Chloride 1,000 ml @ 75 mls/hr [id number] IV 06/28/20 08:00 06/28/20 08:55 DC Sodium Chloride 1,000 ml @ 80 mls/hr [id number] IV 06/21/20 15:30 06/22/20 16:29 DC 06/22/20 05:27 Sodium Chloride (Saline Lock Flush) 2 ml ASDIRECTED PRN IV SEE LABEL COMMENTS 06/25/20 10:30 Sodium Chloride (Saline Lock Flush) 2 ml SLF IV 06/25/20 14:00 06/28/20 12:06 Trimethoprim/ Sulfamethoxazole (Bactrim Ds, Septra Ds 160mg/ 800mg) 1 tab BID PO 06/25/20 09:00 07/02/20 22:00 06/28/20 08:52 Venlafaxine HCl (Effexor Xr) 150 mg DAILY PO 06/18/20 09:00 06/28/20 08:51 Allergies Coded Allergies: No Known Allergies (Unverified , 07/18/19) Nery Pimentel MD Jun 28, 2020 14:55
[2020-06-28 16:00] VITALS: BP 125/50
[2020-06-28 20:00] VITALS: BP 136/60
[2020-06-28] MEDS: ATORVASTATIN 20 MG TAB PO SCH (20:12)
[2020-06-29] VITALS (7 sets, daily range): BP systolic 103–148; BP diastolic 52–77
[2020-06-29] MEDS: DEXTROSE 50% 50 ML SYRINGE IV PRN ×4 (01:05→20:51)
[2020-06-29 05:06] LABS: HEMATOCRIT 30.7 % (42.0-52.0); HEMOGLOBIN 9.3 g/dl (13.5-17.5); MEAN CORPUSCULAR HEMOGLOBIN 30.1 pg (27.0-33.0); MEAN CORPUSCULAR HGB CONC 30.3 g/dl (32.0-36.5); MEAN CORPUSCULAR VOLUME 99.4 fl (80.0-96.0); PLATELET COUNT, AUTOMATED 469 10^3/uL (150-450); RED BLOOD COUNT 3.09 10^6/uL (4.30-6.10); WHITE BLOOD COUNT 12.7 10^3/uL (4.0-10.0)
[2020-06-29 05:27] LABS: CALCIUM LEVEL 8.7 MG/DL (8.8-10.2); CREATININE FOR GFR 2.1 MG/DL (0.70-1.30); GLOMERULAR FILTRATION RATE 32.6 (>42); POTASSIUM SERUM 4.9 MEQ/L (3.5-5.1)
[2020-06-29] MEDS: SLF 3 ML SYR IV SCH ×3 (05:51→20:52)
[2020-06-29] MEDS: ADVAIR HFA 230/21MCG INHALER INH SCH ×2 (07:11→19:12)
[2020-06-29] MEDS: HumaLOG INSULIN (NovoLOG) PER UNIT SC SCH ×3 (07:30→17:30)
[2020-06-29] MEDS ORDERED: LINEZOLID 600MG TABLET (ZYVOX) PO SCH (09:00)
[2020-06-29] MEDS: IPRATROPIUM 0.5MG/ALBUTEROL 2.5MG INH SOL UD 3ML (DUONEB) NEB SCH ×3 (09:38→19:12)
[2020-06-29] MEDS: ALBUTEROL 90 MCG/ACT 8GM HFA INHALER INH PRN (09:39)
[2020-06-29] MEDS: PANTOPRAZOLE 40MG VIAL (C9113 PER 1) IV SCH ×2 (09:49→20:52)
[2020-06-29] MEDS: ASPIRIN 81 MG ENTERIC TAB PO SCH (09:49)
[2020-06-29] MEDS: BACTRIM 160MG/800MG DS TAB PO SCH (09:49)
[2020-06-29] MEDS: amLODIPine 5 MG TAB PO SCH (09:52)
[2020-06-29] MEDS: CARVedilol 12.5 MG TAB PO SCH ×2 (09:53→20:35)
[2020-06-29] MEDS: VANICREAM MOISTURIZING SKIN CREAM 113GM TUBE TOP SCH ×2 (09:53→20:52)
[2020-06-29] MEDS: VENLAFAXINE **XR** 75MG CAPSULE PO SCH (09:53)
--- NOTE | 2020-06-29 12:03 | IPNPDOC ---
Text Note Date of Service The patient was seen on 06/29/20. NOTE Subjective: -No acute complaints overnight. -No report of CP/SOB/palpitations, lightheadedness, dizziness. -Yesterday got 1L NS now with worsening CANDI and mild hypoxemia Objective: Vitals: Please see below General: No acute distress, sitting up in bedside chair. HEENT: NCAT, PERRLA, EOMI, MMM Neck: No JVD or lymphadenopathy Cardiac: RRR, No murmurs, rubs or gallops Pulm: Diminished b/l with mild bibasilar crackles, mild scattered wheezing Abd: NT/ND + BS Ext: Chronic non pitting LE edema, WWP : Right scrotum without drainage, surrounding erythema, induration. LABORATORY: Reviewed. Please see below WBC 12.7 Hgb 9.3 platelets 469 na 137 K 4.9 Cr uptrended to 2.1 MICROBIOLOGY: Scrotal wound cx: STAPHYLOCOCCUS SP COAG NEG, BACTEROIDES FRAGILIS. sensitivitie s in chart Scrotal abscess GS: FEW WBCS, MODERATE GRAM POSITIVE COCCI IN PAIRS, MODERATE GRAM NEGATIVE MARGARET Scrotal abscess fluid cx from abscess drainage: BACTEROIDES OVATUS, few ASSESSMENT: 79-year-old M with a history of COPD, CKD3, NIDDM, CAD, HTN, dyslipidemia, systolic CHF, AV block with pacemaker, anxiety, depression, dementia, and protein calorie nutrition who was admitted for treatment of a complicated UTI, scrotal abscess and GI bleed. PLAN: Acute kidney injury on CKD3: interval worsening with 1L NS -stop fluids -daily BMP -Is on bactrim which may increase Cr by inhibiting the tubular secretion of creatinine without causing real damage to the kidneys vs. true CANDI. Will switch to zyvox to remove confounders. -Will hold off diuretics for now despite recent fluids. Acute GI bleed, cause unknown suspected to have been 2/2 upper GI -No recent bloody BM -S/p 1 unit blood transfused this admission -ASA (last dose 06/21) and lovenox (last dose 06/20). ASA was restarted on 06/29 -Dr. Pimentel discussed with Dr. Rivera (general surgery), holding off on further intervention at this time. 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 UTI, E. Coli -WBC wnl, afebrile, no dysuria. Resolved lactic acidosis -Completed tx Metabolic encephalopathy 2/2 UTI on possible baseline dementia vs. cognitive decline- resolved and at baseline -Currently AAOx3 -Non contrast CT the head was unrevealing -TSH , b12 wnl Emphysema/COPD -C/w ProAir HFA and Advair. -Add q6H standing duonebs for wheezing. not convinced that he has an acute COPD exacerbation, suspecting it to be a cardiac wheeze after fluids, will monitor. Currently back on room air. NIDDM -Diabetic diet -ISS , FS AC/HS -hypoglycemia protocol Chronic CAD / Dyslipidemia -C/w Atorvastatin, Coreg, aspirin Chronic HTN -C/w amlodipine, Coreg, holding lasix for now Chronic systolic CHF with his hypokinesis and an EF of 22% (Echo Apr 2020 at [facility]) -Stable -C/w coreg -Currently holding lasix with recent c/f hypovolemia, will continue holding for today Anxiety/depression -c/w Venlafaxine Sarcopenia -He has a low BMI -Not sure if this is due to advanced dementia GI px: PPI BID DVT Px: SCD DISPOSITION: Plan is for SNF after clinical optimization. VS,Fishbone, I+O VS, Fishbone, I+O Laboratory Tests 06/29/20 04:44 Vital Signs Date Time Temp Pulse Resp B/P (MAP) Pulse Ox O2 Delivery O2 Flow Rate FiO2 06/29/20 04:00 97.6 56 20 148/64 (92) 94 Nasal Cannula 1.0 I&O- Last 24 Hours up to 6 AM 06/29/20 05:59 Intake Total 1020 ml Output Total 0 ml Balance 1020 ml HAYDER ESCALANTE MD Jun 29, 2020 08:03
[2020-06-29 15:54] LABS: CALCIUM LEVEL 8.4 MG/DL (8.8-10.2); CREATININE FOR GFR 2.27 MG/DL (0.70-1.30); GLOMERULAR FILTRATION RATE 29.8 (>42); POTASSIUM SERUM 5.3 MEQ/L (3.5-5.1)
[2020-06-29] MEDS: CLINDAMYCIN 150MG CAPSULE PO SCH ×2 (18:24→20:52)
[2020-06-29] MEDS: ATORVASTATIN 20 MG TAB PO SCH (20:52)
[2020-06-29] MEDS ORDERED: HEPARIN SOD (PORCINE) 5000UNITS/ML 1ML VIAL/SYRINGE SQ SCH (21:00)
[2020-06-29] MEDS ORDERED: HEPARIN SOD (PORCINE) 5000UNITS/ML 1ML VIAL/SYRINGE As Ordered ONE (22:54)
[2020-06-29] MEDS ORDERED: FUROSEMIDE 20MG/2ML VIAL (J1940) IV ONE (23:00)
[2020-06-29 23:13] LABS: HEMATOCRIT 28.3 % (42.0-52.0); HEMOGLOBIN 8.5 g/dl (13.5-17.5); MEAN CORPUSCULAR HEMOGLOBIN 30.7 pg (27.0-33.0); MEAN CORPUSCULAR VOLUME 102.2 fl (80.0-96.0); PLATELET COUNT, AUTOMATED 459 10^3/uL (150-450); RED BLOOD COUNT 2.77 10^6/uL (4.30-6.10); WHITE BLOOD COUNT 11.9 10^3/uL (4.0-10.0)
[2020-06-29 23:21] LABS: VENOUS BASE EXCESS -14.8 (-2.0-2.0); VENOUS HCO3 16.1 MEQ/L (23.0-27.0); VENOUS PARTIAL PRESSURE CO2 65.7 mmHg (38.0-50.0); VENOUS PH 7.008 UNITS (7.330-7.430); VENOUS STANDARD HCO3 12.7 MEQ/L; VENOUS TOTAL CO2 18.1 MEQ/L (24.0-28.0)
[2020-06-29] MEDS ORDERED: SODIUM BICARBONATE 8.4% INJ 50 ML SYRINGE IV ONE (23:45)
[2020-06-29] MEDS ORDERED: NS 1,000 ML IV ONE (23:45)
--- NOTE | 2020-06-29 23:53 | REPVR ---
PROCEDURE INFORMATION: Exam: XR Chest, 1 View Exam date and time: 06/29/2020 11:10 PM Age: 79 years old Clinical indication: SOB TECHNIQUE: Imaging protocol: XR of the chest Views: 1 view. COMPARISON: 1. CT Chest without contrast 04/14/2020 8:40 AM 2. CR - CHEST 2 VIEW 04/02/2020 12:00:00 PM 3. CR - Chest, 2 view PA, Lat 09/14/2018 6:19:02 PM FINDINGS: Lungs: There is right basilar atelectasis or consolidation. Pleural space: There is a small right pleural effusion. No pneumothorax is identified. Heart/Mediastinum: There is a left-sided pacemaker device in place with intact leads projecting over the expected locations of the right atrium and right ventricle. The cardiac silhouette is borderline in size. Vasculature: There are atherosclerotic calcifications of the aorta. Bones/joints: There are endplate spurs in the thoracic spine. Intraperitoneal space: There are surgical clips in the right upper quadrant of the abdomen. IMPRESSION: Small right pleural effusion with associated right basilar atelectasis or consolidation. Electronically signed by: Brayan Aaron On 06/29/2020 23:52:48 PM
--- NOTE | 2020-06-29 23:53 | REPVR ---
PROCEDURE INFORMATION: Exam: US Duplex Left Lower Extremity Veins, Limited Exam date and time: 06/29/2020 11:19 PM Age: 79 years old Clinical indication: Pain; Leg, lower; Left; Additional info: Swelling TECHNIQUE: Imaging protocol: Real-time Duplex ultrasound of the Left Lower Extremity with 2-D alvarado scale, color Doppler flow and spectral waveform analysis with image documentation. Limited exam focused on the left lower extremity veins. COMPARISON: No relevant prior studies available. FINDINGS: Left deep veins: Unremarkable. The left common femoral, femoral, and popliteal veins are patent without thrombus. Normal compressibility, augmentation response and Doppler waveforms. Left superficial veins: Unremarkable. Saphenofemoral junction is patent without thrombus. Left superficial femoral artery: There is atherosclerotic plaque in the left proximal superficial femoral artery. Soft tissues: Unremarkable. IMPRESSION: No deep vein thrombosis in the left femoral and popliteal veins in the left lower extremity. Electronically signed by: Brayan Aaron On 06/29/2020 23:52:41 PM
[2020-06-29 23:58] LABS: ALBUMIN 2.5 GM/DL (3.2-5.2); BILIRUBIN,TOTAL 0.4 MG/DL (0.2-1.0); CALCIUM LEVEL 8.6 MG/DL (8.8-10.2); CREATININE FOR GFR 2.88 MG/DL (0.70-1.30); GLOMERULAR FILTRATION RATE 22.6 (>42); POTASSIUM SERUM 6.2 MEQ/L (3.5-5.1); TOTAL PROTEIN 5.2 GM/DL (6.4-8.2); TROPONIN I 0.32 NG/ML (< 0.10)
[2020-06-29] MEDS ORDERED: HumuLIN R (REGULAR) INSULIN (NovoLIN R) **100U/ML** PER UNIT IV STA (23:58)
[2020-06-29] MEDS ORDERED: DEXTROSE 50% 50 ML SYRINGE IV STA (23:58)
[2020-06-29] MEDS ORDERED: ALBUTEROL SULFATE 2.5 MG/0.5 ML INH NEB SOLN NEB STA (23:58)
[2020-06-30] MEDS ORDERED: CALCIUM GLUCONATE 1,000 MG in D5W MINI-BAG PLUS 100 ML IV ONE ×2
[2020-06-30] MEDS ORDERED: SCOPOLAMINE 1MG TRANSDERMAL PATCH TOP PRN (00:30)
[2020-06-30] MEDS ORDERED: HYOSCYAMINE SULFATE 0.125 MG SUBL TABLET PO PRN (00:30)
[2020-06-30] MEDS ORDERED: MORPHINE 10MG/0.5ML ORAL CONCENTRATE SOLUTION U/D SL PRN (00:30)
[2020-06-30] MEDS ORDERED: LORazepam 2 MG/ML VIAL IV PRN (00:30)
[2020-06-30] MEDS ORDERED: MORPHINE 2 MG/ML 1ML VIAL (J2270) IV PRN (00:30)
[2020-06-30] MEDS ORDERED: ONDANSETRON 4 MG ORAL DISINTEGRATING TAB PO PRN (00:30)
[2020-06-30] MEDS ORDERED: FLEET ENEMA PR PRN (00:30)
--- NOTE | 2020-06-30 05:29 | ECGEPIP ---
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
--- NOTE | 2020-06-30 07:42 | DS.PDOC ---
Discharge Summary General Date of Admission Jun 17, 2020 at 22:56 Date of Discharge 06/30/2020 Attending Physician: HAYDER ESCALANTE MD Discharge Summary PROCEDURES PERFORMED DURING STAY: None ADMITTING DIAGNOSES: 1. Sepsis 2/2 complicated UTI and CANDI DISCHARGE DIAGNOSES: Hypoxemic respiratory failure presumed 2/2 aspiration in the setting of chronic COPD/emphysema Sepsis 2/2 Scrotal abscess and complicated UTI Upper GIB Acute on chronic kidney failure Metabolic encephalopathy Coronary artery disease. Chronic systolic congestive heart failure. History of hypertension. Dyslipidemia. History of atrial ventricular block with his pacemaker in place. Diabetes mellitus. Emphysema and COPD Dementia. COMPLICATIONS/CHIEF COMPLAINT: UTI. HISTORY OF PRESENT ILLNESS: Mr. Tao was a 79 yo man with a history of COPD with emphysema, CKD3, DM2, CAD, HTN, HLD, HFrEF, AV block s/p PPM, dementia, anxiety, depression and protein calorie malnutrition who was transferred from [facility] where he had presented for acute on chronic altered mental status with worsening confusion on presumed dementia and found to have sepsis 2/2 a complicated UTI and CANDI. HOSPITAL COURSE: Here at [facility] he was additionally found to have a scrotal abscess for which urology was consulted and the abscess was drained on 06/20/2020 and was placed on bactrim from initial empiric ceftriaxone after cultures grew MRSA from the abscess fluid with goal to complete course on 07/02/2020 for a 2 weeks course. His course was c/b UGIB for which general surgery was consulted and he received 1 unit of pRBCs. His bleeding was ultimately designated as not brisk and would warrant outpatient follow up for endoscopy. On 06/28 he developed worsening leukocytosis while on bactrim and he was given IV fluids after which he had a mild hypoxemia and worsening CANDI and the fluids were stopped on 06/29 AM. Given the worsening CANDI and bactrim's capacity to increase Cr by inhibiting the tubular secretion of creatinine without causing real damage to the kidneys vs. true CANDI he was switched to clindamycin to remove confounding phenomenon to the assessment of his renal function. His hypoxemia resolved and he was back on room air for most of 06/29. On the night of 06/29 he became acutely hypoxemic, inc reasingly lethargic and a rapid response was called during which lab evaluation showed severe acidosis with severe hypoxemia and hypercarbia and he was suspected to have aspirated. His /HCP was updated of his changed clinical status and came in to see him at which point the decision was made to make him INTAKE NURSE and he shortly after. DISCHARGE MEDICATIONS: Please see below. ALLERGIES: Please see below. PHYSICAL EXAMINATION ON DISCHARGE: I WAS NOT PRESENT AT TIME OF EXPIRATION. LABORATORY DATA: Please see below. IMAGIN/4: Scrotal US: Right testicle: There is a 1 x 2 mm right testicular cyst. There is a 3 x 2 x 2 mm right testicular cyst. There is no abnormal right testicular mass or abscess. There is normal right testicular flow. Left testicle: There is no abnormal left testicular abnormal mass or abscess. There is a 2 x 2 x 2 mm left testicular cyst. There is normal left testicular flow. Epididymides: There is 6 x 5 x 4 mm right epididymal cyst. There is a 3 x 2 x 3 mm right epididymal cyst. There is a 2 x 2 x 3 mm right epididymal calcification. There is a 7 x 8 by 8 mm left epididymal cyst. There is a 5 x 3 x 4 mm left epididymal cyst. This cyst has a minimal amount of debris within it. Scrotum: There are small bilateral hydroceles. There is abnormal heterogeneous fluid collection type density involving the right scrotum which according to the history is is an abscess. This measures 40 x 22 x 33 mm. IMPRESSION: 1. Right scrotal abscess. 2. Bilateral testicular cysts with normal testicular flow. 3. Bilateral epididymal cysts with a right epididymal calcification. 4. Small bilateral varicoceles. 06/29: LLE doppler venous US: Left deep veins: Unremarkable. The left common femoral, femoral, and popliteal veins are patent without thrombus. Normal compressibility, augmentation response and Doppler waveforms. Left superficial veins: Unremarkable. Saphenofemoral junction is patent without thrombus. Left superficial femoral artery: There is atherosclerotic plaque in the left proximal superficial femoral artery. Soft tissues: Unremarkable. IMPRESSION: No deep vein thrombosis in the left femoral and popliteal veins in the left lower extremity. 06/29: CXR Lungs: There is right basilar atelectasis or consolidation. Pleural space: There is a small right pleural effusion. No pneumothorax is identified. Heart/Mediastinum: There is a left-sided pacemaker device in place with intact leads projecting over the expected locations of the right atrium and right ventricle. The cardiac silhouette is borderline in size. Vasculature: There are atherosclerotic calcifications of the aorta. Bones/joints: There are endplate spurs in the thoracic spine. Intraperitoneal space: There are surgical clips in the right upper quadrant of the abdomen. IMPRESSION: Small right pleural effusion with associated right basilar atelectasis or consolidation. DISPOSITION: 20 . DISCHARGE CONDITION: TIME SPENT ON DISCHARGE: 46 minutes. Vital Signs/I&Os Vital Signs Date Time Temp Pulse Resp B/P (MAP) Pulse Ox O2 Delivery O2 Flow Rate FiO2 06/30/20 01:10 18 06/29/20 20:35 75 103/52 06/29/20 20:00 96.7 91 Nasal Cannula 2.0 I&O- Last 24 Hours up to 6 AM 06/30/20 06:00 Intake Total 840 ml Output Total 0 ml Balance 840 ml Laboratory Data Labs 24H Laboratory Tests 2 06/29/20 11:15: Bedside Glucose (Misc Panel) 133H 06/29/20 15:23: Anion Gap 7L, Glomerular Filtration Rate 29.8L, Calcium Level 8.4L 06/29/20 17:00: Bedside Glucose (Misc Panel) 54L 06/29/20 17:22: Bedside Glucose (Misc Panel) 47L 06/29/20 17:35: Bedside Glucose (Misc Panel) 69L 06/29/20 17:56: Bedside Glucose (Misc Panel) 57L 06/29/20 18:16: Bedside Glucose (Misc Panel) 80L 06/29/20 18:43: Bedside Glucose (Misc Panel) 89 06/29/20 20:45: Bedside Glucose (Misc Panel) 55L 06/29/20 21:20: Bedside Glucose (Misc Panel) 251H 06/29/20 22:33: Bedside Glucose (Misc Panel) 120H 06/29/20 23:01: Nucleated Red Blood Cells % (auto) 2.5H, Anion Gap 12, Glomerular Filtration Rate 22.6L, Lactic Acid Level 7.7*H, Calcium Level 8.6L, Total Bilirubin 0.4, Aspartate Amino Transf (AST/SGOT) 420H, Alanine Aminotransferase (ALT/SGPT) 277H, Alkaline Phosphatase 214H, Troponin I 0.32H, Total Protein 5.2L, Albumin 2.5L, Albumin/Globulin Ratio 0.9 06/29/20 23:06: D-Dimer, Quantitative 552.01H, Blood Gas Bicarbonate Standard 12.7, Venous Blood pH 7.008L, Venous Blood Partial Pressure CO2 65.7H, Venous Blood Partial Pressure O2 66.0H, Venous Blood Total Carbon Dioxide 18.1L, Venous Blood HCO3 16.1L, Venous Blood Oxygen Saturation 81.0H, Venous Blood Base Excess -14.8L CBC/BMP Laboratory Tests 06/29/20 15:23 06/29/20 23:01 FSBS Laboratory Tests Test 06/29/20 11:15 06/29/20 17:00 06/29/20 17:22 06/29/20 17:35 Range/Units Bedside Glucose (Misc Panel) 133 54 47 69 83-110 MG/DL Test 06/29/20 17:56 06/29/20 18:16 06/29/20 18:43 06/29/20 20:45 Range/Units Bedside Glucose (Misc Panel) 57 80 89 55 83-110 MG/DL Test 06/29/20 21:20 06/29/20 22:33 Range/Units Bedside Glucose (Misc Panel) 251 120 83-110 MG/DL Microbiology Microbiology 06/21/20 Blood Culture - Final, Complete NO GROWTH AFTER 5 DAYS 06/21/20 Blood Culture - Final, Complete NO GROWTH AFTER 5 DAYS 06/20/20 Gram Stain - Final, Complete 06/20/20 Abscess Culture - Final, Complete Bacteroides Ovatus 06/20/20 Stool Occult Blood (GRACY) - Final, Complete 06/20/20 Gram Stain - Final, Complete 06/20/20 Wound Culture - Final, Complete Staphylococcus Sp Coag Neg Bacteroides Fragilis Discharge Medications Scheduled Amlodipine Besylate (Amlodipine Besylate) 5 Mg Tablet, 5 MG PO DAILY, (Reported) Aspirin (Aspirin) 81 Mg Tab.chew, 81 MG PO DAILY, (Reported) Atorvastatin Calcium (Atorvastatin Calcium) 40 Mg Tablet, 40 MG PO QHS, (Reported) Carvedilol (Carvedilol) 12.5 Mg Tablet, 12.5 MG PO BID, (Reported) Furosemide (Furosemide) 40 Mg Tablet, 40 MG PO BID, (Reported) Metformin HCl (Metformin HCl) 500 Mg Tablet, 500 MG PO BID, (Reported) Salmeterol/Fluticasone (Advair 500-50 Diskus) 1 Each Blst.w.dev, 1 PUFF INH BID, (Reported) Venlafaxine HCl (Venlafaxine HCl ER) 150 Mg Cap.er.24h, 150 MG PO DAILY, (Reported) Scheduled PRN Albuterol Sulfate (Proair Hfa) 8.5 Gm Hfa.aer.ad, 2 PUFF INH Q4H PRN for SHORTNESS OF BREATH, (Reported) Nitroglycerin (Nitrostat) 0.4 Mg Subl, 0.4 MG SL NITRO PRN for CHEST PAIN, (Reported) Miscellaneous Medications [Patient Comment] , (Reported) PATIENT IS A POOR HISTORIAN. MED REC DONE WITH EXTERNAL MED HISTORY AND PREVIOUS CLINIC VISIT. Allergies Coded Allergies: No Known Allergies (Unverified , 07/18/19) HAYDER ESCALANTE MD Jun 30, 2020 07:42
== END 2020-06-30 04:30 | disposition expired | DRG 871 ==
LOC: M PCU 22:56
PROVIDERS: ADMIT Internal Medicine; ATTEND Internal Medicine
PROC: 30233N1 Transfusion of Nonautologous Red Blood Cells into Peripheral Vein, Percutaneous Approach (ICD-10-PCS; principal; 2020-06-21)
DX: A41.9 Sepsis, unspecified organism (principal); G93.41 Metabolic encephalopathy; J96.01 Acute respiratory failure with hypoxia; N39.0 Urinary tract infection, site not specified; I50.22 Chronic systolic (congestive) heart failure; K92.2 Gastrointestinal hemorrhage, unspecified; N17.9 Acute kidney failure, unspecified; I13.0 Hypertensive heart and chronic kidney disease with heart failure and stage 1 through stage 4 chronic kidney disease, or unspecified chronic kidney disease; F03.91 Unspecified dementia, unspecified severity, with behavioral disturbance; E46 Unspecified protein-calorie malnutrition; N49.2 Inflammatory disorders of scrotum; M62.84 Sarcopenia; N18.30 Chronic kidney disease, stage 3 unspecified; J43.9 Emphysema, unspecified; E78.5 Hyperlipidemia, unspecified; I25.10 Atherosclerotic heart disease of native coronary artery without angina pectoris; Z95.0 Presence of cardiac pacemaker; E11.9 Type 2 diabetes mellitus without complications; F41.9 Anxiety disorder, unspecified; F32.9 Major depressive disorder, single episode, unspecified; Z79.899 Other long term (current) drug therapy; Z87.891 Personal history of nicotine dependence; D53.9 Nutritional anemia, unspecified; B96.29 Other Escherichia coli [E. coli] as the cause of diseases classified elsewhere; Z51.5 Encounter for palliative care